=== PATIENT | male | born 1955 | race Caucasian/White ===

== ENCOUNTER 2019-03-03 05:42 | Emergency (ER) | payer OTHER ==
[~2019-03-03] VITALS: Ht 180.3 cm; Wt 104.3 kg
[2019-03-03] MEDS ORDERED: RT-ALBUTEROL SULF 2.5 MG/3 ML PRE-MIX VIAL INH STA (05:53)
[2019-03-03] MEDS ORDERED: predniSONE 20 MG TAB PO STA (06:29)
[2019-03-03 06:31] LABS: HEMOGLOBIN 15.2 G/DL (13.3-17.7); MEAN PLATELET VOLUME 10.2 FL (7.4-10.4); RED CELL DISTRIBUTION WIDTH 12.1 % (10.0-14.5); WHITE BLOOD COUNT 6.5 10^3/uL (4.3-11.0)
--- NOTE | 2019-03-03 06:47 | ED Cough/URI ---
General Chief Complaint: Respiratory Problems Stated Complaint: SOB Nursing Triage Note: pt states soa started yesterday and worsened around midnight, pt also with 15 minute episode of cp at midnight, sharp, no pain since Sepsis Screen: No Definite Risk History of Present Illness Date Seen by Provider: Mar 03, 2019 Time Seen by Provider: 06:05 63-year-old male denies chronic medical problems or smoking here for shortness of breath since yesterday. Asked about chest pain and admits to less than 15 minutes of sharp chest pain, not pleuritic, not exertional, nonradiating, that occurred at approximately midnight last night. No leg swelling. No hemoptysis. No cough or fever. He has received a breathing treatment in the emergency department prior to my evaluation and says that this made him feel almost completely better. Allergies and Home Medications Allergies Coded Allergies: No Known Drug Allergies (Unverified , 03/03/19) Home Medications Albuterol Sulfate 1 Puff Puff, 2 PUFF IH Q4H 1 PUFF = 90 MCG Prescribed by: MANOLO MAYFIELD on 03/03/19906 Azithromycin 250 Mg Tablet, 250 MG PO DAILY Prescribed by: MANOLO MAYFIELD on 03/03/19908 Metformin HCl 500 Mg Tablet, 500 MG PO BID Prescribed by: MANOLO MAYFIELD on 03/03/19908 Prednisone 20 Mg Tab, 40 MG PO DAILY Prescribed by: MANOLO MAYFIELD on 03/03/19906 Patient Home Medication List Home Medication List Reviewed: Yes Review of Systems Review of Systems Constitutional: no symptoms reported EENTM: no symptoms reported Respiratory: see HPI Cardiovascular: no symptoms reported Gastrointestinal: no symptoms reported Genitourinary: no symptoms reported Musculoskeletal: no symptoms reported Skin: no symptoms reported Psychiatric/Neurological: No Symptoms Reported Hematologic/Lymphatic: No Symptoms Reported Immunological/Allergic: no symptoms reported Past Cptklky-Vayvfq-Siwzak Hx Past Med/Social Hx: Reviewed Nursing Past Med/Soc Hx Patient Social History Alcohol Use: Denies Use Recreational Drug Use: No Smoking Status: Never a Smoker 2nd Hand Smoke Exposure: No Recent Foreign Travel: No Contact w/Someone Who Travel: No Recent Infectious Disease Expo: No Recent Hopitalizations: No Physical Abuse: No Sexual Abuse: No Mistreated: No Fear: No Seasonal Allergies Seasonal Allergies: No Past Medical History Surgeries: Yes Appendectomy Respiratory: No Cardiac: No Neurological: No Genitourinary: No Gastrointestinal: No Musculoskeletal: No Endocrine: No HEENT: No Cancer: No Psychosocial: No Integumentary: No Blood Disorders: No Adverse Reaction/Blood Tranf: No Physical Exam Vital Signs - First Documented 03/03/19 05:55 Temp 98.0 Pulse 94 Resp 20 B/P (MAP) 166/78 (107) Pulse Ox 96 O2 Delivery Room Air Capillary Refill : Less Than 3 Seconds Height: 5'11.00" Weight: 230lbs. oz. 104.218969qo; BMI Method:Stated General Appearance: no apparent distress (just finishing a nebulizer treatment) HEENT: normal ENT inspection Neck: supple Respiratory: other (good air exchange bilaterally, there is mild inspiratory and expiratory wheezing bilaterally) Cardiovascular: normal peripheral pulses, regular rate, rhythm, no edema, no JVD Gastrointestinal: non tender, soft Neurologic/Psychiatric: alert, normal mood/affect, oriented x 3; No abnormal gait Skin: warm/dry Progress/Results/Core Measures Suspected Sepsis Recent Fever Within 48 Hours: No Infection Criteria Present: None New/Unexplained Altered Menta: No Sepsis Screen: No Definite Risk SIRS Temperature:98.0 Pulse: 94 Respiratory Rate: 20 Laboratory Tests 03/03/19 06:20: White Blood Count 6.5 Blood Pressure 166 /78 Mean: 107 Laboratory Tests 03/03/19 06:20: Creatinine 0.67, Platelet Count 214, Total Bilirubin 0.4 Results/Orders Lab Results Laboratory Tests Test 03/03/19 06:20 03/03/19 08:40 03/03/19 08:45 Range/Units White Blood Count 6.5 4.3-11.0 10^3/uL Red Blood Count 5.08 4.35-5.85 10^6/uL Hemoglobin 15.2 13.3-17.7 G/DL Hematocrit 44 40-54 % Mean Corpuscular Volume 86 80-99 FL Mean Corpuscular Hemoglobin 30 25-34 PG Mean Corpuscular Hemoglobin Concent 35 32-36 G/DL Red Cell Distribution Width 12.1 10.0-14.5 % Platelet Count 214 130-400 10^3/uL Mean Platelet Volume 10.2 7.4-10.4 FL Sodium Level 132 L 135-145 MMOL/L Potassium Level 4.5 3.6-5.0 MMOL/L Chloride Level 92 L 98-107 MMOL/L Carbon Dioxide Level 15 L 21-32 MMOL/L Anion Gap 25 H 5-14 MMOL/L Blood Urea Nitrogen 12 7-18 MG/DL Creatinine 0.67 0.60-1.30 MG/DL Estimat Glomerular Filtration Rate > 60 BUN/Creatinine Ratio 18 Glucose Level 425 *H 70-105 MG/DL Calcium Level 9.1 8.5-10.1 MG/DL Corrected Calcium 9.0 8.5-10.1 MG/DL Total Bilirubin 0.4 0.1-1.0 MG/DL Aspartate Amino Transf (AST/SGOT) 17 5-34 U/L Alanine Aminotransferase (ALT/SGPT) 23 0-55 U/L Alkaline Phosphatase 57 40-136 U/L Troponin T 13 <=15 NG/L Pro-B-Type Natriuretic Peptide 25.8 <75.0 PG/ML Total Protein 6.9 6.4-8.2 GM/DL Albumin 4.1 3.2-4.5 GM/DL Glucometer 317 H 70-110 MG/DL Urine Color YELLOW Urine Clarity CLEAR Urine pH 6.0 5-9 Urine Specific [place] 1.010 L 1.016-1.022 Urine Protein NEGATIVE NEGATIVE Urine Glucose (UA) 3+ H NEGATIVE Urine Ketones NEGATIVE NEGATIVE Urine Nitrite NEGATIVE NEGATIVE Urine Bilirubin NEGATIVE NEGATIVE Urine Urobilinogen 0.2 NORMAL MG/DL Urine Leukocyte Esterase NEGATIVE NEGATIVE Urine RBC (Auto) NEGATIVE NEGATIVE My Orders Orders - TRAN,MANOLO T DO Cbc No Diff (03/03/19 06:12) Comprehensive Metabolic Panel (03/03/19 06:12) Chest Pa/Lat (2 View) (03/03/19 06:12) Ekg Tracing (03/03/19 06:12) O2 (03/03/19 06:12) Saline Lock/Iv-Start (03/03/19 06:12) Monitor-Rhythm Ecg Trace Only (03/03/19 06:12) Troponin T (03/03/19 06:12) Probnp Fs (03/03/19 06:12) Prednisone Tablet (Deltasone Tablet) (03/03/19 06:29) Azithromycin Tablet (Zithromax Tablet) (03/03/19 07:15) Ns Iv 1000 Ml (Sodium Chloride 0.9%) (03/03/19 07:02) Ns Iv 1000 Ml (Sodium Chloride 0.9%) (03/03/19 07:04) Insulin (Regular) Human (Humulin R (Per (03/03/19 07:04) Urinalysis Dipstick Only (03/03/19 07:19) Medications Given in ED Current Medications Medications Dose Ordered Sig/Magdalena Route Start Time Stop Time Status Last Admin Dose Admin Azithromycin 500 mg ONCE ONCE PO 03/03/19 07:15 03/03/19 07:16 DC 03/03/19 07:23 500 MG Vital Signs/I&O 03/03/19 05:55 Temp 98.0 Pulse 94 Resp 20 B/P (MAP) 166/78 (107) Pulse Ox 96 O2 Delivery Room Air Capillary Refill : Less Than 3 Seconds Blood Pressure Mean: 107 Progress Note : Progress Note This is a 63-year-old man who presents with wheezing, shortness of breath, improved with albuterol. Found to have incidental new onset diabetes. He has familiarity with treatment/testing for diabetes as his had been diagnosed with diabetes he states. Blood glucose improved with fluids and insulin. I spoke with patient at length about his diagnoses. I prescribed metformin, glucometer, lancets and test strips. Regarding the respiratory complaint I prescribed a modified dose of prednisone, 40 mg just for the next 2 days, as well as an albuterol inhaler that is supposed to be used every 4 hours while awake for the next 5 days. I also felt it was reasonable to continue treatment with azithromycin in this setting, with a 500 mg tablet given in the emergency department and a prescription for 4 more days. He was advised to contact his insurance company to find a local primary care physician with whom to follow up as soon as possible. He had no additional questions. ECG EKG : Comment 0601: Normal sinus rhythm rate of 89. Nonspecific flattening of the T waves in the inferior and lateral leads. Diagnostic Imaging Diagonstic Imaging: Xray Plain Films/CT/US/NM/MRI: chest Comments EP interpretation: Suboptimal inspiratory effort. Trachea is midline, no widened mediastinum, diaphragmatic borders are not obscured/no effusions. Atelectasis versus infiltrate at the left base. No pneumothoraces, no obvious bony abnormalities, Reviewed: Reviewed by Me Departure Impression Primary Impression: Diabetes mellitus, new onset Additional Impression: Wheezing Disposition: HOME, SELF-CARE Condition: Stable Departure-Patient Inst. Referrals: NO,LOCAL PHYSICIAN (PCP) Primary Care Physician Patient Instructions: Type 2 Diabetes, Wheezing Scripts Lancets/Blood Glucose Strips (Fora [id number] Lanct-Str) 1 Each Combo..pkg EACH MC BID PRN for HYPERGLYCEMIA, #1 0 Refills Prov: MANOLO MAYFIELD DO 03/03/19 Blood-Glucose Meter (Blood Glucose Meter) 1 Each Each EACH MC BID PRN for HYPERGLYCEMIA, #1 0 Refills Prov: MANOLO MAYFIELD DO 03/03/19 Metformin HCl (Metformin HCl) 500 Mg Tablet 500 MG PO BID, #60 TAB Prov: MANOLO MAYFIELD DO 03/03/19 Azithromycin (Azithromycin) 250 Mg Tablet 250 MG PO DAILY, #4 TAB 0 Refills Prov: MANOLO MAYFIELD DO 03/03/19 Prednisone (Prednisone) 20 Mg Tab 40 MG PO DAILY for 2 Days, #4 TAB 0 Refills Prov: MANOLO MAYFIELD DO 03/03/19 Albuterol Sulfate (PROAIR HFA) 1 Puff Puff 2 PUFF IH Q4H for 5 Days, #1 INHALER 1 PUFF = 90 MCG Prov: MANOLO MAYFIELD DO 03/03/19 MANOLO MAYFIELD DO Mar 03, 2019 06:47
[2019-03-03 07:01] LABS: BUN/CREATININE RATIO 18; CARBON DIOXIDE 15 MMOL/L (21-32); CHLORIDE 92 MMOL/L (98-107); CREATININE SERUM 0.67 MG/DL (0.60-1.30); GFR ESTIMATED > 60; POTASSIUM 4.5 MMOL/L (3.6-5.0); SODIUM 132 MMOL/L (135-145)
--- NOTE | 2019-03-03 07:01 | NUR ---
report to Jinny
[2019-03-03 07:02] LABS: ALANINE AMINOTRANSFERASE 23 U/L (0-55); ALBUMIN 4.1 GM/DL (3.2-4.5); ALKALINE PHOSPHATASE 57 U/L (40-136); BILIRUBIN,TOTAL 0.4 MG/DL (0.1-1.0); CALCIUM 9.1 MG/DL (8.5-10.1); GLUCOSE 425 MG/DL (70-105); TOTAL PROTEIN 6.9 GM/DL (6.4-8.2)
[2019-03-03] MEDS ORDERED: NS IV 1000 ML 1,000 ML IV STA ×2 (07:02→07:04)
[2019-03-03] MEDS ORDERED: inSUlin (REGULAR) HUMAN 1 UNIT/0.01 ML (CHARGE PER UNIT) IV STA (07:04)
--- NOTE | 2019-03-03 07:08 | Diagnostic Imaging Report ---
INDICATION: Shortness of breath with worsening overnight. COMPARISON: None available. FINDINGS: No airspace consolidations. No pleural effusion or pneumothorax. Heart is normal in size. Normal mediastinal contours. Prominent shadow in the right paratracheal region should relate to normal systemic vasculature. IMPRESSION: No acute cardiopulmonary process. Dictated by: Dictated on workstation # [id number]
[2019-03-03] MEDS ORDERED: AZITHROMYCIN 250 MG TAB (ZITHROMAX) PO ONE (07:15)
[2019-03-03 08:56] LABS: BILIRUBIN,URINE NEGATIVE (NEGATIVE); CLARITY,URINE CLEAR; COLOR,URINE YELLOW; GLUCOSE, URINE (UA) 3+ (NEGATIVE); KETONES,URINE NEGATIVE (NEGATIVE); LEUKOCYTE ESTERASE ,URINE NEGATIVE (NEGATIVE); NITRITE,URINE NEGATIVE (NEGATIVE); PROTEIN,URINE NEGATIVE (NEGATIVE); UROBILINOGEN,URINE 0.2 MG/DL (NORMAL)
[2019-03-03] MEDS ORDERED: RT-ALBUINH IH (09:07)
[2019-03-03] MEDS ORDERED: PRD20T PO (09:07)
[2019-03-03] MEDS ORDERED: METF-397 PO (09:09)
[2019-03-03] MEDS ORDERED: AZIT250T12 PO (09:09)
[2019-03-03] MEDS ORDERED: BLOO1EAC87 MC (09:22)
[2019-03-03] MEDS ORDERED: LANC1COM MC (09:22)
[2019-03-03 09:27] VITALS: BP 142/71
== END 2019-03-03 09:27 | disposition home or self-care (01) ==
LOC: EDUNIT# 05:42 → ER FS 05:45
DX: E11.9 Type 2 diabetes mellitus without complications (principal); R06.2 Wheezing; Z79.84 Long term (current) use of oral hypoglycemic drugs; Z79.52 Long term (current) use of systemic steroids; Z90.49 Acquired absence of other specified parts of digestive tract
CPT/HCPCS: 36415; 71046; 80053; 81002; 82962; 83880; 84484; 85027; 93041

== ENCOUNTER 2019-03-27 13:42 | Emergency (ER) | payer OTHER ==
[~2019-03-27] VITALS: Ht 180.3 cm; Wt 104.3 kg
[~2019-03-27 13:42] MED LIST: AZIT250T12 PO; BLOO1EAC87 MC; LANC1COM MC; METF-397 PO; PRD20T PO; RT-ALBUINH IH
[2019-03-27] MEDS ORDERED: HYDR-34 PO (14:58)
[2019-03-27] MEDS ORDERED: TETANUS,DIPTH,PERTUSS P/F (BOOSTRIX) 0.5 ML VIAL IM ONE (15:00)
[2019-03-27] MEDS ORDERED: HYDROcodone/APAP 7.5 MG/325 MG (LORTAB, LORCET PLUS) TABLET PO ONE (15:00)
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
[2019-03-27] MEDS ORDERED: TBDXOO OP (15:08)
[2019-03-27 15:20] VITALS: BP 157/91
[2019-03-27] MEDS ORDERED: TOBRA/DEXAMETH (TOBRADEX) OPHTH OINT 3.5 GM TUBE OD SCH (17:00)
== END 2019-03-27 15:20 | disposition home or self-care (01) ==
LOC: EDUNIT# 13:42 → ER FS 13:44
DX: S05.01XA Injury of conjunctiva and corneal abrasion without foreign body, right eye, initial encounter (principal); Z79.84 Long term (current) use of oral hypoglycemic drugs; Z79.52 Long term (current) use of systemic steroids; Z79.51 Long term (current) use of inhaled steroids; Z90.49 Acquired absence of other specified parts of digestive tract; X10.2XXA Contact with fats and cooking oils, initial encounter
CPT/HCPCS: 90715; 99283

== ENCOUNTER 2019-11-28 10:27 | Emergency (ER) | payer OTHER ==
[~2019-11-28] VITALS: Ht 180.3 cm; Wt 104.3 kg
[~2019-11-28 10:27] MED LIST changes: +HYDR-34 PO; +TBDXOO OP
[2019-11-28] MEDS ORDERED: methylPREDNISolone 125 MG (Solu-MEDROL) VIAL IV STA (10:33)
--- NOTE | 2019-11-28 10:33 | ED Dyspnea ---
General Stated Complaint: SOA/CHEST PAIN Source of Information: Patient History of Present Illness Date Seen by Provider: Nov 28, 2019 Time Seen by Provider: 10:32 Initial Comments 64-year-old male presents with shortness of breath and chest discomfort. Reports that he started getting short of breath over the weekend and has gotten previously worse. He does have a cough. He has pain in his chest that is worse when he coughs. He denies any fevers or chills. He denies any history of smoking are reactive airway disease. He does not report any fevers. Allergies and Home Medications Allergies Coded Allergies: No Known Drug Allergies (Unverified , 03/03/19) Home Medications Albuterol Sulfate 1 Puff Puff, 2 PUFF IH Q4H 1 PUFF = 90 MCG Prescribed by: BRIDGETTE DE ANDA on 11/28/19 1302 Azithromycin 250 Mg Tablet, 250 MG PO DAILY Prescribed by: MANOLO MAYFIELD on 03/03/19 0909 Doxycycline Hyclate 100 Mg Tablet, 100 MG PO BID Prescribed by: BRIDGETTE DE ANDA on 11/28/19 1302 Hydrocodone Bit/Acetaminophen 1 Ea Tablet, 1 EACH PO Q6H PRN for EYE PAIN Prescribed by: SOULEYMANE CAMPBELL on 03/27/19 1458 Metformin HCl 500 Mg Tablet, 500 MG PO BID Prescribed by: MANOLO MAYFIELD on 03/03/19 0909 Prednisone 20 Mg Tab, 40 MG PO DAILY Prescribed by: BRIDGETTE DE ANDA on 11/28/19 1302 Tobramycin/Dexamethasone 3.5 Gm Oint, 1 APPLIC OP Q4H Prescribed by: SOULEYMANE CAMPBELL on 03/27/19 1508 Patient Home Medication List Home Medication List Reviewed: Yes Review of Systems Review of Systems Constitutional: No chills, No dizziness, No fever EENTM: no symptoms reported Respiratory: cough, short of breath Cardiovascular: see HPI Genitourinary: no symptoms reported Musculoskeletal: no symptoms reported Skin: no symptoms reported Psychiatric/Neurological: No Symptoms Reported Past Jzwhkqv-Dtglfn-Ktrdll Hx Patient Social History 2nd Hand Smoke Exposure: No Recent Foreign Travel: No Contact w/Someone Who Travel: No Recent Hopitalizations: No Seasonal Allergies Seasonal Allergies: No Past Medical History Surgeries: Yes Appendectomy Respiratory: No Cardiac: No Neurological: No Genitourinary: No Gastrointestinal: No Musculoskeletal: No Endocrine: No HEENT: No Cancer: No Psychosocial: No Integumentary: No Blood Disorders: No Adverse Reaction/Blood Tranf: No Physical Exam Vital Signs Vital Signs - First Documented 11/28/19 10:54 Temp 36.4 Pulse 125 Resp 24 B/P (MAP) 172/108 (129) Pulse Ox 96 Capillary Refill : Height, Weight, BMI Height: 5'11.00" Weight: 230lbs. oz. 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 Norm as Tested Skin: Normal Color, Warm/Dry Progress/Results/Core Measures Results/Orders Lab Results Laboratory Tests Test 11/28/19 10:35 Range/Units White Blood Count 9.2 4.3-11.0 10^3/uL Red Blood Count 5.67 4.35-5.85 10^6/uL Hemoglobin 16.6 13.3-17.7 G/DL Hematocrit 48 40-54 % Mean Corpuscular Volume 85 80-99 FL Mean Corpuscular Hemoglobin 29 25-34 PG Mean Corpuscular Hemoglobin Concent 34 32-36 G/DL Red Cell Distribution Width 12.6 10.0-14.5 % Platelet Count 256 130-400 10^3/uL Mean Platelet Volume 9.9 7.4-10.4 FL Neutrophils (%) (Auto) 63 42-75 % Lymphocytes (%) (Auto) 23 12-44 % Monocytes (%) (Auto) 7 0-12 % Eosinophils (%) (Auto) 5 0-10 % Basophils (%) (Auto) 1 0-10 % Neutrophils # (Auto) 5.8 1.8-7.8 X 10^3 Lymphocytes # (Auto) 2.1 1.0-4.0 X 10^3 Monocytes # (Auto) 0.7 0.0-1.0 X 10^3 Eosinophils # (Auto) 0.5 H 0.0-0.3 10^3/uL Basophils # (Auto) 0.1 0.0-0.1 10^3/uL D-Dimer 0.37 0.00-0.49 UG/ML Sodium Level 136 135-145 MMOL/L Potassium Level 4.2 3.6-5.0 MMOL/L Chloride Level 97 L 98-107 MMOL/L Carbon Dioxide Level 22 21-32 MMOL/L Anion Gap 17 H 5-14 MMOL/L Blood Urea Nitrogen 9 7-18 MG/DL Creatinine 0.77 0.60-1.30 MG/DL Estimat Glomerular Filtration Rate > 60 BUN/Creatinine Ratio 12 Glucose Level 321 H 70-105 MG/DL Calcium Level 9.8 8.5-10.1 MG/DL Corrected Calcium 8.5-10.1 MG/DL Total Bilirubin 0.5 0.1-1.0 MG/DL Aspartate Amino Transf (AST/SGOT) 19 5-34 U/L Alanine Aminotransferase (ALT/SGPT) 22 0-55 U/L Alkaline Phosphatase 56 40-136 U/L Troponin I < 0.30 <0.30 NG/ML Pro-B-Type Natriuretic Peptide 22.0 <75.0 PG/ML Total Protein 8.0 6.4-8.2 GM/DL Albumin 4.6 H 3.2-4.5 GM/DL Micro Results Microbiology 11/28/19 Influenza Types A,B Antigen ([place]) - Final, Complete My Orders Orders - BRIDGETTE DE ANDA DO Albuterol/Ipra Inhalation Soln (Duoneb I (11/28/19 10:45) Methylprednisolone Sod Succ (Solu-Medrol (11/28/19 10:33) Svn Small Volume Nebulizer (11/28/19 10:33) Ekg Tracing (11/28/19 10:33) Chest Pa/Lat (2 View) (11/28/19 10:33) Cbc With Automated Diff (11/28/19 10:33) Comprehensive Metabolic Panel (11/28/19 10:33) Influenza A And B Antigens (11/28/19 10:33) Probnp Fs (11/28/19 10:33) Troponin I Fs (11/28/19 10:33) Albuterol Pre-Mix Nebs (Rt) (Proventil (11/28/19 10:57) Svn Small Volume Nebulizer (11/28/19 10:57) Fibrin Degradation Products (11/28/19 11:21) Ed Iv/Invasive Line Start (11/28/19 11:23) Ns Iv 500 Ml (Sodium Chloride 0.9%) (11/28/19 11:23) Ed Iv/Invasive Line Start (11/28/19 12:34) Ns Iv 1000 Ml (Sodium Chloride 0.9%) (11/28/19 12:34) Albuterol/Ipra Inhalation Soln (Duoneb I (11/28/19 12:45) Svn Small Volume Nebulizer (11/28/19 12:34) Medications Given in ED Current Medications Medications Dose Ordered Sig/Magdalena Route Start Time Stop Time Status Last Admin Dose Admin Albuterol/ Ipratropium 3 ml ONCE ONCE INH 11/28/19 10:45 11/28/19 10:46 DC 11/28/19 10:47 3 ML Albuterol/ Ipratropium 3 ml ONCE ONCE INH 11/28/19 12:45 11/28/19 12:46 DC 11/28/19 12:44 3 ML Sodium Chloride 500 ml @ 0 mls/hr Q0M ONCE IV 11/28/19 11:23 11/28/19 11:24 DC 11/28/19 11:48 999 MLS/HR Vital Signs/I&O 11/28/19 10:54 Temp 36.4 Pulse 125 Resp 24 B/P (MAP) 172/108 (129) Pulse Ox 96 Progress Progress Note : Time: 12:57 Progress Note Patient feels significantly better following breathing treatments. Patient remained tachycardic throughout his stay saw discussed with him the need to follow-up outpatient to ensure that this clears up. He will be discharged home with acute bronchitis with azithromycin, steroids and Proventil. he'll return to the ER if needed. Initial ECG Impression Date: Nov 28, 2019 Initial ECG Impression Time: 12:30 Initial ECG Rhythm: S.Tach Comment poor quality ekg, no acute findings pt moving Departure Impression Primary Impression: Bronchitis Disposition: 01 HOME, SELF-CARE Condition: Improved Departure-Patient Inst. Referrals: NO,LOCAL PHYSICIAN (PCP/Family) Primary Care Physician Patient Instructions: Acute Bronchitis Scripts Doxycycline Hyclate (Doxycycline Hyclate) 100 Mg Tablet 100 MG PO BID, #20 TAB 0 Refills Prov: DE ANDA,BRIDGETTE L DO 11/28/19 Prednisone (Prednisone) 20 Mg Tab 40 MG PO DAILY for 2 Days, #6 TAB 0 Refills Prov: DE ANDA,BRIDGETTE L DO 11/28/19 Albuterol Sulfate (PROAIR HFA) 1 Puff Puff 2 PUFF IH Q4H for 7 Days, #1 INHALER 1 PUFF = 90 MCG Prov: BRIDGETTE DE ANDA DO 11/28/19 Work/School Note: Work Release Form Date Seen in the Emergency Department: Nov 28, 2019 Return to Work: Dec 01, 2019 BRIDGETTE DE ANDA DO Nov 28, 2019 10:33
[2019-11-28] MEDS ORDERED: RT-ALBUTEROL/IPRATROPIUM 3 ML (DUONEB) VIAL INH ONE ×2 (10:45→12:45)
[2019-11-28 10:50] LABS: HEMATOCRIT 48 % (40-54); HEMOGLOBIN 16.6 G/DL (13.3-17.7); MEAN CORPUSCULAR HEMOGLOBIN 29 PG (25-34); MEAN CORPUSCULAR HGB CONC 34 G/DL (32-36); MEAN CORPUSCULAR VOLUME 85 FL (80-99); MEAN PLATELET VOLUME 9.9 FL (7.4-10.4); PLATELET COUNT 256 10^3/uL (130-400); RED CELL DISTRIBUTION WIDTH 12.6 % (10.0-14.5); WHITE BLOOD COUNT 9.2 10^3/uL (4.3-11.0)
[2019-11-28 10:51] LABS: BASOPHILS # (AUTO) 0.1 10^3/uL (0.0-0.1); BASOPHILS % (AUTO) 1 % (0-10); EOSINOPHILS # (AUTO) 0.5 10^3/uL (0.0-0.3); EOSINOPHILS % (AUTO) 5 % (0-10); LYMPHOCYTES # (AUTO) 2.1 X 10^3 (1.0-4.0); LYMPHOCYTES % (AUTO) 23 % (12-44); MONOCYTES # (AUTO) 0.7 X 10^3 (0.0-1.0); MONOCYTES % (AUTO) 7 % (0-12); NEUTROPHILS # (AUTO) 5.8 X 10^3 (1.8-7.8); NEUTROPHILS % (AUTO) 63 % (42-75)
[2019-11-28] MEDS ORDERED: RT-ALBUTEROL SULF 2.5 MG/3 ML PRE-MIX VIAL INH STA (10:57)
--- NOTE | 2019-11-28 11:09 | Diagnostic Imaging Report ---
INDICATION: Short of breath, chest pain. COMPARISON: March 03, 2019. TECHNIQUE: Two radiographs of the chest dated November 28, 2019. FINDINGS: The cardiac silhouette and pulmonary vasculature are within normal limits in size. The lungs are clear. No pleural effusion. No pneumothorax. No acute osseous abnormality. IMPRESSION: Stable examination without acute cardiopulmonary abnormality. Dictated by: Dictated on workstation # [id number]
[2019-11-28] MEDS ORDERED: NS IV 500 ML 500 ML IV ONE (11:23)
[2019-11-28 11:35] LABS: BUN/CREATININE RATIO 12; CALCIUM 9.8 MG/DL (8.5-10.1); CARBON DIOXIDE 22 MMOL/L (21-32); CHLORIDE 97 MMOL/L (98-107); CREATININE SERUM 0.77 MG/DL (0.60-1.30); GFR ESTIMATED > 60; GLUCOSE 321 MG/DL (70-105); POTASSIUM 4.2 MMOL/L (3.6-5.0); SODIUM 136 MMOL/L (135-145)
[2019-11-28 11:36] LABS: ALANINE AMINOTRANSFERASE 22 U/L (0-55); ALBUMIN 4.6 GM/DL (3.2-4.5); ALKALINE PHOSPHATASE 56 U/L (40-136); BILIRUBIN,TOTAL 0.5 MG/DL (0.1-1.0)
[2019-11-28] MEDS ORDERED: NS IV 1000 ML 1,000 ML IV SCH (12:34)
[2019-11-28] MEDS ORDERED: RT-ALBUINH IH (13:02)
[2019-11-28] MEDS ORDERED: DOXY100T2 PO (13:02)
[2019-11-28] MEDS ORDERED: PRD20T PO (13:02)
[2019-11-28 13:23] VITALS: BP 149/95
== END 2019-11-28 13:23 | disposition home or self-care (01) ==
LOC: EDUNIT# 10:27 → ER FS 10:29
DX: J40 Bronchitis, not specified as acute or chronic (principal); Z79.84 Long term (current) use of oral hypoglycemic drugs; Z90.49 Acquired absence of other specified parts of digestive tract
CPT/HCPCS: 36415; 71046; 80053; 83880; 84484; 85025; 85379; 87804; 93005; 94640; 96361; 96374

== ENCOUNTER 2021-03-07 05:48 | Inpatient (IN) | payer OTHER ==
[2021-03-07] VITALS (8 sets, daily range): BP systolic 160–181; BP diastolic 83–117
[~2021-03-07] VITALS: Ht 152.4 cm; Wt 102.3 kg
[~2021-03-07 05:48] MED LIST changes: +DOXY100T2 PO
[2021-03-07 06:19] LABS: HEMATOCRIT 43 % (40-54); HEMOGLOBIN 14.9 G/DL (13.3-17.7); LYMPHOCYTES % (AUTO) 36 % (12-44); MEAN CORPUSCULAR HEMOGLOBIN 29 PG (25-34); MEAN CORPUSCULAR HGB CONC 35 G/DL (32-36); MEAN CORPUSCULAR VOLUME 85 FL (80-99); MEAN PLATELET VOLUME 9.5 FL (7.4-10.4); MONOCYTES % (AUTO) 6 % (0-12); NEUTROPHILS % (AUTO) 51 % (42-75); PLATELET COUNT 304 10^3/uL (130-400); WHITE BLOOD COUNT 7.9 10^3/uL (4.3-11.0)
[2021-03-07 06:20] LABS: BASOPHILS # (AUTO) 0.1 10^3/uL (0.0-0.1); BASOPHILS % (AUTO) 1 % (0-10); EOSINOPHILS # (AUTO) 0.3 10^3/uL (0.0-0.3); EOSINOPHILS % (AUTO) 4 % (0-10); LYMPHOCYTES # (AUTO) 2.8 X 10^3 (1.0-4.0); MONOCYTES # (AUTO) 0.5 X 10^3 (0.0-1.0)
[2021-03-07 06:21] LABS: ALANINE AMINOTRANSFERASE 26 U/L (0-55); ALBUMIN 4.1 GM/DL (3.2-4.5); ALKALINE PHOSPHATASE 65 U/L (40-136); BILIRUBIN,TOTAL 0.3 MG/DL (0.1-1.0); BUN/CREATININE RATIO 14; CALCIUM 9.3 MG/DL (8.5-10.1); CARBON DIOXIDE 22 MMOL/L (21-32); CHLORIDE 100 MMOL/L (98-107); CREATININE SERUM 0.81 MG/DL (0.60-1.30); GFR ESTIMATED > 60; GLUCOSE 256 MG/DL (70-105); POTASSIUM 4.3 MMOL/L (3.6-5.0); SODIUM 135 MMOL/L (135-145); TOTAL PROTEIN 7.1 GM/DL (6.4-8.2)
--- NOTE | 2021-03-07 06:26 | Diagnostic Imaging Report ---
INDICATION: Stroke alert. Portable chest 6:08 AM FINDINGS: Heart size and pulmonary vascularity are normal. Lungs are clear. There are no effusions or pneumothoraces. IMPRESSION: Negative chest. Dictated by: Dictated on workstation # [id number]
--- NOTE | 2021-03-07 06:29 | Diagnostic Imaging Report ---
PROCEDURE: CT head wo r/o stroke. TECHNIQUE: Multiple contiguous axial images were obtained through the brain without the use of intravenous contrast. Auto Exposure Controls were utilized during the CT exam to meet ALARA standards for radiation dose reduction. INDICATION: Right upper extremity weakness The ventricles are normal in size, shape and position. There are no masses or hemorrhages. There are no extra-axial fluid collections. Paranasal sinuses are clear. IMPRESSION: Negative CT head. There is no CT evidence of an acute infarct. Dictated by: Dictated on workstation # [id number]
--- NOTE | 2021-03-07 06:32 | ED Neurological Problem ---
General Chief Complaint: Neuro-Stroke Like Symptoms Stated Complaint: POSS STROKE Nursing Triage Note: pt states he went to bed last night around 1999 and woke up around 0400 with right sided tingling and weakness Nursing Sepsis Screen: No Definite Risk Source: patient (JAKE WALTERS MD) History of Present Illness Date Seen by Provider: Mar 07, 2021 Time Seen by Provider: 05:48 Initial Comments 65 yo male presenting with complaints of waking up at 4 am with right sided weakness and tingling. He reports going to bed around 1999 and had no problems then and did not wake up overnight until this am at 4 am. He states that he is right hand dominant has trouble using his right side and right hand. He denies any headache or vision changes. He is not having any chest pain, shortness of breath, nausea or vomiting. He denies having symptoms like this in the past. He denies taking any medications on a daily basis. He has a family history of a younger brother that had a prior stroke. He believes that he may have high blood pressure but does not follow with a provider and does not take any medication for it. He denies any difficulty with vision, speech or swallowing. Associated Symptoms: No confusion, No fatigue, No fever/chills, No insomnia, No loss of consciousness, No muscle spasms, No nausea/vomiting, No numbness in legs/feet, No paresthesia, No ringing in ears, No seizures, No sleepy, No slurred speech; tingling in legs/feet (right side face, arm, leg), trouble walking (due to weakness on right side); No vision changes; weakness (right side) (JAKE WALTERS MD) Allergies and Home Medications Allergies Coded Allergies: No Known Drug Allergies (Unverified , 03/07/21) Home Medications No Active Prescriptions or Reported Meds Patient Home Medication List Home Medication List Reviewed: Yes (JAKE WALTERS MD) Review of Systems Review of Systems Constitutional: No chills, No diaphoresis, No fever Eyes: Denies Blurred Vision, Denies Vision Changes Ears, Nose, Mouth, Throat: denies ear pain, denies ear discharge, denies nose discharge, denies epistaxis Respiratory: No cough, No short of breath Cardiovascular: No chest pain, No edema, No palpitations Gastrointestinal: No nausea, No vomiting Genitourinary: no symptoms reported Musculoskeletal: muscle weakness (right arm, hand and leg) Skin: no symptoms reported Psychiatric/Neurological: Denies Headache; Tingling (right side of face, right arm), Weakness (right arm and leg) Endocrine: No Symptoms Reported Hematologic/Lymphatic: No Symptoms Reported (JAKE WALTERS MD) Past Uzjszvq-Baviss-Zctcds Hx Past Med/Social Hx: Reviewed Nursing Past Med/Soc Hx (JAKE WALTERS MD) Patient Social History Alcohol Use: Denies Use 2nd Hand Smoke Exposure: No Recent Infectious Disease Expo: No Recent Hopitalizations: No (JAKE WALTERS MD) Seasonal Allergies Seasonal Allergies: No (JAKE WALTERS MD) Past Medical History Surgeries: Yes (Carpal Tunnel - right) Appendectomy Respiratory: No Cardiac: Yes Hypertension Neurological: No Genitourinary: No Gastrointestinal: No Musculoskeletal: No Endocrine: No HEENT: No Cancer: No Psychosocial: No Integumentary: No Blood Disorders: No Adverse Reaction/Blood Tranf: No (JAKE WALTERS MD) Physical Exam Vital Signs Vital Signs - First Documented 03/07/21 06:11 Temp 36.2 Pulse 89 Resp 18 B/P (MAP) 181/92 (121) Pulse Ox 97 O2 Delivery Room Air Capillary Refill : Less Than 3 Seconds Height, Weight, BMI Height: 5'11.00" Weight: 230lbs. oz. 104.120948px; 32.00 BMI Method:Stated General Appearance: WD/WN, mild distress (distressed that he can not use his right hand and right side like normal) HEENT: PERRL/EOMI, pharynx normal Neck: non-tender, full range of motion, supple, normal inspection; No carotid bruit Respiratory: chest non-tender, lungs clear, normal breath sounds, no respiratory distress, no accessory muscle use Cardiovascular: normal peripheral pulses, regular rate, rhythm Peripheral Pulses: 2+ Carotid (R), 2+ Carotid (L), 2+ Radial Pulses (R), 2+ Radial Pulses (L) Gastrointestinal: normal bowel sounds, non tender, soft, no pulsatile mass Extremities: non-tender, no pedal edema, normal capillary refill, other (decreased range of motion to right hand with decreased brine purifier ) Neurologic/Psychiatric: alert, oriented x 3 Crainal Nerves: normal hearing, normal speech, PERRL, facial asymmetry, facial droop (left side drooping more than the right), facial paresthesias (tingling to right side of face) Motor/Sensory: sensory deficit (tingling to right side of face and arm compared to left) Skin: normal color, warm/dry (JAKE WALTERS MD) Vital Signs Vital Signs - First Documented 03/07/21 06:11 Temp 36.2 Pulse 89 Resp 18 B/P (MAP) 181/92 (121) Pulse Ox 97 O2 Delivery Room Air ([facility]) Stroke Onset of Symptoms Symptoms onset unknown: Yes (went to bed normal at 1999, woke up at 4 am with r ight sided weak/tingling) (JAKE WALTERS MD) NIH Stroke Scale Assessment Level of Consciousness: 0=Alert (0), Level of Consciousness-Questions: 0=Answers both month/age (0), LOC Commands: 0=Performs both tasks (0), Visual Zaragoza: 0=No visual loss (0), Facial Movement (Facial Paresis): 1=Minor paralysis (1), Motor Function-Arms Right: 0=No drift (0), Motor Function-Arms Left: 0=No drift (0), Motor Function-Legs Right: 0=No drift (0), Motor Function-Legs Left: 0=No drift (0), Limb Ataxia: 0=Absent (0), Sensory: 1=Mild to Moderate loss (1), Best Language: 0=No aphasia (0), Dysarthria: 0=Normal (0), Extinction & Inattention: 0=No abnormality (0), Total: 2 Stroke Thrombolytic Exclusion Age 18 or Over: Yes Acute intenal hemorrhage: No History of CVA: No Uncontrolled Coagulation Defec: No Intracranial Hemorrhage: No Severe Hypertension: No GI or Bleed: No Subarachnoid Hemorrhage: No Intracranial Neoplasm/Aneurysm: No Oral Anticoagulants: No Surgery or Trauma: No Puncture of Non-Compressible V: No Recent CPR: No Diabetic Hemorrhagic Retinopat: No Organ Biopsy: No Recent Obstetric Delivery: No Glucose: No Significant Hepatic Dysfunctio: No NIH Stoke Scale >22: No Bacterial Endocarditis: No Pericarditis: No Improving Symptoms: No Platelets: No TPA Contraindication: Yes (unknown time of onset, low NIHSS) (JAKE WALTERS MD) IV - TPa Received IV - TPa Procedure Performed?: No (Contraindicated with unknown time of onset and low NIHSS d/w Neuro Dr. Fuller [facility]) (JAKE WALTERS MD) Progress/Results/Core Measures Results/Orders Lab Results Laboratory Tests Test 03/07/21 05:00 03/07/21 05:50 03/07/21 05:54 Range/Units White Blood Count 7.9 4.3-11.0 10^3/uL Red Blood Count 5.06 4.35-5.85 10^6/uL Hemoglobin 14.9 13.3-17.7 G/DL Hematocrit 43 40-54 % Mean Corpuscular Volume 85 80-99 FL Mean Corpuscular Hemoglobin 29 25-34 PG Mean Corpuscular Hemoglobin Concent 35 32-36 G/DL Red Cell Distribution Width 12.3 10.0-14.5 % Platelet Count 304 130-400 10^3/uL Mean Platelet Volume 9.5 7.4-10.4 FL Immature Granulocyte % (Auto) 3 % Neutrophils (%) (Auto) 51 42-75 % Lymphocytes (%) (Auto) 36 12-44 % Monocytes (%) (Auto) 6 0-12 % Eosinophils (%) (Auto) 4 0-10 % Basophils (%) (Auto) 1 0-10 % Neutrophils # (Auto) 4.0 1.8-7.8 X 10^3 Lymphocytes # (Auto) 2.8 1.0-4.0 X 10^3 Monocytes # (Auto) 0.5 0.0-1.0 X 10^3 Eosinophils # (Auto) 0.3 0.0-0.3 10^3/uL Basophils # (Auto) 0.1 0.0-0.1 10^3/uL Immature Granulocyte # (Auto) 0.2 H 0.0-0.1 10^3/uL Prothrombin Time 13.2 12.2-14.7 SEC INR Comment 1.0 0.8-1.4 Activated Partial Thromboplast Time 26 24-35 SEC Sodium Level 135 135-145 MMOL/L Potassium Level 4.3 3.6-5.0 MMOL/L Chloride Level 100 98-107 MMOL/L Carbon Dioxide Level 22 21-32 MMOL/L Anion Gap 13 5-14 MMOL/L Blood Urea Nitrogen 11 7-18 MG/DL Creatinine 0.81 0.60-1.30 MG/DL Estimat Glomerular Filtration Rate > 60 BUN/Creatinine Ratio 14 Glucose Level 256 H 70-105 MG/DL Calcium Level 9.3 8.5-10.1 MG/DL Corrected Calcium 9.2 8.5-10.1 MG/DL Total Bilirubin 0.3 0.1-1.0 MG/DL Aspartate Amino Transf (AST/SGOT) 19 5-34 U/L Alanine Aminotransferase (ALT/SGPT) 26 0-55 U/L Alkaline Phosphatase 65 40-136 U/L Troponin I < 0.30 <0.30 NG/ML Total Protein 7.1 6.4-8.2 GM/DL Albumin 4.1 3.2-4.5 GM/DL Glucometer 241 H 70-110 MG/DL My Orders Orders - ENJAKE GODDARD MD Chest 1 View Ap/Pa Only (03/07/21 05:50) Ekg Tracing (03/07/21 05:50) Ct Head Wo-R/O Stroke (03/07/21 05:50) Accucheck Stat ONCE (03/07/21 05:50) Vital Signs Stroke Patient Q15M (03/07/21 05:50) Intake & Output 06,14,22 (03/07/21 05:50) Dysphagia Screening Tool (03/07/21 05:50) Partial Thromboplastin Time (03/07/21 05:50) Nothing By Mouth (03/07/21 Breakfast) Ed Iv/Invasive Line Start (03/07/21 05:50) O2 (03/07/21 05:50) Monitor-Rhythm Ecg Trace Only (03/07/21 05:50) Cbc With Automated Diff (03/07/21 05:50) Comprehensive Metabolic Panel (03/07/21 05:50) Troponin I Fs (03/07/21 05:50) Urinalysis (03/07/21 05:50) Protime With Inr (03/07/21 05:50) Ct Angio Head/Neck (03/07/21 07:20) Iohexol Injection (Omnipaque 350 Mg/Ml 1 (03/07/21 07:30) Received Contrast (Hold Metformin- Contr (03/07/21 07:30) Sodium Chloride Flush (Catheter Flush Sy (03/07/21 07:30) Ns (Ivpb) (Sodium Chloride 0.9% Ivpb Bag (03/07/21 07:30) Iohexol Injection (Omnipaque 350 Mg/Ml 1 (03/07/21 08:00) Received Contrast (Hold Metformin- Contr (03/07/21 08:00) Medications Given in ED Current Medications Medications Dose Ordered Sig/Magdalena Route Start Time Stop Time Status Last Admin Dose Admin Iohexol 75 ml ONCE ONCE IV 03/07/21 08:00 03/07/21 08:01 03/07/21 07:55 75 ML Sodium Chloride 10 ml NEEDED PRN IV 03/07/21 07:30 03/07/21 07:55 10 ML Sodium Chloride 100 ml ONCE ONCE IV 03/07/21 07:30 03/07/21 07:31 DC 03/07/21 07:55 100 ML Vital Signs/I&O 03/07/21 06:11 Temp 36.2 Pulse 89 Resp 18 B/P (MAP) 181/92 (121) Pulse Ox 97 O2 Delivery Room Air Blood Pressure Mean: 121 (JAKE WALTERS MD) Lab Results Laboratory Tests Test 03/07/21 05:00 03/07/21 05:50 03/07/21 05:54 Range/Units White Blood Count 7.9 4.3-11.0 10^3/uL Red Blood Count 5.06 4.35-5.85 10^6/uL Hemoglobin 14.9 13.3-17.7 G/DL Hematocrit 43 40-54 % Mean Corpuscular Volume 85 80-99 FL Mean Corpuscular Hemoglobin 29 25-34 PG Mean Corpuscular Hemoglobin Concent 35 32-36 G/DL Red Cell Distribution Width 12.3 10.0-14.5 % Platelet Count 304 130-400 10^3/uL Mean Platelet Volume 9.5 7.4-10.4 FL Immature Granulocyte % (Auto) 3 % Neutrophils (%) (Auto) 51 42-75 % Lymphocytes (%) (Auto) 36 12-44 % Monocytes (%) (Auto) 6 0-12 % Eosinophils (%) (Auto) 4 0-10 % Basophils (%) (Auto) 1 0-10 % Neutrophils # (Auto) 4.0 1.8-7.8 X 10^3 Lymphocytes # (Auto) 2.8 1.0-4.0 X 10^3 Monocytes # (Auto) 0.5 0.0-1.0 X 10^3 Eosinophils # (Auto) 0.3 0.0-0.3 10^3/uL Basophils # (Auto) 0.1 0.0-0.1 10^3/uL Immature Granulocyte # (Auto) 0.2 H 0.0-0.1 10^3/uL Prothrombin Time 13.2 12.2-14.7 SEC INR Comment 1.0 0.8-1.4 Activated Partial Thromboplast Time 26 24-35 SEC Sodium Level 135 135-145 MMOL/L Potassium Level 4.3 3.6-5.0 MMOL/L Chloride Level 100 98-107 MMOL/L Carbon Dioxide Level 22 21-32 MMOL/L Anion Gap 13 5-14 MMOL/L Blood Urea Nitrogen 11 7-18 MG/DL Creatinine 0.81 0.60-1.30 MG/DL Estimat Glomerular Filtration Rate > 60 BUN/Creatinine Ratio 14 Glucose Level 256 H 70-105 MG/DL Calcium Level 9.3 8.5-10.1 MG/DL Corrected Calcium 9.2 8.5-10.1 MG/DL Total Bilirubin 0.3 0.1-1.0 MG/DL Aspartate Amino Transf (AST/SGOT) 19 5-34 U/L Alanine Aminotransferase (ALT/SGPT) 26 0-55 U/L Alkaline Phosphatase 65 40-136 U/L Troponin I < 0.30 <0.30 NG/ML Total Protein 7.1 6.4-8.2 GM/DL Albumin 4.1 3.2-4.5 GM/DL Glucometer 241 H 70-110 MG/DL Medications Given in ED Current Medications Medications Dose Ordered Sig/Magdalena Route Start Time Stop Time Status Last Admin Dose Admin Iohexol 75 ml ONCE ONCE IV 03/07/21 08:00 03/07/21 08:01 DC 03/07/21 07:55 75 ML Sodium Chloride 10 ml NEEDED PRN IV 03/07/21 07:30 03/07/21 07:55 10 ML Sodium Chloride 100 ml ONCE ONCE IV 03/07/21 07:30 03/07/21 07:31 DC 03/07/21 07:55 100 ML Vital Signs/I&O 4/8/21 06:11 Temp 36.2 Pulse 89 Resp 18 B/P (MAP) 181/92 (121) Pulse Ox 97 O2 Delivery Room Air (DEL RIO,BRIDGETTE Reynolds DO) [facility] Bedside Testing Finger Stick Blood Glucose: 214 (JAKE WALTERS MD) Progress Progress Note #1: Progress Note NIH stroke scale is 2 with 1 off for decreased sensation in his face and arm and 1 off for facial droop. He has normal sinus rhythm without ectopy. His blood pressure is 159/85. He denies any pain. His time of onset of symptoms is unknown for sure. Will obtain CT of his head to evaluate for possible intracranial hemorrhage or stroke and check labs as well as chest x-ray and EKG. Placed on cardiac telemetry monitoring for his stroke symptoms of decreased sensation and weakness of the right side. Initially he is sinus rhythm in the 80s for his heart rate without ectopy. Differential diagnosis includes acute stroke, hypertensive emergency, brain mass, electrolyte imbalance, myocardial infarction, pulmonary embolism, spinal cord lesion Progress Note #2: Time: 07:01 Progress Note labs stable other than elevated glucose. He had no acute stroke or abnormality on his CT head. His chest x-ray was clear. His electrocardiogram did not show any acute abnormality. He remains in a sinus rhythm without ectopy on his telemetry monitoring. Discussed with Dr. Fuller the education faculty member stroke Neurologist from [facility] and she advised the patient is not within the TPA window. He would not be a TPA candidate between the unknown time of onset as well as low NIH stroke scale. His next step would be dependent on what a CT angiogram shows. If he has a large vessel occlusion then interventional radiology would be the next treatment. However it is unlikely that he would have a large vessel occlusion with his minimal symptoms of a low NIH stroke scale. If the patient is adamant that he would like to go to the large stroke center such as he could be directly transferred there and the CT angiogram could be done there and further treatment as directed otherwise he could have a local CT angiogram done here and if no large vessel occlusion he could be admitted locally for PT and OT and medical management. Discussed options with the patient and he would prefer to not be admitted to if at all possible. He is amenable to being admitted locally. We will add on a CT angiogram to look for large vessel occlusion. Provided this is negative will admit to [place] [facility]. [id number] Argueta with hospitalist service of the patient and possible admit depending on the CT angio Head and neck results. Also updated Dr. Del Rio as the oncoming ED provider for the patient. (JAKE WALTERS MD) Initial ECG Impression Date: Mar 07, 2021 Initial ECG Impression Time: 05:59 Initial ECG Rate: 94 Initial ECG Rhythm: Normal Sinus Initial ECG Comparisson: No Previous ECG Available Comment Normal sinus rhythm with a heart rate of 94 bpm. PVCs present. IN interval is [address] elevation. QT interval 351 ms with a QTc interval 439 ms. There is no prior tracing available for comparison. (JAKE WALTERS MD) Diagnostic Imaging Diagonstic Imaging: CT Plain Films/CT/US/NM/MRI: head Comments NAME: BOWEN VALE [employer] REC#: [id number] PT STATUS: REG ER : 1955 PHYSICIAN: JAKE WALTERS MD ADMIT DATE: 03/07/21/ER FS Signed Date of Exam:03/07/21 CT HEAD WO-R/O STROKE PROCEDURE: CT head wo r/o stroke. TECHNIQUE: Multiple contiguous axial images were obtained through the brain without the use of intravenous contrast. Auto Exposure Controls were utilized during the CT exam to meet ALARA standards for radiation dose reduction. INDICATION: Right upper extremity weakness The ventricles are normal in size, shape and position. There are no masses or hemorrhages. There are no extra-axial fluid collections. Paranasal sinuses are clear. IMPRESSION: Negative CT head. There is no CT evidence of an acute infarct. Dictated by: Dictated on workstation # [id number] Dict: 03/07/21626 Trans: 03/07/21627 [id number] Interpreted by: LIVAN JUNG MD Electronically signed by: LIVAN JUNG MD 03/07/21627 Diagonstic Imaging: Xray Plain Films/CT/US/NM/MRI: chest Comments [facility] [place], [place] NAME: IMTIAZ VALEHERCAMOSHOP REC#: [id number] PT STATUS: REG ER : 1955 PHYSICIAN: JAKE WALTERS MD ADMIT DATE: 03/07/21/ER FS Draft Date of Exam:03/07/21 CHEST 1 VIEW AP/PA ONLY INDICATION: Stroke alert. Portable chest 6:08 AM FINDINGS: Heart size and pulmonary vascularity are normal. Lungs are clear. There are no effusions or pneumothoraces. IMPRESSION: Negative chest. Dictated on workstation # [id number] Dict: 03/07/21624 Trans: 03/07/21625 [id number] Interpreted by: LIVAN JUNG MD Electronically signed by: (JAKE WALTERS MD) Diagonstic Imaging: CT Plain Films/CT/US/NM/MRI: head Comments [facility] [place] NAME: BOWEN VALE REC#: [id number] PT STATUS: REG ER : 1955 PHYSICIAN: JAKE WALTERS MD ADMIT DATE: 03/07/21/ER FS Draft Date of Exam:03/07/21 CT ANGIO HEAD/NECK PROCEDURE: CT angiography of the head and CT angiography of the neck with and without contrast. TECHNIQUE: Contiguous noncontrast images were obtained from the skull base through the vertex. After intravenous contrast administration, helical CT angiography of the neck was performed. Source data was reformatted into 3D MIP projections. Delayed post contrast acquisition was also obtained. Auto Exposure Controls were utilized during the CT exam to meet ALARA standards for radiation dose reduction. INDICATION: Right-sided weakness. FINDINGS: There is a three-vessel branching pattern to the aortic arch. Right and left common carotid arteries appear patent. Carotid bifurcations are unremarkable. Both internal carotid arteries are mildly tortuous but appear to be widely patent to the skull base. The vertebral arteries are codominant. The vertebral arteries appear to be patent. Basilar artery appears to be patent. There is a patent P-comm with a origin right posterior cerebral artery. Left posterior cerebral artery appears to be patent. The M1 and M2 branches of the middle cerebral arteries appear to be widely patent. Right and left anterior cerebral arteries appear to be patent. No thromboembolism or large branch occlusion is detected. IMPRESSION: Unremarkable CT angiogram of the head and neck. No intracranial stenosis or large branch occlusion is identifie (BRIDGETTE DEL RIO DO) CT Read Date: Mar 07, 2021 CT Read Time: 06:27 CT Results/Progress Notes NAME: BOWEN VALE REC#: [id number] PT STATUS: REG ER : 1955 PHYSICIAN: JAKE WALTERS MD ADMIT DATE: 03/07/21/ER FS Signed Date of Exam:03/07/21 CT HEAD WO-R/O STROKE PROCEDURE: CT head wo r/o stroke. TECHNIQUE: Multiple contiguous axial images were obtained through the brain without the use of intravenous contrast. Auto Exposure Controls were utilized during the CT exam to meet ALARA standards for radiation dose reduction. INDICATION: Right upper extremity weakness The ventricles are normal in size, shape and position. There are no masses or hemorrhages. There are no extra-axial fluid collections. Paranasal sinuses are clear. IMPRESSION: Negative CT head. There is no CT evidence of an acute infarct. Dictated by: Dictated on workstation # [id number] Dict: 03/07/21626 Trans: 03/07/21627 TB [id number] Interpreted by: LIVAN JUNG MD Electronically signed by: LIVAN JUNG MD 03/07/21627 (JAKE WALTERS MD) Transfer of Care Time: 08:00 Care transferred to: Dr. Del Rio (JAKE WALTERS MD) Departure Communication (Admissions) Time/Spoke to Admitting Phy: 07:30 d/w Dr. Argueta that patient would be admitted at [facility] [address] for CVA with right sided weakness so he could work with PT/OT since he is right hand dominant. He would also get medical evaluation and management for risk factors for stroke. This is provided his CT angiogram is not showing a large vessel occlusion that might require Interventional Radiology. Dr. Del Rio will follow up on this study result and let her know for the admit. (JAKE WALTERS MD) Impression Primary Impression: Cerebrovascular accident due to cerebral artery occlusion Additional Impressions: Acute right-sided muscle weakness Hyperglycemia Disposition: 30 STILL A PATIENT Condition: Stable Admissions Decision to Admit Reason: Admit from ER (General) Decision to Admit/Date: Mar 07, 2021 Time/Decision to Admit Time: 08:30 (JAKE WALTERS MD) Departure-Patient Inst. Referrals: NO,LOCAL PHYSICIAN (PCP/Family) Primary Care Physician Scripts No Active Prescriptions or Reported Meds JAKE WALTERS MD Mar 07, 2021 06:32 BRIDGETTE DEL RIO DO Mar 07, 2021 08:52
[2021-03-07 06:41] LABS: PROTHROMBIN TIME PATIENT 13.2 SEC (12.2-14.7)
[2021-03-07] MEDS ORDERED: IOHEXOL 350 MG/ML 100 ML (OMNIPAQUE 350) VIAL IV ONE (07:30)
[2021-03-07] MEDS ORDERED: CATHETER FLUSH 10 ML SYR IV PRN (07:30)
[2021-03-07] MEDS ORDERED: HOLD METFORMIN - RECEIVED CONTRAST 20 ML VIAL IV SCH ×2 (07:30→08:00)
[2021-03-07] MEDS ORDERED: NS 100 ML (IVPB) BAG IV ONE (07:30)
[2021-03-07] MEDS ORDERED: IOHEXOL 350 MG/ML 150 ML (OMNIPAQUE 350) VIAL IV ONE (08:00)
--- NOTE | 2021-03-07 08:32 | Diagnostic Imaging Report ---
PROCEDURE: CT angiography of the head and CT angiography of the neck with and without contrast. TECHNIQUE: Contiguous noncontrast images were obtained from the skull base through the vertex. After intravenous contrast administration, helical CT angiography of the neck was performed. Source data was reformatted into 3D MIP projections. Delayed post contrast acquisition was also obtained. Auto Exposure Controls were utilized during the CT exam to meet ALARA standards for radiation dose reduction. INDICATION: Right-sided weakness. FINDINGS: There is a three-vessel branching pattern to the aortic arch. Right and left common carotid arteries appear patent. Carotid bifurcations are unremarkable. Both internal carotid arteries are mildly tortuous but appear to be widely patent to the skull base. The vertebral arteries are codominant. The vertebral arteries appear to be patent. Basilar artery appears to be patent. There is a patent P-comm with a origin right posterior cerebral artery. Left posterior cerebral artery appears to be patent. The M1 and M2 branches of the middle cerebral arteries appear to be widely patent. Right and left anterior cerebral arteries appear to be patent. No thromboembolism or large branch occlusion is detected. IMPRESSION: Unremarkable CT angiogram of the head and neck. No intracranial stenosis or large branch occlusion is identified. Dictated by: Dictated on workstation # [id number]
[2021-03-07] MEDS ORDERED: ONDANSETRON 4 MG/2 ML (SDV) Z0FRAN IV PRN (12:30)
[2021-03-07] MEDS ORDERED: BENZONATATE 100 MG (TESSALON) CAPSULE PO PRN (12:30)
[2021-03-07] MEDS ORDERED: ACETAMINOPHEN 325 MG TABLET PO PRN (12:30)
[2021-03-07] MEDS ORDERED: MILK OF MAGNESIA 400 MG/5 ML 30 ML UDC PO PRN ×2 (12:30→13:30)
[2021-03-07] MEDS ORDERED: ANTACID SUSP 30 ML UDC (MYLANTA) PO PRN (12:30)
[2021-03-07] MEDS ORDERED: BISACODYL 10 MG SUPP (DULCOLAX) PR PRN (13:30)
--- NOTE | 2021-03-07 13:44 | Occ Therapy Progress Note ---
Therapy Progress Note OT orders received and chart reviewed. Pt admitted on this date with possible CVA, although CT scans unremarkable at this time. Per notes pt's BP and HR high (BP 181/117, HR 102). OT will hold on this date and evaluate tomorrow. ZAIRA ELDER OT Mar 07, 2021 13:44
[2021-03-07 13:48] LABS: TRIGLYCERIDES 199 MG/DL (<150); VLDL CHOLESTEROL 40 MG/DL (5-40)
[2021-03-07 13:53] LABS: CHOLESTEROL 175 MG/DL (< 200)
[2021-03-07 13:54] LABS: HDL CHOLESTEROL 36 MG/DL (40-60)
[2021-03-07] MEDS: CATHETER FLUSH 10 ML SYR IV SCH (14:08)
--- NOTE | 2021-03-07 14:13 | Diagnostic Imaging Report ---
PROCEDURE: MR imaging of the brain without contrast. TECHNIQUE: Multiplanar, multisequence MR imaging of the brain was performed without contrast. INDICATION: Stroke symptoms FINDINGS: The ventricles and sulci are within normal limits. There is no hydrocephalus. There is no midline shift. There is no mass, hemorrhage or extra-axial fluid collection. There are no areas of diffusion restriction appreciated to suggest an acute CVA. The frontal, ethmoid, sphenoid and maxillary sinuses are clear apart from small mucous retention cyst and/or polyp in the left maxillary sinus. Mastoid air cells are clear. Globes and intraorbital structures are unremarkable IMPRESSION: Unremarkable MRI brain. Dictated by: Dictated on workstation # [id number]
--- NOTE | 2021-03-07 14:31 | Speech Therapy Progress Note ---
Therapy Progress Note ST received orders for evaluation. ST attempted to complete evaluation, however the patient was out of the room for MRI. ST evaluation will be completed in the AM. SHERON KNOX Mar 07, 2021 14:31
--- NOTE | 2021-03-07 14:33 | Physical Therapy Progress Note ---
Therapy Progress Note Patient having testing performed this p.m. to determine cause of symptoms. PT will initiate treatment in a.m. RN notified. BENEDICTO MÉNDEZ PT Mar 07, 2021 14:33
--- NOTE | 2021-03-07 14:40 | History & Physical-Hospitalist ---
History of Present Illness HPI/Chief Complaint Pt is a 65yoCM who has not seen a doctor in years who presented to ER due to right sided weakness. 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 He was admitted to rule out stroke. On my exam he denies any lower extremity symptoms and but now has some deficits in his left hand as well though right is more pronounced. He indicates that he did have a fall around 1-2 weeks ago down his basement stairs. He felt find after that but thinks this may be related. He denies any numbness, tingling, pain, incontinence. Source: patient Date Seen 03/07/21 Time Seen by a Provider: 14:28 Attending Physician Tone Argueta MD PCP No,Local Physician Referring Physician Date of Admission Mar 07, 2021 at 12:14 Home Medications & Allergies Home Medications Reviewed patient Home Medication Reconciliation performed by pharmacy medication reconciliations hearing aid technician and/or nursing. Patients Allergies have been reviewed. Allergies Allergies Coded Allergies No Known Drug Allergies (Unverified03/07/21) Patient Social History Marrital Status: single Tobacco Use?: No Smoking Status: Smoker Current Status UNK Use of E-Cig and/or Vaping dev: No Substance use?: Yes Substance type: Caffeine DR PEPPER-12 OZ Substance frequency: Daily Alcohol Use?: No Pt stated abuse/neglect: No Immunizations Up To Date Influenza Vaccine Up-to-Date: No; Not Current First/Initial COVID19 Vaccinat: Tetanus Booster (TDap): Less Than 5 Years Hepatitis A: No Hepatitis B: No TB Skin Test: None Current Status Do you have an Advance Directi: No Communicates: Verbally Primary Language: Tamazight Preferred Spoken Language: Tamazight Is interpretation needed?: No Implanted or Applied Medical D: None Review of Systems Constitutional: No chills, No fever EENTM: No ear pain, No hoarseness, No nose congestion, No throat pain Respiratory: No cough, No dyspnea on exertion, No short of breath Cardiovascular: No chest pain, No edema, No Hx of Intervention, No palpitations Gastrointestinal: No abdominal pain, No constipation, No diarrhea, No nausea, No vomiting Genitourinary: No dysuria, No frequency, No incontinence Musculoskeletal: see HPI Skin: no symptoms reported Psychiatric/Neurological: See HPI Physical Exam Physical Exam Vital Signs Vital Signs - First Documented 03/07/21 06:11 Temp 36.2 Pulse 89 Resp 18 B/P (MAP) 181/92 (121) Pulse Ox 97 O2 Delivery Room Air Capillary Refill : Less Than 3 Seconds Height, Weight, BMI Height: 5'11.00" Weight: 230lbs. oz. 104.819105ut; 44.04 BMI Method:Stated General Appearance: No Apparent Distress, WD/WN HEENT: PERRL/EOMI, Moist Mucous Membranes Neck: Normal Inspection, Supple Respiratory: Lungs Clear, No Accessory Muscle Use, No Respiratory Distress Cardiovascular: Regular Rate, Rhythm, No Murmur Gastrointestinal: Normal Bowel Sounds, Non Tender, Soft Neurologic/Psychiatric: Alert, Oriented x3, Normal Mood/Affect, Motor Weakness (rUE >LUE; RUE duplicator punch set up operator strength, felxion and abduction is around 2/5, LUE duplicator punch set up operator strength, flexion, and abduction is around 4/5. Sensation intact) Skin: Normal Color, Warm/Dry Results Results/Procedures Labs Laboratory Tests 03/07/21 05:50 Patient resulted labs reviewed. Imaging: Reviewed Imaging Report Imaging [facility] [place], [place] NAME: [facility] REC#: [id number] PT STATUS: REG ER : 1955 PHYSICIAN: JAKE WALTERS MD ADMIT DATE: 03/07/21/ER FS Signed Date of Exam:03/07/21 CT HEAD WO-R/O STROKE PROCEDURE: CT head wo r/o stroke. TECHNIQUE: Multiple contiguous axial images were obtained through the brain without the use of intravenous contrast. Auto Exposure Controls were utilized during the CT exam to meet ALARA standards for radiation dose reduction. INDICATION: Right upper extremity weakness The ventricles are normal in size, shape and position. There are no masses or hemorrhages. There are no extra-axial fluid collections. Paranasal sinuses are clear. IMPRESSION: Negative CT head. There is no CT evidence of an acute infarct. Dictated by: Dictated on workstation # [id number] Dict: 03/07/21 0627 Trans: 03/07/21 0628 [id number] Interpreted by: LIVAN JUNG MD Electronically signed by: LIVAN JUNG MD 03/07/21 0628 [facility] [place], [place] NAME: [facility] REC#: [id number] PT STATUS: REG ER : 1955 PHYSICIAN: JAKE WALTERS MD ADMIT DATE: 03/07/21/ER FS Draft Date of Exam:03/07/21 CT ANGIO HEAD/NECK PROCEDURE: CT angiography of the head and CT angiography of the neck with and without contrast. TECHNIQUE: Contiguous noncontrast images were obtained from the skull base through the vertex. After intravenous contrast administration, helical CT angiography of the neck was performed. Source data was reformatted into 3D MIP projections. Delayed post contrast acquisition was also obtained. Auto Exposure Controls were utilized during the CT exam to meet ALARA standards for radiation dose reduction. INDICATION: Right-sided weakness. FINDINGS: There is a three-vessel branching pattern to the aortic arch. Right and left common carotid arteries appear patent. Carotid bifurcations are unremarkable. Both internal carotid arteries are mildly tortuous but appear to be widely patent to the skull base. The vertebral arteries are codominant. The vertebral arteries appear to be patent. Basilar artery appears to be patent. There is a patent P-comm with a origin right posterior cerebral artery. Left posterior cerebral artery appears to be patent. The M1 and M2 branches of the middle cerebral arteries appear to be widely patent. Right and left anterior cerebral arteries appear to be patent. No thromboembolism or large branch occlusion is detected. IMPRESSION: Unremarkable CT angiogram of the head and neck. No intracranial stenosis or large branch occlusion is identified. 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
--- NOTE | 2021-03-07 14:48 | Diagnostic Imaging Report ---
PROCEDURE: MR imaging cervical spine without contrast. TECHNIQUE: Multiplanar, multisequence MR imaging of the cervical spine was performed without contrast. INDICATION: Bilateral upper extremity weakness, greater on the right. COMPARISON: CTA head and neck from 03/07/2021. MRI brain without contrast from 03/07/2021. FINDINGS: Normal alignment. Vertebral body heights are preserved. Normal bone marrow signal. No abnormal signal in the cervical spinal cord. Visualized paravertebral soft tissues are unremarkable. Uncovertebral hypertrophy results in mild bilateral neuroforaminal narrowing at C4-C5, on the left at C5-C6. No spinal canal narrowing. No other substantial spondylotic change. IMPRESSION: 1. Mild spondylotic changes result in no high-grade neural impingement. 2. No abnormal signal in the cervical spinal cord. 3. No acute osseous or ligamentous findings. Dictated by: Dictated on workstation # [id number]
[2021-03-07] MEDS: inSUlin ASPART (NovoLOG) 1 UNIT/0.01 ML (CHARGE PER UNIT) SC SCH (21:13)
[2021-03-08] VITALS: BP 181/83
[2021-03-08] MEDS: CATHETER FLUSH 10 ML SYR IV SCH ×3 (00:04→14:25)
[2021-03-08] MEDS ORDERED: meTOprolol TARTRATE 50 MG (LOPRESSOR) TAB ONE (00:15)
[2021-03-08] MEDS ORDERED: meTOprolol TARTRATE 50 MG (LOPRESSOR) TAB PO ONE (00:30)
[2021-03-08] MEDS ORDERED: ACETAMINOPHEN 325 MG TABLET PO PRN (00:30)
[2021-03-08 04:36] VITALS: BP 157/84
[2021-03-08] MEDS: inSUlin ASPART (NovoLOG) 1 UNIT/0.01 ML (CHARGE PER UNIT) SC SCH ×3 (05:14→16:55)
[2021-03-08 05:32] LABS: HEMOGLOBIN 14.8 g/dL (13.3-17.7); MEAN PLATELET VOLUME 9.6 fL (9.0-12.2); WHITE BLOOD COUNT 9.5 10^3/uL (4.3-11.0)
[2021-03-08 07:15] VITALS: BP 158/84
--- NOTE | 2021-03-08 08:34 | Speech Therapy Progress Note ---
Therapy Progress Note ST screened patient regarding swallowing function this AM. Patient had been placed on regular consistency diet level the past evening. Patient was observed with breakfast this AM on the regular consistency without s/s of aspiration or dysphagia noted. D/C order for Bedside Dysphagia Evaluation. SHERON KNOX Mar 08, 2021 08:33
[2021-03-08] MEDS ORDERED: ASPIRIN E.C. 325 MG (ECOTRIN) TABLET PO SCH (09:00)
--- NOTE | 2021-03-08 09:34 | Physical Therapy Evaluation ---
PT Evaluation-General Medical Diagnosis Admission Date Mar 07, 2021 at 12:14 Medical Diagnosis: right sided weakness Onset Date: Mar 07, 2021 Therapy Diagnosis Therapy Diagnosis: debility/weakness Height/Weight Height (Feet): 5 Height (Inches): 11.00 Weight (Pounds): 230 Precautions Precautions/Isolations: Fall Prevention, Standard Precautions Weight Bear Status Right Lower Extremity: Right Full Weight Bearing Left Lower Extremity: Left Full Weight Bearing Referral Physician: Kendall Reason for Referral: Evaluation/Treatment Medical History Pertinent Medical History: HTN Current History ER secondary to woke up at 4 with right sided tingling Reviewed History: Yes Social History Home: Single Level Current Living Status: Significant Other Prior Prior Level of Function SCALE: Activities may be completed with or without assistive devices. 2-Ihpkavrjis-lglybbu completes the activity by him/herself with no assistance from a helper. 5-Set-up or Clean-up Assistance-helper sets up or cleans up; patient completes activity. [place] assists only prior to or following the activity. 4-Supervision or Touching Assistance-helper provides verbal cues and/or touching/steadying and/or contact guard assistance as patient completes activity. Assistance may be provided throughout the activity or intermittently. 3-Partial/Moderate Assistance-helper does LESS THAN HALF the effort. [place] lif ts, holds or supports trunk or limbs, but provides less than half the effort. 2-Substantial/Maximal Assistance-helper does MORE THAN HALF the effort. [place] lifts or holds trunk or limbs and provides more than half the effort. 4-Mzwzhqobc-dgnyuj does ALL the effort. Patient does none of the effort to complete the activity. Or, the assistance of 2 or more helpers is required for the patient to complete the activity. If activity was not attempted, code reason: 7-Patient Refused. 9-Not Applicable-not attempted and the patient did not perform the activity before the current illness, exacerbation or injury. 10-Not Attempted due to Environmental Limitations-(lack of equipment, weather restraints, etc.). 88-Not Attempted due to Medical Conditions or Safety Concerns. Bed Mobility: 6 Transfers (B,C,W/C): 6 Gait: 6 Stairs: 6 Indoor Mobility (Ambulation): Independent Stairs: Independent Prior Devices Use: None PT Evaluation-Current Subjective Patient reports he paralyzed from the neck down. Pain Numeric Pain Scale: 0-No Pain Location: No Pain Reported Objective Patient Orientation: Person, Time, Situation ROM/Strength ROM Lower Extremities bilateral LE WFL Strength Lower Extremities inconsistent with MMT. patient able to perform independent LAQ sitting EOB (unable to formally test due to inconsistencies) Integumentary/Posture Bowel Incontinence: No Bladder Incontinence: No Posture WFL Neuromuscular (Tone, Coordination, Reflexes) holds bilateral UE's flaccid but able to shoulder shrug; able to perform LAQ and sit EOB with CGA Sensory Vision: Functional Hearing: Functional Transfers Roll Left to Right (QC): 1 Sit to Lying (QC): 1 Lying to Sitting/Side of Bed(Q: 1 Sit to Stand (QC): 1 (resistive with this with assist of 2 and blocking bilateral knees/patient appears to use strength to lean backward) patient attempts to hold body flaccid in supine and with sit<>supine position, however, able to sit EOB with episodes of "throwing" himself backward Gait Does the Patient Walk?: No and Walking Goal IS indicated Balance Sitting Static: Fair Sitting Dynamic: Fair Assessment/Needs 65 y.o. male, will benefit from skilled PT to address functional strength and mobility to improve current LOF to safely return to home with family at maximum LOF. Rehab Potential: Fair PT Short Term Goals Short Term Goals Time Frame: Mar 16, 2021 Roll Left & Right: 3 Sit to lyin Lying to sitting on side of be: 3 Sit to stand: 3 Chair/elr-po-mxaye transfer: 3 Walk 10 feet: 3 Walk 50 feet with two turns: 3 PT Tableau Architect Goals Detention Goals PT Tableau Architect Goals Time Frame: Mar 23, 2021 Roll Left & Right (QC): 6 Sit to Lying (QC): 6 Lying-Sitting on Side/Bed(QC): 6 Sit to Stand (QC): 6 Chair/Zav-ek-Ywkod Xfer(QC): 6 Toilet Transfer (QC): 6 Does the Patient Walk: Yes Walk 10 feet (QC): 6 Walk 50ft with 2 Turns (QC): 6 Walk 150 ft (QC): 6 PT Plan Problem List Problem List: Activity Tolerance, Functional Strength, Safety, Balance, Gait, Transfer, Bed Mobility Treatment/Plan Treatment Plan: Continue Plan of Care Treatment Plan: Bed Mobility, Education, Functional Activity Jona, Functional Strength, Gait, Safety, Therapeutic Exercise, Transfers Treatment Duration: Mar 23, 2021 Frequency: 6 times per week Estimated Hrs Per Day: .25 hour per day Patient and/or Family Agrees t: Yes Time/GCodes Time In: 850 Time Out: 906 Total Billed Treatment Time: 16 Total Billed Treatment 1 visit EVMod 16 min BENEDICTO MÉNDEZ PT Mar 08, 2021 09:34
--- NOTE | 2021-03-08 11:19 | Discharge Summary ---
Diagnosis/Chief Complaint Date of Admission Mar 07, 2021 at 12:14 Date of Discharge Admission Diagnosis Right sided weakness Primary Care No,Local Physician Discharge Summary Procedures/Consulations Cardiology- Dr Lopes Discharge Physical Exam Allergies: Coded Allergies: No Known Drug Allergies (Unverified , 03/07/21) Vitals & I&Os Vital Signs Date Time Temp Pulse Resp B/P (MAP) Pulse Ox O2 Delivery O2 Flow Rate FiO2 03/08/21 15:56 35.9 105 20 161/88 (112) 97 Nasal Cannula 2.00 General Appearance: No Apparent Distress, WD/WN Cardiovascular: Regular Rate, Rhythm, No Murmur Gastrointestinal: Normal Bowel Sounds, Soft Neurologic/Psychiatric: Alert, Oriented x3 Hospital Course Pt is a 65yoCM with no known PMH who presented to the ER due to right sided weakness. Roughly a week ago he had an episode of diarrhea. He awoke with these symptoms on the morning of 03/07/21. He was seen in the [facility] and head CT and CTA were both negative and he was transferred here for further work up and evaluation. He then began to develop left sided weakness as well in his upper extremity. He underwent an MRI of his head and C-spine which was unremarkable. His symptoms continued to progress and he developed weakness in his lower extre mities as well. I attempte dot get a thoracic spine and lumbar spine MRI but he was unable to tolerate laying flat in bed for the procedure. I then began process for transfer and reached out to [facility] in [place] at 1053. They did not have neurology services so I checked with [facility] in [place] who recommended transfer to a tertiary center. Patient refused to transfer to any facility in [place] including . I then called [facility] again to check with their [facility] facility and spoke with their neurologist Dr Celis who accepted patient in consult and deferred to hospitalist services to admit patient. Dr Butler accepted patient but bed availablity is scarce at this time and he may not have a room assignment until this evening. I called back to confirm with n eurologist Dr Celis that this timeframe was appropriate given ascending paralysis and concern for GBS. I did discuss this dilemma with the patient who again does not want to look to [place] for transfer and wants to wait for [facility] to have a bed. At 1331 I received a call back from [facility] transfer line who stated Dr Celis actually recommended pursuing transfer to another facility that could get him there faster. I returned to Mr Cook's room and he is now agreeable to transfer to a [facility] and requested [facility]. I placed call to [facility] at [phone] and received acceptance for admission at 1635. Accept[address] physician is Dr Mojica. Transfer nurse stated timeframe for bed would be this evening and I received a call at 1721 with room assignment. EMS to be contact for transfer. [facility] was updated that their bed was no longer needed. Labs (last 24 hrs) Laboratory Tests 03/07/21 20:53: Glucometer 238H 03/08/21 00:05: Glucometer 180H 03/08/21 05:10: Glucometer 257H 03/08/21 05:20: White Blood Count 9.5, Red Blood Count 5.04, Hemoglobin 14.8, Hematocrit 44, Mean Corpuscular Volume 88, Mean Corpuscular Hemoglobin 29, Mean Corpuscular Hemoglobin Concent 34, Red Cell Distribution Width 12.3, Platelet Count 269, Mean Platelet Volume 9.6 03/08/21 05:25: 03/08/21 11:53: Glucometer 229H 03/08/21 16:55: Glucometer 237H Patient resulted labs reviewed. Pending Labs Laboratory Tests 03/08/21 11:53: Glucometer 229 03/08/21 16:55: Glucometer 237 Imaging: Reviewed Imaging Report Discussion & Recommendations Discharge Planning: >30 minutes discharge planning Discharge Home Medications: Active Scripts Active No Active Prescriptions or Reported Medications Instructions to patient/family Please see electronic discharge instructions given to patient. Clinical Quality Measures Stroke: Symptoms onset unknown: Yes (went to bed normal at 1999, woke up at 4 am with right sided weak/tingling) TONE PINA MD Mar 08, 2021 11:19
[2021-03-08 11:47] VITALS: BP 163/92
--- NOTE | 2021-03-08 12:30 | Consultation-Cardiology ---
HPI-Cardiology Cardiology Consultation Date of Consultation 03/08/21 Date of Admission Time Seen by Provider: 12:26 Indication: Paralysis HPI 65 years old gentleman who does not have any past medical history, woke up yesterday with right-sided weakness then progressed into full bilateral weakness in the upper and lower extremities. He denied any chest pain or palpitation, still having sensation in his lower extremities, able to move his toes slightly still more weaker on the left side. No previous cardiac history, no recent infection. Home Medications & Allergies Allergies: Coded Allergies: No Known Drug Allergies (Unverified , 03/07/21) Home Medication List Reviewed: Yes WUD-Qllhqj-Bmnqug Hx Patient Social History Marital Status: single Recreational Drug Use: No Smoking Status: Smoker Current Status UNK 2nd Hand Smoke Exposure: No Recent Hopitalizations: No Have you traveled recently?: No Alcohol Use?: No Substance type: Caffeine Past Medical History No known past medical history Family Medical History Family Medical Hx Noncontributory Review of Systems-General Review of Systems Constitutional: No chills, No diaphoresis, No fever EENTM: No ear pain, No hoarseness, No nose congestion, No throat pain Respiratory: see HPI; No cough, No dyspnea on exertion, No hemoptysis, No orthopnea, No phlegm, No short of breath, No stridor, No wheezing, No other Cardiovascular: see HPI; No chest pain, No edema, No Hx of Intervention, No palpitations, No syncope, No vascular heart diseas, No other Gastrointestinal: No nausea, No vomiting Genitourinary: no symptoms reported Musculoskeletal: muscle weakness (right arm, hand and leg), other (Bilateral paralysis) Skin: no symptoms reported Psychiatric/Neurological: See HPI Reviewed Test Results Reviewed Test Results Lab Laboratory Tests Test 03/07/21 12:45 03/07/21 20:53 03/08/21 00:05 03/08/21 05:10 Range/Units Troponin I < 0.028 <0.028 NG/ML Triglycerides Level 199 H <150 MG/DL Cholesterol Level 175 < 200 MG/DL LDL Cholesterol Direct 120 1-129 MG/DL VLDL Cholesterol 40 5-40 MG/DL HDL Cholesterol 36 L 40-60 MG/DL Glucometer 238 H 180 H 257 H 70-110 MG/DL Test 03/08/21 05:20 03/08/21 05:25 03/08/21 11:53 Range/Units White Blood Count 9.5 4.3-11.0 10^3/uL Red Blood Count 5.04 4.30-5.52 10^6/uL Hemoglobin 14.8 13.3-17.7 g/dL Hematocrit 44 40-54 % Mean Corpuscular Volume 88 80-99 fL Mean Corpuscular Hemoglobin 29 25-34 pg Mean Corpuscular Hemoglobin Concent 34 32-36 g/dL Red Cell Distribution Width 12.3 10.0-14.5 % Platelet Count 269 130-400 10^3/uL Mean Platelet Volume 9.6 9.0-12.2 fL Glucometer 229 H 70-110 MG/DL Physical Exam Physical Exam Vital Signs Vital Signs - First Documented 03/07/21 03/08/21 06:11 11:47 Temp 36.2 Pulse 89 Resp 18 B/P (MAP) 181/92 (121) Pulse Ox 97 O2 Delivery Room Air O2 Flow Rate 2.00 Capillary Refill : Less Than 3 Seconds Height, Weight, BMI Height: 5'11.00" Weight: 230lbs. oz. 104.570469hp; 44.04 BMI Method:Stated General Appearance: No Apparent Distress, WD/WN HEENT: PERRL/EOMI, Moist Mucous Membranes Neck: Normal Inspection, Supple Respiratory: Lungs Clear, No Accessory Muscle Use, No Respiratory Distress Cardiovascular: Regular Rate, Rhythm, No Murmur Gastrointestinal: Normal Bowel Sounds, Soft Neurologic/Psychiatric: Alert, Oriented x3 Skin: Normal Color, Warm/Dry A/P-Cardiology Admission Diagnosis Quadriplegia Hypertension Diabetes mellitus Assessment/Plan Bilateral paralysis involving upper and lower extremities. Slightly worse in the upper extremities and slightly worse on the right side compared to the left lower extremity, able to move his toes. Still have sensation. 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 Discussed with Dr. Easton and possible transfer to a tertiary care center Hypertension, monitor blood pressure Newly diagnosed diabetes mellitus, followed and managed by primary care physician DVT prophylaxis on Lovenox Clinical Quality Measures Stroke: Symptoms onset unknown: Yes (went to bed normal at 1999, woke up at 4 am with right sided weak/tingling) AARON LIM MD Mar 08, 2021 12:30
--- NOTE | 2021-03-08 15:16 | Diagnostic Imaging Report ---
PROCEDURE: US carotid duplex, bilateral. TECHNIQUE: Multiple real-time grayscale images were obtained over the carotid arteries in various projections, bilaterally. Additional spectral analysis and color Doppler duplex images were also obtained. INDICATION: CVA, right-sided weakness. There are no prior carotid Doppler examinations available for comparison. The CTA head and neck exam of 03/07/2021 failed to show any sign of a hemodynamically significant stenosis of either carotid system. The vertebral arteries also seem to be patent. On this study there is only mild soft plaque formation in both carotid systems. The flow velocities failed to show any sign of a hemodynamically significant stenosis of the common or internal carotid arteries. Both vertebral arteries were noted and there was antegrade flow bilaterally. IMPRESSION: 1. There is mild atherosclerotic disease involving both carotid systems but there is no evidence for hemodynamically significant stenosis of the common or internal carotid arteries. Parameters based on the consensus panel [employer]-Scale and Doppler ultrasound criteria published September 2003, Radiology, Volume 229. DOPPLER (peak systolic velocity M/S Right Left CCA 0.87 1.08 ICA Proximal 0.76 0.55 ICA Mid 0.59 0.68 ICA Distal 0.64 0.90 RATIO 0.88 0.83 ECA 1.13 1.70 VERT 0.63 0.63 Dictated by: Dictated on workstation # [id number]
--- NOTE | 2021-03-08 15:21 | Occupational Therapy Eval ---
OT Evaluation-General/PLF Medical Diagnosis Admission Date Mar 07, 2021 at 12:14 Medical Diagnosis: right sided weakness Onset Date: Mar 07, 2021 Therapy Diagnosis Therapy Diagnosis: weakness, decreased ADL status Height/Weight Height (Feet): 5 Height (Inches): 11.00 Weight (Pounds): 230 Precautions Precautions/Isolations: Fall Prevention, Standard Precautions Referral Physician: Kendall Referral Reason: Evaluation/Treatment Medical History Pertinent Medical History: HTN Current History ER secondary to woke up at 4 with right sided tingling Social History Home: Single Level Current Living Status: Alone Entry Into Home: Stairs With Railing Steps Into Home: 3 ADL-Prior Level of Function SCALE: Activities may be completed with or without assistive devices. 2-Xnmpupjvta-blmgwsa completes the activity by him/herself with no assistance from a helper. 5-Set-up or Clean-up Assistance-helper sets up or cleans up; patient completes activity. [place] assists only prior to or following the activity. 4-Supervision or Touching Assistance-helper provides verbal cues and/or touching/steadying and/or contact guard assistance as patient completes activity. Assistance may be provided throughout the activity or intermittently. 3-Partial/Moderate Assistance-helper does LESS THAN HALF the effort. [place] li fts, holds or supports trunk or limbs, but provides less than half the effort. 2-Substantial/Maximal Assistance-helper does MORE THAN HALF the effort. [place] lifts or holds trunk or limbs and provides more than half the effort. 3-Uwwqbqcuc-wteojf does ALL the effort. Patient does none of the effort to complete the activity. Or, the assistance of 2 or more helpers is required for the patient to complete the activity. If activity was not attempted, code reason: 7-Patient Refused. 9-Not Applicable-not attempted and the patient did not perform the activity before the current illness, exacerbation or injury. 10-Not Attempted due to Environmental Limitations-(lack of equipment, weather restraints, etc.). 88-Not Attempted due to Medical Conditions or Safety Concerns. ADL PLOF Comments Pt reports being independent with all ADLs and functional mobility at PLOF, no A D/AE Self Care: Independent Functional Cognition: Independent DME/Equipment: Tub/Shower OT Current Status Subjective Pt laying in bed, reports unable to move anything below his neck. Able to flex neck to use squeeze bulb call light Mental Status/Objective Patient Orientation: Person, Place, Time, Situation Current Glasses/Contacts: Yes (reading) Hearing Aids: No Dentures/Partials: No Hand Dominance: Right Upper Extremity ROM No active ROM BUEs Upper Extremity Coordination decreased due to pt's decreased ROM Upper Extremity Sensation pt reports tingling in bilateral UEs Upper Extremity Strength 1/5 BUE shoulder flexion, elbow flexion/extension, 0/5 BUE finger flexion/extension. Muscle contractions palpated, but no active movement. ADL-Treatment Eating (QC): 1 Oral Hygiene (QC): 1 Shower/Bathe Self (QC): 1 Upper Body Dressing (QC): 1 Lower Body Dressing (QC): 1 On/Off Footwear (QC): 1 Toileting Hygiene (QC): 1 Other Treatments OT educated pt on purpose and benefit of OT, he verbalized understanding. Pt provided information about PLOF and home set up, and participated in UE screen. Full PROM all UE movements, but no active movement. Pt would require total assistance with all ADLs at this time. OT performed PROM all motions x5 reps. Post tx, pt laying in bed, call light in reach and all needs met. 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 2=Patient will verbalize/demonstrate understanding of assistive devices/modifications for ADL. 3=Patient will improve strength/tolerance for activity to enable patient to perform ADL's. OT Education/Plan Problem List/Assessment Assessment: Decreased Activ Tolerance, Decreased UE Strength, Dependent Transfers, Impaired Bed Mobility, Impaired Coordination, Impaired Funct Balance, Impaired I ADL's, Impaired Self-Care Skills, Restricted Funct UE ROM Discharge Recommendations Plan/Recommendations: Continue POC Treatment Plan/Plan of Care Patient would benefit from OT for education, treatment and training to promote independence in ADL's, mobility, safety and/or upper extremity function for ADL's. Plan of Care: ADL Retraining, Functional Mobility, UE Funct Exercise/Act Treatment Duration: Mar 22, 2021 Frequency: 5 times per week Rehab Potential: Fair Time/GCodes Start Time: 14:45 Stop Time: 14:58 Total Time Billed (hr/min): 13 Billed Treatment Time 1, ZAIRA VEGAS OT Mar 08, 2021 15:21
[2021-03-08 15:56] VITALS: BP 161/88
--- NOTE | 2021-03-12 12:22 | Physician Query Clarification ---
PQ-Conflicting Diagnosis Admission/Discharge Admission Date: Mar 07, 2021 at 12:14 Discharge Date: Mar 08, 2021 at 19:21 Dr. 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 No intracranial stenosis or large branch occlusion is identified. MRI - Unremarkable MRI brain. Treatment: transfer to [facility] Question: Do you agree with the impression of the CVA d/t cerebral artery occlusion per ER Dr. Enrique. Please document a response in Progress Note or Discharge Summary. 1. Yes 2. No 3. Other, with explanation of clinical findings 4. Clinically undetermined, no explanation for clinical findings. PHYSICIAN RESPONSE Do you agree w/Consulting Dx?: No Please remember a lack of response to the above will prompt a phone page by CDI/Coding staff. In responding to this query, please exercise your independent professional judgment. The purpose of this communication is to more accurately reflect the complexity of your patients condition. The fact that a question is asked does not imply that any particular answer is desired or expected. Thank you for your timely response to this clarification. Requestors name: Yung [email or web address] THIS PHYSICIAN QUERY FORM IS A PERMANENT PART OF THE MEDICAL RECORD YUNG GORE Mar 12, 2021 12:22 TONE ARGUETA MD Mar 18, 2021 20:01
== END 2021-03-08 19:21 | disposition short-term general hospital (02) | DRG 94 ==
LOC: EDUNIT# 05:48 → ER FS 05:50 → 4TH 12:14
PROVIDERS: ADMIT Family Medicine; ATTEND Family Medicine
DX: G61.0 Guillain-Barre syndrome (principal); G82.50 Quadriplegia, unspecified; R29.702 NIHSS score 2; I10 Essential (primary) hypertension; E11.65 Type 2 diabetes mellitus with hyperglycemia
CPT/HCPCS: 36415; 70450; 70496; 70498; 70551; 71045; 72141; 80053; 80061; 82962; 83036; 84484; 85025; 85027; 85610; 85730; 93005; 93041; 93306; 93880; 94664

== ENCOUNTER 2021-10-06 05:11 | Emergency (ER) | payer OTHER ==
[~2021-10-06] VITALS: Ht 180.3 cm; Wt 78.4 kg
--- OUTSIDE RECORDS SUMMARY | 2021-10-06 05:15 | XMS REPORT | Clinical Summary ---
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 If you d o not see the information that you expected, contact Release of Information in [facility] [place] Information Management department at [phone] for further assistan ce in locating additional records.[facility] Allergies No Known Active Allergies Medications End Date Status Medication Sig Dispensed Refills Start Date Active acetaminophen (TYLENOL) two tablets 0 325 mg tabletIndications: by Per NG 1 fever, pain tube route every 4 hours as needed. Indications: fever, pain Active albuterol 0.5% Inhale 0.5 mL 60 vial 0 (PROVENTIL) 2.5 mg/0.5 mL solution by 1 nebulizer solution nebulizer as directed every 4 hours as needed for Shortness of Breath or Wheezing. Active ipratropium bromide Inhale 2.5 mL 60 vial 0 03/01 (ATROVENT) 0.02 % by mouth into 1 nebulizer solution the lungs four times daily as needed for Shortness of Breath or Wheezing. Active amLODIPine (NORVASC) 5 mg one tablet by 90 tablet 0 tablet Per NG tube 1 route twice daily. Active atorvastatin (LIPITOR) 40 Take one 90 tablet 0 mg tablet tablet by 1 mouth daily. Active chlorhexidine gluconate 15 mL by SEE 0 (PERIDEX) 0.12 % solution ADMIN 1 INSTRUCTIONS route twice daily. Active enoxaparin (LOVENOX) 100 Inject 1 mL 0 03/22 mg syringe under the 1 skin twice daily. Active famotidine (PEPCID) 40 2.5 mL by Per 50 mL 0 0 mg/5 mL (8 mg/mL) susp NG tube route 1 oral suspension twice daily. Active furosemide (LASIX) 10 Administer 4 4 mL 0 mg/mL soln mL through 1 vein twice daily. Active gabapentin (NEURONTIN) Take 6 mL by 470 mL 0 250 mg/5 mL oral solution mouth every 8 1 hours. Active insulin glargine (LANTUS Inject ninety 45 mL 0 SOLOSTAR) 100 unit/mL (3 Units under 1 mL) injection PEN the skin twice daily. Active metoprolol tartrate Take one 180 tablet 0 (LOPRESSOR) 50 mg tablet tablet by 1 mouth twice daily. Active potassium chloride 20 Take 30 mL by 473 mL 0 mEq/15 mL oral solution mouth daily. 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 Hypertension Resolved Problems Problem Noted Date Resolved Date Sepsis due to methicillin susceptible Staphylococcus aureus (MSSA) with 03/13/2021 03/22/2021 acute organ dysfunction and septic shoc k VAP (ventilator-associated pneumonia) 03/13/2021 03/22/2021 MSSA bacteremia 03/13/2021 03/22/2021 Pneumonia of left lung due to infectious organism 03/11/20 21 03/22/2021 Respiratory acidosis 03/10/2021 03/10/2021 Hyponatremia 03/10/2021 03/10/2021 Hyperkalemia 03/10/2021 03/22/2021 Atelectasis 03/10/2021 03/22/2021 Surgical History Surgery Date Site/Laterality Comments CARPAL TUNNEL RELEASE Right APPENDECTOMY TRACHEOSTOMY 03/15/2021 Throat/N/A TRACHEOSTOMY PL ANNED performed by Emory Shah MD at [facility] Medical History Medical History Date Comments Asthma Diabetes mellitus type II, 03/08/2021 A1c 9.9 uncontrolled (HCC) Essential hypertension Obesity Family History Medical History Relation Name Comments Stroke Brother Stroke Brother Cancer-Breast Sister Relation Name Status Comments Brother Brother Sister Social History Date Tobacco Use Types Packs/Day Years Used Never Smoker Smokeless Tobacco: Never Used Comments Alcohol Use Standard Drinks/Week Yes 0 (1 standard drink = 0.6 o z pure alcohol) Alcohol Habits Answer Date Recorded How often do you have a drink containing alcohol? Monthly or less 03/11/2021 How many drinks containing alcohol do you have on No t asked a typical day when you are drinking? How often do you have six or more drinks on one Not asked occasion? Comment: Not asked Education Answer Date Recorded What is the highest level of school you have High school g raduate 03/11/2021 completed or the highest degree you hav e received? Sex Assigned at Date Recorded Not on file Last Filed Vital Signs Reading Time Taken Comments Vital Sign 141/75 03/22/2021 12:00 PM CDT Blood Pressure 84 03/22/2021 12:51 PM CDT Pulse 36.6 C (97.9 F) 03/22/2021 12:00 PM CDT Temperature - - Respiratory Rate 98% 03/22/2021 12:51 PM CDT Oxygen Saturation - - Inhaled Oxygen Concentration 100.7 kg (222 lb) 03/20/2021 2:36 PM CDT Weight 180.3 cm (5' 10.98") 03/20/2021 2:36 PM CDT Height 30.98 03/20/2021 2:36 PM CDT Body Mass Index Plan of Treatment Health Maintenance Due Date Last Done Comments PNEUMONIA (PPSV23) 1961 VACCINE (1 of 2 - PPSV23) DTAP/TDAP VACCINES (1 - 1973 Tdap) HEPATITIS C SCREENING 1973 PHYSICAL (COMPREHENSIVE) 1973 EXAM COLORECTAL CANCER 2005 SCREENING SHINGLES RECOMBINANT 2005 VACCINE (1 of 2) INFLUENZA VACCINE 06/30/2021 Goals Goal Patient Associated Recent Progress Patient-Stat Aut hor Goal Type Problems ed? 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 03/08/2021 9:02 PM Full Code 03/08/2021 8:50 PM Provider has discussed Code Status No, more discussi on w/Patient or Family? needed
--- NOTE | 2021-10-06 05:25 | ED Respiratory ---
General Chief Complaint: Respiratory Problems Stated Complaint: SOB,74% O2 Source: patient, EMS, custodial records History of Present Illness Date Seen by Provider: Oct 06, 2021 Time Seen by Provider: 05:10 Initial Comments PT ARRIVES VIA EMS FROM [facility] PT HAS TRACH IN PLACE, AND WOKE UP THIS AM WITH DIFFICULTY BREATHING AND FELT LIKE HIS TRACH WAS PLUGGED O2 SAT WAS 74% AT LONGTERM, PT DOES NOT NORMALLY WEAR O2 LONGTERM STAFF SUCTIONED PT 5 TIMES AND IT CLEARED AND PT FEELS MUCH BETTER NOW, BUT IS STILL REQUIRING 3L O2/NC AND O2 SATS ARE 98% NOW PT STATES HE FEELS FINE HAS HAD INCREASED COUGH THIS AM NO FEVER NO CHEST PAIN 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 PT HAS HAD A TRACHEOSTOMY SINCE FEBRUARY 2021. TRANSFERRED FROM [place] TO , THEN TO [facility] HAS BEEN AT [facility] FOR A WEEK HAS BEEN AT [facility] FOR SACRAL DECUBITUS ULCER PCP: DR. HEBETR Allergies and Home Medications Allergies Coded Allergies: No Known Drug Allergies (Unverified , 03/07/21) Patient Home Medication List No Active Prescriptions or Reported Meds Review of Systems Review of Systems Constitutional: no symptoms reported Respiratory: see HPI Psychiatric/Neurological: See HPI, Pre-Existing Deficit Past Xajtufp-Qypnmr-Sxdmgi Hx Seasonal Allergies Seasonal Allergies: No Past Medical History Surgeries: Yes (Carpal Tunnel - right) Appendectomy Respiratory: Yes (TRACH SINCE FEBRUARY 2021 DUE TO GUILLAIN BARRE;RESP FAILURE) Cardiac: Yes High Cholesterol, Hypertension, Syncope Neurological: Yes (GUILLIAN BARRE WITH QUADRIPLEGIA DUE TO COVID VACCINE 01/29 021) Neuropathy, Paralysis, Seizure Disorder Genitourinary: No Gastrointestinal: No Musculoskeletal: No Endocrine: Yes Diabetes, Insulin dep HEENT: No Cancer: No Psychosocial: Yes Depression Integumentary: Yes (STAGE 4 SACRAL ULCER) Blood Disorders: No Adverse Reaction/Blood Tranf: No Family Medical History 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 PT TRANSFERRED TO , AND HAD TRACHEOSTOMY PLACED PT THEN TRANSFERRED TO [facility] IN [place]; PT WAS HOSPITALIZED AT [facility] FOR SACRAL DECUBITUS ULCERS PT EVENTUALLY WENT BACK TO [facility], AND THEN WAS TRANSFERRED TO [facility] ON 09/30/21 WITH PERSISTENT QUADRIPLEGIA AND TRACHEOSTOMY PRIOR TO DEVELOPING GUILLAIN BARRE, PT DID NOT HAVE A DR, WAS UNAWARE OF ANY MEDICAL PROBLEMS AND DID NOT TAKE ANY MEDICATIONS. Physical Exam Vital Signs - First Documented 10/06/21 05:11 Temp 36.0 Pulse 77 Resp 22 B/P (MAP) 121/81 (94) Pulse Ox 98 O2 Delivery Nasal Cannula O2 Flow Rate 3.00 Capillary Refill : Height: 5'11.00" Weight: 230lbs. oz. 104.639111mn; 44.04 BMI Method:Stated General Appearance: WD/WN, no apparent distress Neck: other (TRACH IN PLACE AND IS CURRENTLY CAPPED) Respiratory: normal breath sounds, no respiratory distress, no accessory muscle use Cardiovascular: regular rate, rhythm, no murmur Gastrointestinal: soft Extremities: other (QUADRIPLEGIA) Neurologic/Psychiatric: alert, other (FLAT AFFECT. QUADRIPLEGIA) Skin: normal color, warm/dry Progress/Results/Core Measures Suspected Sepsis SIRS Temperature: Pulse: Respiratory Rate: Blood Pressure / Mean: Results/Orders My Orders Orders - PAUL CHISHOLM DO Chest 1 View, Ap/Pa Only (10/06/21 05:18) Rt Request For Service (10/06/21 05:18) Vital Signs/I&O 10/06/21 10/06/21 05:11 05:26 Temp 36.0 Pulse 77 Resp 22 B/P (MAP) 121/81 (94) Pulse Ox 98 O2 Delivery Nasal Cannula Nasal Cannula O2 Flow Rate 3.00 2.50 Capillary Refill : Progress Note : Progress Note RT FOR TRACH CARE AND SUCTIONING, AND CARE TO TRACH SITE WEANED OFF O2 AND O2 SATS REMAINED IN MID 90'S PT STATES HE FEELS FINE, AND IS BREATHING FINE, AND HAS NO COMPLAINTS Diagnostic Imaging Comments CXR-- Departure Impression Primary Impression: Tracheostomy care Disposition: 03 XF SNF Condition: Stable Departure-Patient Inst. Decision time for Depature: 05:52 Referrals: RAMAN HEBERT MD NO,LOCAL PHYSICIAN (PCP) Primary Care Physician Patient Instructions: How to Care for a Tracheostomy Add. Discharge Instructions: ROUTINE TRACHEOSTOMY CARE CONTINUE ALL MEDICATIONS PRESCRIBED 02 NEEDED FOLLOW UP WITH YOUR DR NEEDED RETURN TO ER IF SYMPTOMS RETURN All discharge instructions reviewed with patient and/or family. Voiced understanding. Scripts No Active Prescriptions or Reported Meds PAUL CHISHOLM DO Oct 06, 2021 05:25
--- NOTE | 2021-10-06 06:14 | Diagnostic Imaging Report ---
INDICATION: dyspnea, trach. TECHNIQUE: Single view chest 5:31 AM. CORRELATION STUDY: 03/07/2021 FINDINGS: Tracheostomy tube is present, tip interposed between the clavicles. Heart size, mediastinum, and vasculature overall within normal limits. The lungs are clear with no consolidating infiltrate. There is no significant effusion or pneumothorax. IMPRESSION: 1. Tracheostomy tube present, placed from prior. Negative for acute cardiopulmonary abnormality. Dictated by: Dictated on workstation # [id number]
[2021-10-06 06:45] VITALS: BP 124/79
== END 2021-10-06 06:44 ==
LOC: ER 05:11
DX: Z43.0 Encounter for attention to tracheostomy (principal); I10 Essential (primary) hypertension
CPT/HCPCS: 71045

== ENCOUNTER 2021-10-25 12:14 | Emergency (ER) | payer OTHER ==
[~2021-10-25] VITALS: Ht 180 cm; Wt 81.4 kg
[2021-10-25] MEDS ORDERED: KETOROLAC 30 MG/ML VIAL IVP ONE (12:30)
[2021-10-25] MEDS ORDERED: ASPIRIN 81 MG CHEW (CHILDREN'S ASA) PO ONE (12:30)
--- NOTE | 2021-10-25 12:32 | ED Chest Pain ---
General Chief Complaint: Chest Wall Stated Complaint: CP Source: patient Exam Limitations: no limitations History of Present Illness Date Seen by Provider: Oct 25, 2021 Time Seen by Provider: 12:29 Initial Comments To ER from [facility] where he resides with reports of sharp left-sided chest pain worsened by deep breathing that began at about 10 or 1030 this morning. No history of this. No fevers chills or cough. 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 This started around 28 February of this year. He received a Covid vaccine in the middle of January. He then had a diarrheal illness for about 2 weeks prior to the onset of quadriparesis as well. He had significantly abnormal nerve conduction studies at the [facility], received plasma exchange and ultimately required ventilation via tracheostomy. He no longer requires ventilation. 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: No NTG SL MILLING MACHINE OPERATOR GEAR: No Allergies and Home Medications Allergies Coded Allergies: COVID-19 vaccine, mRNA, [id number], L (Verified Allergy, Severe, 10/06/21) Patient Home Medication List Home Medication List Reviewed: Yes Amoxicillin/Potassium Clav (Augmentin 875-125 Tablet) 1 Each Tablet, 1 EACH PO BID Prescribed by: CLARA CARLSON on 10/25/21 1333 Review of Systems Review of Systems Constitutional: see HPI EENTM: No Symptoms Reported Respiratory: No Symptoms Reported Cardiovascular: See HPI, Chest Pain Gastrointestinal: No Symptoms Reported Genitourinary: No Symptoms Reported Musculoskeletal: no symptoms reported Skin: no symptoms reported Psychiatric/Neurological: No Symptoms Reported Endocrine: No Symptoms Reported Hematologic/Lymphatic: No Symptoms Reported Past Zfoltyg-Knijfi-Qlrgqk Hx Patient Social History Tobacco Use?: No Use of E-Cig and/or Vaping dev: No Substance use?: No Alcohol Use?: No Immunizations Up To Date Influenza Vaccine Up-to-Date: No; Not Current First/Initial COVID19 Vaccinat: JANUARY 2021 Second COVID19 Vaccination Alexis: FEBRUARY 2021 COVID19 Vaccine 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: TABBY Seasonal Allergies Seasonal Allergies: No Past Medical History Surgeries: Yes (Carpal Tunnel - right) Appendectomy Respiratory: Yes (TRACH SINCE FEBRUARY 2021 DUE TO GUILLAIN BARRE;RESP FAILURE) Cardiac: Yes High Cholesterol, Hypertension, Syncope Neurological: Yes (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 PT TRANSFERRED TO , AND HAD TRACHEOSTOMY PLACED PT THEN TRANSFERRED TO [facility] IN [place]; PT WAS HOSPITALIZED AT [facility] FOR SACRAL DECUBITUS ULCERS PT EVENTUALLY WENT BACK TO [facility], AND THEN WAS TRANSFERRED TO [facility] ON 09/30/21 WITH PERSISTENT QUADRIPLEGIA AND TRACHEOSTOMY PRIOR TO DEVELOPING GUILLAIN BARRE, PT DID NOT HAVE A DR, WAS UNAWARE OF ANY MEDICAL PROBLEMS AND DID NOT TAKE ANY MEDICATIONS. Physical Exam Vital Signs Vital Signs - First Documented 10/25/21 12:14 Temp 36.3 Pulse 66 Resp 20 B/P (MAP) 121/69 (86) Pulse Ox 95 O2 Delivery Room Air Capillary Refill : Less Than 3 Seconds Height, Weight, BMI Height: 5'11.00" Weight: 230lbs. oz. 104.056533uq; 24.00 BMI Method:Stated General Appearance: No Apparent Distress, WD/WN, Other (Alert and oriented, will do conversation with me. Very pleasant gentleman. Hemodynamically stable.) HEENT: PERRL/EOMI, TMs Normal Neck: Full Range of Motion, Normal Inspection Respiratory: No Accessory Muscle Use, No Respiratory Distress Cardiovascular: Regular Rate, Rhythm, Normal Peripheral Pulses Gastrointestinal: Normal Bowel Sounds, Non Tender, Soft Extremity: Normal Capillary Refill, Normal Inspection Neurologic/Psychiatric: Alert, Oriented x3 Skin: Normal Color, Warm/Dry Progress/Results/Core Measures Results/Orders Lab Results Laboratory Tests Test 10/25/21 12:35 Range/Units White Blood Count 8.4 4.3-11.0 10^3/uL Red Blood Count 4.44 4.30-5.52 10^6/uL Hemoglobin 11.9 L 13.3-17.7 g/dL Hematocrit 39 L 40-54 % Mean Corpuscular Volume 87 80-99 fL Mean Corpuscular Hemoglobin 27 25-34 pg Mean Corpuscular Hemoglobin Concent 31 L 32-36 g/dL Red Cell Distribution Width 15.4 H 10.0-14.5 % Platelet Count 271 130-400 10^3/uL Mean Platelet Volume 10.0 9.0-12.2 fL Immature Granulocyte % (Auto) 0 % Neutrophils (%) (Auto) 69 42-75 % Lymphocytes (%) (Auto) 20 12-44 % Monocytes (%) (Auto) 6 0-12 % Eosinophils (%) (Auto) 4 0-10 % Basophils (%) (Auto) 1 0-10 % Neutrophils # (Auto) 5.8 1.8-7.8 10^3/uL Lymphocytes # (Auto) 1.7 1.0-4.0 10^3/uL Monocytes # (Auto) 0.5 0.0-1.0 10^3/uL Eosinophils # (Auto) 0.4 H 0.0-0.3 10^3/uL Basophils # (Auto) 0.1 0.0-0.1 10^3/uL Immature Granulocyte # (Auto) 0.0 0.0-0.1 10^3/uL Prothrombin Time 15.7 H 12.2-14.7 SEC INR Comment 1.2 0.8-1.4 Activated Partial Thromboplast Time 32 24-35 SEC D-Dimer 0.59 H 0.00-0.49 UG/ML Sodium Level 139 135-145 MMOL/L Potassium Level 4.1 3.6-5.0 MMOL/L Chloride Level 102 98-107 MMOL/L Carbon Dioxide Level 27 21-32 MMOL/L Anion Gap 10 5-14 MMOL/L Blood Urea Nitrogen 12 7-18 MG/DL Creatinine 0.47 L 0.60-1.30 MG/DL Estimat Glomerular Filtration Rate 179 BUN/Creatinine Ratio 26 Glucose Level 164 H 70-105 MG/DL Calcium Level 8.8 8.5-10.1 MG/DL Corrected Calcium 9.4 8.5-10.1 MG/DL Magnesium Level 1.8 1.6-2.4 MG/DL Total Bilirubin 0.3 0.1-1.0 MG/DL Aspartate Amino Transf (AST/SGOT) 22 5-34 U/L Alanine Aminotransferase (ALT/SGPT) 23 0-55 U/L Alkaline Phosphatase 82 40-136 U/L Myoglobin 117.1 H 10.0-92.0 NG/ML Troponin I < 0.028 <0.028 NG/ML B-Type Natriuretic Peptide 14.7 <100.0 PG/ML Total Protein 6.1 L 6.4-8.2 GM/DL Albumin 3.2 3.2-4.5 GM/DL My Orders Orders - CLARA CARLSON APRN Cbc With Automated Diff (10/25/21 12:27) Magnesium (10/25/21 12:27) Chest 1 View, Ap/Pa Only (10/25/21 12:27) Ekg Tracing (10/25/21 12:27) Comprehensive Metabolic Panel (10/25/21 12:27) Myoglobin Serum (10/25/21 12:27) Protime With Inr (10/25/21 12:27) Partial Thromboplastin Time (10/25/21 12:27) O2 (10/25/21 12:27) Monitor-Rhythm Ecg Trace Only (10/25/21 12:27) Lipid Panel (10/26/21 06:00) Ed Iv/Invasive Line Start (10/25/21 12:27) BNP (10/25/21 12:27) Fibrin Degradation Products (10/25/21 12:27) Troponin I (10/25/21 12:27) Aspirin Chewable Tablet (Baby Aspirin Ch (10/25/21 12:30) Ketorolac Injection (Toradol Injection) (10/25/21 12:30) Ceftriaxone 1 Gm Pre-Mix (Rocephin 1 Gm (10/25/21 13:45) Medications Given in ED Current Medications Medications Dose Ordered Sig/Magdalena Route Start Time Stop Time Status Last Admin Dose Admin Aspirin 324 mg ONCE ONCE PO 10/25/21 12:30 10/25/21 12:31 DC 10/25/21 12:36 324 MG Ceftriaxone Sodium/Dextrose 50 ml @ 100 mls/hr ONCE ONCE IV 10/25/21 13:45 10/25/21 14:14 10/25/21 13:39 100 MLS/HR Ketorolac Tromethamine 15 mg ONCE ONCE IVP 10/25/21 12:30 10/25/21 12:31 DC 10/25/21 12:37 15 MG Vital Signs/I&O 10/25/21 12:14 Temp 36.3 Pulse 66 Resp 20 B/P (MAP) 121/69 (86) Pulse Ox 95 O2 Delivery Room Air Departure Communication (Admissions) EKG shows sinus rhythm rate of [address] segment elevation or depression no ectopy normal intervals NAME: BOWEN VALE REC#: [id number] PT STATUS: REG ER : 1955 PHYSICIAN: CLARA CARLSON APRN ADMIT DATE: 10/25/21/ER Signed Date of Exam:10/25/21 CHEST 1 VIEW, AP/PA ONLY Indication: Chest pain starting this morning. Dyspnea. Comparison: 10/06/2021. Discussion: Single portable upright view of the chest was obtained. Elevated right hemidiaphragm. Stable normal heart size. New patchy infiltrate within the right midlung, likely atelectasis or pneumonia. Tracheostomy appliance is stable. No pleural fluid or pneumothorax. No osseous abnormality. Impression: 1. New patchy infiltrate within the right midlung. Dictated by: Dictated on workstation # [id number] Dict: 10/25/21 1313 Trans: 10/25/21 1314 [facility] [id number] Interpreted by: RAMAN MANCIA MD Electronically signed by: RAMAN MANCIA MD 10/25/21 1314 Impression Primary Impression: Pneumonia Disposition: 01 HOME, SELF-CARE Condition: Stable Departure-Patient Inst. Decision time for Depature: 13:17 Referrals: NO,LOCAL PHYSICIAN (PCP/Family) Primary Care Physician Patient Instructions: Pneumonia, Adult (DC) Add. Discharge Instructions: 1. Antibiotics as directed. Return to ER for any concerns All discharge instructions reviewed with patient and/or family. Voiced understanding. Scripts Amoxicillin/Potassium Clav (Augmentin 875-125 Tablet) 1 Each Tablet 1 EACH PO BID, #14 TAB 0 Refills Prov: CLARA CARLSON APRN 10/25/21 CLARA CARLSON APRN Oct 25, 2021 12:32
[2021-10-25 12:50] LABS: BASOPHILS # (AUTO) 0.1 10^3/uL (0.0-0.1); BASOPHILS % (AUTO) 1 % (0-10); EOSINOPHILS # (AUTO) 0.4 10^3/uL (0.0-0.3); EOSINOPHILS % (AUTO) 4 % (0-10); HEMATOCRIT 39 % (40-54); HEMOGLOBIN 11.9 g/dL (13.3-17.7); LYMPHOCYTES # (AUTO) 1.7 10^3/uL (1.0-4.0); LYMPHOCYTES % (AUTO) 20 % (12-44); MEAN CORPUSCULAR HEMOGLOBIN 27 pg (25-34); MEAN CORPUSCULAR HGB CONC 31 g/dL (32-36); MEAN CORPUSCULAR VOLUME 87 fL (80-99); MONOCYTES # (AUTO) 0.5 10^3/uL (0.0-1.0); MONOCYTES % (AUTO) 6 % (0-12); NEUTROPHILS # (AUTO) 5.8 10^3/uL (1.8-7.8); NEUTROPHILS % (AUTO) 69 % (42-75); PLATELET COUNT 271 10^3/uL (130-400); WHITE BLOOD COUNT 8.4 10^3/uL (4.3-11.0)
[2021-10-25 12:59] LABS: ALBUMIN 3.2 GM/DL (3.2-4.5)
[2021-10-25 13:00] LABS: INR 1.2 (0.8-1.4); POTASSIUM 4.1 MMOL/L (3.6-5.0); PROTHROMBIN TIME PATIENT 15.7 SEC (12.2-14.7)
[2021-10-25 13:01] LABS: CALCIUM 8.8 MG/DL (8.5-10.1)
[2021-10-25 13:02] LABS: TOTAL PROTEIN 6.1 GM/DL (6.4-8.2)
[2021-10-25 13:04] LABS: BILIRUBIN,TOTAL 0.3 MG/DL (0.1-1.0)
[2021-10-25 13:06] LABS: CREATININE SERUM 0.47 MG/DL (0.60-1.30)
[2021-10-25 13:08] LABS: MAGNESIUM 1.8 MG/DL (1.6-2.4)
--- NOTE | 2021-10-25 13:16 | Diagnostic Imaging Report ---
Indication: Chest pain starting this morning. Dyspnea. Comparison: 10/06/2021. Discussion: Single portable upright view of the chest was obtained. Elevated right hemidiaphragm. Stable normal heart size. New patchy infiltrate within the right midlung, likely atelectasis or pneumonia. Tracheostomy appliance is stable. No pleural fluid or pneumothorax. No osseous abnormality. Impression: 1. New patchy infiltrate within the right midlung. Dictated by: Dictated on workstation # [id number]
[2021-10-25] MEDS ORDERED: AMOX-358 PO (13:33)
[2021-10-25] MEDS ORDERED: cefTRIAXone 1 GM PRE-MIX 50 ML IV ONE (13:45)
[2021-10-25 15:00] VITALS: BP 111/75
== END 2021-10-25 15:00 | disposition home or self-care (01) ==
LOC: EDUNIT# 12:20 → ER 12:21
DX: J18.9 Pneumonia, unspecified organism (principal); I10 Essential (primary) hypertension; E11.9 Type 2 diabetes mellitus without complications
CPT/HCPCS: 36415; 71045; 80053; 83735; 83874; 83880; 84484; 85025; 85379; 85610; 85730; 93005; 93041

== ENCOUNTER 2021-11-04 11:55 | Observation (INO) | payer OTHER ==
[~2021-11-04] VITALS: Ht 180 cm; Wt 79.7 kg
[~2021-11-04 11:55] MED LIST changes: +AMOX-358 PO
--- NOTE | 2021-11-04 14:07 | ED General ---
General Chief Complaint: Catheter/Drain/Tube Problems Stated Complaint: TRACH CLOGGED Nursing Triage Note: PT HERE FOR CLOGGED TRACH TUBE. PT STATES HE FELT IT STARTING TO CLOG A COUPLE WEEKS AGO BUT HAS BEEN ABLE TO CLEAR IT/COUGH IT UP UNTIL TODAY. Source of Information: Patient Exam Limitations: No Limitations History of Present Illness Date Seen by Provider: Nov 04, 2021 Time Seen by Provider: 14:15 Initial Comments This 66-year-old gentleman is a resident of [facility] and presents to the emergency room with complaints of difficulty breathing due to congestion or obstruction of his tracheostomy. 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 He was recently treated for pneumonia after being diagnosed in the ER on October 25. He finished his antibiotics yesterday. He denies any chest pain or feeling short of breath after his tracheostomy is suctioned. He does have cough. Allergies and Home Medications Allergies Coded Allergies: COVID-19 vaccine, mRNA, [id number], L (Verified Allergy, Severe, 10/06/21) Patient Home Medication List Home Medication List Reviewed: Yes Amoxicillin/Potassium Clav (Augmentin 875-125 Tablet) 1 Each Tablet, 1 EACH PO BID Prescribed by: CLARA CARLSON on 10/25/21 1333 Review of Systems Review of Systems Constitutional: no symptoms reported EENTM: see HPI Respiratory: see HPI Cardiovascular: no symptoms reported Gastrointestinal: no symptoms reported Genitourinary: no symptoms reported Musculoskeletal: no symptoms reported Skin: no symptoms reported Psychiatric/Neurological: See HPI Hematologic/Lymphatic: No Symptoms Reported Immunological/Allergic: no symptoms reported Past Nntbsij-Bulgqp-Jsyhxc Hx Patient Social History Tobacco Use?: No Substance use?: No Alcohol Use?: No Pt feels they are or have been: No Immunizations Up To Date First/Initial COVID19 Vaccinat: JANUARY 2021 Second COVID19 Vaccination Alexis: JANUARY 2021 Third COVID19 Vaccination Date: JANUARY 2021 Seasonal Allergies Seasonal Allergies: No Past Medical History Surgeries: Yes (Carpal Tunnel - right) Appendectomy, Tracheostomy Respiratory: Yes (TRACH SINCE FEBRUARY 2021 DUE TO GUILLAIN BARRE;RESP FAILURE) Cardiac: Yes High Cholesterol, Hypertension, Syncope Neurological: Yes (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 PT TRANSFERRED TO , AND HAD TRACHEOSTOMY PLACED PT THEN TRANSFERRED TO [facility] IN [place]; PT WAS HOSPITALIZED AT [facility] FOR SACRAL DECUBITUS ULCERS PT EVENTUALLY WENT BACK TO [facility], AND THEN WAS TRANSFERRED TO [facility] ON 09/30/21 WITH PERSISTENT QUADRIPLEGIA AND TRACHEOSTOMY PRIOR TO DEVELOPING GUILLAIN BARRE, PT DID NOT HAVE A DR, WAS UNAWARE OF ANY MEDICAL PROBLEMS AND DID NOT TAKE ANY MEDICATIONS. Physical Exam Vital Signs Vital Signs - First Documented 11/04/21 11/04/21 11/04/21 12:21 12:32 15:47 Temp 36.8 Pulse 67 Resp 20 B/P (MAP) 124/74 (91) Pulse Ox 91 O2 Delivery Room Air O2 Flow Rate 2.00 Capillary Refill : Less Than 3 Seconds Height, Weight, BMI Height: 5'11.00" Weight: 230lbs. oz. 104.061121kg; 25.00 BMI Method:Stated General Appearance: No Apparent Distress, WD/WN HEENT: PERRL/EOMI, Normal ENT Inspection, Pharynx Normal Neck: Other (Tracheostomy in place. The dressing over the ostomy has thick green purulent drainage. There is some scant drainage on the ostomy. There is some stringy granulation tissue within the ostomy. The ostomy tube itself does not appear obstructed. There are no significant inflammatory changes on the skin surrounding the ostomy. 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 Norm as Tested, Motor Weakness (Quadriplegia), Other (Sensation intact throughout.) Skin: Normal Color, Warm/Dry Progress/Results/Core Measures Suspected Sepsis SIRS Temperature: Pulse: 67 Respiratory Rate: 20 Blood Pressure 124 /74 Mean: 91 Results/Orders My Orders Orders - SHIRA REDDY MD Chest 1 View, Ap/Pa Only (11/04/21 14:34) Albuterol/Ipra Inhalation Soln (Duoneb I (11/04/21 14:45) Svn Small Volume Nebulizer (11/04/21 14:34) Sputum Culture (11/04/21 14:36) Acetylcysteine 30ml(Rt/Po Use) (Mucomyst (11/04/21 15:15) Albuterol Pre-Mix Nebs (Rt) (Proventil (11/04/21 15:32) Albuterol Pre-Mix Nebs (Rt) (Proventil (11/04/21 15:45) Basic Metabolic Panel (11/04/21 16:05) Cbc With Automated Diff (11/04/21 16:05) Hs C Reactive Protein (11/04/21 16:05) Ed Iv/Invasive Line Start (11/04/21 16:05) Cefepime Injection (Maxipime Injection) (11/04/21 18:45) Medications Given in ED Current Medications Medications Dose Ordered Sig/Magdalena Route Start Time Stop Time Status Last Admin Dose Admin Acetylcysteine 2 ML ONCE ONCE INH 11/04/21 15:15 11/04/21 15:16 DC 11/04/21 15:35 3 ML Albuterol Sulfate 2.5 mg STK-MED ONCE .ROUTE 11/04/21 15:32 11/04/21 15:36 DC 11/04/21 15:47 2.5 MG Albuterol/ Ipratropium 3 ml ONCE ONCE INH 11/04/21 14:45 11/04/21 14:46 DC 11/04/21 15:16 3 ML Cefepime HCl 2000 mg/Sodium Chloride 50 ml @ 100 mls/hr ONCE ONCE IV 11/04/21 18:45 11/04/21 19:14 DC 11/04/21 19:20 100 MLS/HR Vital Signs/I&O 11/04/21 11/04/21 11/04/21 12:21 12:32 15:47 Temp 36.8 Pulse 67 Resp 20 B/P (MAP) 124/74 (91) Pulse Ox 91 91 92 O2 Delivery Room Air O2 Flow Rate 2.00 Capillary Refill : Less Than 3 Seconds Blood Pressure Mean: 91 Progress Note : Progress Note Patient was feeling well after being suctioned. However, he was noted to have oxygen saturations in the 89 to 92% range on room air. He does not normally have to use supplemental oxygen. Respiratory therapy was asked to reevaluate him and a chest x-ray was obtained. X-ray was unremarkable. After a series of albuterol treatments and Mucomyst followed by suctioning, a significant amount of thick mucus along with a mucous plug was suctioned out. Again patient felt fairly well but was having trouble maintaining his saturations. The respiratory therapist impression was that he would require repeated rounds of suctioning to clear all of his deep secretions. A sputum culture was obtained. The situation was discussed with Dr. Thompson. We are concerned that [facility] may not be able to provide the respiratory care that Mr. Vale needs at this time. Therefore called the admission for observation overnight was pursued. Labs were ordered but were not available at the time of admission. Due to the thick green purulent drainage on his tracheostomy dressing, a dose of cefepime was administered. Patient finished Augmentin yesterday. Patient did report his tracheostomy dressings had not been changed through the weekend. I discussed CODE STATUS with the patient and he requests DNR. Diagnostic Imaging Diagonstic Imaging: Xray Plain Films/CT/US/NM/MRI: chest Comments Chest x-ray reviewed by me and report reviewed. See report below: NAME: BOWEN VALE [facility] REC#: [id number] PT STATUS: REG ER : 1955 PHYSICIAN: SHIRA REDDY MD ADMIT DATE: 11/04/21/ER Signed Date of Exam:11/04/21 CHEST 1 VIEW, AP/PA ONLY INDICATION: Clogged trach tube. TIME OF EXAM: 2:47 PM. COMPARISON: Correlation is made with the prior chest from 10/25/2021. FINDINGS: The tracheotomy tube has the tip well above the howie. The heart size is normal. The lungs are clear of acute infiltrates. There is no effusion or pneumothorax. IMPRESSION: No acute cardiopulmonary process is detected. Dictated by: Dictated on workstation # [id number] Dict: 11/04/21 1445 Trans: 11/04/21 1601 [id number] Interpreted by: JAX CANTOR MD Electronically signed by: JAX CANTOR MD 11/04/21 1601 Departure Communication (Admissions) Time/Spoke to Admitting Phy: 18:40 Dr. Thompson Impression Primary Impression: Hypoxia Additional Impressions: Tracheostomy care Mucus plugging of bronchi Disposition: HOME, SELF-CARE Condition: Improved Admissions Decision to Admit Reason: Admit from ER (General) Decision to Admit/Date: Nov 04, 2021 Time/Decision to Admit Time: 18:00 Departure-Patient Inst. Referrals: SINA DASILVA MD, ERIC B DO DUNBAR, BRETT D DO NO,LOCAL PHYSICIAN (PCP) Primary Care Physician Patient Instructions: How to Care for a Tracheostomy Add. Discharge Instructions: Suction tracheostomy as needed. Keep the area around the tracheostomy clean and dry. Clean the skin gently with DM soap and water on a clean cloth or gauze daily. Monitor for signs of infection such as increasing redness, increasing drainage, odor, increasing bleeding, or pain. Return to care if you notice the symptoms. Please change the dressing at least daily. Please establish with a general surgeon or an ENT provider as soon as possible for tracheostomy maintenance. All discharge instructions reviewed with patient and/or family. Voiced understanding. Copy Copies To 1: RAMAN HEBERT MD, JOSHUA T MD Nov 04, 2021 14:07
[2021-11-04] MEDS ORDERED: RT-ALBUTEROL/IPRATROPIUM 3 ML (DUONEB) VIAL INH ONE (14:45)
--- NOTE | 2021-11-04 14:48 | Diagnostic Imaging Report ---
INDICATION: Clogged trach tube. TIME OF EXAM: 2:47 PM. COMPARISON: Correlation is made with the prior chest from 10/25/2021. FINDINGS: The tracheotomy tube has the tip well above the howie. The heart size is normal. The lungs are clear of acute infiltrates. There is no effusion or pneumothorax. IMPRESSION: No acute cardiopulmonary process is detected. Dictated by: Dictated on workstation # [id number]
[2021-11-04] MEDS ORDERED: aCETylcysteine 20% (MUCOMYST) 30ML SOLN VIAL INH ONE (15:15)
[2021-11-04] MEDS ORDERED: RT-ALBUTEROL SULF 2.5 MG/3 ML PRE-MIX VIAL ONE (15:32)
[2021-11-04] MEDS ORDERED: RT-ALBUTEROL SULF 2.5 MG/3 ML PRE-MIX VIAL IH ONE (15:45)
[2021-11-04] MEDS ORDERED: CEFEPIME INJECTION 2,000 MG in NS (IVPB) 50 ML IV ONE (18:45)
[2021-11-04 19:18] LABS: BASOPHILS % (AUTO) 1 % (0-10); EOSINOPHILS # (AUTO) 0.1 10^3/uL (0.0-0.3); EOSINOPHILS % (AUTO) 2 % (0-10); HEMATOCRIT 41 % (40-54); HEMOGLOBIN 12.8 g/dL (13.3-17.7); LYMPHOCYTES % (AUTO) 17 % (12-44); MEAN CORPUSCULAR HEMOGLOBIN 27 pg (25-34); MEAN CORPUSCULAR HGB CONC 32 g/dL (32-36); MEAN CORPUSCULAR VOLUME 86 fL (80-99); MEAN PLATELET VOLUME 9.9 fL (9.0-12.2); MONOCYTES # (AUTO) 0.6 10^3/uL (0.0-1.0); MONOCYTES % (AUTO) 10 % (0-12); NEUTROPHILS # (AUTO) 4.3 10^3/uL (1.8-7.8); NEUTROPHILS % (AUTO) 71 % (42-75); PLATELET COUNT 268 10^3/uL (130-400)
[2021-11-04 19:44] LABS: CALCIUM 9.2 MG/DL (8.5-10.1); CREATININE SERUM 0.5 MG/DL (0.60-1.30); POTASSIUM 4.3 MMOL/L (3.6-5.0)
[2021-11-04 20:11] VITALS: BP 124/74
[2021-11-04] MEDS ORDERED: RT-ALBUTEROL/IPRATROPIUM 3 ML (DUONEB) VIAL INH PRN (20:15)
[2021-11-04 20:21] VITALS: BP 101/66
[2021-11-04] MEDS: ALPRAZolam 0.5 MG (XANAX) TAB PO PRN (22:01)
[2021-11-04] MEDS: PREGABALIN 100 MG (LYRICA) CAPSULE PO SCH (22:01)
[2021-11-04] MEDS: oxyCODONE/APAP 10/325MG (PERCOCET 10) TABLET PO PRN (22:01)
[2021-11-04] MEDS: APIXABAN 5 MG (ELIQUIS) TABLET PO SCH (22:01)
[2021-11-05] VITALS (7 sets, daily range): BP systolic 102–114; BP diastolic 58–73
[2021-11-05] MEDS: CATHETER FLUSH 10 ML SYR IV SCH ×4 (00:03→21:40)
[2021-11-05 06:15] LABS: BASOPHILS % (AUTO) 0 % (0-10); EOSINOPHILS # (AUTO) 0.1 10^3/uL (0.0-0.3); EOSINOPHILS % (AUTO) 2 % (0-10); HEMATOCRIT 41 % (40-54); HEMOGLOBIN 12.5 g/dL (13.3-17.7); LYMPHOCYTES # (AUTO) 1.7 10^3/uL (1.0-4.0); LYMPHOCYTES % (AUTO) 33 % (12-44); MEAN CORPUSCULAR HEMOGLOBIN 26 pg (25-34); MEAN CORPUSCULAR HGB CONC 31 g/dL (32-36); MEAN CORPUSCULAR VOLUME 87 fL (80-99); MEAN PLATELET VOLUME 10.3 fL (9.0-12.2); MONOCYTES # (AUTO) 0.5 10^3/uL (0.0-1.0); MONOCYTES % (AUTO) 11 % (0-12); NEUTROPHILS # (AUTO) 2.8 10^3/uL (1.8-7.8); NEUTROPHILS % (AUTO) 54 % (42-75); PLATELET COUNT 242 10^3/uL (130-400); WHITE BLOOD COUNT 5.1 10^3/uL (4.3-11.0)
[2021-11-05 06:21] LABS: POTASSIUM 3.6 MMOL/L (3.6-5.0)
[2021-11-05 06:27] LABS: CREATININE SERUM 0.48 MG/DL (0.60-1.30)
[2021-11-05] MEDS ORDERED: DEXT38GE12 PO (09:35)
[2021-11-05] MEDS ORDERED: INSU100I23 SQ (09:35)
[2021-11-05] MEDS ORDERED: FAMO20TA5 PO (09:35)
[2021-11-05] MEDS ORDERED: [UNRECOGNIZED DRUG - CODE] OU (09:35)
[2021-11-05] MEDS ORDERED: PREG100C PO (09:35)
[2021-11-05] MEDS ORDERED: FERR-84 PO (09:35)
[2021-11-05] MEDS ORDERED: OXYC-556 PO (09:35)
[2021-11-05] MEDS ORDERED: SCOP1PAT10 TD (09:35)
[2021-11-05] MEDS ORDERED: MULT-1136 PO (09:35)
[2021-11-05] MEDS ORDERED: LIDO113G3 TP (09:35)
[2021-11-05] MEDS ORDERED: GUAI600T43 PO (09:35)
[2021-11-05] MEDS ORDERED: GLUC1VIA15 IJ (09:35)
[2021-11-05] MEDS ORDERED: ALPR0.5T7 PO (09:35)
[2021-11-05] MEDS ORDERED: POLY15DR27 OU (09:35)
[2021-11-05] MEDS ORDERED: AMIO200T65 PO (09:35)
[2021-11-05] MEDS ORDERED: ARGI1POW4 PO (09:35)
[2021-11-05] MEDS ORDERED: PREG25CA19 PO (09:35)
[2021-11-05] MEDS ORDERED: METO-333 PO (09:35)
[2021-11-05] MEDS ORDERED: HYDR42CR3 TP (09:35)
[2021-11-05] MEDS ORDERED: IPRA3AMP31 IH (09:35)
[2021-11-05] MEDS ORDERED: SERT-413 PO (09:35)
[2021-11-05] MEDS ORDERED: LACT1CAP76 PO (09:35)
[2021-11-05] MEDS ORDERED: CHLO473M4 MM (09:35)
[2021-11-05] MEDS ORDERED: DOCU100C37 PO (09:35)
[2021-11-05] MEDS ORDERED: ATOR40TA70 PO (09:35)
[2021-11-05] MEDS ORDERED: APIX5TAB PO (09:35)
[2021-11-05] MEDS ORDERED: LEVE500T6 PO (09:35)
[2021-11-05] MEDS ORDERED: POLY17PO6 PO (09:35)
[2021-11-05] MEDS: PREGABALIN 100 MG (LYRICA) CAPSULE PO SCH ×2 (09:37→21:39)
[2021-11-05] MEDS: APIXABAN 5 MG (ELIQUIS) TABLET PO SCH ×2 (09:37→21:39)
[2021-11-05] MEDS: oxyCODONE/APAP 10/325MG (PERCOCET 10) TABLET PO PRN ×2 (09:41→21:40)
--- NOTE | 2021-11-05 19:19 | History & Physical ---
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 Patient states that on he started having increasing shortness of breath and work of breathing. He was having a hard time clearing secretions. Denies any fever or chills. No recent sick contacts. Source: patient Exam Limitations: no limitations Date seen by provider: Nov 05, 2021 Time Seen by Provider: 11:00 Attending Physician Aleta Thompson MD PCP No,Local Physician Consult Date of Admission Nov 04, 2021 at 18:56 Home Medications Home Medications Reviewed patient Home Medication Reconciliation performed by pharmacy medication reconciliations site damage prevention technician and/or nursing. Patients Allergies have been reviewed. Allergies Coded Allergies: COVID-19 vaccine, mRNA, [id number], L (Verified Allergy, Severe, 10/06/21) INP-Hjsfwq-Xzbsmr Hx Patient Social History Living Status: VCV NR 2nd Hand Smoke Exposure: No Recent Hopitalizations: No Alcohol Use?: No Have you traveled recently?: No Past Medical History Guillain Boyd Trach dependent Family Medical History Other Significan Family Hx: 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 PT TRANSFERRED TO , AND HAD TRACHEOSTOMY PLACED PT THEN TRANSFERRED TO [facility] IN [place]; PT WAS HOSPITALIZED AT [facility] FOR SACRAL DECUBITUS ULCERS PT EVENTUALLY WENT BACK TO [facility], AND THEN WAS TRANSFERRED TO [facility] ON 09/30/21 WITH PERSISTENT QUADRIPLEGIA AND TRACHEOSTOMY PRIOR TO DEVELOPING GUILLAIN BARRE, PT DID NOT HAVE A DR, WAS UNAWARE OF ANY MEDICAL PROBLEMS AND DID NOT TAKE ANY MEDICATIONS. Review of Systems (CHC) Constitutional: No chills, No fever; malaise EENTM: no symptoms reported Respiratory: cough, short of breath, other (increasing secretions) Cardiovascular: no symptoms reported; No chest pain, No edema, No palpitations Gastrointestinal: no symptoms reported; No abdominal pain, No constipation, No diarrhea, No nausea, No vomiting Genitourinary: no symptoms reported, other (catheter dependent) Skin: other (increased drainage around trach) Psychiatric/Neurological: No Symptoms Reported Reviewed Test Results Reviewed Test Results Lab Laboratory Tests Test 11/05/21 05:36 Range/Units White Blood Count 5.1 4.3-11.0 10^3/uL Red Blood Count 4.73 4.30-5.52 10^6/uL Hemoglobin 12.5 L 13.3-17.7 g/dL Hematocrit 41 40-54 % Mean Corpuscular Volume 87 80-99 fL Mean Corpuscular Hemoglobin 26 25-34 pg Mean Corpuscular Hemoglobin Concent 31 L 32-36 g/dL Red Cell Distribution Width 15.8 H 10.0-14.5 % Platelet Count 242 130-400 10^3/uL Mean Platelet Volume 10.3 9.0-12.2 fL Immature Granulocyte % (Auto) 0 % Neutrophils (%) (Auto) 54 42-75 % Lymphocytes (%) (Auto) 33 12-44 % Monocytes (%) (Auto) 11 0-12 % Eosinophils (%) (Auto) 2 0-10 % Basophils (%) (Auto) 0 0-10 % Neutrophils # (Auto) 2.8 1.8-7.8 10^3/uL Lymphocytes # (Auto) 1.7 1.0-4.0 10^3/uL Monocytes # (Auto) 0.5 0.0-1.0 10^3/uL Eosinophils # (Auto) 0.1 0.0-0.3 10^3/uL Basophils # (Auto) 0.0 0.0-0.1 10^3/uL Immature Granulocyte # (Auto) 0.0 0.0-0.1 10^3/uL Sodium Level 140 135-145 MMOL/L Potassium Level 3.6 3.6-5.0 MMOL/L Chloride Level 103 98-107 MMOL/L Carbon Dioxide Level 24 21-32 MMOL/L Anion Gap 13 5-14 MMOL/L Blood Urea Nitrogen 20 H 7-18 MG/DL Creatinine 0.48 L 0.60-1.30 MG/DL Estimat Glomerular Filtration Rate 174 BUN/Creatinine Ratio 42 Glucose Level 98 70-105 MG/DL Calcium Level 9.0 8.5-10.1 MG/DL C-Reactive Protein High Sensitivity 1.02 H 0.00-0.50 MG/DL Physical Exam-(CHC) Physical Exam Vital Signs VS - Last 72 Hours, by Label 11/04/21 11/04/21 11/04/21 11/04/21 12:21 12:32 15:47 19:22 Temp 36.8 Pulse 67 Resp 20 B/P (MAP) 124/74 (91) 115/89 Pulse Ox 91 91 92 96 O2 Delivery Room Air Nasal Cannula O2 Flow Rate 2.00 2.00 11/04/21 11/04/21 11/04/21 11/05/21 19:35 20:11 20:21 00:30 Temp 36.8 38.0 37.2 Pulse 67 85 75 Resp 20 18 B/P (MAP) 101/66 (78) 111/70 (84) Pulse Ox 92 96 97 O2 Delivery Room Air Room Air Nasal Cannula O2 Flow Rate 2.00 1.00 11/05/21 11/05/21 11/05/21 11/05/21 04:11 08:00 08:05 08:17 Temp 36.4 37.0 Pulse 58 64 Resp 18 20 B/P (MAP) 108/68 (81) 102/64 (77) Pulse Ox 97 92 97 93 O2 Delivery Room Air Room Air Room Air Room Air 11/05/21 11/05/21 11:28 16:00 Temp 37.3 36.8 Pulse 78 84 Resp 20 18 B/P (MAP) 103/58 (73) 109/67 (81) Pulse Ox 92 95 O2 Delivery Room Air Room Air Capillary Refill : Less Than 3 Seconds General Appearance: WD/WN, no apparent distress Neck: supple, other (trach present with some thick green drainage) Respiratory: chest non-tender, lungs clear, no respiratory distress, no accessory muscle use Cardiovascular: normal peripheral pulses, regular rate, rhythm, no edema, no murmur Gastrointestinal: normal bowel sounds, non tender, soft Extremities: normal inspection, no calf tenderness, normal capillary refill Neurologic/Psychiatric: music internship II-XII nml as tested, alert, other (quadreplegic) Skin: normal color, warm/dry Assessment/Plan Assessment/Plan Admission Status: Observation (1) Mucus plugging of bronchi Status: Acute Assessment & Plan: 11/05: Agressive respiratory care with suction, MAT protocol (2) Tracheostomy care Status: Acute (3) Hypoxia Status: Resolved Assessment & Plan: 11/05: Patient on ALETA MENJIVAR MD Nov 05, 2021 19:19
[2021-11-05] MEDS: ALPRAZolam 0.5 MG (XANAX) TAB PO PRN (21:39)
[2021-11-05] MEDS: FAMOTIDINE 20 MG (PEPCID) TABLET PO SCH (21:40)
[2021-11-05] MEDS: DOCUSATE SODIUM 100 MG (COLACE) CAP PO SCH (21:40)
[2021-11-05] MEDS: meTOprolol TARTRATE 25 MG (LOPRESSOR) TABLET PO SCH (21:40)
[2021-11-05] MEDS: PREGABALIN 25 MG (LYRICA) CAPSULE PO SCH (22:44)
[2021-11-05] MEDS: CHLORHEXIDINE 0.12% SOLN 15 ML (PERIDEX) UDC MM SCH (22:44)
[2021-11-06 00:28] VITALS: BP 101/61
[2021-11-06 04:00] VITALS: BP 127/69
[2021-11-06] MEDS: CATHETER FLUSH 10 ML SYR IV SCH ×2 (04:32→14:22)
[2021-11-06 08:00] VITALS: BP 107/67
[2021-11-06] MEDS ORDERED: SERTRALINE 50 MG (ZOLOFT) TABLET PO SCH (09:00)
[2021-11-06] MEDS ORDERED: AMIODARONE 200 MG (CORDARONE) TAB PO SCH (09:00)
[2021-11-06] MEDS: DOCUSATE SODIUM 100 MG (COLACE) CAP PO SCH (09:03)
[2021-11-06] MEDS: meTOprolol TARTRATE 25 MG (LOPRESSOR) TABLET PO SCH (09:03)
[2021-11-06] MEDS: APIXABAN 5 MG (ELIQUIS) TABLET PO SCH (09:03)
[2021-11-06] MEDS: PREGABALIN 25 MG (LYRICA) CAPSULE PO SCH (09:03)
[2021-11-06] MEDS: FAMOTIDINE 20 MG (PEPCID) TABLET PO SCH (09:04)
[2021-11-06] MEDS: CHLORHEXIDINE 0.12% SOLN 15 ML (PERIDEX) UDC MM SCH (09:04)
[2021-11-06] MEDS: PREGABALIN 100 MG (LYRICA) CAPSULE PO SCH (09:04)
[2021-11-06] MEDS: oxyCODONE/APAP 10/325MG (PERCOCET 10) TABLET PO PRN (09:04)
[2021-11-06 12:00] VITALS: BP 95/55
--- NOTE | 2021-11-06 12:18 | Discharge Summary ---
Discharge Summary Reconcile Patient Problems Problems Reviewed?: Yes Hospital Course Hospital Course Date of Admission: Nov 04, 2021 at 18:56 Admission Diagnosis : Family Physician/Provider: No,Local Physician Date of Discharge: 11/06/21 Discharge Diagnosis: Hypoxia Mucus plugging Trach dependent Guillian Lambert Hospital Course: 66 yo M with Guillian Lambert syndrome that presented with increasing shortness of breath and thick mucus secretions. Patient is trach dependent and the facility was not able to suction with patient improvement. Patient received mucomist and aggressive RT suctioning and therapy and is now on RA. Patient is at baseline and wanting to go back to therapy at [facility]. Labs and Pending Lab Test: Microbiology 11/04/21 Gram Stain - Final, Resulted 11/04/21 Sputum Culture - Preliminary, Resulted Staphylococcus aureus Corynebacterium striatum Pseudomonas aeruginosa Home Meds Active Reported Topicaine (Lidocaine) 113 Gm Gel..gram. 1 Applic TP TID PRN Cortaid (Hydrocortisone) 42 Gm Cream..g. 1 Appful TP Q4H PRN APPLY TO HANDS Miralax (Polyethylene Glycol 3350) 17 Gm Powd.pack 17 Gm PO DAILY PRN Lubricant Pm Eye Ointment (Mineral Oil/Petrolatum,White) 3.5 Gm Oint...g. 1 Applic OU Q2H PRN Mucinex (Guaifenesin) 600 Mg Tab.er.12h 600 Mg PO Q12H PRN Artificial Tears 15 Ml Soln 2 Drops OU Q2H PRN Pregabalin 25 Mg Capsule 25 Mg PO BID TAKES 100MG +25MG TO EQUAL 125MG Peridex (Chlorhexidine Gluconate) 473 Ml Mouthwash 15 Ml MM BID Metoprolol Tartrate 25 Mg Tablet 25 Mg PO BID HOLD FOR SBP <100 OR PULSE <60, NOTIFY PCP IF HELD FOR 3 CONSECUTIVE DAYS Lyrica (Pregabalin) 100 Mg Capsule 100 Mg PO BID TAKES 100MG +25MG TO EQUAL 125MG Levetiracetam 500 Mg Tablet 1,000 Mg PO BID TAKES 2 (500MG) TABS Bettio Packet (Arginine/Glutamine/Calcium Hmb) 1 Each Powd.pack 1 Each PO BID Famotidine 20 Mg Tablet 20 Mg PO BID Eliquis (Apixaban) 5 Mg Tablet 5 Mg PO BID Docusate Sodium 100 Mg Capsule 100 Mg PO BID Acidophilus-Pectin Capsule (Lactobacillus Acidophilus/Pect) 1 Each Capsule 1 Each PO BID Sertraline HCl 50 Mg Tablet 50 Mg PO DAILY Transderm-Scop (Scopolamine) 1 Each Patch.td72 1 Each TD Q72H Multivitamin 1 Each Tablet 1 Each PO DAILY Iron (Ferrous Sulfate) 325 Mg Tablet 325 Mg PO DAILY Atorvastatin Calcium 40 Mg Tablet 40 Mg PO HS Amiodarone HCl 200 Mg Tablet 200 Mg PO DAILY HOLD FOR SBP <100 OR PULSE <60, NOTIFY PCP IF HELD FOR 3 CONSECUTIVE DAYS Oxycodone-Acetaminophen 10-325 (Oxycodone HCl/Acetaminophen) 1 Each Tablet 1 Each PO Q4H PRN MDD 3 Glucose Gel (Dextrose) 38 Gm Gel..gram. 15 Gm PO UD PRN Glucagon Emergency Kit (Glucagon HCl) 1 Mg Vial 1 Mg IJ UD PRN Iprat-Albut 0.5-3(2.5) mg/3 ml (Ipratropium/Albuterol Sulfate) 3 Ml Ampul.neb 3 Ml IH Q6H PRN Humalog Kwikpen (Insulin Lispro) 100 Unit/1 Ml Insuln.pen 14 Unit SQ DAILY NOTIFY PCP IF BLOOD GLUCOSE LESS THAN 70 OR GREATER THAN 500 Alprazolam 0.5 Mg Tablet 0.5 Mg PO HS Instructions to Patient/Family Assessment/Instructions - Resume Previous orders Skilled NF Admit to: [facility] Certification (SNF) I certify that SNF services are required to be given on an inpatient basis because of the above named patient's need for jail care on a continuing basis for the conditions(s) for which he/she was receiving inpatient hospital services prior to his/her transfer to the SNF. Care Home Facility Order: Physical Therapy-Evaluate & Treat, Other (Trach care) Oxygen Delivery Method: Room Air Resuscitation Status: Do Not Resuscitate Jackie Thompson Nov 06, 2021 12:14 Discharge Physical Exam General: Alert, Oriented X3, No Acute Distress Lungs: Clear to Auscultation, Normal Air Movement, Other (Trach with minimal secretions at this time) Heart: Regular Rate, No Murmurs Abdomen: Normal Bowel Sounds, Soft Skin: No Rashes, No Breakdown Neuro: Normal Speech Psych/Mental Status: Mood JACKIE THOMPSON MD Nov 06, 2021 12:18
[2021-11-06 15:07] VITALS: BP 95/55
== END 2021-11-06 15:31 ==
LOC: EDUNIT# 11:55 → ER 11:58 → 4TH 18:56
PROVIDERS: ADMIT Family Medicine; ATTEND Family Medicine
DX: T17.590A Other foreign object in bronchus causing asphyxiation, initial encounter (principal); G61.0 Guillain-Barre syndrome; G62.9 Polyneuropathy, unspecified; G83.9 Paralytic syndrome, unspecified; G40.909 Epilepsy, unspecified, not intractable, without status epilepticus; E78.00 Pure hypercholesterolemia, unspecified; I10 Essential (primary) hypertension; E11.40 Type 2 diabetes mellitus with diabetic neuropathy, unspecified; F32.A Depression, unspecified; Z93.0 Tracheostomy status; Z79.899 Other long term (current) drug therapy; Z90.89 Acquired absence of other organs
CPT/HCPCS: 31502; 71045; 80048 ×2; 85025 ×2; 86141 ×2; 87070; 87077; 87186; 87205; 94640; 94760 ×2; 99285; G0378; 36415; 96374

== ENCOUNTER 2021-11-09 16:55 | Emergency (ER) | payer OTHER ==
[~2021-11-09] VITALS: Ht 180.3 cm; Wt 81.6 kg
[~2021-11-09 16:55] MED LIST changes: +ALPR0.5T7 PO; +AMIO200T65 PO; +APIX5TAB PO; +ARGI1POW4 PO; +ATOR40TA70 PO; +CHLO473M4 MM; +DEXT38GE12 PO; +DOCU100C37 PO; +FAMO20TA5 PO; +FERR-84 PO; +GLUC1VIA15 IJ; +GUAI600T43 PO; +HYDR42CR3 TP; +INSU100I23 SQ; +IPRA3AMP31 IH; +LACT1CAP76 PO; +LEVE500T6 PO; +LIDO113G3 TP; +METO-333 PO; +MULT-1136 PO; +OXYC-556 PO; +POLY15DR27 OU; +POLY17PO6 PO; +PREG100C PO; +PREG25CA19 PO; +SCOP1PAT10 TD; +SERT-413 PO; +[UNRECOGNIZED DRUG - CODE] OU
--- NOTE | 2021-11-09 17:17 | ED General ---
General Chief Complaint: Catheter/Drain/Tube Problems Stated Complaint: COVID POSITIVE/TRACH ISSUES Source of Information: Patient, EMS, [facility] Records Exam Limitations: No Limitations History of Present Illness Date Seen by Provider: Nov 09, 2021 Time Seen by Provider: 17:16 Initial Comments No to ER by EMS from [facility] with reports that he is Covid positive as of yesterday. They noticed a fever up to 101 earlier today and gave Tylenol prior to transport to ER. Patient reports intermittent right- sided chest pain. He denies feeling poorly overall. He denies body aches or nausea. He does report some chronic shortness of breath. 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 This started around 28 February of this year. He received a Covid vaccine in the middle of January. He then had a diarrheal illness for about 2 weeks prior to the onset of quadriparesis as well. He had significantly abnormal nerve conduction studies at the [facility], received plasma exchange and ultimately required ventilation via tracheostomy. He no longer requires ventilation. He reports that he was to start with physical therapy on parallel bars this week as the beginning steps of ambulation but he tested positive for Covid yesterday. Timing/Duration: 1-2 Days Severity: Moderate Associated Systoms: Chest Pain Allergies and Home Medications Allergies Coded Allergies: COVID-19 vaccine, mRNA, [id number], L (Verified Allergy, Severe, 10/06/21) Patient Home Medication List Home Medication List Reviewed: Yes Alprazolam (Alprazolam) 0.5 Mg Tablet, 0.5 MG PO HS, (Reported) Entered as Reported by: SATYA LA on 11/05/21 0935 Amiodarone HCl (Amiodarone HCl) 200 Mg Tablet, 200 MG PO DAILY, (Reported) Entered as Reported by: SATYA LA on 11/05/21 0935 Apixaban (Eliquis) 5 Mg Tablet, 5 MG PO BID, (Reported) Entered as Reported by: SATYA LA on 11/05/21 0935 Arginine/Glutamine/Calcium Hmb (Betito Packet) 1 Each Powd.pack, 1 EACH PO BID, (Reported) Entered as Reported by: SATYA LA on 11/05/21934 Artificial Tears (Artificial Tears) 15 Ml Soln, 2 DROPS OU Q2H PRN for DRY EYES, (Reported) Entered as Reported by: SATYA LA on 11/05/21934 Atorvastatin Calcium (Atorvastatin Calcium) 40 Mg Tablet, 40 MG PO HS, (Reported) Entered as Reported by: SATYA LA on 11/05/21934 Chlorhexidine Gluconate (Peridex) 473 Ml Mouthwash, 15 ML MM BID, (Reported) Entered as Reported by: SATYA LA on 11/05/21934 Dextrose (Glucose Gel) 38 Gm Gel..gram., 15 GM PO UD PRN for HYPOGLYCEMIA, (Repo rted) Entered as Reported by: SATYA LA on 11/05/21934 Docusate Sodium (Docusate Sodium) 100 Mg Capsule, 100 MG PO BID, (Reported) Entered as Reported by: SATYA LA on 11/05/21934 Famotidine (Famotidine) 20 Mg Tablet, 20 MG PO BID, (Reported) Entered as Reported by: SATYA LA on 11/05/21934 Ferrous Sulfate (Iron) 325 Mg Tablet, 325 MG PO DAILY, (Reported) Entered as Reported by: SATYA LA on 11/05/21934 Glucagon HCl (Glucagon Emergency Kit) 1 Mg Vial, 1 MG IJ UD PRN for GLUCOSE LESS THAN 70, (Reported) Entered as Reported by: SATYA LA on 11/05/21934 Guaifenesin (Mucinex) 600 Mg Tab.er.12h, 600 MG PO Q12H PRN for CONGESTION, (Reported) Entered as Reported by: SATYA LA on 11/05/21934 Hydrocortisone (Cortaid) 42 Gm Cream..g., 1 APPFUL TP Q4H PRN for RASH, (Reported) Entered as Reported by: SATYA LA on 11/05/21934 Insulin Lispro (Humalog Kwikpen) 100 Unit/1 Ml Insuln.pen, 14 UNIT SQ DAILY, (Reported) Entered as Reported by: SATYA LA on 11/05/21934 Ipratropium/Albuterol Sulfate (Iprat-Albut 0.5-3(2.5) mg/3 ml) 3 Ml Ampul.neb, 3 ML IH Q6H PRN for SHORTNESS OF BREATH, (Reported) Entered as Reported by: SATYA LA on 11/05/21934 Lactobacillus Acidophilus/Pect (Acidophilus-Pectin Capsule) 1 Each Capsule, 1 EACH PO BID, (Reported) Entered as Reported by: SATYA LA on 11/05/21934 Levetiracetam (Levetiracetam) 500 Mg Tablet, 1,000 MG PO BID, (Reported) Entered as Reported by: SATYA LA on 11/05/21934 Lidocaine (Topicaine) 113 Gm Gel..gram., 1 APPLIC TP TID PRN for WOUND PAIN, (Reported) Entered as Reported by: SATYA LA on 11/05/21934 Metoprolol Tartrate (Metoprolol Tartrate) 25 Mg Tablet, 25 MG PO BID, (Reported) Entered as Reported by: SATYA LA on 11/05/21934 Mineral Oil/Petrolatum,White (Lubricant Pm Eye Ointment) 3.5 Gm Oint...g., 1 APPLIC OU Q2H PRN for DRY EYES, (Reported) Entered as Reported by: SATYA LA on 11/05/21934 Multivitamin (Multivitamin) 1 Each Tablet, 1 EACH PO DAILY, (Reported) Entered as Reported by: SATYA LA on 11/05/21934 Oxycodone HCl/Acetaminophen (Oxycodone-Acetaminophen 10-325) 1 Each Tablet, 1 EACH PO Q4H PRN for PAIN-MODERATE, (Reported) Entered as Reported by: SATYA LA on 11/05/21934 Polyethylene Glycol 3350 (Miralax) 17 Gm Powd.pack, 17 GM PO DAILY PRN for CONSTIPATION-2ND LINE, (Reported) Entered as Reported by: SATYA LA on 11/05/21934 Pregabalin (Lyrica) 100 Mg Capsule, 100 MG PO BID, (Reported) Entered as Reported by: SATYA LA on 11/05/21934 Pregabalin (Pregabalin) 25 Mg Capsule, 25 MG PO BID, (Reported) Entered as Reported by: SATYA LA on 11/05/2135 Scopolamine (Transderm-Scop) 1 Each Patch.td72, 1 EACH TD Q72H, (Reported) Entered as Reported by: SATYA LA on 11/05/21934 Sertraline HCl (Sertraline HCl) 50 Mg Tablet, 50 MG PO DAILY, (Reported) Entered as Reported by: SATYA LA on 11/05/21934 Discontinued Medications Amoxicillin/Potassium Clav (Augmentin 875-125 Tablet) 1 Each Tablet, 1 EACH PO BID Discontinued Reason: Duplicate Order Prescribed by: CLARA CARLSON on 10/25/21 1333 Review of Systems Review of Systems Constitutional: see HPI EENTM: see HPI Respiratory: see HPI, cough Cardiovascular: no symptoms reported Genitourinary: no symptoms reported Musculoskeletal: no symptoms reported Skin: no symptoms reported Psychiatric/Neurological: No Symptoms Reported Hematologic/Lymphatic: No Symptoms Reported Immunological/Allergic: no symptoms reported Past Ytfqtyn-Jnwsal-Mvtjqs Hx Patient Social History Tobacco Use?: No Smoking Status: Never a Smoker Smokeless Tobacco Frequency: Never a User Use of E-Cig and/or Vaping dev: No Use of E-Cig and/or Vaping Ar: Never a User Substance use?: No Alcohol Use?: No Pt feels they are or have been: No Immunizations Up To Date First/Initial COVID19 Vaccinat: UNKNOWN DATE Second COVID19 Vaccination Alexis: UNKNOWN DATE Third COVID19 Vaccination Date: JANUARY 2021 COVID19 Vaccine 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: [employer] Seasonal Allergies Seasonal Allergies: No Past Medical History Surgeries: Yes (Carpal Tunnel - right) Appendectomy, Tracheostomy Respiratory: Yes (TRACH SINCE FEBRUARY 2021 DUE TO GUILLAIN BARRE;RESP FAILURE) Cardiac: Yes High Cholesterol, Hypertension, Syncope Neurological: Yes (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 PT TRANSFERRED TO , AND HAD TRACHEOSTOMY PLACED PT THEN TRANSFERRED TO [facility] IN [place]; PT WAS HOSPITALIZED AT [facility] FOR SACRAL DECUBITUS ULCERS PT EVENTUALLY WENT BACK TO [facility], AND THEN WAS TRANSFERRED TO [facility] ON 09/30/21 WITH PERSISTENT QUADRIPLEGIA AND TRACHEOSTOMY PRIOR TO DEVELOPING GUILLAIN BARRE, PT DID NOT HAVE A DR, WAS UNAWARE OF ANY MEDICAL PROBLEMS AND DID NOT TAKE ANY MEDICATIONS. Physical Exam Vital Signs Vital Signs - First Documented Capillary Refill : Height, Weight, BMI Height: 5'11.00" Weight: 230lbs. oz. 104.396840jo; 24.59 BMI Method:Stated General Appearance: No Apparent Distress, WD/WN, Other (Quadriplegic. Alert and oriented very pleasant demeanor. Oxygen is 89 to 90% on room air. I gave him 2 L of supplemental oxygen with resultant increase in SPO2 up to 94%.) Eyes: Bilateral Eye Normal Inspection, Bilateral Eye PERRL, Bilateral Eye EOMI HEENT: PERRL/EOMI, TMs Normal Neck: Full Range of Motion, Normal Inspection Respiratory: No Accessory Muscle Use, No Respiratory Distress Cardiovascular: Regular Rate, Rhythm, Normal Peripheral Pulses Gastrointestinal: Normal Bowel Sounds, Non Tender, Soft Extremity: Normal Capillary Refill, Normal Inspection Neurologic/Psychiatric: Alert, Oriented x3 Skin: Normal Color, Warm/Dry Focused Exam Lactate Level 11/09/21 17:48: Lactic Acid Level Laboratory Tests Test 11/09/21 17:48 Progress/Results/Core Measures Suspected Sepsis SIRS Temperature: Pulse: Respiratory Rate: Laboratory Tests 11/09/21 17:07: White Blood Count 3.2L Blood Pressure / Mean: 11/09/21 17:48: Laboratory Tests 11/09/21 17:07: Creatinine 0.47L, Platelet Count 177, Total Bilirubin 0.3 Results/Orders Lab Results Laboratory Tests Test 11/09/21 17:07 11/09/21 17:48 Range/Units White Blood Count 3.2 L 4.3-11.0 10^3/uL Red Blood Count 4.44 4.30-5.52 10^6/uL Hemoglobin 11.8 L 13.3-17.7 g/dL Hematocrit 38 L 40-54 % Mean Corpuscular Volume 85 80-99 fL Mean Corpuscular Hemoglobin 27 25-34 pg Mean Corpuscular Hemoglobin Concent 31 L 32-36 g/dL Red Cell Distribution Width 15.3 H 10.0-14.5 % Platelet Count 177 130-400 10^3/uL Mean Platelet Volume 9.9 9.0-12.2 fL Immature Granulocyte % (Auto) 0 % Neutrophils (%) (Auto) 64 42-75 % Lymphocytes (%) (Auto) 25 12-44 % Monocytes (%) (Auto) 8 0-12 % Eosinophils (%) (Auto) 3 0-10 % Basophils (%) (Auto) 0 0-10 % Neutrophils # (Auto) 2.0 1.8-7.8 10^3/uL Lymphocytes # (Auto) 0.8 L 1.0-4.0 10^3/uL Monocytes # (Auto) 0.2 0.0-1.0 10^3/uL Eosinophils # (Auto) 0.1 0.0-0.3 10^3/uL Basophils # (Auto) 0.0 0.0-0.1 10^3/uL Immature Granulocyte # (Auto) 0.0 0.0-0.1 10^3/uL Sodium Level 137 135-145 MMOL/L Potassium Level 4.1 3.6-5.0 MMOL/L Chloride Level 102 98-107 MMOL/L Carbon Dioxide Level 26 21-32 MMOL/L Anion Gap 9 5-14 MMOL/L Blood Urea Nitrogen 16 7-18 MG/DL Creatinine 0.47 L 0.60-1.30 MG/DL Estimat Glomerular Filtration Rate 179 BUN/Creatinine Ratio 34 Glucose Level 135 H 70-105 MG/DL Calcium Level 8.5 8.5-10.1 MG/DL Corrected Calcium 9.1 8.5-10.1 MG/DL Total Bilirubin 0.3 0.1-1.0 MG/DL Aspartate Amino Transf (AST/SGOT) 36 H 5-34 U/L Alanine Aminotransferase (ALT/SGPT) 36 0-55 U/L Alkaline Phosphatase 70 40-136 U/L C-Reactive Protein High Sensitivity 3.60 H 0.00-0.50 MG/DL Total Protein 6.2 L 6.4-8.2 GM/DL Albumin 3.2 3.2-4.5 GM/DL Vital Signs/I&O 11/09/21 11/09/21 17:00 17:00 Temp 37.2 Pulse 77 Resp 16 B/P (MAP) 110/68 (82) Pulse Ox 94 O2 Delivery Nasal Cannula Nasal Cannula O2 Flow Rate 2.00 2.00 Capillary Refill : Departure Communication (Admissions) NAME: [facility] REC#: [id number] PT STATUS: REG ER : 1955 PHYSICIAN: CALVIN SMALL MD ADMIT DATE: 11/09/21/ER Signed Date of Exam:11/09/21 CHEST 1 VIEW, AP/PA ONLY INDICATION: Left-sided chest discomfort, hypoxia. EXAMINATION: Frontal chest was obtained at 5:36 p.m. COMPARISON: 11/04/2021. FINDINGS: Tracheostomy tube is unchanged. Heart is normal in size. Mediastinal silhouette is unremarkable. There is no focal infiltrate or pneumothorax or pleural fluid. IMPRESSION: Well-positioned tracheostomy tube. No focal infiltrate or pneumothorax or pleural fluid. Dictated by: Dictated on workstation # [id number] Dict: 11/09/[id number] Trans: 11/09/21 180 [facility] [id number] Interpreted by: MARTHA MANZANARES MD Electronically signed by: MARTHA MANZANARES MD 11/09/21 180 Impression Primary Impression: Mucus plugging of bronchi Additional Impression: COVID Disposition: 01 HOME, SELF-CARE Condition: Stable Departure-Patient Inst. Decision time for Depature: 18:30 Referrals: NO,LOCAL PHYSICIAN (PCP/Family) Primary Care Physician Patient Instructions: COVID-19 ED Add. Discharge Instructions: All discharge instructions reviewed with patient and/or family. Voiced understanding. CLARA CARLSON COUTIERIER Nov 09, 2021 17:17
[2021-11-09 17:18] LABS: BASOPHILS % (AUTO) 0 % (0-10); EOSINOPHILS # (AUTO) 0.1 10^3/uL (0.0-0.3); EOSINOPHILS % (AUTO) 3 % (0-10); HEMATOCRIT 38 % (40-54); HEMOGLOBIN 11.8 g/dL (13.3-17.7); LYMPHOCYTES # (AUTO) 0.8 10^3/uL (1.0-4.0); LYMPHOCYTES % (AUTO) 25 % (12-44); MEAN CORPUSCULAR HEMOGLOBIN 27 pg (25-34); MEAN CORPUSCULAR HGB CONC 31 g/dL (32-36); MEAN CORPUSCULAR VOLUME 85 fL (80-99); MEAN PLATELET VOLUME 9.9 fL (9.0-12.2); MONOCYTES # (AUTO) 0.2 10^3/uL (0.0-1.0); MONOCYTES % (AUTO) 8 % (0-12); NEUTROPHILS % (AUTO) 64 % (42-75); PLATELET COUNT 177 10^3/uL (130-400); WHITE BLOOD COUNT 3.2 10^3/uL (4.3-11.0)
[2021-11-09 17:34] LABS: ALBUMIN 3.2 GM/DL (3.2-4.5); POTASSIUM 4.1 MMOL/L (3.6-5.0)
[2021-11-09 17:36] LABS: CALCIUM 8.5 MG/DL (8.5-10.1)
[2021-11-09 17:37] LABS: TOTAL PROTEIN 6.2 GM/DL (6.4-8.2)
[2021-11-09 17:39] LABS: BILIRUBIN,TOTAL 0.3 MG/DL (0.1-1.0)
[2021-11-09 17:41] LABS: CREATININE SERUM 0.47 MG/DL (0.60-1.30)
--- NOTE | 2021-11-09 18:02 | Diagnostic Imaging Report ---
INDICATION: Left-sided chest discomfort, hypoxia. EXAMINATION: Frontal chest was obtained at 5:36 p.m. COMPARISON: 11/04/2021. FINDINGS: Tracheostomy tube is unchanged. Heart is normal in size. Mediastinal silhouette is unremarkable. There is no focal infiltrate or pneumothorax or pleural fluid. IMPRESSION: Well-positioned tracheostomy tube. No focal infiltrate or pneumothorax or pleural fluid. Dictated by: Dictated on workstation # [id number]
[2021-11-09 19:17] VITALS: BP 127/84
== END 2021-11-09 19:17 | disposition home or self-care (01) ==
LOC: EDUNIT# 16:55 → ER 16:56
DX: U07.1 COVID-19 (principal); I10 Essential (primary) hypertension; F32.9 Major depressive disorder, single episode, unspecified; E11.9 Type 2 diabetes mellitus without complications; E78.00 Pure hypercholesterolemia, unspecified; G40.909 Epilepsy, unspecified, not intractable, without status epilepticus; Z79.4 Long term (current) use of insulin; Z79.01 Long term (current) use of anticoagulants; Z79.899 Other long term (current) drug therapy
CPT/HCPCS: 36415; 71045; 80053; 84145; 85025; 86141; 93005

== ENCOUNTER 2021-11-13 03:28 | Inpatient (IN) | payer OTHER, MEDICARE ==
[~2021-11-13] VITALS: Ht 180.3 cm; Wt 80.1 kg
[2021-11-13] MEDS ORDERED: RT-ALBUTEROL/IPRATROPIUM 3 ML (DUONEB) VIAL ONE (03:37)
[2021-11-13] MEDS ORDERED: RT-IPRATROPIUM (ATROVENT) 0.5MG/2.5ML AMP IH ONE (03:38)
[2021-11-13] MEDS ORDERED: RT-ALBUTEROL SULF 2.5 MG/3 ML PRE-MIX VIAL INH STA (03:41)
[2021-11-13] MEDS ORDERED: RT-ALBUTEROL SULF 2.5 MG/3 ML PRE-MIX VIAL ONE (03:42)
[2021-11-13] MEDS ORDERED: NS IV 1000 ML 1,000 ML ONE (03:43)
[2021-11-13] MEDS ORDERED: RT-ALBUTEROL/IPRATROPIUM 3 ML (DUONEB) VIAL INH ONE (03:45)
[2021-11-13] MEDS ORDERED: NS IV 1000 ML 1,000 ML IV SCH (03:45)
[2021-11-13 04:01] LABS: BASOPHILS % (AUTO) 0 % (0-10); EOSINOPHILS # (AUTO) 0.3 10^3/uL (0.0-0.3); EOSINOPHILS % (AUTO) 6 % (0-10); HEMATOCRIT 44 % (40-54); HEMOGLOBIN 13.1 g/dL (13.3-17.7); LYMPHOCYTES # (AUTO) 1.8 10^3/uL (1.0-4.0); LYMPHOCYTES % (AUTO) 37 % (12-44); MEAN CORPUSCULAR HEMOGLOBIN 26 pg (25-34); MEAN CORPUSCULAR HGB CONC 30 g/dL (32-36); MEAN CORPUSCULAR VOLUME 87 fL (80-99); MEAN PLATELET VOLUME 9.9 fL (9.0-12.2); MONOCYTES # (AUTO) 0.3 10^3/uL (0.0-1.0); MONOCYTES % (AUTO) 6 % (0-12); NEUTROPHILS # (AUTO) 2.4 10^3/uL (1.8-7.8); NEUTROPHILS % (AUTO) 51 % (42-75); PLATELET COUNT 247 10^3/uL (130-400); WHITE BLOOD COUNT 4.8 10^3/uL (4.3-11.0)
[2021-11-13 04:09] LABS: ABG BASE EXCESS 5.7 MMOL/L (-2.5-2.5); ABG OXYGEN SATURATION 98 % (94-100); ABG PCO2 70 MMHG (35-45); ABG PO2 126 MMHG (79-93); ABG TCO2 34.6 MMOL/L (21.0-31.0)
[2021-11-13 04:10] LABS: ABG PH 7.28 (7.37-7.43); ALLENS TEST YES-POS; INSPIRED O2 100%; PATIENT TEMP 96.6; VENTILATOR NO
[2021-11-13 04:14] LABS: INR 1.1 (0.8-1.4); PROTHROMBIN TIME PATIENT 14.5 SEC (12.2-14.7)
--- NOTE | 2021-11-13 04:19 | ED Respiratory ---
General Chief Complaint: Respiratory Problems Stated Complaint: LOW OXYGEN 35% Nursing Triage Note: BROUGHT IN BY [facility] FROM [facility]. PT HAS TRACH AND PER STAFF HAS MUCUS PLUGS AND O2 SAT 35%. PT ON NRB ON ARRIVAL TO ER BY EMS EN ROUTE. Source: EMS, old records Exam Limitations: other (PT IS NOT TALKING) History of Present Illness Date Seen by Provider: Nov 13, 2021 Time Seen by Provider: 03:30 Initial Comments PT ARRIVES VIA EMS FROM 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 INTERMEDIATE REPORTED "MUCOUS PLUGS" AND O2 SAT OF 35% AND UNABLE TO SUCTION ANYTHING FROM TRACH, SO CALLED EMS PT TESTED + FOR COVID-19 ON 11/08/21 IS UNKNOWN IF HE RECEIVED ANY TREATMENT FOR THIS--THERE IS NO DOCUMENTATION OF ANY MEDICATIONS OR TREATMENT REGARDING COVID-19 INFECTION, AND NO REPORT FROM INTERMEDIATE PT IS VERY LETHARGIC AND KEEPS EYES CLOSED, AND IS NOT TALKING, WHICH IS NOT NORMAL FOR PT ON ER VISIT 10/06/21, PT WAS SEEN BY ME AND PT WAS TALKATIVE, ALERT AND ORIENTED X 4 AND COULD GIVE DETAILS OF HIS ILLNESS AT THAT TIME PT HAS BEEN A RESIDENT AT [facility] SINCE 09/30/21 PT WAS SEEN IN ER 10/06/21 FOR MUCOUS PLUGGING OF TRACH PT WAS BACK IN ER 10/25/21 FOR SAME AND DX WITH PNEUMONIA AND DISMISSED BACK TO INTERMEDIATE ON AUGMENTIN PT WAS ADMITTED 11/04/21-11/06/21 FOR RESPIRATORY FAILURE/MUCOUS PLUGGING AND PNEUMONIA PT WAS BACK IN ER 11/09/21 WITH FEVER, AFTER TESTING POSITIVE FOR COVID -19 ON 11/08/21. WAS TREATED AND RELEASED BACK TO INTERMEDIATE. PT IS A FULL CODE, PER INTERMEDIATE RECORD PCP: DR. HEBERT Allergies and Home Medications Allergies Coded Allergies: COVID-19 vaccine, mRNA, [id number], L (Verified Allergy, Severe, 10/06/21) Patient Home Medication List Home Medication List Reviewed: Yes Alprazolam (Alprazolam) 0.5 Mg Tablet, 0.5 MG PO HS, (Reported) Entered as Reported by: SATYA LA on 11/05/21934 Last Action: Continued Amiodarone HCl (Amiodarone HCl) 200 Mg Tablet, 200 MG PO DAILY, (Reported) Entered as Reported by: SATYA LA on 11/05/21934 Last Action: Continued Apixaban (Eliquis) 5 Mg Tablet, 5 MG PO BID, (Reported) Entered as Reported by: SATYA LA on 11/05/21934 Last Action: Continued Arginine/Glutamine/Calcium Hmb (Betito Packet) 1 Each Powd.pack, 1 EACH PO BID, (Reported) Entered as Reported by: SATAY LA on 11/05/21934 Last Action: Held Artificial Tears (Artificial Tears) 15 Ml Soln, 2 DROPS OU Q2H PRN for DRY EYES, (Reported) Entered as Reported by: SATYA LA on 11/05/21934 Last Action: Converted Atorvastatin Calcium (Atorvastatin Calcium) 40 Mg Tablet, 40 MG PO HS, (Reported) Entered as Reported by: SATYA LA on 11/05/21934 Last Action: Continued Chlorhexidine Gluconate (Peridex) 473 Ml Mouthwash, 15 ML MM BID, (Reported) Entered as Reported by: SATYA AL on 11/05/21934 Last Action: Continued Dextrose (Glucose Gel) 38 Gm Gel..gram., 15 GM PO UD PRN for HYPOGLYCEMIA, (Reported) Entered as Reported by: SATYA LA on 11/05/21934 Last Action: Held Docusate Sodium (Docusate Sodium) 100 Mg Capsule, 100 MG PO BID, (Reported) Entered as Reported by: SATYA LA on 11/05/21934 Last Action: Continued Famotidine (Famotidine) 20 Mg Tablet, 20 MG PO BID, (Reported) Entered as Reported by: SATYA LA on 11/05/21934 Last Action: Continued Ferrous Sulfate (Iron) 325 Mg Tablet, 325 MG PO DAILY, (Reported) Entered as Reported by: SATYA LA on 11/05/21934 Last Action: Continued Glucagon HCl (Glucagon Emergency Kit) 1 Mg Vial, 1 MG IJ UD PRN for GLUCOSE LESS THAN 70, (Reported) Entered as Reported by: SATYA LA on 11/05/21934 Last Action: Held Guaifenesin (Mucinex) 600 Mg Tab.er.12h, 600 MG PO Q12H PRN for CONGESTION, (Reported) Entered as Reported by: SATYA LA on 11/05/21934 Last Action: Held Hydrocortisone (Cortaid) 42 Gm Cream..g., 1 APPFUL TP Q4H PRN for RASH, (Reported) Entered as Reported by: SATYA LA on 11/05/21934 Last Action: Continued Insulin Lispro (Humalog Kwikpen) 100 Unit/1 Ml Insuln.pen, 14 UNIT SQ DAILY, (Reported) Entered as Reported by: SATYA LA on 11/05/21934 Last Action: Held Ipratropium/Albuterol Sulfate (Iprat-Albut 0.5-3(2.5) mg/3 ml) 3 Ml Ampul.neb, 3 ML IH Q6H PRN for SHORTNESS OF BREATH, (Reported) Entered as Reported by: SATYA LA on 11/05/21934 Last Action: Continued Lactobacillus Acidophilus/Pect (Acidophilus-Pectin Capsule) 1 Each Capsule, 1 EACH PO BID, (Reported) Entered as Reported by: SATYA LA on 11/05/21934 Last Action: Continued Levetiracetam (Levetiracetam) 500 Mg Tablet, 1,000 MG PO BID, (Reported) Entered as Reported by: SATYA LA on 11/05/21934 Last Action: Continued Lidocaine (Topicaine) 113 Gm Gel..gram., 1 APPLIC TP TID PRN for WOUND PAIN, (Reported) Entered as Reported by: SATYA LA on 11/05/21934 Last Action: Converted Metoprolol Tartrate (Metoprolol Tartrate) 25 Mg Tablet, 25 MG PO BID, (Reported) Entered as Reported by: SATYA LA on 11/05/21934 Last Action: Continued Mineral Oil/Petrolatum,White (Lubricant Pm Eye Ointment) 3.5 Gm Oint...g., 1 APPLIC OU Q2H PRN for DRY EYES, (Reported) Entered as Reported by: SATYA LA on 11/05/21934 Last Action: Converted Multivitamin (Multivitamin) 1 Each Tablet, 1 EACH PO DAILY, (Reported) Entered as Reported by: SATYA LA on 11/05/21934 Last Action: Converted Oxycodone HCl/Acetaminophen (Oxycodone-Acetaminophen 10-325) 1 Each Tablet, 1 EACH PO Q4H PRN for PAIN-MODERATE, (Reported) Entered as Reported by: SATYA LA on 11/05/21934 Last Action: Continued Polyethylene Glycol 3350 (Miralax) 17 Gm Powd.pack, 17 GM PO DAILY PRN for CONSTIPATION-2ND LINE, (Reported) Entered as Reported by: SATYA LA on 11/05/21934 Last Action: Continued Pregabalin (Lyrica) 100 Mg Capsule, 100 MG PO BID, (Reported) Entered as Reported by: SATYA LA on 11/05/21934 Last Action: Continued Pregabalin (Pregabalin) 25 Mg Capsule, 25 MG PO BID, (Reported) Entered as Reported by: SATYA LA on 11/05/21934 Last Action: Continued Scopolamine (Transderm-Scop) 1 Each Patch.td72, 1 EACH TD Q72H, (Reported) Entered as Reported by: SATYA LA on 11/05/21934 Last Action: Continued Sertraline HCl (Sertraline HCl) 50 Mg Tablet, 50 MG PO DAILY, (Reported) Entered as Reported by: SATYA LA on 11/05/21934 Last Action: Continued Review of Systems Review of Systems Constitutional: other (UNKNOWN IF PT HAS HAD FEVER TODAY, BUT HAD FEVER OF 101 ON ER VISIT HERE 11/09/21; PT IS NOT ANSWERING QUESTIONS AT THIS TIME. ) Respiratory: short of breath Past Qlaikzx-Pbadel-Mhnjnf Hx Patient Social History Tobacco Use?: No Substance use?: No Alcohol Use?: No Pt feels they are or have been: No Immunizations Up To Date First/Initial COVID19 Vaccinat: UNKNOWN DATE Second COVID19 Vaccination Alexis: UNKNOWN DATE Third COVID19 Vaccination Date: JANUARY 2021 Seasonal Allergies Seasonal Allergies: No Past Medical History Surgery/Hospitalization HX: G.B. 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 PT TRANSFERRED TO , AND HAD TRACHEOSTOMY PLACED PT THEN TRANSFERRED TO [facility] IN [place]; PT WAS HOSPITALIZED AT [facility] FOR SACRAL DECUBITUS ULCERS PT EVENTUALLY WENT BACK TO [facility], AND THEN WAS TRANSFERRED TO [facility] ON 09/30/21 WITH PERSISTENT QUADRIPLEGIA AND TRACHEOSTOMY, NO LONGER VENTILATOR DEPENDENT OR REQUIRING SUPPLEMENTAL OXYGEN PRIOR TO DEVELOPING GUILLAIN BARRE, PT DID NOT HAVE A DR, WAS UNAWARE OF ANY MEDICAL PROBLEMS AND DID NOT TAKE ANY MEDICATIONS. Physical Exam Vital Signs - First Documented 11/13/21 04:47 FiO2 100 Capillary Refill : Less Than 3 Seconds Height: 5'11.00" Weight: 230lbs. oz. 104.858368kx; 25.00 BMI Method:Stated General Appearance: other (LETHARGIC, DYSPNEIC, KEEPS EYES CLOSED AND IS NOT TALKING) Respiratory: other (LABORED BREATHING, WITH MINIMAL AERATION. TRACH IS IN PLACE AND APPEARS TO BE FUNCTIONING. ) Cardiovascular: regular rate, rhythm, no murmur, other (BOUNDING PULSES) Gastrointestinal: soft; No distended Extremities: normal capillary refill Neurologic/Psychiatric: other (QUADRIPLEGIA; MENTATION ABOVE) Skin: normal color (FLUSHED), warm/dry, other (LARGE SACRAL DECUBITUS [id number]) Focused Exam Sepsis Stage: Sepsis Possible Source: Pulmonary Lactate Level 11/13/21 03:45: Lactic Acid Level 0.90 Time of Focused Exam: 04:30 Respiratory: Other (RESPIRATIONS EVEN AND LESS LABORED, INCREASED AERATION) Cardiovascular: Regular Rate, Rhythm Capillary Refill: Less Than 3 Seconds Skin: normal color, warm/dry Lactic Acid Level Laboratory Tests Test 11/13/21 03:45 Lactic Acid Level 0.90 MMOL/L (0.50-2.00) Within 3hrs of presentation: Admin fluids, Blood cultures prior to ABX's, Focus exam, Lactate level Progress/Results/Core Measures Suspected Sepsis SIRS Temperature: Pulse: 82 Respiratory Rate: 28 Laboratory Tests 11/13/21 03:45: White Blood Count 4.8 Blood Pressure 136 /86 Mean: 103 11/13/21 03:45: Lactic Acid Level 0.90 Laboratory Tests 11/13/21 03:45: Creatinine 0.46L, INR Comment 1.1, Platelet Count 247, Total Bilirubin 0.3 Results/Orders Lab Results Laboratory Tests Test 11/13/21 03:45 11/13/21 03:55 11/13/21 04:10 Range/Units White Blood Count 4.8 4.3-11.0 10^3/uL Red Blood Count 5.01 4.30-5.52 10^6/uL Hemoglobin 13.1 L 13.3-17.7 g/dL Hematocrit 44 40-54 % Mean Corpuscular Volume 87 80-99 fL Mean Corpuscular Hemoglobin 26 25-34 pg Mean Corpuscular Hemoglobin Concent 30 L 32-36 g/dL Red Cell Distribution Width 15.1 H 10.0-14.5 % Platelet Count 247 130-400 10^3/uL Mean Platelet Volume 9.9 9.0-12.2 fL Immature Granulocyte % (Auto) 0 % Neutrophils (%) (Auto) 51 42-75 % Lymphocytes (%) (Auto) 37 12-44 % Monocytes (%) (Auto) 6 0-12 % Eosinophils (%) (Auto) 6 0-10 % Basophils (%) (Auto) 0 0-10 % Neutrophils # (Auto) 2.4 1.8-7.8 10^3/uL Lymphocytes # (Auto) 1.8 1.0-4.0 10^3/uL Monocytes # (Auto) 0.3 0.0-1.0 10^3/uL Eosinophils # (Auto) 0.3 0.0-0.3 10^3/uL Basophils # (Auto) 0.0 0.0-0.1 10^3/uL Immature Granulocyte # (Auto) 0.0 0.0-0.1 10^3/uL Erythrocyte Sedimentation Rate 35 H 0-30 MM/HR Prothrombin Time 14.5 12.2-14.7 SEC INR Comment 1.1 0.8-1.4 Activated Partial Thromboplast Time 34 24-35 SEC D-Dimer 0.65 H 0.00-0.49 UG/ML Sodium Level 143 135-145 MMOL/L Potassium Level 3.8 3.6-5.0 MMOL/L Chloride Level 104 98-107 MMOL/L Carbon Dioxide Level 26 21-32 MMOL/L Anion Gap 13 5-14 MMOL/L Blood Urea Nitrogen 16 7-18 MG/DL Creatinine 0.46 L 0.60-1.30 MG/DL Estimat Glomerular Filtration Rate 183 BUN/Creatinine Ratio 35 Glucose Level 131 H 70-105 MG/DL Lactic Acid Level 0.90 0.50-2.00 MMOL/L Calcium Level 9.3 8.5-10.1 MG/DL Corrected Calcium 9.7 8.5-10.1 MG/DL Magnesium Level 1.9 1.6-2.4 MG/DL Total Bilirubin 0.3 0.1-1.0 MG/DL Aspartate Amino Transf (AST/SGOT) 23 5-34 U/L Alanine Aminotransferase (ALT/SGPT) 27 0-55 U/L Alkaline Phosphatase 84 40-136 U/L Troponin I 0.028 <0.028 NG/ML C-Reactive Protein High Sensitivity 2.46 H 0.00-0.50 MG/DL B-Type Natriuretic Peptide 57.5 <100.0 PG/ML Total Protein 7.0 6.4-8.2 GM/DL Albumin 3.5 3.2-4.5 GM/DL Procalcitonin 0.06 <0.10 NG/ML Blood Gas Puncture Site LEFT RADIAL Blood Gas Patient Temperature 96.6 Arterial Blood pH 7.28 *L 7.37-7.43 Arterial Blood Partial Pressure CO2 70 H 35-45 MMHG Arterial Blood Partial Pressure O2 126 H 79-93 MMHG Arterial Blood HCO3 32 H 23-27 MMOL/L Arterial Blood Total CO2 34.6 H 21.0-31.0 MMOL/L Arterial Blood Oxygen Saturation 98 94-100 % Arterial Blood Base Excess 5.7 H -2.5-2.5 MMOL/L Abdias Test YES-POS Blood Gas Ventilator Setting NO Blood Gas Inspired Oxygen 100% Urine Color YELLOW Urine Clarity CLEAR Urine pH 6.0 5-9 Urine Specific Vernon 1.020 1.016-1.022 Urine Protein NEGATIVE NEGATIVE Urine Glucose (UA) NEGATIVE NEGATIVE Urine Ketones NEGATIVE NEGATIVE Urine Nitrite NEGATIVE NEGATIVE Urine Bilirubin NEGATIVE NEGATIVE Urine Urobilinogen 0.2 < = 1.0 MG/DL Urine Leukocyte Esterase NEGATIVE NEGATIVE Urine RBC (Auto) NEGATIVE NEGATIVE Urine RBC NONE /HPF Urine WBC NONE /HPF Urine Squamous Epithelial Cells RARE /HPF Urine Crystals NONE /LPF Urine Bacteria NEGATIVE /HPF Urine Casts NONE /LPF Urine Mucus NEGATIVE /LPF Urine Culture Indicated CULTURE PENDING Micro Results Microbiology 11/13/21 Blood Culture - Preliminary, Resulted No growth 11/13/21 Blood Culture - Preliminary, Resulted No growth My Orders Orders - PAUL CHISHOLM DO Dexamethasone Injection (Decadron Inje (11/13/21 03:36) Albuterol/Ipra Inhalation Soln (Duoneb I (11/13/21 03:37) Ipratropium 0.02% Neb Solution (Atrovent (11/13/21 03:38) Cbc With Automated Diff (11/13/21 03:41) Comprehensive Metabolic Panel (11/13/21 03:41) Blood Culture (11/13/21 03:41) Urinalysis (11/13/21 03:41) Urine Culture (11/13/21 03:41) Protime With Inr (11/13/21 03:41) Partial Thromboplastin Time (11/13/21 03:41) Chest 1 View, Ap/Pa Only (11/13/21 03:41) Ed Iv/Invasive Line Start (11/13/21 03:41) Ed Iv/Invasive Line Start (11/13/21 03:41) Vital Signs Adult Sepsis Patie Q15M (11/13/21 03:41) O2 (11/13/21 03:41) Remove Rings In Anticipation O (11/13/21 03:41) Lactic Acid Analyzer (11/13/21 03:41) Albuterol Pre-Mix Nebs (Rt) (Proventil (11/13/21 03:41) Albuterol/Ipra Inhalation Soln (Duoneb I (11/13/21 03:45) Rt Request For Service (11/13/21 03:41) Dexamethasone Injection (Decadron Inje (11/13/21 03:45) Svn Small Volume Nebulizer (11/13/21 03:41) Svn Small Volume Nebulizer (11/13/21 03:41) Arterial Blood Gas (11/13/21 03:41) Bnp Villalba (11/13/21 03:41) Hs C Reactive Protein (11/13/21 03:41) Magnesium (11/13/21 03:41) Procalcitonin (Pct) (11/13/21 03:41) Erythrocyte Sedimentation Rate (11/13/21 03:41) Troponin I Joselin (11/13/21 03:41) Ed Iv/Invasive Line Start (11/13/21 03:41) Ns Iv 1000 Ml (Sodium Chloride 0.9%) (11/13/21 03:45) Albuterol Pre-Mix Nebs (Rt) (Proventil (11/13/21 03:42) Ns Iv 1000 Ml (Sodium Chloride 0.9%) (11/13/21 03:43) Fibrin Degradation Products (11/13/21 03:45) Medications Given in ED Vital Signs/I&O 11/13/21 11/13/21 11/13/21 03:30 03:30 04:47 Temp 35.9 Pulse 82 Resp 28 B/P (MAP) 136/86 (103) Pulse Ox 94 96 O2 Delivery Non Rebreather Trach Collar Trach Collar FiO2 100 Capillary Refill : Less Than 3 Seconds Blood Pressure Mean: 103 Progress Note : Progress Note SEPSIS PROTOCOL INITIATED RT FOR HOUR LONG NEB TREATMENT AND TRACH CARE AND SUCTIONING O2 SATS IN MID 90'S BIPAP INITIATED AFTER RESULTS OF ABG'S RETURNED. GIVEN IV FLUIDS GIVEN DECADRON IV RESPIRATIONS LESS LABORED AFTER THE ABOVE BP 118/65, HR 100, O2 SAT 93% ON HUMIDIFIED O2. RESPIRATORY RATE 20-22 NO DETERIORATION IN PT'S CONDITION DURING ER STAY AT TIME OF ADMIT, PT IS MORE ALERT AND TALKING A LITTLE, DOES NOT APPEAR CONFUSED. CT OBTAINED PT WAS BEING TRANSFERRED TO ICU. Diagnostic Imaging Comments CXR--PER RADIOLOGIST REPORT AT 0538 FINDINGS: The heart is unremarkable. Pulmonary vasculature appears slightly congested with bibasilar infiltrates noted. There is no pneumothorax. There are no effusions. Tracheostomy tube stable. IMPRESSION: 1. Bibasilar infiltrates 2. Pulmonary vascular congestion. Reviewed: Reviewed by Tn Departure Communication (Admissions) 4101--SPOKE WITH DR. ARSHAD, ACCEPTS PT FOR ADMIT. DOES NOT RECOMMEND ANTIBIOTICS OR ANY OTHER TREATMENT OTHER THAN IV DECADRON AND AGGRESSIVE RT SUCTIONING, ETC. 0451--REPORT TO E-ICU PHYSICIAN, ADVISES TO OBTAIN CT CHEST ANGIOGRAM, AND HAVE TRACH TUBE EXCHANGED FOR CUFFED TUBE AND THEN PLACE ON VENTILATOR--THIS WILL BE DONE WHEN PT IS IN ICU. THIS WAS DISCUSSED WITH RT STAFF. 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 Referrals: NO,LOCAL PHYSICIAN (PCP/Family) Primary Care Physician PAUL CHISHOLM DO Nov 13, 2021 04:19
[2021-11-13 04:21] LABS: BILIRUBIN,URINE NEGATIVE (NEGATIVE); CLARITY,URINE CLEAR; COLOR,URINE YELLOW; GLUCOSE, URINE (UA) NEGATIVE (NEGATIVE); KETONES,URINE NEGATIVE (NEGATIVE); LEUKOCYTE ESTERASE ,URINE NEGATIVE (NEGATIVE); NITRITE,URINE NEGATIVE (NEGATIVE); PROTEIN,URINE NEGATIVE (NEGATIVE)
[2021-11-13 04:38] LABS: ERYTHROCYTE SEDIMENTATION RATE 35 MM/HR (0-30)
[2021-11-13 04:38] LABS: BACTERIA,URINE NEGATIVE /HPF; SQUAMOUS EPITHELIAL CELL,UR RARE /HPF
[2021-11-13 04:43] LABS: ALBUMIN 3.5 GM/DL (3.2-4.5); BILIRUBIN,TOTAL 0.3 MG/DL (0.1-1.0); CALCIUM 9.3 MG/DL (8.5-10.1); CREATININE SERUM 0.46 MG/DL (0.60-1.30); MAGNESIUM 1.9 MG/DL (1.6-2.4); POTASSIUM 3.8 MMOL/L (3.6-5.0)
[2021-11-13 05:21] VITALS: BP 118/70
--- NOTE | 2021-11-13 05:23 | Diagnostic Imaging Report ---
INDICATION: Covid positive. Dyspnea. EXAMINATION: Chest 11/13/2021 COMPARISON: 11/09/2021 FINDINGS: The heart is unremarkable. Pulmonary vasculature appears slightly congested with bibasilar infiltrates noted. There is no pneumothorax. There are no effusions. Tracheostomy tube stable. IMPRESSION: 1. Bibasilar infiltrates 2. Pulmonary vascular congestion. Dictated by: Dictated on workstation # [id number]
[2021-11-13 05:49] LABS: FIBRIN DEGRADATION PRODUCTS 0.65 UG/ML (0.00-0.49)
--- NOTE | 2021-11-13 05:53 | Tele-ICU Consult ---
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 SHELTER REPORTED "MUCOUS PLUGS" AND O2 SAT OF 35% AND UNABLE TO SUCTION ANYTHING FROM TRACH, SO CALLED EMS PT TESTED + FOR COVID-19 ON 11/08/21 IS UNKNOWN IF HE RECEIVED ANY TREATMENT FOR THIS--THERE IS NO DOCUMENTATION OF ANY MEDICATIONS OR TREATMENT REGARDING COVID-19 INFECTION, AND NO REPORT FROM SHELTER PT IS VERY LETHARGIC AND KEEPS EYES CLOSED, AND IS NOT TALKING, WHICH IS NOT NORMAL FOR PT ON ER VISIT 10/06/21, PT WAS SEEN BY ME AND PT WAS TALKATIVE, ALERT AND ORIENTED X 4 AND COULD GIVE DETAILS OF HIS ILLNESS AT THAT TIME PT HAS BEEN A RESIDENT AT [facility] SINCE 09/30/21 PT WAS SEEN IN ER 10/06/21 FOR MUCOUS PLUGGING OF TRACH PT WAS BACK IN ER 10/25/21 FOR SAME AND DX WITH PNEUMONIA AND DISMISSED BACK TO [facility]LTER ON AUGMENTIN PT WAS ADMITTED 11/04/21-11/06/21 FOR RESPIRATORY FAILURE/MUCOUS PLUGGING AND PNEUMONIA PT WAS BACK IN ER 11/09/21 WITH FEVER, AFTER TESTING POSITIVE FOR COVID -19 ON 11/08/21. WAS TREATED AND RELEASED BACK TO [facility]. PT IS A FULL CODE, PER SHELTER RECORD DW DR Streeter advised changing trach from uncuffed to cuffed one, followed by full vent support. Allergies and Home Medications Allergies Coded Allergies: COVID-19 vaccine, mRNA, [id number], L (Verified Allergy, Severe, 10/06/21) Home Medications Alprazolam 0.5 Mg Tablet, 0.5 MG PO HS, (Reported) Amiodarone HCl 200 Mg Tablet, 200 MG PO DAILY, (Reported) HOLD FOR SBP <100 OR PULSE <60, NOTIFY PCP IF HELD FOR 3 CONSECUTIVE DAYS Apixaban 5 Mg Tablet, 5 MG PO BID, (Reported) Arginine/Glutamine/Calcium Hmb 1 Each Powd.pack, 1 EACH PO BID, (Reported) Artificial Tears 15 Ml Soln, 2 DROPS OU Q2H PRN for DRY EYES, (Reported) Atorvastatin Calcium 40 Mg Tablet, 40 MG PO HS, (Reported) Chlorhexidine Gluconate 473 Ml Mouthwash, 15 ML MM BID, (Reported) Dextrose 38 Gm Gel..gram., 15 GM PO UD PRN for HYPOGLYCEMIA, (Reported) Docusate Sodium 100 Mg Capsule, 100 MG PO BID, (Reported) Famotidine 20 Mg Tablet, 20 MG PO BID, (Reported) Ferrous Sulfate 325 Mg Tablet, 325 MG PO DAILY, (Reported) Glucagon HCl 1 Mg Vial, 1 MG IJ UD PRN for GLUCOSE LESS THAN 70, (Reported) Guaifenesin 600 Mg Tab.er.12h, 600 MG PO Q12H PRN for CONGESTION, (Reported) Hydrocortisone 42 Gm Cream..g., 1 APPFUL TP Q4H PRN for RASH, (Reported) APPLY TO HANDS Insulin Lispro 100 Unit/1 Ml Insuln.pen, 14 UNIT SQ DAILY, (Reported) NOTIFY PCP IF BLOOD GLUCOSE LESS THAN 70 OR GREATER THAN 500 Ipratropium/Albuterol Sulfate 3 Ml Ampul.neb, 3 ML IH Q6H PRN for SHORTNESS OF BREATH, (Reported) Lactobacillus Acidophilus/Pect 1 Each Capsule, 1 EACH PO BID, (Reported) Levetiracetam 500 Mg Tablet, 1,000 MG PO BID, (Reported) TAKES 2 (500MG) TABS Lidocaine 113 Gm Gel..gram., 1 APPLIC TP TID PRN for WOUND PAIN, (Reported) Metoprolol Tartrate 25 Mg Tablet, 25 MG PO BID, (Reported) HOLD FOR SBP <100 OR PULSE <60, NOTIFY PCP IF HELD FOR 3 CONSECUTIVE DAYS Mineral Oil/Petrolatum,White 3.5 Gm Oint...g., 1 APPLIC OU Q2H PRN for DRY EYES, (Reported) Multivitamin 1 Each Tablet, 1 EACH PO DAILY, (Reported) Oxycodone HCl/Acetaminophen 1 Each Tablet, 1 EACH PO Q4H PRN for PAIN-MODERATE, (Reported) Polyethylene Glycol 3350 17 Gm Powd.pack, 17 GM PO DAILY PRN for CONSTIPATION- 2ND LINE, (Reported) Pregabalin 100 Mg Capsule, 100 MG PO BID, (Reported) TAKES 100MG +25MG TO EQUAL 125MG Pregabalin 25 Mg Capsule, 25 MG PO BID, (Reported) TAKES 100MG +25MG TO EQUAL 125MG Scopolamine 1 Each Patch.td72, 1 EACH TD Q72H, (Reported) Sertraline HCl 50 Mg Tablet, 50 MG PO DAILY, (Reported) Past Medical/Social/Family Hx Patient Social History Tobacco Use?: No Substance use?: No Alcohol Use?: No Pt stated abuse/neglect: No Immunizations Up To Date Influenza Vaccine Up-to-Date: No; Not Current First/Initial COVID19 Vaccinat: UNKNOWN DATE Second COVID19 Vaccination Alexis: UNKNOWN DATE Tetanus Booster (TDap): Less Than 5 Years Hepatitis A: No Hepatitis B: No TB Skin Test: None Current Status Advance Directives: No Primary Language: Nepalese Past Medical History Guillain Levan Trach dependent Family Medical History Family Hx: 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 PT TRANSFERRED TO , AND HAD TRACHEOSTOMY PLACED PT THEN TRANSFERRED TO [facility] IN [place]; PT WAS HOSPITALIZED AT [facility] FOR SACRAL DECUBITUS ULCERS PT EVENTUALLY WENT BACK TO [facility], AND THEN WAS TRANSFERRED TO [facility] ON 09/30/21 WITH PERSISTENT QUADRIPLEGIA AND TRACHEOSTOMY PRIOR TO DEVELOPING GUILLAIN BARRE, PT DID NOT HAVE A DR, WAS UNAWARE OF ANY MEDICAL PROBLEMS AND DID NOT TAKE ANY MEDICATIONS. Review of Systems Constitutional: see HPI Sepsis Event Evaluation Height, Weight, BMI Height: 5'11.00" Weight: 230lbs. oz. 104.645816jz; 25.00 BMI Method:Stated Exam Exam Patient acknowledged, consented, and participated in this virtual visit which was conducted using real time audio/video Vital Signs Date Time Temp Pulse Resp B/P (MAP) Pulse Ox O2 Delivery O2 Flow Rate FiO2 11/13/21 05:21 35.9 105 28 118/70 94 Trach Collar 8.00 11/13/21 04:47 96 Trach Collar 100 11/13/21 03:30 Trach Collar 11/13/21 03:30 35.9 82 28 136/86 (103) 94 Non Rebreather Height & Weight Height: 5'11.00" Weight: 230lbs. oz. [id number]; 25.00 BMI Method:Stated General Appearance: No Apparent Distress Respiratory: Other (RESPIRATIONS EVEN AND LESS LABORED, INCREASED AERATION) Cardiovascular: Regular Rate, Rhythm Capillary Refill: Less Than 3 Seconds Gastrointestinal: soft; No distended Results Lab Laboratory Tests 11/13/21 03:45 Assessment/Plan Assessment/Plan Acute on chronic hypoxemic resp failure + acute hypercarbic resp failure -advise placing the patient on full vent support with a cuffed trach COVID + dd dimer/ add decadron+ remedesivir dvt prophylaxis labs diagnostics notes reviewed; dw dr Streeter in details ADILENE SEYMOUR MD Nov 13, 2021 05:53
[2021-11-13] MEDS ORDERED: VASOPRESSIN INJECTION 20 UNIT in NS (IVPB) 100 ML IV SCH (06:00)
[2021-11-13] MEDS ORDERED: NOREPINEPHRINE 8 MG/250 ML 250 ML IV SCH (06:00)
[2021-11-13] MEDS ORDERED: EPINEPHrine 1 MG INJECTION 4 MG in NS (IVPB) 248 ML IV SCH (06:00)
[2021-11-13] MEDS: inSUlin ASPART (NovoLOG) 1 UNIT/0.01 ML (CHARGE PER UNIT) SC SCH ×4 (06:14→20:38)
[2021-11-13] MEDS: NS IV 1000 ML 1,000 ML IV SCH ×4 (06:14→21:13)
--- NOTE | 2021-11-13 06:14 | Diagnostic Imaging Report ---
PROCEDURE: CT angiography of the chest with contrast. TECHNIQUE: Multiple contiguous axial images were obtained through the chest after uneventful bolus administration of intravenous contrast. 3D reconstructed CTA MIP acquisitions were also performed. Auto Exposure Controls were utilized during the CT exam to meet ALARA standards for radiation dose reduction. INDICATION: Shortness of air with cough, Covid positive. Tracheostomy. EXAMINATION: CTA of the chest 11/13/2021 FINDINGS: There are no central pulmonary emboli. Peripheral vessels are poorly opacified especially at the lung bases. A small peripheral embolus would be difficult to completely exclude but not seen. The thoracic aorta is unremarkable. There are focal consolidations within the lower lobes bilaterally, left worse than right, with a few air bronchograms noted. Findings consistent with pneumonia. There is a small nodule within the right upper lobe image #61 measuring 3 mm in size. This could be followed using the Fleischner criteria. Tracheostomy tube is noted. Low density lesions in the anterior aspect of the right lobe of the thyroid gland is present, better evaluated sonographically. There are no significant effusions. The visualized upper abdomen demonstrates questionable fat stranding about the gallbladder with adjacent fluid and multiple layering stones. Sonography of the gallbladder recommended as acute cholecystitis is suspected. There is fatty infiltration within the liver. There is no acute osseous abnormality. IMPRESSION: 1. No central pulmonary emboli with the peripheral vessels poorly opacified. 2. Bibasilar infiltrates, left worse than right, with a small nodule in the right upper lobe which should be followed as noted above. 3. Suspicion of acute cholecystitis. Sonography of the gallbladder is recommended. Other findings as above. Dictated by: Dictated on workstation # [id number]
[2021-11-13 08:29] LABS: ABG BASE EXCESS 2.3 MMOL/L (-2.5-2.5); ABG OXYGEN SATURATION 98 % (94-100); ABG PCO2 52 MMHG (35-45); ABG PO2 102 MMHG (79-93); ABG TCO2 29.5 MMOL/L (21.0-31.0)
[2021-11-13 08:36] LABS: ABG PH 7.34 (7.37-7.43)
[2021-11-13 08:37] LABS: ALLENS TEST YES-POS; INSPIRED O2 2 L; VENTILATOR NO
[2021-11-13] MEDS ORDERED: REMDESIVIR INJ 200 MG in NS (IVPB) 210 ML IV ONE (09:00)
[2021-11-13] MEDS ORDERED: cefTRIAXone 1 GM PRE-MIX 50 ML IV SCH (09:46)
--- NOTE | 2021-11-13 10:53 | History & Physical ---
HPI History of Present Illness: 66 yo male sent from nursing facility due to low oxygen saturations. 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 Today he says he feels so-so and his breathing feels so-so. On admit, he had respiratory acidosis, which is much improved this morning, and he is only requiring blow by oxygen currently. Source: patient Exam Limitations: clinical condition Date seen by provider: Nov 13, 2021 Time Seen by Provider: 08:50 Attending Physician Nely Peralta MD PCP No,Local Physician Consult Date of Admission Nov 13, 2021 at 04:50 Home Medications Home Medications Reviewed patient Home Medication Reconciliation performed by pharmacy medication reconciliations glass technician and/or nursing. Patients Allergies have been reviewed. Allergies Coded Allergies: COVID-19 vaccine, mRNA, [id number], L (Verified Allergy, Severe, 10/06/21) [id number]-Jjixka Hx Patient Social History 2nd Hand Smoke Exposure: No Recent Hopitalizations: No Alcohol Use?: No Immunizations Up To Date Influenza Vaccine Up-to-Date: No; Not Current First/Initial COVID19 Vaccinat: UNKNOWN DATE Second COVID19 Vaccination Alexis: UNKNOWN DATE Third COVID19 Vaccination Date: JANUARY 2021 Past Medical History PMHx: Guillain [place] with quadriplegia Tracheostomy in place DMII Asthma HLD HTN SurgHx: Tracheostomy Appendectomy Carpal tunnel release Family Medical History Other Significan Family Hx: 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 PT TRANSFERRED TO , AND HAD TRACHEOSTOMY PLACED PT THEN TRANSFERRED TO [facility] IN [place]; PT WAS HOSPITALIZED AT [facility] PT EVENTUALLY WENT BACK TO [facility], AND THEN WAS TRANSFERRED TO [facility] [place] ON 09/30/21 WITH PERSISTENT QUADRIPLEGIA AND TRACHEOSTOMY PRIOR TO DEVELOPING GUILLAIN BARRE, PT DID NOT HAVE A DR, WAS UNAWARE OF ANY MEDICAL PROBLEMS AND DID NOT TAKE ANY MEDICATIONS. Review of Systems ([facility]) Constitutional: other (difficult to obtain due to patient condition) Reviewed Test Results Reviewed Test Results Lab Laboratory Tests Test 11/13/21 03:45 11/13/21 03:55 11/13/21 04:10 11/13/21 08:27 Range/Units White Blood Count 4.8 4.3-11.0 10^3/uL Red Blood Count 5.01 4.30-5.52 10^6/uL Hemoglobin 13.1 L 13.3-17.7 g/dL Hematocrit 44 40-54 % Mean Corpuscular Volume 87 80-99 fL Mean Corpuscular Hemoglobin 26 25-34 pg Mean Corpuscular Hemoglobin Concent 30 L 32-36 g/dL Red Cell Distribution Width 15.1 H 10.0-14.5 % Platelet Count 247 130-400 10^3/uL Mean Platelet Volume 9.9 9.0-12.2 fL Immature Granulocyte % (Auto) 0 % Neutrophils (%) (Auto) 51 42-75 % Lymphocytes (%) (Auto) 37 12-44 % Monocytes (%) (Auto) 6 0-12 % Eosinophils (%) (Auto) 6 0-10 % Basophils (%) (Auto) 0 0-10 % Neutrophils # (Auto) 2.4 1.8-7.8 10^3/uL Lymphocytes # (Auto) 1.8 1.0-4.0 10^3/uL Monocytes # (Auto) 0.3 0.0-1.0 10^3/uL Eosinophils # (Auto) 0.3 0.0-0.3 10^3/uL Basophils # (Auto) 0.0 0.0-0.1 10^3/uL Immature Granulocyte # (Auto) 0.0 0.0-0.1 10^3/uL Erythrocyte Sedimentation Rate 35 H 0-30 MM/HR Prothrombin Time 14.5 12.2-14.7 SEC INR Comment 1.1 0.8-1.4 Activated Partial Thromboplast Time 34 24-35 SEC D-Dimer 0.65 H 0.00-0.49 UG/ML Sodium Level 143 135-145 MMOL/L Potassium Level 3.8 3.6-5.0 MMOL/L Chloride Level 104 98-107 MMOL/L Carbon Dioxide Level 26 21-32 MMOL/L Anion Gap 13 5-14 MMOL/L Blood Urea Nitrogen 16 7-18 MG/DL Creatinine 0.46 L 0.60-1.30 MG/DL Estimat Glomerular Filtration Rate 183 BUN/Creatinine Ratio 35 Glucose Level 131 H 70-105 MG/DL Lactic Acid Level 0.90 0.50-2.00 MMOL/L Calcium Level 9.3 8.5-10.1 MG/DL Corrected Calcium 9.7 8.5-10.1 MG/DL Magnesium Level 1.9 1.6-2.4 MG/DL Total Bilirubin 0.3 0.1-1.0 MG/DL Aspartate Amino Transf (AST/SGOT) 23 5-34 U/L Alanine Aminotransferase (ALT/SGPT) 27 0-55 U/L Alkaline Phosphatase 84 40-136 U/L Troponin I 0.028 <0.028 NG/ML C-Reactive Protein High Sensitivity 2.46 H 0.00-0.50 MG/DL B-Type Natriuretic Peptide 57.5 <100.0 PG/ML Total Protein 7.0 6.4-8.2 GM/DL Albumin 3.5 3.2-4.5 GM/DL Procalcitonin 0.06 <0.10 NG/ML Blood Gas Puncture Site LEFT RADIAL R RAD Blood Gas Patient Temperature 96.6 36.0 Arterial Blood pH 7.28 *L 7.34 *L 7.37-7.43 Arterial Blood Partial Pressure CO2 70 H 52 H 35-45 MMHG Arterial Blood Partial Pressure O2 126 H 102 H 79-93 MMHG Arterial Blood HCO3 32 H 28 H 23-27 MMOL/L Arterial Blood Total CO2 34.6 H 29.5 21.0-31.0 MMOL/L Arterial Blood Oxygen Saturation 98 98 94-100 % Arterial Blood Base Excess 5.7 H 2.3 -2.5-2.5 MMOL/L Abdias Test YES-POS YES-POS Blood Gas Ventilator Setting NO NO Blood Gas Inspired Oxygen 100% 2 L Urine Color YELLOW Urine Clarity CLEAR Urine pH 6.0 5-9 Urine Specific [place] 1.020 1.016-1.022 Urine Protein NEGATIVE NEGATIVE Urine Glucose (UA) NEGATIVE NEGATIVE Urine Ketones NEGATIVE NEGATIVE Urine Nitrite NEGATIVE NEGATIVE Urine Bilirubin NEGATIVE NEGATIVE Urine Urobilinogen 0.2 < = 1.0 MG/DL Urine Leukocyte Esterase NEGATIVE NEGATIVE Urine RBC (Auto) NEGATIVE NEGATIVE Urine RBC NONE /HPF Urine WBC NONE /HPF Urine Squamous Epithelial Cells RARE /HPF Urine Crystals NONE /LPF Urine Bacteria NEGATIVE /HPF Urine Casts NONE /LPF Urine Mucus NEGATIVE /LPF Urine Culture Indicated CULTURE PENDING Radiology CTA chest 11/13: "IMPRESSION: 1. No central pulmonary emboli with the peripheral vessels poorly opacified. 2. Bibasilar infiltrates, left worse than right, with a small nodule in the right upper lobe which should be followed as noted above. 3. Suspicion of acute cholecystitis. Sonography of the gallbladder is recommended. Other findings as above." Physical Exam-([facility]) Physical Exam Vital Signs VS - Last 72 Hours, by Label 11/13/21 11/13/21 11/13/21 11/13/21 03:30 03:30 04:47 05:21 Temp 35.9 35.9 Pulse 82 105 Resp 28 28 B/P (MAP) 136/86 (103) 118/70 Pulse Ox 94 96 94 O2 Delivery Non Rebreather Trach Collar Trach Collar Trach Collar O2 Flow Rate 8.00 FiO2 100 11/13/21 11/13/21 11/13/21 11/13/21 06:00 07:52 08:00 08:00 Temp 35.6 35.8 35.8 Pulse 84 Resp 25 B/P (MAP) 107/67 Pulse Ox 100 O2 Delivery Trach Collar Trach Collar Capillary Refill : Less Than 3 Seconds General Appearance: no apparent distress Respiratory: lungs clear, normal breath sounds Cardiovascular: regular rate, rhythm, no murmur Gastrointestinal: normal bowel sounds, non tender, soft Extremities: no pedal edema Neurologic/Psychiatric: alert Skin: normal color, warm/dry Assessment/Plan Assessment/Plan Admission Status: Inpatient Order (span 2 midnights) Reason for Inpatient Admission: Covid 19 with hypoxia and severe underlying comorbidities (1) Pneumonia due to COVID-19 virus Status: Acute Assessment & Plan: Started on dexamethasone and remdesevir. On 6 lpm supplemental oxygen this am. No clear evidence of bacterial infection, procal low, lactic acid normal, CRP mildly elevated. Started on ceftriaxone, will change to cefepime due to recent pseudomonas in sputum. (2) Sacral pressure ulcer Status: Chronic Assessment & Plan: Wound care consult (3) Guillain[place] syndrome after administration of vaccine Status: Chronic Assessment & Plan: With quadriplegia, previously ventilator dependent, but more recently stable without support with tracheostomy in place. (4) Diabetes mellitus, type 2 Status: Chronic Qualifiers: (5) Hypertension Status: Chronic Qualifiers: Qualified Codes: I10 - Essential (primary) hypertension (6) Hypoxia Status: Acute (7) Cholelithiasis Status: Acute Assessment & Plan: With suspected cholecystitis based on imaging, will check US. Qualifiers: (8) DVT prophylaxis Status: Acute Assessment & Plan: Enoxaparin NELY PERALTA MD Nov 13, 2021 10:53
[2021-11-13] MEDS ORDERED: RT-ALBUTEROL HFA 8.5 GM INHALER IH PRN (11:00)
[2021-11-13] MEDS ORDERED: RT-ALBUTEROL/IPRATROPIUM 3 ML (DUONEB) VIAL IH PRN (11:15)
[2021-11-13] MEDS ORDERED: LIDOCAINE TP PRN (11:15)
[2021-11-13] MEDS ORDERED: polyethylene glycoL POWDER 17 GM (MIRALAX) PACK PO PRN (11:15)
[2021-11-13] MEDS ORDERED: HYDROCORTISONE 1% CREAM 30 GM TUBE TP PRN (11:15)
--- NOTE | 2021-11-13 12:47 | Diagnostic Imaging Report ---
EXAMINATION: US Abdomen limited. TECHNIQUE: Multiple real-time grayscale images were obtained over the right upper quadrant in various projections. HISTORY: Abnormal gallbladder on CT. COMPARISON: CT 11/13/2021 FINDINGS: Pancreas: The pancreas is nonvisualized secondary to overlying bowel gas. Liver: The liver is normal in echogenicity and contour. No focal lesions are seen. The portal vein is patent with hepatopetal flow. Gallbladder and biliary tree: Gallbladder is filled with sludge and stones. There is mild wall thickening and edema measuring up to 0.6 cm. There is trace pericholecystic fluid. Negative sonographic Gill sign. There is no biliary ductal dilation. The common duct measures 0.65 cm. Right kidney: The right kidney is unremarkable without hydronephrosis. There is a 3.1 cm right renal cyst which requires no follow-up. Aorta and IVC: The aorta and IVC are nonvisualized secondary to overlying bowel gas. Fluid: No ascites is seen. IMPRESSION: 1. Cholelithiasis and gallbladder sludge with wall thickening and minimal pericholecystic fluid. Recommend correlation with any signs or symptoms of acute cholecystitis. Dictated by: Dictated on workstation # [id number]
[2021-11-13] MEDS ORDERED: SCOPOLAMINE 1.5 MG (TRANSDERM-SCOP) PATCH ONE (13:10)
[2021-11-13] MEDS: CEFEPIME 1,000 MG/NS 50 ML IVPB IV SCH ×4 (13:25→17:15)
[2021-11-13] MEDS: SCOPOLAMINE 1.5 MG (TRANSDERM-SCOP) PATCH TD SCH (13:25)
[2021-11-13] MEDS ORDERED: HYPOCHLOROUS ACID/NaCl (VASHE) 250 ML IR PRN (14:00)
[2021-11-13] MEDS ORDERED: ARTIFICAL TEARS 0.4 ML UNIT DOSE (REFRESH PLUS) OU PRN (14:15)
[2021-11-13] MEDS ORDERED: LACRI-LUBE OPTHALMIC OINT 3.5 GM TUBE OU PRN (14:15)
--- NOTE | 2021-11-13 17:31 | Wound Care Assessment ---
Wound Care Assessment Date Seen by Provider: Nov 13, 2021 Time Seen by Provider: 17:26 Chief Complaint Stage 3 sacral pressure ulcer HPI This unfortunate gentleman developed quadraplegia following GBS from a mRNA COVID-19 vaccination in 2019. He is currently admitted with sepsis and COVID-19. He is on Cefepime and Remdesivir with Decadron. He has a tracheostomy. Prior to his GBS he was healthy. He does now have DM2. He currently has a sacral pressure ulcer that is stage 2 with surrounding erythema that appears to be candidal in nature. The patient is minimally able to coverse due to his tracheostomy and discomfort with communication. Plan for his wound care is appropriate off loading with frequent repositioning, aquacel Ag, nystatin and barrier ointment to periwound and ABD pad as secondary. Adequate glycemic control per primary is suggested as well. His wound healing will be complicated by his quadraplegia, DM2, and systemic steroids. Past Medical History: Admits Diabetes Type II Quadraplegia Recreational Drug Use: No Alcohol Use: Denies Use Review of Systems Neurological: Other (quadraplegia) Exam Vital Signs Date Time Temp Pulse Resp B/P (MAP) Pulse Ox O2 Delivery O2 Flow Rate FiO2 11/13/21 16:45 49 14 113/62 96 Trach Collar 11/13/21 11:45 35.6 11/13/21 10:53 28 11/13/21 05:21 8.00 Capillary Refill : Less Than 3 Seconds General Appearance: no apparent distress Respiratory: no respiratory distress, no accessory muscle use Neurologic/Psychiatric: alert, oriented x 3 Skin Problem Location: torso Wound assessment: 16x15.5x0.5. The epithelialization is none, there is no tunneling or undermining, drainage is moderate and serosanguinous, the wound margins show epibole, granulation is small and necrotic is large and slough. The periwound is erythematous with flaking and satellite lesions. Results Laboratory Tests 11/13/21 03:45: White Blood Count 4.8, Red Blood Count 5.01, Hemoglobin 13.1L, Hematocrit 44, Mean Corpuscular Volume 87, Mean Corpuscular Hemoglobin 26, Mean Corpuscular Hemoglobin Concent 30L, Red Cell Distribution Width 15.1H, Platelet Count 247, Mean Platelet Volume 9.9, Immature Granulocyte % (Auto) 0, Neutrophils (%) (Auto) 51, Lymphocytes (%) (Auto) 37, Monocytes (%) (Auto) 6, Eosinophils (%) (Auto) 6, Basophils (%) (Auto) 0, Neutrophils # (Auto) 2.4, Lymphocytes # (Auto) 1.8, Monocytes # (Auto) 0.3, Eosinophils # (Auto) 0.3, Basophils # (Auto) 0.0, Immature Granulocyte # (Auto) 0.0, Erythrocyte Sedimentation Rate 35H, Prothrombin Time 14.5, INR Comment 1.1, Activated Partial Thromboplast Time 34, D-Dimer 0.65H, Sodium Level 143, Potassium Level 3.8, Chloride Level 104, Carbon Dioxide Level 26, Anion Gap 13, Blood Urea Nitrogen 16, Creatinine 0.46L, Estimat Glomerular Filtration Rate 183, BUN/Creatinine Ratio 35, Glucose Level 131H, Lactic Acid Level 0.90, Calcium Level 9.3, Corrected Calcium 9.7, Magnesium Level 1.9, Total Bilirubin 0.3, Aspartate Amino Transf (AST/SGOT) 23, Alanine Aminotransferase (ALT/SGPT) 27, Alkaline Phosphatase 84, Troponin I 0.028, C-Reactive Protein High Sensitivity 2.46H, B-Type Natriuretic Peptide 57.5, Total Protein 7.0, Albumin 3.5, Procalcitonin 0.06 11/13/21 03:55: Blood Gas Puncture Site LEFT RADIAL, Blood Gas Patient Temperature 96.6, Arteria l Blood pH 7.28*L, Arterial Blood Partial Pressure CO2 70H, Arterial Blood Partial Pressure O2 126H, Arterial Blood HCO3 32H, Arterial Blood Total CO2 34.6H, Arterial Blood Oxygen Saturation 98, Arterial Blood Base Excess 5.7H, Abdias Test YES-POS, Blood Gas Ventilator Setting NO, Blood Gas Inspired Oxygen 100% 11/13/21 04:10: Urine Color YELLOW, Urine Clarity CLEAR, Urine pH 6.0, Urine Specific [place] 1.020, Urine Protein NEGATIVE, Urine Glucose (UA) NEGATIVE, Urine Ketones NEGATIVE, Urine Nitrite NEGATIVE, Urine Bilirubin NEGATIVE, Urine Urobilinogen 0.2, Urine Leukocyte Esterase NEGATIVE, Urine RBC (Auto) NEGATIVE, Urine RBC NONE, Urine WBC NONE, Urine Squamous Epithelial Cells RARE, Urine Crystals NONE, Urine Bacteria NEGATIVE, Urine Casts NONE, Urine Mucus NEGATIVE, Urine Culture Indicated CULTURE PENDING 11/13/21 08:27: Blood Gas Puncture Site R RAD, Blood Gas Patient Temperature 36.0, Arterial Blood pH 7.34*L, Arterial Blood Partial Pressure CO2 52H, Arterial Blood Partial Pressure O2 102H, Arterial Blood HCO3 28H, Arterial Blood Total CO2 29.5, Arterial Blood Oxygen Saturation 98, Arterial Blood Base Excess 2.3, Abdias Test YES-POS, Blood Gas Ventilator Setting NO, Blood Gas Inspired Oxygen 2 L 11/13/21 11:36: Glucometer 159H Microbiology 11/13/21 Blood Culture - Preliminary, Resulted No growth Microbiology 11/13/21 Blood Culture - Preliminary, Resulted No growth 11/13/21 Blood Culture - Preliminary, Resulted No growth Assessment/Plan/Dx Assessment: 1. Stage 3 pressure ulcer sacrum 2. Quadraplegia 3. Sepsis with COVID-19 4. DM2 Plan: 1. Adequate glycemic control 2. Appropriate off loading with frequent repositioning and low flow mattress 3. Aquacel Ag to wound bed daily covered with ABD 4. Thin layer nystatin to periwound covered by thick layer of barrier ointment USHA NATHAN MD Nov 13, 2021 17:31
[2021-11-13] MEDS: LACTOBACILLUS ACIDOPHILUS (PROBIOTIC) CAPSULE PO SCH (21:09)
[2021-11-13] MEDS: oxyCODONE/APAP 10/325MG (PERCOCET 10) TABLET PO PRN (21:09)
[2021-11-13] MEDS: DOCUSATE SODIUM 100 MG (COLACE) CAP PO SCH (21:09)
[2021-11-13] MEDS: PREGABALIN 100 MG (LYRICA) CAPSULE PO SCH (21:09)
[2021-11-13] MEDS: APIXABAN 5 MG (ELIQUIS) TABLET PO SCH (21:09)
[2021-11-13] MEDS: meTOprolol TARTRATE 25 MG (LOPRESSOR) TABLET PO SCH (21:10)
[2021-11-13] MEDS: CHLORHEXIDINE 0.12% SOLN 15 ML (PERIDEX) UDC MM SCH (21:11)
[2021-11-13] MEDS: FAMOTIDINE 20 MG (PEPCID) TABLET PO SCH (21:11)
[2021-11-13] MEDS: ALPRAZolam 0.5 MG (XANAX) TAB PO SCH (21:11)
[2021-11-13] MEDS: PREGABALIN 25 MG (LYRICA) CAPSULE PO SCH (21:12)
[2021-11-14] MEDS: CEFEPIME 1,000 MG/NS 50 ML IVPB IV SCH ×10 (01:40→20:17)
[2021-11-14] MEDS: NS IV 1000 ML 1,000 ML IV SCH ×4 (05:08→20:15)
[2021-11-14] MEDS: inSUlin ASPART (NovoLOG) 1 UNIT/0.01 ML (CHARGE PER UNIT) SC SCH ×4 (05:54→20:39)
[2021-11-14 06:17] LABS: BASOPHILS % (AUTO) 0 % (0-10); EOSINOPHILS # (AUTO) 0.1 10^3/uL (0.0-0.3); EOSINOPHILS % (AUTO) 2 % (0-10); HEMATOCRIT 32 % (40-54); HEMOGLOBIN 9.9 g/dL (13.3-17.7); LYMPHOCYTES # (AUTO) 1.6 10^3/uL (1.0-4.0); LYMPHOCYTES % (AUTO) 28 % (12-44); MEAN CORPUSCULAR HEMOGLOBIN 26 pg (25-34); MEAN CORPUSCULAR HGB CONC 31 g/dL (32-36); MEAN CORPUSCULAR VOLUME 86 fL (80-99); MEAN PLATELET VOLUME 10.2 fL (9.0-12.2); MONOCYTES # (AUTO) 0.4 10^3/uL (0.0-1.0); MONOCYTES % (AUTO) 6 % (0-12); NEUTROPHILS # (AUTO) 3.6 10^3/uL (1.8-7.8); NEUTROPHILS % (AUTO) 63 % (42-75); PLATELET COUNT 225 10^3/uL (130-400); WHITE BLOOD COUNT 5.7 10^3/uL (4.3-11.0)
[2021-11-14] MEDS: HYPOCHLOROUS ACID/NaCl (VASHE) 250 ML IR SCH (06:24)
[2021-11-14 06:36] LABS: CALCIUM 8.5 MG/DL (8.5-10.1); CREATININE SERUM 0.39 MG/DL (0.60-1.30); POTASSIUM 3.3 MMOL/L (3.6-5.0)
[2021-11-14] MEDS ORDERED: POTASSIUM CL 10MEQ/50ML IVPB 50 ML IV SCH (08:45)
[2021-11-14] MEDS: PREGABALIN 100 MG (LYRICA) CAPSULE PO SCH ×2 (08:53→20:15)
[2021-11-14] MEDS: AMIODARONE 200 MG (CORDARONE) TAB PO SCH (08:54)
[2021-11-14] MEDS: MULTIVIT W/MINERALS TAB (THERAGRAN M) PO SCH (08:54)
[2021-11-14] MEDS: FERROUS SULF 325 MG (IRON) TAB PO SCH (08:54)
[2021-11-14] MEDS: DOCUSATE SODIUM 100 MG (COLACE) CAP PO SCH ×2 (08:54→20:16)
[2021-11-14] MEDS: SERTRALINE 50 MG (ZOLOFT) TABLET PO SCH (08:54)
[2021-11-14] MEDS: LACTOBACILLUS ACIDOPHILUS (PROBIOTIC) CAPSULE PO SCH ×2 (08:54→20:16)
[2021-11-14] MEDS: meTOprolol TARTRATE 25 MG (LOPRESSOR) TABLET PO SCH ×2 (08:54→20:15)
[2021-11-14] MEDS: FAMOTIDINE 20 MG (PEPCID) TABLET PO SCH ×2 (08:54→20:16)
[2021-11-14] MEDS: APIXABAN 5 MG (ELIQUIS) TABLET PO SCH ×2 (08:54→20:16)
[2021-11-14] MEDS: PREGABALIN 25 MG (LYRICA) CAPSULE PO SCH ×2 (08:55→20:16)
[2021-11-14] MEDS: REMDESIVIR INJ 100 MG in NS (IVPB) 230 ML IV SCH (09:18)
[2021-11-14] MEDS: CHLORHEXIDINE 0.12% SOLN 15 ML (PERIDEX) UDC MM SCH ×2 (09:25→20:15)
[2021-11-14] MEDS ORDERED: KCL 20 MEQ TAB (K-DUR) PO ONE (09:30)
--- NOTE | 2021-11-14 10:49 | Progress Note ---
Subjective Subjective/Events-last exam Afebrile, states he is feeling okay. He is wanting his speaking valve, states it came in with him when he came. Focused Exam Lactate Level 11/13/21 03:45: Lactic Acid Level 0.90 Time of Focused Exam: 04:30 Objective Exam Last Set of Vital Signs Vital Signs Date Time Temp Pulse Resp B/P (MAP) Pulse Ox O2 Delivery O2 Flow Rate FiO2 11/14/21 08:30 Trach Collar 11/14/21 07:57 36.7 45 20 105/58 97 6.00 11/13/21 10:53 28 Capillary Refill : Less Than 3 Seconds I&O Intake and Output 11/14/21 00:00 Intake Total 1300 ml Output Total 975 ml Balance 325 ml Intake Oral 300 ml IV Total 1000 ml Output Urine Total 975 ml Daily Weight Change No General: Alert, No Acute Distress Lungs: Clear to Auscultation, Normal Air Movement Heart: Regular Rate, No Murmurs Extremities: No Edema Psych/Mental Status: Mood NL Results/Procedures Lab Laboratory Tests 11/13/21 11:36: Glucometer 159H 11/13/21 18:26: Glucometer 143H 11/13/21 23:51: Glucometer 115H 11/14/21 05:52: Glucometer 94 11/14/21 06:07: White Blood Count 5.7, Red Blood Count 3.75L, Hemoglobin 9.9#L, Hematocrit 32L, Mean Corpuscular Volume 86, Mean Corpuscular Hemoglobin 26, Mean Corpuscular Hemoglobin Concent 31L, Red Cell Distribution Width 15.0H, Platelet Count 225, Mean Platelet Volume 10.2, Immature Granulocyte % (Auto) 0, Neutrophils (%) (Auto) 63, Lymphocytes (%) (Auto) 28, Monocytes (%) (Auto) 6, Eosinophils (%) (Auto) 2, Basophils (%) (Auto) 0, Neutrophils # (Auto) 3.6, Lymphocytes # (Auto) 1.6, Monocytes # (Auto) 0.4, Eosinophils # (Auto) 0.1, Basophils # (Auto) 0.0, Immature Granulocyte # (Auto) 0.0, Sodium Level 142, Potassium Level 3.3L, Chloride Level 110H, Carbon Dioxide Level 22, Anion Gap 10, Blood Urea Nitrogen 12, Creatinine 0.39L, Estimat Glomerular Filtration Rate 222, BUN/Creatinine Ratio 31, Glucose Level 97, Calcium Level 8.5 Microbiology 11/13/21 Blood Culture - Preliminary, Resulted No growth Radiology CTA chest 11/13: "IMPRESSION: 1. No central pulmonary emboli with the peripheral vessels poorly opacified. 2. Bibasilar infiltrates, left worse than right, with a small nodule in the right upper lobe which should be followed as noted above. 3. Suspicion of acute cholecystitis. Sonography of the gallbladder is recommended. Other findings as above." Assessment/Plan Assessment/Plan (1) Pneumonia due to COVID-19 virus Status: Acute Assessment & Plan: Started on dexamethasone and remdesevir. On 6 lpm supplemental oxygen this am. No clear evidence of bacterial infection, procal low, lactic acid normal, CRP mildly elevated. Started on ceftriaxone, will change to cefepime due to recent pseudomonas in sputum. (2) Sacral pressure ulcer Status: Chronic Assessment & Plan: Wound care consult, appreciate recommendations. (3) Guillain-[place] syndrome after administration of vaccine Status: Chronic Assessment & Plan: With quadriplegia, previously ventilator dependent, but more recently stable without support with tracheostomy in place. (4) Diabetes mellitus, type 2 Status: Chronic Assessment & Plan: Glucose 94-160 last 24 hours, continue current management. Qualifiers: (5) Hypertension Status: Chronic Qualifiers: Qualified Codes: I10 - Essential (primary) hypertension (6) Hypoxia Status: Acute (7) Cholelithiasis Status: Acute Assessment & Plan: With suspected cholecystitis based on imaging, will check US. 11/14 US also with some suspicion for cholecystitis, no clear symptoms, liver enzymes normal on admit, will follow. On cefepime. Qualifiers: (8) DVT prophylaxis Status: Acute Assessment & Plan: Enoxaparin TERRANCE ARSHAD MD Nov 14, 2021 10:49
[2021-11-14] MEDS: NYSTATIN CREAM (MYCOSTATIN) 30 GM TUBE TP SCH (10:54)
--- NOTE | 2021-11-14 14:24 | Speech Therapy Progress Note ---
Therapy Progress Note Speech pathology acknowledges the "STO" consult received for the patient and a chart review was completed. At this time, the patient is interested in receiving a Passy-[place] Valve (PMV) for continues phonation. Per chart review, the patient stated he "came in with one." The RN, Jonathon, contact respiratory therapy for a PMV evaluation however RT stated speech pathology completes the PMV assessments at this facility. Jonathon contacted speech pathology for completion of the patient's request. As the established ST is not present on this date, the current ST is researching the sequences necessary to locate a PMV for the patient. Once a PMV is located, the physician will need to place an order specifically stating, "Passy-[place] Valve Evaluation." Once a formal assessment has been completed by ST and the patient is deemed safe and appropriate for PMV use, the patient will be provided a PMV from the rehabilitation department. At this time, the earliest the evaluation would be completed is the morning of 11/15/2021. The above information was discussed with the RN and all questions were addressed. The RN verbalized comprehension of the plan of care. ADWOA SON Nov 14, 2021 14:24
--- NOTE | 2021-11-14 14:32 | Pulmonary Consultation ---
History of Present Illness History of Present Illness Date Seen by Provider: Nov 14, 2021 Time Seen by Provider: 14:23 Date of Admission Allergies and Home Medications Allergies Coded Allergies: COVID-19 vaccine, mRNA, [id number], L (Verified Allergy, Severe, 10/06/21) Home Medications Alprazolam 0.5 Mg Tablet, 0.5 MG PO HS, (Reported) Amiodarone HCl 200 Mg Tablet, 200 MG PO DAILY, (Reported) HOLD FOR SBP <100 OR PULSE <60, NOTIFY PCP IF HELD FOR 3 CONSECUTIVE DAYS Apixaban 5 Mg Tablet, 5 MG PO BID, (Reported) Arginine/Glutamine/Calcium Hmb 1 Each Powd.pack, 1 EACH PO BID, (Reported) Artificial Tears 15 Ml Soln, 2 DROPS OU Q2H PRN for DRY EYES, (Reported) Atorvastatin Calcium 40 Mg Tablet, 40 MG PO HS, (Reported) Chlorhexidine Gluconate 473 Ml Mouthwash, 15 ML MM BID, (Reported) Dextrose 38 Gm Gel..gram., 15 GM PO UD PRN for HYPOGLYCEMIA, (Reported) Docusate Sodium 100 Mg Capsule, 100 MG PO BID, (Reported) Famotidine 20 Mg Tablet, 20 MG PO BID, (Reported) Ferrous Sulfate 325 Mg Tablet, 325 MG PO DAILY, (Reported) Glucagon HCl 1 Mg Vial, 1 MG IJ UD PRN for GLUCOSE LESS THAN 70, (Reported) Guaifenesin 600 Mg Tab.er.12h, 600 MG PO Q12H PRN for CONGESTION, (Reported) Hydrocortisone 42 Gm Cream..g., 1 APPFUL TP Q4H PRN for RASH, (Reported) APPLY TO HANDS Insulin Lispro 100 Unit/1 Ml Insuln.pen, 14 UNIT SQ DAILY, (Reported) NOTIFY PCP IF BLOOD GLUCOSE LESS THAN 70 OR GREATER THAN 500 Ipratropium/Albuterol Sulfate 3 Ml Ampul.neb, 3 ML IH Q6H PRN for SHORTNESS OF BREATH, (Reported) Lactobacillus Acidophilus/Pect 1 Each Capsule, 1 EACH PO BID, (Reported) Levetiracetam 500 Mg Tablet, 1,000 MG PO BID, (Reported) TAKES 2 (500MG) TABS Lidocaine 113 Gm Gel..gram., 1 APPLIC TP TID PRN for WOUND PAIN, (Reported) Metoprolol Tartrate 25 Mg Tablet, 25 MG PO BID, (Reported) HOLD FOR SBP <100 OR PULSE <60, NOTIFY PCP IF HELD FOR 3 CONSECUTIVE DAYS Mineral Oil/Petrolatum,White 3.5 Gm Oint...g., 1 APPLIC OU Q2H PRN for DRY EYES, (Reported) Multivitamin 1 Each Tablet, 1 EACH PO DAILY, (Reported) Oxycodone HCl/Acetaminophen 1 Each Tablet, 1 EACH PO Q4H PRN for PAIN-MODERATE, (Reported) Polyethylene Glycol 3350 17 Gm Powd.pack, 17 GM PO DAILY PRN for CONSTIPATION- 2ND LINE, (Reported) Pregabalin 100 Mg Capsule, 100 MG PO BID, (Reported) TAKES 100MG +25MG TO EQUAL 125MG Pregabalin 25 Mg Capsule, 25 MG PO BID, (Reported) TAKES 100MG +25MG TO EQUAL 125MG Scopolamine 1 Each Patch.td72, 1 EACH TD Q72H, (Reported) Sertraline HCl 50 Mg Tablet, 50 MG PO DAILY, (Reported) Past Medical/Social/Family Hx Patient Social History Tobacco Use?: No Substance use?: No Alcohol Use?: No Pt stated abuse/neglect: No Immunizations Up To Date Influenza Vaccine Up-to-Date: No; Not Current First/Initial COVID19 Vaccinat: UNKNOWN DATE Second COVID19 Vaccination Alexis: UNKNOWN DATE Tetanus Booster (TDap): Less Than 5 Years Hepatitis A: No Hepatitis B: No TB Skin Test: None Current Status Advance Directives: No Communicates: Verbally Primary Language: Surinamese Preferred Spoken Language: Surinamese Is interpretation needed?: No Past Medical History 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 PT TRANSFERRED TO , AND HAD TRACHEOSTOMY PLACED PT THEN TRANSFERRED TO [facility] IN [place]; PT WAS HOSPITALIZED AT [facility] PT EVENTUALLY WENT BACK TO [facility], AND THEN WAS TRANSFERRED TO [facility] ON 09/30/21 WITH PERSISTENT QUADRIPLEGIA AND TRACHEOSTOMY, NO LONGER VENTILATOR DEPENDENT OR REQUIRING SUPPLEMENTAL OXYGEN PRIOR TO DEVELOPING GUILLAIN BARRE, PT DID NOT HAVE A DR, WAS UNAWARE OF ANY MEDICAL PROBLEMS AND DID NOT TAKE ANY MEDICATIONS. Review of Systems Constitutional: see HPI Sepsis Event Evaluation Height, Weight, BMI Height: 5'11.00" Weight: 230lbs. oz. 104.162747ni; 22.08 BMI Method:Stated Exam Exam Patient acknowledged, consented, and participated in this virtual visit which was conducted using real time audio/video Vital Signs Date Time Temp Pulse Resp B/P (MAP) Pulse Ox O2 Delivery O2 Flow Rate FiO2 11/14/21 11:01 36.7 52 22 120/65 95 Trach Collar 6.00 11/14/21 08:30 Trach Collar 11/14/21 07:57 36.7 45 20 105/58 97 Trach Collar 6.00 11/14/21 07:20 Trach Collar 6.00 11/14/21 03:10 36.8 48 20 114/62 97 Trach Collar 6.00 11/13/21 23:35 37.0 50 22 123/66 97 Trach Collar 6.00 11/13/21 20:20 37.0 52 20 141/74 97 Trach Collar 6.00 11/13/21 20:00 Trach Collar 6.00 11/13/21 16:45 49 14 113/62 96 Trach Collar 11/13/21 16:30 48 18 119/76 97 Trach Collar 11/13/21 16:15 48 20 120/73 97 Trach Collar 11/13/21 16:00 50 20 117/67 97 Trach Collar 11/13/21 15:45 49 19 115/73 97 Trach Collar 11/13/21 15:30 47 19 108/59 98 Trach Collar 11/13/21 15:15 49 19 102/60 98 Trach Collar 11/13/21 15:00 48 22 103/69 98 Trach Collar 11/13/21 14:45 51 23 112/78 97 Trach Collar 11/13/21 14:30 49 19 117/66 98 Trach Collar I & O 11/14/21 07:00 Intake Total 500 ml Output Total 1100 ml Balance -600 ml Height & Weight Height: 5'11.00" Weight: 230lbs. oz. 104.110688je; 22.08 BMI Method:Stated General Appearance: No Apparent Distress Respiratory: Other (RESPIRATIONS EVEN AND LESS LABORED, INCREASED AERATION) Cardiovascular: Regular Rate, Rhythm Capillary Refill: Less Than 3 Seconds Gastrointestinal: soft; No distended Results Lab Laboratory Tests 11/13/21 03:45 11/14/21 06:07 Assessment/Plan Assessment/Plan PT HAS BEEN A RESIDENT AT [facility] SINCE 09/30/21 PT WAS SEEN IN ER 10/06/21 FOR MUCOUS PLUGGING OF TRACH PT WAS BACK IN ER 10/25/21 FOR SAME AND DX WITH PNEUMONIA AND [facility]ED [facility] PT WAS ADMITTED 11/04/21-11/06/21 FOR RESPIRATORY FAILURE/MUCOUS PLUGGING AND PNEUMONIA PT WAS BACK IN ER 11/09/21 WITH FEVER, AFTER TESTING POSITIVE FOR COVID -19 ON 11/08/21. WAS TREATED AND RELEASED BACK TO [facility]. patient seen with TEMO armas and RN in room [facility]CE FEBRUARY OF 2020, FOLLOWING FIRST COVID-19 VACCINE IN JANUARY OF 2020, WITH RESULTANT COMPLETE QUADRIPLEGIA, AND PERMANENT TRACHEOSTOMY--NO LONGER REQUIRES A VENTILATOR AND NORMALLY IS ON ROOM AIR. a/p PNA RLL - abx started -sputim cx from 11/05 - MRSA ans PSA - would cont cefepime , but if was tx with abx recently ( repetedly ) would add double coverage for PSA ( levofloxacin ) - assess for recurrent aspiration injury , speech therapy ordered , ? need modified diet Mucous plugging - seems a problem from chart - patient denies it - will cont br- dilators now ,m but if ot indeed problem in NH - comsider long acting nebs - bid and +/- ICS - ordering PM valve today also consider VEST tx, chest PT - reassess + COVID - ct is most consistent with bact [id number] - decadron+ remedesivir stated 11/14 Acute on chronic hypoxemic resp failure + acute hypercarbic resp failure - improved with [id number] and nebs - no needed to change trach and ventilate - KY SHAIKH MD Nov 14, 2021 14:32
[2021-11-14] MEDS: ALPRAZolam 0.5 MG (XANAX) TAB PO SCH (20:15)
[2021-11-14] MEDS: oxyCODONE/APAP 10/325MG (PERCOCET 10) TABLET PO PRN (20:16)
[2021-11-15] MEDS: CEFEPIME 1,000 MG/NS 50 ML IVPB IV SCH ×8 (03:40→23:11)
[2021-11-15] MEDS: NS IV 1000 ML 1,000 ML IV SCH ×3 (03:40→16:10)
[2021-11-15] MEDS: inSUlin ASPART (NovoLOG) 1 UNIT/0.01 ML (CHARGE PER UNIT) SC SCH ×4 (05:38→20:54)
[2021-11-15 06:26] LABS: HEMATOCRIT 33 % (40-54); HEMOGLOBIN 10.3 g/dL (13.3-17.7); MEAN CORPUSCULAR HEMOGLOBIN 26 pg (25-34); MEAN CORPUSCULAR HGB CONC 31 g/dL (32-36); MEAN CORPUSCULAR VOLUME 85 fL (80-99); MEAN PLATELET VOLUME 10.7 fL (9.0-12.2); PLATELET COUNT 247 10^3/uL (130-400); WHITE BLOOD COUNT 5.9 10^3/uL (4.3-11.0)
[2021-11-15 06:42] LABS: ALBUMIN 2.9 GM/DL (3.2-4.5); POTASSIUM 3.4 MMOL/L (3.6-5.0)
[2021-11-15 06:44] LABS: CALCIUM 8.3 MG/DL (8.5-10.1)
[2021-11-15 06:45] LABS: TOTAL PROTEIN 5.7 GM/DL (6.4-8.2)
[2021-11-15 06:47] LABS: BILIRUBIN,TOTAL 0.3 MG/DL (0.1-1.0)
[2021-11-15 06:48] LABS: CREATININE SERUM 0.43 MG/DL (0.60-1.30)
--- NOTE | 2021-11-15 09:27 | Physician Query Clarification ---
PQ-Further Specificity Admission/Discharge Admission Date: Nov 13, 2021 at 04:50 Discharge Date: Dr. Peralta, The medical record reflects the following clinical scenario: History/Risk Factors: Covid pneumonia, acute on chronic hypoxic/hypercarbic respiratory failure, quadriplegia d/t Guillain-Ashley syndrome Clinical Findings: Quadriplegia Treatment: Trach collar Question: Can you further specify the level of the complete quadriplegia per the clinical indicators above? Please document a response in the Progress Notes or Discharge Summary. 1. C1-C4 2. C5-C7 3. Other, with explanation of the clinical findings. 4. Clinically undetermined, no explanation for the clinical findings. PHYSICIAN RESPONSE Can you specify per above: 2 Please remember a lack of response to the above will prompt a phone page by CDI/Coding staff. In responding to this query, please exercise your independent professional judgment. The purpose of this communication is to more accurately reflect the complexity of your patients condition. The fact that a question is asked does not imply that any particular answer is desired or expected. Thank you for your timely response to this clarification. Requestors name: [ ] Phone # [ ] THIS PHYSICIAN QUERY FORM IS A PERMANENT PART OF THE MEDICAL RECORD YUNG GORE Nov 15, 2021 09:27 TERRANCE PERALTA MD Nov 15, 2021 16:43
--- NOTE | 2021-11-15 09:35 | Physician Query Clarification ---
PQ-Uncertain Diagnosis Admission/Discharge Admission Date: Nov 13, 2021 at 04:50 Discharge Date: Dr. Peralta, The medical record reflects the following clinical scenario: History/Risk Factors: Covid pneumonia, acute on chronic hypoxic/hypercarbic respiratory failure Clinical Findings: T 35.9, P 105, R 28, lactic acid 0.90, WBC 4.8 Treatment: IV Cefepime, IV Ceftriaxone Question: Is sepsis a clinically valid diagnosis? Sepsis was documented in the wound clinic assessment and admit orders with no further documentation in the medical record. Please document a response in Progress Note or Discharge Summary. 1. Yes, clinically valid, condition resolved. 2. No, condition ruled out. 3. Other, with explanation of clinical findings. 4. Undetermined, no explanation for clinical findings. PHYSICIAN RESPONSE Diagnosis clinically valid: Yes, Conditon resolved Please remember a lack of response to the above will prompt a phone page by CDI/Coding staff. In responding to this query, please exercise your independent professional judgment. The purpose of this communication is to more accurately reflect the complexity of your patients condition. The fact that a question is asked does not imply that any particular answer is desired or expected. Thank you for your timely response to this clarification. Requestors name: Yung THIS PHYSICIAN QUERY FORM IS A PERMANENT PART OF THE MEDICAL RECORD YUNG GORE Nov 15, 2021 09:35 TERRANCE PERALTA MD Nov 15, 2021 16:44
[2021-11-15] MEDS: MULTIVIT W/MINERALS TAB (THERAGRAN M) PO SCH (09:47)
[2021-11-15] MEDS: FAMOTIDINE 20 MG (PEPCID) TABLET PO SCH ×2 (09:47→20:54)
[2021-11-15] MEDS: REMDESIVIR INJ 100 MG in NS (IVPB) 230 ML IV SCH (09:47)
[2021-11-15] MEDS: meTOprolol TARTRATE 25 MG (LOPRESSOR) TABLET PO SCH ×3 (09:48→20:57)
[2021-11-15] MEDS: APIXABAN 5 MG (ELIQUIS) TABLET PO SCH ×2 (09:48→20:54)
[2021-11-15] MEDS: AMIODARONE 200 MG (CORDARONE) TAB PO SCH (09:48)
[2021-11-15] MEDS: LACTOBACILLUS ACIDOPHILUS (PROBIOTIC) CAPSULE PO SCH ×2 (09:48→20:54)
[2021-11-15] MEDS: DOCUSATE SODIUM 100 MG (COLACE) CAP PO SCH ×2 (09:48→20:54)
[2021-11-15] MEDS: PREGABALIN 100 MG (LYRICA) CAPSULE PO SCH ×2 (09:48→20:55)
[2021-11-15] MEDS: FERROUS SULF 325 MG (IRON) TAB PO SCH (09:48)
[2021-11-15] MEDS: SERTRALINE 50 MG (ZOLOFT) TABLET PO SCH (09:48)
[2021-11-15] MEDS: NYSTATIN CREAM (MYCOSTATIN) 30 GM TUBE TP SCH (09:49)
[2021-11-15] MEDS: PREGABALIN 25 MG (LYRICA) CAPSULE PO SCH ×2 (09:53→20:55)
[2021-11-15] MEDS: CHLORHEXIDINE 0.12% SOLN 15 ML (PERIDEX) UDC MM SCH ×2 (09:53→20:53)
--- NOTE | 2021-11-15 12:21 | Progress Note ---
Subjective Subjective/Events-last exam Afebrile, is feeling okay, still working on getting speaking valve. Focused Exam Lactate Level 11/13/21 03:45: Lactic Acid Level 0.90 Time of Focused Exam: 04:30 Objective Exam Last Set of Vital Signs Vital Signs Date Time Temp Pulse Resp B/P (MAP) Pulse Ox O2 Delivery O2 Flow Rate FiO2 11/15/21 11:35 Trach Collar 6.00 28 11/15/21 11:23 36.1 52 18 135/66 92 Capillary Refill : Less Than 3 Seconds I&O Intake and Output 11/15/21 00:00 Intake Total 1120 ml Output Total 1425 ml Balance -305 ml Intake Oral 1120 ml Output Urine Total 1425 ml # Bowel Movements 4 General: Alert, No Acute Distress Lungs: Other (ronchi) Heart: Regular Rate, No Murmurs Abdomen: Normal Bowel Sounds, Soft Psych/Mental Status: Mood NL Results/Procedures Lab Laboratory Tests 11/14/21 15:48: Glucometer 281H 11/14/21 20:28: Glucometer 239H 11/15/21 05:34: Glucometer 123H 11/15/21 05:51: White Blood Count 5.9, Red Blood Count 3.90L, Hemoglobin 10.3L, Hematocrit 33L, Mean Corpuscular Volume 85, Mean Corpuscular Hemoglobin 26, Mean Corpuscular Hemoglobin Concent 31L, Red Cell Distribution Width 14.8H, Platelet Count 247, Mean Platelet Volume 10.7, Sodium Level 140, Potassium Level 3.4L, Chloride Level 109H, Carbon Dioxide Level 23, Anion Gap 8, Blood Urea Nitrogen 9, Creatinine 0.43L, Estimat Glomerular Filtration Rate 198, BUN/Creatinine Ratio 21, Glucose Level 128H, Calcium Level 8.3L, Corrected Calcium 9.2, Total Bilirubin 0.3, Aspartate Amino Transf (AST/SGOT) 20, Alanine Aminotransferase (ALT/SGPT) 22, Alkaline Phosphatase 59, Total Protein 5.7L, Albumin 2.9L 11/15/21 11:27: Glucometer 208H Microbiology 11/13/21 Urine Culture - Final, Complete NO GROWTH 11/13/21 Blood Culture - Preliminary, Resulted No growth Radiology CTA chest 11/13: "IMPRESSION: 1. No central pulmonary emboli with the peripheral vessels poorly opacified. 2. Bibasilar infiltrates, left worse than right, with a small nodule in the right upper lobe which should be followed as noted above. 3. Suspicion of acute cholecystitis. Sonography of the gallbladder is recommended. Other findings as above." Assessment/Plan Assessment/Plan (1) Pneumonia due to COVID-19 virus Status: Acute Assessment & Plan: Started on dexamethasone and remdesevir. On 6 lpm supplemental oxygen this am. No clear evidence of bacterial infection, procal low, lactic acid normal, CRP mildly elevated. Started on ceftriaxone, will c hange to cefepime due to recent pseudomonas in sputum. 11/15 reviewed recent antibiotic use which actually appears to be minimal or none, so will continue cefepime only for now. (2) Sacral pressure ulcer Status: Chronic Assessment & Plan: Wound care consult, appreciate recommendations. 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 (4) Diabetes mellitus, type 2 Status: Chronic Assessment & Plan: Glucose 160-239 last 24 hours, monitor, if increasing to consistently 200s, start long acting insulin Qualifiers: (5) Hypertension Status: Chronic Qualifiers: Qualified Codes: I10 - Essential (primary) hypertension (6) Hypoxia Status: Acute (7) Cholelithiasis Status: Acute Assessment & Plan: With suspected cholecystitis based on imaging, will check US. 11/14 US also with some suspicion for cholecystitis, no clear symptoms, liver enzymes normal on admit, will follow. On cefepime. Qualifiers: (8) DVT prophylaxis Status: Acute Assessment & Plan: TERRANCE Mc MD Nov 15, 2021 12:21
--- NOTE | 2021-11-15 13:55 | Pulmonary Progress Note ---
Subjective Date Seen by a Provider: Nov 15, 2021 Time Seen by a Provider: 13:52 Sepsis Event Evaluation Height, Weight, BMI Height: 5'." Weight: 230lbs. oz. 104.473003nv; 22.08 BMI Method:Stated Focused Exam Lactate Level 11/13/21 03:45: Lactic Acid Level 0.90 Time of Focused Exam: 04:30 Exam Exam Patient acknowledged, consented, and participated in this virtual visit which was conducted using real time audio/video Vital Signs Date Time Temp Pulse Resp B/P (MAP) Pulse Ox O2 Delivery O2 Flow Rate FiO2 11/15/21 11:35 Trach Collar 6.00 28 11/15/21 11:23 36.1 52 18 135/66 92 Trach Collar 6.00 11/15/21 08:42 93 Trach Collar 6.00 28 11/15/21 07:38 36.8 42 20 146/70 94 Trach Collar 6.00 11/15/21 03:34 36.4 44 22 119/66 94 Trach Collar 6.00 11/15/21 00:05 36.9 49 22 151/75 93 Trach Collar 6.00 11/14/21 19:42 Trach Collar 6.00 11/14/21 19:30 36.8 53 20 148/63 93 Trach Collar 6.00 11/14/21 19:18 94 Trach Collar 6.00 28 11/14/21 15:42 36.9 51 20 135/65 95 Trach Collar 6.00 11/14/21 15:00 91 Trach Collar 6.00 28 I & O 11/15/21 07:00 Intake Total 1020 ml Output Total 1750 ml Balance -730 ml Height & Weight Height: '" Weight: 230lbs. oz. 104.436215al; 22.08 BMI Method:Stated General Appearance: No Apparent Distress Respiratory: Other (RESPIRATIONS EVEN AND LESS LABORED, INCREASED AERATION) Cardiovascular: Regular Rate, Rhythm Capillary Refill: Less Than 3 Seconds Gastrointestinal: soft; No distended Results Lab Laboratory Tests 11/14/21 06:07 11/15/21 05:51 Assessment/Plan Assessment/Plan GUILLAIN [facility]RE' SINCE FEBRUARY OF 2020, FOLLOWING FIRST COVID-19 VACCINE IN JANUARY OF 2020, WITH RESULTANT COMPLETE QUADRIPLEGIA, AND PERMANENT TRACHEOSTOMY--NO LONGER REQUIRES A VENTILATOR AND NORMALLY IS ON ROOM AIR. PATIENT IS VISITED IN ROOM USING [employer] TELEMEDICINE CARD WITH RN IN ROOM PRESENT Discussed with RN , EXAM PER RN Passy-Scroggins Valve in place , o2 - 6L PATIENT REPORTS: fells better, + copugh , + sputum A/P PNA RLL -sputum cx from 11/05 - MRSA ans PSA - I was concerned , if patient was TX with abx recently ( repetedly ) -would add double coverage for PSA ( levofloxacin ). Discussed with Dr Wasserman, who reviewed recent antibiotic use which actually appears to be minimal or none- ( THANK YOU !) WILL CONT CEFEPIME FOR NOW , sputum cx was sent again 11/14 -follow closely - assess for recurrent aspiration injury , speech therapy ordered , ? need modified fluids Mucous plugging - seems a problem as per chart ( multiple visits to ER ) and as per patient report - "too thick" . Also reports mild intermittent asthma symptoms prior to GB . WILL BENEFIT FROM REGULAR USE OF PULMICORT NEBS BID 0.5 AND PERFOROMIST 20 mcg Q12 in addition to prn nebs ( please order on d/c to NH ) If problems persist despite theese tx , also consider VEST tx, chest PT + COVID - ct is most consistent with bact infection - decadron+ remedesivir stated 11/14 Acute on chronic hypoxemic resp failure + acute hypercarbic resp failure - improved with suctioning and nebs - no needed to change trach and ventilate KY SHAIKH MD Nov 15, 2021 13:55
--- NOTE | 2021-11-15 14:11 | ST Dysphonia Evaluation ---
Speech Evaluation-General Medical Diagnosis COVID19, Respiratory Acidosis Onset Date: Nov 13, 2021 Therapy Diagnosis Therapy Diagnosis: Aphonia Precautions Precautions: Aspiration Precautions/Isolations: Airborne Isolation, Contact Isolation, Aspiration, Droplet Isolation Referral Referring Physician: Dr. Peralta Reason for Referral: Evaluation/Treatment Evaluation for a Passy [place] Valve Per chart review and discussion with RN, a concern for dysphagia is not present at this time. 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 The patient was diagnosed with COVID19 and displayed respiratory acidosis. The patient stated he arrived to the hospital with a Passy [place] Speaking Valve however no longer has one in his possession. The RN attempted to locate the patient's speaking valve in the patient's current room as well as his recent ICU room without success. Speech language pathology was consulted for evaluation of a Passy [place] Valve. 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 The patient has a size #6, CUFFLESS, fenestrated tracheostomy tube in place. Mr. Cook is receiving 6L supplemental oxygen via trach shield. Prior to the Passy [place] Valve placement (PMV), the patient's SpO2% was 91% with heart rate at 52 breaths per minute. The patient is alert and appropriate for the evaluation. Prior to PMV placement, the clinician digitally occluded the patient's tracheostomy to assess for backflow pressure and phonation ability/quality. The patient does not display any backflow with digital occlusion and demonstrates an appropriate vocal quality with excellent intensity. Education regarding the speaking valve was completed by the clinician. The patient denied questions or concerns at this time and an informational handout/booklet was left at bedside. The PMV was placed on the patient's tracheostomy. Once in place, the patient's SpO2% was 93% with a heart rate of 49 bpm. The patient does not appear in distress at this time. The patient displayed an ease with phonation and demonstrated an appropriate vocal quality. Following [address], the patient's SpO2% remained at 93% with a heart rate of 52 bpm. The patient does not appear in distress at this time. Following [address], the patient's SpO2% was at 94% with a heart rate of 53 bpm. The patient does not appear in distress at this time. Recommendations: As the patient is unable to place and remove the PMV independently (due to quadriplegia) and is unable to consistently use call light due to head positioning, the PMV may only be used during periods of supervision. Additionally, the PMV is only to be worn during periods of alertness and not while sleeping for safety. The patient was provided the information and was agreeable to the plan of care. At this time, the patient appears appropriate for PMV use. If the patient appears to be in respiratory distress, please immediately remove the PMV. Extensive education was provided to the patient and with the RN. Safety signs were posted in the patient's room and cleaning instructions were provided. Speech Short Term Goals Short Term Goals Short Term Goals 1. The patient will tolerate placement of the PMV for 20 minutes with SpO2% remaining above 90%. Time Frame-STG: One Week Speech Finance Teacher Goals [facility] Goals 1. The patient will tolerate the PMV for periods of 30 minutes or longer with SpO2% remaining at 90% or higher. Time Frame: Four Weeks ADWOA SON Nov 15, 2021 14:11
[2021-11-15] MEDS: oxyCODONE/APAP 10/325MG (PERCOCET 10) TABLET PO PRN (16:13)
--- NOTE | 2021-11-15 16:25 | Speech Therapy Progress Note ---
Therapy Progress Note The clinician was contacted by the RN regarding a dysphagia evaluation request for the patient. Prior to completing the evaluation, the speech language pathologist clarified the rationale for the consult with the RN and received information for PMV placement, only. At this time, the dysphagia evaluation cannot be completed. The information was shared with the RN, who kindly verbalized comprehension. Per RN, the patient will be discharged to the group home facility tomorrow, 11/16/2021. At the time of discharge, the RN will request a referral to speech language pathology at the long-term for a swallowing evaluation. At this time, the patient is receiving a regular diet with thin liquids. Pending discharge, monitor for s/s of suspected aspiration with PO intake including but not limited to coughing, throat clearing, a red face, watery eyes or a wet vocal quality following the swallow. As the patient has a tracheostomy present, monitor for expectoration of food or liquid tinged secretions from the tracheostomy site. If demonstrated, the patient should be placed NPO pending full speech pathology dysphagia evaluation. To improve the swallowing function, the PMV should be present for all PO intake (to restore subglottic pressure). ADWOA SON Nov 15, 2021 16:25
[2021-11-15] MEDS: ALPRAZolam 0.5 MG (XANAX) TAB PO SCH (20:55)
[2021-11-15] MEDS: RT-BUDESONIDE NEBS 0.5 MG/2ML (PULMICORT) AMP INH SCH (22:06)
[2021-11-16] MEDS: CEFEPIME 1,000 MG/NS 50 ML IVPB IV SCH ×8 (06:13→22:58)
[2021-11-16] MEDS: inSUlin ASPART (NovoLOG) 1 UNIT/0.01 ML (CHARGE PER UNIT) SC SCH ×4 (06:15→21:00)
[2021-11-16 07:31] LABS: HEMATOCRIT 35 % (40-54); HEMOGLOBIN 10.8 g/dL (13.3-17.7); MEAN CORPUSCULAR HEMOGLOBIN 26 pg (25-34); MEAN CORPUSCULAR HGB CONC 31 g/dL (32-36); MEAN CORPUSCULAR VOLUME 84 fL (80-99); MEAN PLATELET VOLUME 11.2 fL (9.0-12.2); PLATELET COUNT 177 10^3/uL (130-400); WHITE BLOOD COUNT 6.4 10^3/uL (4.3-11.0)
[2021-11-16 07:48] LABS: ALBUMIN 3.1 GM/DL (3.2-4.5); BILIRUBIN,TOTAL 0.3 MG/DL (0.1-1.0); CALCIUM 8.5 MG/DL (8.5-10.1); CREATININE SERUM 0.45 MG/DL (0.60-1.30); POTASSIUM 3.7 MMOL/L (3.6-5.0)
[2021-11-16] MEDS: RT-BUDESONIDE NEBS 0.5 MG/2ML (PULMICORT) AMP INH SCH (07:48)
--- NOTE | 2021-11-16 08:13 | Progress Note - Hospitalist ---
Subjective HPI/CC On Admission Date Seen by Provider: Nov 16, 2021 Time Seen by Provider: 11:00 Subjective/Events-last exam Patient doing well Is on trach collar MCFP placement required COVID-19 pneumonia managed conservatively Upon review of records he experienced Guillain-Hoffman 1-1/2 weeks after first Covid vaccine and remains quadriplegic Review of Systems General: Fatigue, Malaise Pulmonary: Dyspnea, Cough Focused Exam Time of Focused Exam: 04:30 Objective Exam Vital Signs Vital Signs Date Time Temp Pulse Resp B/P (MAP) Pulse Ox O2 Delivery O2 Flow Rate FiO2 11/16/21 15:46 36.9 53 20 158/68 94 Trach Collar 6.00 11/16/21 07:49 28 Capillary Refill : Less Than 3 Seconds General Appearance: No Apparent Distress, WD/WN, Chronically ill Respiratory: No Accessory Muscle Use, No Respiratory Distress, Crackles, Wheezing Cardiovascular: Regular Rate, Rhythm Neurologic/Psychiatric: Alert, Motor Weakness Results/Procedures Lab Laboratory Tests 11/16/21 06:49 Patient resulted labs reviewed. 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
[2021-11-16] MEDS: SERTRALINE 50 MG (ZOLOFT) TABLET PO SCH (08:40)
[2021-11-16] MEDS: LACTOBACILLUS ACIDOPHILUS (PROBIOTIC) CAPSULE PO SCH ×2 (08:40→20:59)
[2021-11-16] MEDS: DOCUSATE SODIUM 100 MG (COLACE) CAP PO SCH ×2 (08:40→20:59)
[2021-11-16] MEDS: APIXABAN 5 MG (ELIQUIS) TABLET PO SCH ×2 (08:40→20:59)
[2021-11-16] MEDS: FAMOTIDINE 20 MG (PEPCID) TABLET PO SCH ×2 (08:40→20:59)
[2021-11-16] MEDS: FERROUS SULF 325 MG (IRON) TAB PO SCH (08:41)
[2021-11-16] MEDS: CHLORHEXIDINE 0.12% SOLN 15 ML (PERIDEX) UDC MM SCH ×2 (08:41→21:00)
[2021-11-16] MEDS: MULTIVIT W/MINERALS TAB (THERAGRAN M) PO SCH (08:41)
[2021-11-16] MEDS: PREGABALIN 100 MG (LYRICA) CAPSULE PO SCH ×2 (08:41→20:59)
[2021-11-16] MEDS: PREGABALIN 25 MG (LYRICA) CAPSULE PO SCH ×2 (08:50→20:59)
[2021-11-16] MEDS: REMDESIVIR INJ 100 MG in NS (IVPB) 230 ML IV SCH (08:51)
[2021-11-16] MEDS: AMIODARONE 200 MG (CORDARONE) TAB PO SCH (09:00)
[2021-11-16] MEDS: meTOprolol TARTRATE 25 MG (LOPRESSOR) TABLET PO SCH ×2 (09:00→20:45)
[2021-11-16] MEDS: NYSTATIN CREAM (MYCOSTATIN) 30 GM TUBE TP SCH (10:11)
[2021-11-16] MEDS: SCOPOLAMINE 1.5 MG (TRANSDERM-SCOP) PATCH TD SCH (12:15)
[2021-11-16] MEDS: HYPOCHLOROUS ACID/NaCl (VASHE) 250 ML IR SCH (13:52)
[2021-11-16] MEDS ORDERED: AA 4.25% W/LYTES IN D5W IV SOL 1,000 ML IV ONE (14:35)
[2021-11-16] MEDS: NS IV 1000 ML 1,000 ML IV SCH ×2 (15:09→16:15)
[2021-11-16] MEDS: ALPRAZolam 0.5 MG (XANAX) TAB PO SCH (20:59)
[2021-11-17] MEDS: inSUlin ASPART (NovoLOG) 1 UNIT/0.01 ML (CHARGE PER UNIT) SC SCH ×4 (05:47→20:36)
[2021-11-17] MEDS: CEFEPIME 1,000 MG/NS 50 ML IVPB IV SCH ×8 (05:47→23:40)
[2021-11-17] MEDS: RT-BUDESONIDE NEBS 0.5 MG/2ML (PULMICORT) AMP INH SCH ×2 (10:09→10:10)
[2021-11-17] MEDS: CHLORHEXIDINE 0.12% SOLN 15 ML (PERIDEX) UDC MM SCH ×2 (10:10→20:36)
[2021-11-17] MEDS: FERROUS SULF 325 MG (IRON) TAB PO SCH (10:10)
[2021-11-17] MEDS: DOCUSATE SODIUM 100 MG (COLACE) CAP PO SCH ×2 (10:10→20:37)
[2021-11-17] MEDS: APIXABAN 5 MG (ELIQUIS) TABLET PO SCH ×2 (10:11→20:36)
[2021-11-17] MEDS: FAMOTIDINE 20 MG (PEPCID) TABLET PO SCH ×2 (10:11→20:37)
[2021-11-17] MEDS: LACTOBACILLUS ACIDOPHILUS (PROBIOTIC) CAPSULE PO SCH ×2 (10:11→20:37)
[2021-11-17] MEDS: PREGABALIN 100 MG (LYRICA) CAPSULE PO SCH ×2 (10:11→20:37)
[2021-11-17] MEDS: MULTIVIT W/MINERALS TAB (THERAGRAN M) PO SCH (10:11)
[2021-11-17] MEDS: PREGABALIN 25 MG (LYRICA) CAPSULE PO SCH ×2 (10:11→20:37)
[2021-11-17] MEDS: SERTRALINE 50 MG (ZOLOFT) TABLET PO SCH (10:11)
[2021-11-17] MEDS: NYSTATIN CREAM (MYCOSTATIN) 30 GM TUBE TP SCH (10:11)
[2021-11-17] MEDS: AMIODARONE 200 MG (CORDARONE) TAB PO SCH (10:12)
[2021-11-17] MEDS: meTOprolol TARTRATE 25 MG (LOPRESSOR) TABLET PO SCH ×2 (10:12→20:36)
[2021-11-17] MEDS: REMDESIVIR INJ 100 MG in NS (IVPB) 230 ML IV SCH (10:18)
[2021-11-17] MEDS: NS IV 1000 ML 1,000 ML IV SCH (10:36)
--- NOTE | 2021-11-17 12:45 | Progress Note - Hospitalist ---
Subjective HPI/CC On Admission Date Seen by Provider: Nov 17, 2021 Time Seen by Provider: 12:00 Subjective/Events-last exam Patient doing about the same No major issues per RN Check meds and labs Review of Systems General: Fatigue, Malaise Focused Exam Time of Focused Exam: 04:30 Objective Exam Vital Signs Vital Signs Date Time Temp Pulse Resp B/P (MAP) Pulse Ox O2 Delivery O2 Flow Rate FiO2 11/18/21 03:34 36.4 49 20 140/69 96 Trach Collar 6.00 11/17/21 12:17 28 Capillary Refill : Less Than 3 Seconds General Appearance: No Apparent Distress, WD/WN, Chronically ill Respiratory: No Accessory Muscle Use, No Respiratory Distress, Decreased Breath Sounds Cardiovascular: Regular Rate, Rhythm Results/Procedures Lab Patient resulted labs reviewed. 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
[2021-11-17] MEDS: ALPRAZolam 0.5 MG (XANAX) TAB PO SCH (20:37)
[2021-11-18] MEDS: CEFEPIME 1,000 MG/NS 50 ML IVPB IV SCH ×6 (05:55→18:28)
[2021-11-18] MEDS: NS IV 1000 ML 1,000 ML IV SCH (05:58)
[2021-11-18] MEDS: inSUlin ASPART (NovoLOG) 1 UNIT/0.01 ML (CHARGE PER UNIT) SC SCH ×4 (06:00→21:27)
--- NOTE | 2021-11-18 06:11 | Diagnostic Imaging Report ---
INDICATION: Covid patient. Compared 11/13 FINDINGS: Basilar infiltrates greatest in the left lung base medially where the left hemidiaphragm is obscured persists. Trach tube above the howie. No effusion or pneumothorax. IMPRESSION: Bibasilar infiltrates, greater left, showed no substantial change. Dictated by: Dictated on workstation # [id number]
[2021-11-18 06:19] LABS: BASOPHILS % (AUTO) 0 % (0-10); EOSINOPHILS # (AUTO) 0.1 10^3/uL (0.0-0.3); EOSINOPHILS % (AUTO) 1 % (0-10); HEMATOCRIT 36 % (40-54); HEMOGLOBIN 11.1 g/dL (13.3-17.7); LYMPHOCYTES # (AUTO) 2.3 10^3/uL (1.0-4.0); LYMPHOCYTES % (AUTO) 22 % (12-44); MEAN CORPUSCULAR HEMOGLOBIN 26 pg (25-34); MEAN CORPUSCULAR HGB CONC 31 g/dL (32-36); MEAN CORPUSCULAR VOLUME 84 fL (80-99); MEAN PLATELET VOLUME 10.6 fL (9.0-12.2); MONOCYTES # (AUTO) 0.6 10^3/uL (0.0-1.0); MONOCYTES % (AUTO) 6 % (0-12); NEUTROPHILS # (AUTO) 7.1 10^3/uL (1.8-7.8); NEUTROPHILS % (AUTO) 70 % (42-75); PLATELET COUNT 310 10^3/uL (130-400); WHITE BLOOD COUNT 10.1 10^3/uL (4.3-11.0)
[2021-11-18 06:34] LABS: ALBUMIN 3.2 GM/DL (3.2-4.5); BILIRUBIN,TOTAL 0.4 MG/DL (0.1-1.0); CALCIUM 8.8 MG/DL (8.5-10.1); CREATININE SERUM 0.46 MG/DL (0.60-1.30); POTASSIUM 3.6 MMOL/L (3.6-5.0)
--- NOTE | 2021-11-18 09:16 | Progress Note - Hospitalist ---
Subjective HPI/CC On Admission Date Seen by Provider: Nov 18, 2021 Time Seen by Provider: 10:00 Subjective/Events-last exam Pt doing well [facility] will take him back tomorrow Will need skilled orders Pt feels depressed at times but we talked about letting Covid resolve and we will see how he feels Review of Systems General: Fatigue, Malaise Focused Exam Time of Focused Exam: 04:30 Objective Exam Vital Signs Vital Signs Date Time Temp Pulse Resp B/P (MAP) Pulse Ox O2 Delivery O2 Flow Rate FiO2 11/19/21 04:40 36.2 48 22 144/70 95 Trach Collar 6.00 11/18/21 18:52 28 Capillary Refill : Less Than 3 Seconds General Appearance: No Apparent Distress, WD/WN, Chronically ill Respiratory: Decreased Breath Sounds, Other (Trach in place) Cardiovascular: Regular Rate, Rhythm Neurologic/Psychiatric: Alert, Oriented x3 Results/Procedures Lab Laboratory Tests 11/18/21 05:55 Patient resulted labs reviewed. 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
[2021-11-18] MEDS: DOCUSATE SODIUM 100 MG (COLACE) CAP PO SCH ×2 (09:24→21:13)
[2021-11-18] MEDS: CHLORHEXIDINE 0.12% SOLN 15 ML (PERIDEX) UDC MM SCH ×2 (09:24→21:27)
[2021-11-18] MEDS: APIXABAN 5 MG (ELIQUIS) TABLET PO SCH ×2 (09:24→21:27)
[2021-11-18] MEDS: PREGABALIN 25 MG (LYRICA) CAPSULE PO SCH ×2 (09:24→21:28)
[2021-11-18] MEDS: FERROUS SULF 325 MG (IRON) TAB PO SCH (09:24)
[2021-11-18] MEDS: FAMOTIDINE 20 MG (PEPCID) TABLET PO SCH ×2 (09:25→21:28)
[2021-11-18] MEDS: SERTRALINE 50 MG (ZOLOFT) TABLET PO SCH (09:25)
[2021-11-18] MEDS: MULTIVIT W/MINERALS TAB (THERAGRAN M) PO SCH (09:25)
[2021-11-18] MEDS: LACTOBACILLUS ACIDOPHILUS (PROBIOTIC) CAPSULE PO SCH ×2 (09:25→21:27)
[2021-11-18] MEDS: AMIODARONE 200 MG (CORDARONE) TAB PO SCH (09:26)
[2021-11-18] MEDS: NYSTATIN CREAM (MYCOSTATIN) 30 GM TUBE TP SCH (09:26)
[2021-11-18] MEDS: PREGABALIN 100 MG (LYRICA) CAPSULE PO SCH ×2 (09:26→21:27)
[2021-11-18] MEDS: RT-BUDESONIDE NEBS 0.5 MG/2ML (PULMICORT) AMP INH SCH ×3 (09:27→21:36)
[2021-11-18] MEDS: meTOprolol TARTRATE 25 MG (LOPRESSOR) TABLET PO SCH ×2 (09:27→21:28)
--- NOTE | 2021-11-18 12:26 | ST Dysphagia Evaluation ---
Speech Evaluation-General Medical Diagnosis COVID19, Respiratory Acidosis Onset Date: Nov 13, 2021 Therapy Diagnosis Therapy Diagnosis: Mild Oropharyngeal Dysphagia Precautions Precautions: Fall, Aspiration Precautions/Isolations: Airborne Isolation, Droplet Isolation Referral Referring Physician: Weighmaster Reason for Referral: Evaluation/Treatment (Clinical Bedside Swallowing Evaluation) Medical History Pertinent Medical History: HTN Current History The patient is a 66 year-old male with a past medical history of Guillain Cottonwood with quadriplegia, tracheostomy, DMII, asthma, HLD, and HTN, who presented to [facility] due to low oxygen saturations. The patient was diagnosed with COVID19 and displayed respiratory acidosis.Upon admission, the patient stated he arrived to the hospital with a Passy Anabell Speaking Valve (PMV) however no longer had one in his possession. The speech pathologist evaluated the patient for appropriateness of a Passy-Oswe[place] Valve (PMV) on 11/15/2021 and deemed the patient a candidate. Please refer to the prior speech pathology PMV assessment for additional PMV information. The patient has a size #6, CUFFLESS, fenestrated tracheostomy tube in place. Mr. Cook is receiving 6L supplemental oxygen via trach shield. Reviewed History: Yes Social History Home: [facility]/Current-Dysphagia Prior Level of Function Per patient, following a COVID19 vaccination he experienced symptoms of Guillain Cottonwood (including quadriplegia). The patient is fed his meals by a caregiver at his longterm facility. The patient reports he consumes a regular consistency diet with thin liquids, as tolerated. The patient denied swallowing difficulties, concerns, or the presence of s/s of suspected aspiration with PO intake. Subjective Due to respiratory issues, the stopping builder requested a clinical bedside swallowing evaluation to assess for the possibility of aspiration with PO intake. Prior to completing the evaluation, the clinician completed a chart review, conversation with respiratory therapy and a discussion with the patient's RN. Per chart review, the patient is tolerating a dysphagia III (mechanically altered) diet consistency with thin liquids. The patient's RN, Stpehy, stated she has fed the patient his meals for the past three days. Throu ghout her feeding experiences and with medication administration (whole in puree), the patient has not demonstrated s/s of suspected aspiration. The patient's RN and respiratory therapy stated they have not suctioned food or liquid tinged secretions from the patient's tracheostomy site. The patient denied difficulty with swallowing or s/s of suspected aspiration with a regular diet consistency and thin liquids. 11/18/2021: Chest Exam: Bibasilar infiltrates, greater left, showed no substantial change. Cognitive Status Patient Orientation: Person, Place, Time, Eyes Open, Situation, Normal For Age Oral Motor Skills Dentition: Natural Current Food Consistancy: Regular, Thin Liquids Ability to Follow Directions: Excellent Oral Expression Ability: No Impairment (With the presence) Tracheostomy Type: Cuffed, Speaking Valve Voice Voice Phonatory-Based Quality: Weak (Mildly reduced intensity, clear.) Voice Pitch: Normal Voice Loudness: Mildly Soft/Quiet Face Facial Symmetry: Symmetrical Oral-Facial Assessment Oral-Facial Dentition: Normal Labial Seal Description: Normal Smile: Normal Puff Cheeks: Normal Lingual Protrusion: Normal Lingual ROM: Normal Lingual Strength: Normal Volitional Dry Swallow: Yes Voluntary Cough: Yes Can Clear Throat Volitionally: Yes Productive Cough: Yes Productive Throat Clear: Yes Dysphagia Evaluation Consistencies Presented: Regular, Thin Liquid, Mechanical Soft, Pureed Medication whole and crushed in puree. Oral Phase: Reduced Oral Transit (The patient required a subsequent thin liquid bolus to clear material from the oral cavity.) Pharyngeal Phase: Multiple Swallow Attempts, Reduced Laryngeal Elevation, C/O Globus Sensation Funct. Velo/Pharyngeal Symptom: Clears Throat, Cough After Swallow Dietary Recommendations: Mechanical Soft Liquid Recommendations: Thin - Medication crushed and placed in puree for administration. Swallowing Precautions: Alternate Liquids/Solids, Decreased Rate of Oral Intake, Oral Supervision Staff, Small Bites and Sips, Sitting Upright 90 Degrees Dysphagia Evaluation Summary The patient demonstrated appropriate oral acceptance of thin liquid via straw, puree, mechanical soft and solid consistencies (fed by the clinician). Adequate bolus manipulation was demonstrated however a thin liquid wash was required to complete posterior transfer of solid consistencies. Anterior or lateral loss of bolus material was not appreciated, nor was pocketing. Residual material was not present following the swallow with any consistency tested. The patient consumed single and multiple large straw drinks of thin liquid with no s/s of suspected aspiration. Additionally, no s/s of suspected aspiration were displayed with pudding in isolation of medication, pudding with crushed medication, or soft solid consistencies. The patient demonstrated a delayed rigorous cough and throat clear, as well as, reported a globus sensation with medication placed whole in puree (x2). Following subsequent swallows of thin liquid, the patient reported the globus sensation had cleared. The patient also demonstrated a rigorous cough following two of ten small pieces of a cracker. Due to the s/s of suspected aspiration with the above consistencies, the clinician recommended medication crushed in puree and soft solid material (cracker placed in water). With the modifications, the s/s of suspected aspiration were eliminated. Recommendations: - Dysphagia III consistency diet with thin liquids, as tolerated. - Fully upright and alert for PO intake. - PMV in place for all PO intake. - Full feeding assistance with all PO intake. - Slow rate of PO intake. - Small single bites and sips. - Alternate bites and sips on a 1:1 ratio. - Crush medication and place in puree for administration. - Monitor for s/s of suspected aspiration with PO intake. If demonstrated, contact speech pathology. - Speech pathology to continue dysphagia and PMV follow up two to three times per week (or as warranted). Speech Short Term Goals Short Term Goals Short Term Goals 1. The patient will tolerate placement of the PMV for 20 minutes with SpO2% remaining above 90%. 2. The patient will follow safe swallowing strategies with 90% accuracy, independently. Time Frame-STG: One Week Speech [facility] Goals Washing Machine Loader Goals 1. The patient will tolerate the PMV for periods of 30 minutes or longer with SpO2% remaining at 90% or higher. 2. The patient will tolerate the least restrictive diet with the absence of s/s of suspected aspiration with 90% accuracy or higher. Time Frame: Four Weeks Speech-Plan Treatment Plan Speech Therapy Treatment Plan: Continue Plan of Care Treatment Duration: Dec 02, 2021 Frequency: 2 times per week (Two to three times per week.) Estimated Hrs Per Day: .25 hour per day Rehab Potential: Fair Pt/Family Agrees to Plan: Yes Safety Risks/Education Teaching Recipient: Patient, Primary Caregiver (The patient's RN.) Teaching Methods: Demonstration, Discussion Response to Teaching: Verbalize Understanding, Return Demonstration Education Topics Provided: Safe swallowing strategies, PO recommendations, Plan of care. Time Speech Therapy Time In: 09:15 Speech Therapy Time Out: 09:45 Total Billed Time: 30 Billed Treatment Time 1, JUAN PABLO HOWARD [facility] Nov 18, 2021 12:25
--- NOTE | 2021-11-18 14:59 | Pulmonary Progress Note ---
Subjective Date Seen by a Provider: Nov 18, 2021 Time Seen by a Provider: 14:53 Sepsis Event Evaluation Height, Weight, BMI Height: 5'11.00" Weight: 230lbs. oz. 104.211404sp; 22.08 BMI Method:Stated Focused Exam Time of Focused Exam: 04:30 Exam Exam Patient acknowledged, consented, and participated in this virtual visit which was conducted using real time audio/video Vital Signs Date Time Temp Pulse Resp B/P (MAP) Pulse Ox O2 Delivery O2 Flow Rate FiO2 11/18/21 11:37 36.0 56 20 151/77 94 Trach Collar 6.00 11/18/21 07:24 36.4 45 20 137/72 97 Trach Collar 6.00 11/18/21 06:40 94 Trach Collar 6.00 28 11/18/21 03:34 36.4 49 20 140/69 96 Trach Collar 6.00 11/17/21 23:32 36.6 50 20 146/67 97 Trach Collar 6.00 11/17/21 20:25 Trach Collar 6.00 11/17/21 20:07 36.9 59 20 154/70 94 Trach Collar 6.00 11/17/21 15:18 37.6 70 22 140/63 94 Trach Collar 6.00 I & O 11/18/21 06:59 Intake Total 1285 ml Output Total 3900 ml Balance -2615 ml Height & Weight Height: 5'11.00" Weight: 230lbs. oz. 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 PATIENT IS VISITED IN ROOM USING Pod Inns CARD WITH RN IN ROOM PRESENT Discussed with RN , EXAM PER RN size #6, cuffless , fenestrated tracheostomy tube in place. Passy-Anabell Valve in place , o2 - 6L PATIENT REPORTS: fells better, + cough , + sputum A/P PNA RLL -sputum cx from 11/05 - MRSA ans PSA - I was concerned , if patient was TX with abx recently ( repetedly ) -would add double coverage for PSA ( levofloxacin ). Discussed with Dr Wasserman, who reviewed recent antibiotic use which actually appears to be minimal or none- ( THANK YOU !) WILL CONT CEFEPIME FOR NOW , sputum cx was sent again 11/14 - results not reported -follow closely , repeat cxr am- CONSIDER TO STOP ANX TOMORROW - appreciate speach TX assessment for recurrent aspiration injury - diet with thin liquid recomended , will follow Mucous plugging - seems a problem as per chart ( multiple visits to ER ) and as per patient report - "too thick" . Also reports mild intermittent asthma symptoms prior to GB . WILL BENEFIT FROM REGULAR USE OF PULMICORT NEBS BID 0.5 AND PERFOROMIST 20 mcg Q12 in addition to prn nebs ( please order on d/c to NH ) If problems persist despite these tx , also consider VEST tx, chest PT + COVID - ct is most consistent with bact infection - decadron TO CHANGE TO PO Acute on chronic hypoxemic resp failure + acute hypercarbic resp failure - improved with suctioning and nebs - no needed to change trach and ventilate [place] SHAIKH MD Nov 18, 2021 14:59
[2021-11-18] MEDS: ALPRAZolam 0.5 MG (XANAX) TAB PO SCH (21:27)
[2021-11-19] MEDS: CEFEPIME 1,000 MG/NS 50 ML IVPB IV SCH ×6 (00:05→12:55)
[2021-11-19] MEDS: oxyCODONE/APAP 10/325MG (PERCOCET 10) TABLET PO PRN (05:04)
[2021-11-19] MEDS ORDERED: CEFD300C3 PO (06:05)
[2021-11-19] MEDS ORDERED: DEXA6TAB6 PO (06:05)
--- NOTE | 2021-11-19 06:06 | Discharge Inst-Skilled Nursing ---
Discharge Inst-Skilled NF Reconcile Patient Problems Problems Reviewed?: Yes Patient Instructions Patient Problems: COVID Goal: Regain function Consult/Follow Up/Orders Follow Up Appt.: NH rounds [facility] Skilled NF Admit to: [facility] ([facility]) I certify that SNF services are required to be given on an inpatient basis because of the above named patient's need for [facility] care on a continuing basis for the conditions(s) for which he/she was receiving inpatient hospital services prior to his/her transfer to the SNF. [facility] Facility Order: Nursing Services, Microbiological Analyst-Evaluate & Treat, Physical Therapy-Evaluate & Treat, Other Oxygen Delivery Method: Trach Collar Discharge Diet: No Restrictions Resuscitation Status: Do Not Resuscitate New & Resume Previous Orders New Medications: Cefdinir (Cefdinir) 300 Mg Capsule 300 MG PO BID, #8 CAP Dexamethasone (Decadron) 6 Mg Tablet 6 MG PO DAILY, #4 TAB Continued Medications: Alprazolam (Alprazolam) 0.5 Mg Tablet 0.5 MG PO HS, TAB Amiodarone HCl (Amiodarone HCl) 200 Mg Tablet 200 MG PO DAILY, TAB HOLD FOR SBP <100 OR PULSE <60, NOTIFY PCP IF HELD FOR 3 CONSECUTIVE DAYS Apixaban (Eliquis) 5 Mg Tablet 5 MG PO BID, TAB Arginine/Glutamine/Calcium Hmb (Betito Packet) 1 Each Powd.pack 1 EACH PO BID, EACH Artificial Tears (Artificial Tears) 15 Ml Soln 2 DROPS OU Q2H PRN for DRY EYES, EA Atorvastatin Calcium (Atorvastatin Calcium) 40 Mg Tablet 40 MG PO HS, TAB Chlorhexidine Gluconate (Peridex) 473 Ml Mouthwash 15 ML MM BID, ML Dextrose (Glucose Gel) 38 Gm Gel..gram. 15 GM PO UD PRN for HYPOGLYCEMIA, EA Docusate Sodium (Docusate Sodium) 100 Mg Capsule 100 MG PO BID, CAP Famotidine (Famotidine) 20 Mg Tablet 20 MG PO BID, TAB Ferrous Sulfate (Iron) 325 Mg Tablet 325 MG PO DAILY, TAB Glucagon HCl (Glucagon Emergency Kit) 1 Mg Vial 1 MG IJ UD PRN for GLUCOSE LESS THAN 70, EA Guaifenesin (Mucinex) 600 Mg Tab.er.12h 600 MG PO Q12H PRN for CONGESTION, TAB Hydrocortisone (Cortaid) 42 Gm Cream..g. 1 APPFUL TP Q4H PRN for RASH, EA APPLY TO HANDS Insulin Lispro (Humalog Kwikpen) 100 Unit/1 Ml Insuln.pen 14 UNIT SQ DAILY, EA NOTIFY PCP IF BLOOD GLUCOSE LESS THAN 70 OR GREATER THAN 500 Ipratropium/Albuterol Sulfate (Iprat-Albut 0.5-3(2.5) mg/3 ml) 3 Ml Ampul.neb 3 ML IH Q6H PRN for SHORTNESS OF BREATH, EACH Lactobacillus Acidophilus/Pect (Acidophilus-Pectin Capsule) 1 Each Capsule 1 EACH PO BID, CAP Levetiracetam (Levetiracetam) 500 Mg Tablet 1000 MG PO BID, TAB TAKES 2 (500MG) TABS Lidocaine (Topicaine) 113 Gm Gel..gram. 1 APPLIC TP TID PRN for WOUND PAIN, EA Metoprolol Tartrate (Metoprolol Tartrate) 25 Mg Tablet 25 MG PO BID, TAB HOLD FOR SBP <100 OR PULSE <60, NOTIFY PCP IF HELD FOR 3 CONSECUTIVE DAYS Mineral Oil/Petrolatum,White (Lubricant Pm Eye Ointment) 3.5 Gm Oint...g. 1 APPLIC OU Q2H PRN for DRY EYES, EA Multivitamin (Multivitamin) 1 Each Tablet 1 EACH PO DAILY, TAB Oxycodone HCl/Acetaminophen (Oxycodone-Acetaminophen 10-325) 1 Each Tablet 1 EACH PO Q4H PRN for PAIN-MODERATE MDD 3, TAB Polyethylene Glycol 3350 (Miralax) 17 Gm Powd.pack 17 GM PO DAILY PRN for CONSTIPATION-2ND LINE, EACH Pregabalin (Lyrica) 100 Mg Capsule 100 MG PO BID, CAP TAKES 100MG +25MG TO EQUAL 125MG Pregabalin (Pregabalin) 25 Mg Capsule 25 MG PO BID, CAP TAKES 100MG +25MG TO EQUAL 125MG Scopolamine (Transderm-Scop) 1 Each Patch.td72 1 EACH TD Q72H, PATCH Sertraline HCl (Sertraline HCl) 50 Mg Tablet 50 MG PO DAILY, TAB Justina Aviles Nov 19, 2021 06:05 JUSTINA AVILES DO Nov 19, 2021 06:06
--- NOTE | 2021-11-19 06:06 | Discharge Summary ---
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 He underwent Covid-19 protocol meds and ultimately improved enough to be discharged back to [facility] and will be closely monitored there but overall his prognosis remains poor and he is a DNR. Labs and Pending Lab Test: Laboratory Tests 11/18/21 10:42: Glucometer 220H 11/18/21 15:52: Glucometer 293H 11/18/21 20:42: Glucometer 270H 11/19/21 05:42: Glucometer 125H Microbiology 11/13/21 Urine Culture - Final, Complete NO GROWTH 11/13/21 Blood Culture - Final, Complete No growth Home Meds Active Decadron (Dexamethasone) 6 Mg Tablet 6 Mg PO DAILY Cefdinir 300 Mg Capsule 300 Mg PO BID Reported Topicaine (Lidocaine) 113 Gm Gel..gram. 1 Applic TP TID PRN Cortaid (Hydrocortisone) 42 Gm Cream..g. 1 Appful TP Q4H PRN APPLY TO HANDS Miralax (Polyethylene Glycol 3350) 17 Gm Powd.pack 17 Gm PO DAILY PRN Lubricant Pm Eye Ointment (Mineral Oil/Petrolatum,White) 3.5 Gm Oint...g. 1 Applic OU Q2H PRN Mucinex (Guaifenesin) 600 Mg Tab.er.12h 600 Mg PO Q12H PRN Artificial Tears 15 Ml Soln 2 Drops OU Q2H PRN Pregabalin 25 Mg Capsule 25 Mg PO BID TAKES 100MG +25MG TO EQUAL 125MG Peridex (Chlorhexidine Gluconate) 473 Ml Mouthwash 15 Ml MM BID Metoprolol Tartrate 25 Mg Tablet 25 Mg PO BID HOLD FOR SBP <100 OR PULSE <60, NOTIFY PCP IF HELD FOR 3 CONSECUTIVE DAYS Lyrica (Pregabalin) 100 Mg Capsule 100 Mg PO BID TAKES 100MG +25MG TO EQUAL 125MG Levetiracetam 500 Mg Tablet 1,000 Mg PO BID TAKES 2 (500MG) TABS Betito Packet (Arginine/Glutamine/Calcium Hmb) 1 Each Powd.pack 1 Each PO BID Famotidine 20 Mg Tablet 20 Mg PO BID Eliquis (Apixaban) 5 Mg Tablet 5 Mg PO BID Docusate Sodium 100 Mg Capsule 100 Mg PO BID Acidophilus-Pectin Capsule (Lactobacillus Acidophilus/Pect) 1 Each Capsule 1 Each PO BID Sertraline HCl 50 Mg Tablet 50 Mg PO DAILY Transderm-Scop (Scopolamine) 1 Each Patch.td72 1 Each TD Q72H Multivitamin 1 Each Tablet 1 Each PO DAILY Iron (Ferrous Sulfate) 325 Mg Tablet 325 Mg PO DAILY Atorvastatin Calcium 40 Mg Tablet 40 Mg PO HS Amiodarone HCl 200 Mg Tablet 200 Mg PO DAILY HOLD FOR SBP <100 OR PULSE <60, NOTIFY PCP IF HELD FOR 3 CONSECUTIVE DAYS Oxycodone-Acetaminophen 10-325 (Oxycodone HCl/Acetaminophen) 1 Each Tablet 1 Each PO Q4H PRN MDD 3 Glucose Gel (Dextrose) 38 Gm Gel..gram. 15 Gm PO UD PRN Glucagon Emergency Kit (Glucagon HCl) 1 Mg Vial 1 Mg IJ UD PRN Iprat-Albut 0.5-3(2.5) mg/3 ml (Ipratropium/Albuterol Sulfate) 3 Ml Ampul.neb 3 Ml IH Q6H PRN Humalog Kwikpen (Insulin Lispro) 100 Unit/1 Ml Insuln.pen 14 Unit SQ DAILY NOTIFY PCP IF BLOOD GLUCOSE LESS THAN 70 OR GREATER THAN 500 Alprazolam 0.5 Mg Tablet 0.5 Mg PO HS Assessment/Pt Instructions PCP in 1 week Discharge Planning: <30 minutes discharge planning Discharge Instructions Discharge Diet: No Restrictions Discharge Physical Examination Vital Signs Vital Signs Date Time Temp Pulse Resp B/P (MAP) Pulse Ox O2 Delivery O2 Flow Rate FiO2 11/19/21 04:40 36.2 48 22 144/70 95 Trach Collar 6.00 11/18/21 18:52 28 General Appearance: No Apparent Distress, WD/WN, Chronically ill Allergies: Coded Allergies: COVID-19 vaccine, mRNA, [id number], L (Verified Allergy, Severe, 10/06/21) Discharge Summary Date of Admission Nov 13, 2021 at 04:50 Date of Discharge Discharge Date: Nov 19, 2021 Discharge Diagnosis Assessment: COVID-19 pneumonia 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
[2021-11-19] MEDS: inSUlin ASPART (NovoLOG) 1 UNIT/0.01 ML (CHARGE PER UNIT) SC SCH ×2 (06:30→11:10)
[2021-11-19] MEDS: DOCUSATE SODIUM 100 MG (COLACE) CAP PO SCH (09:07)
[2021-11-19] MEDS: CHLORHEXIDINE 0.12% SOLN 15 ML (PERIDEX) UDC MM SCH (09:07)
[2021-11-19] MEDS: LACTOBACILLUS ACIDOPHILUS (PROBIOTIC) CAPSULE PO SCH (09:07)
[2021-11-19] MEDS: APIXABAN 5 MG (ELIQUIS) TABLET PO SCH (09:07)
[2021-11-19] MEDS: SERTRALINE 50 MG (ZOLOFT) TABLET PO SCH (09:07)
[2021-11-19] MEDS: PREGABALIN 100 MG (LYRICA) CAPSULE PO SCH (09:07)
[2021-11-19] MEDS: FAMOTIDINE 20 MG (PEPCID) TABLET PO SCH (09:07)
[2021-11-19] MEDS: PREGABALIN 25 MG (LYRICA) CAPSULE PO SCH (09:07)
[2021-11-19] MEDS: FERROUS SULF 325 MG (IRON) TAB PO SCH (09:07)
[2021-11-19] MEDS: AMIODARONE 200 MG (CORDARONE) TAB PO SCH (09:07)
[2021-11-19] MEDS: MULTIVIT W/MINERALS TAB (THERAGRAN M) PO SCH (09:07)
[2021-11-19] MEDS: meTOprolol TARTRATE 25 MG (LOPRESSOR) TABLET PO SCH (09:07)
[2021-11-19] MEDS: NYSTATIN CREAM (MYCOSTATIN) 30 GM TUBE TP SCH (09:08)
--- NOTE | 2021-11-19 09:30 | Diagnostic Imaging Report ---
EXAMINATION: Portable erect AP chest at 9:11 AM INDICATION: Pneumonia The heart size is within normal limits and stable when compared to 11/18/2021. The previous study did show bibasilar infiltrates particularly on the left. On this exam, the left lung base does seem better aerated. I suspect there is still a small amount of residual atelectasis/infiltrate in this area. The right lung base is essentially no different. The upper lungs remain generally clear. The mediastinum is not widened. The osseous structures are intact. The tracheostomy tube remains in good position. IMPRESSION: The appearance of the chest has improved since the prior exam as the left lung base does seem better aerated. Dictated by: Dictated on workstation # [id number]
--- NOTE | 2021-11-19 11:07 | Pulmonary Progress Note ---
Subjective Date Seen by a Provider: Nov 19, 2021 Time Seen by a Provider: 11:02 Sepsis Event Evaluation Height, Weight, BMI Height: 5'11.00" Weight: 230lbs. oz. 104.636707vs; 22.08 BMI Method:Stated Focused Exam Time of Focused Exam: 04:30 Exam Exam Patient acknowledged, consented, and participated in this virtual visit which was conducted using real time audio/video Vital Signs Date Time Temp Pulse Resp B/P (MAP) Pulse Ox O2 Delivery O2 Flow Rate FiO2 11/19/21 10:13 97 Trach Collar 6.00 28 11/19/21 07:31 35.6 42 16 130/65 100 Trach Collar 6.00 11/19/21 04:40 36.2 48 22 144/70 95 Trach Collar 6.00 11/19/21 00:00 36.4 52 24 143/75 97 Trach Collar 6.00 11/18/21 20:59 Trach Collar 6.00 11/18/21 20:00 36.5 56 20 138/68 96 Trach Collar 6.00 11/18/21 18:52 95 Trach Collar 6.00 28 11/18/21 17:01 Trach Collar 6.00 28 11/18/21 15:47 36.4 55 20 123/61 94 Trach Collar 6.00 11/18/21 11:37 36.0 56 20 151/77 94 Trach Collar 6.00 I & O 11/19/21 07:00 Intake Total 1170 ml Output Total 3175 ml Balance -2005 ml Height & Weight Height: 5'11.00" Weight: 230lbs. oz. 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 PATIENT IS VISITED IN ROOM USING [employer] TELE[employer]IC[employer] CARD WITH RN IN ROOM PRESENT Discussed with RN , EXAM PER RN size #6, cuffless , fenestrated tracheostomy tube in place. Pass[place] Valve in place , o2 - 6L PATIENT REPORTS: fells better A/P PNA RLL -sputum cx from 11/05 - MRSA ans PSA - CEFEPIME given , cxr is improving , sputum cx was sent again 11/14 - results not reported - appreciate speach TX assessment for recurrent aspiration injury - diet with thin liquid recommended , will follow Mucous plugging - seems a problem as per chart ( multiple visits to ER ) and as per patient report - "too thick" . Also reports mild intermittent asthma symptoms prior to GB . WILL BENEFIT FROM REGULAR USE OF PULMICORT NEBS BID 0.5 AND PERFOROMIST 20 mcg Q12 in addition to prn nebs ( please order on d/c to NH - if available If problems persist despite these tx , also consider VEST tx, chest PT + COVID - ct is most consistent with bact infection - decadron TO CHANGE TO PO Acute on chronic hypoxemic resp failure + acute hypercarbic resp failure - improved with suctioning and nebs - no needed to change trach and ventilate Dr Aviles updated [place] SHAIKH MD Nov 19, 2021 11:07
[2021-11-19] MEDS ORDERED: BUDE0.5A7 IH (11:15)
[2021-11-19] MEDS ORDERED: FORM20VI IH (11:15)
[2021-11-19] MEDS: RT-BUDESONIDE NEBS 0.5 MG/2ML (PULMICORT) AMP INH SCH (12:55)
[2021-11-19] MEDS: SCOPOLAMINE 1.5 MG (TRANSDERM-SCOP) PATCH TD SCH (12:55)
== END 2021-11-19 16:30 | DRG 871 ==
LOC: EDUNIT# 03:28 → ER 03:30 → ICU 04:50 → 4TH 15:44
PROVIDERS: ADMIT Family Medicine; ATTEND Internal Medicine
PROC: XW033E5 Introduction of Remdesivir Anti-infective into Peripheral Vein, Percutaneous Approach, New Technology Group 5 (ICD-10-PCS; principal; 2021-11-14)
DX: A41.9 Sepsis, unspecified organism (principal); U07.1 COVID-19; L89.153 Pressure ulcer of sacral region, stage 3; J12.82 Pneumonia due to coronavirus disease 2019; J96.21 Acute and chronic respiratory failure with hypoxia; J96.22 Acute and chronic respiratory failure with hypercapnia; G82.53 Quadriplegia, C5-C7 complete; T17.590A Other foreign object in bronchus causing asphyxiation, initial encounter; Z66 Do not resuscitate; G65.0 Sequelae of Guillain-Barre syndrome; Z93.0 Tracheostomy status; E11.65 Type 2 diabetes mellitus with hyperglycemia; K80.20 Calculus of gallbladder without cholecystitis without obstruction; J45.909 Unspecified asthma, uncomplicated; E78.5 Hyperlipidemia, unspecified; I10 Essential (primary) hypertension; D64.9 Anemia, unspecified; Z79.4 Long term (current) use of insulin; Z79.01 Long term (current) use of anticoagulants; Z88.7 Allergy status to serum and vaccine; Z73.0 Burn-out
CPT/HCPCS: 36415; 71045; 71275; 76705; 80048; 80053; 81000; 82805; 82947; 83605; 83735; 83880; 84145; 84484; 85025; 85027; 85379; 85610; 85652; 85730; 86141; 87040; 87088; 94640; 94644; 94760; 94799; 99291

== ENCOUNTER 2022-02-27 18:40 | Inpatient (IN) | payer OTHER, MEDICARE ==
[~2022-02-27] VITALS: Ht 180 cm; Wt 87.9 kg
[~2022-02-27 18:40] MED LIST changes: +BUDE0.5A7 IH; +CEFD300C3 PO; +DEXA6TAB6 PO; +FORM20VI IH
--- NOTE | 2022-02-27 18:53 | ED Neurological Problem ---
General Stated Complaint: UTI Source: patient, EMS Exam Limitations: no limitations (IRENE EMERSON) History of Present Illness Date Seen by Provider: Feb 27, 2022 Time Seen by Provider: 18:51 Initial Comments Patient is a 66-year-old male with a history of UTI, pneumonia, Guillian -barre syndrome, type 2 diabetes, hypertension who presents to ED from [facility] rehab for increased confusion. They noted confusion today. Patient has been running a fever over the past 2 days. Had lab work drawn as well as urinalysis concerning for UTI with elevated white blood count. Patient has no current complaints. He is alert and oriented to person and place. Denies of any chest pain, abdominal pain, vomiting, diarrhea. EMS stated that staff at the facility concerning for UTI as patient appears confused today. Patient does have a trach. He denies of any difficulty breathing, cough, visual changes, headache, dizziness. Patient is a full code. (IRENE EMERSON) Allergies and Home Medications Allergies Coded Allergies: COVID-19 vaccine, mRNA, [id number], L (Verified Allergy, Severe, 10/06/21) Patient Home Medication List Home Medication List Reviewed: Yes (IRENE HERNANDEZ MD) Alprazolam (Alprazolam) 0.5 Mg Tablet, 0.5 MG PO HS, (Reported) Entered as Reported by: SATYA LA on 11/05/21934 Amiodarone HCl (Amiodarone HCl) 200 Mg Tablet, 200 MG PO DAILY, (Reported) Entered as Reported by: SATYA LA on 11/05/21934 Apixaban (Eliquis) 5 Mg Tablet, 5 MG PO BID, (Reported) Entered as Reported by: SATYA LA on 11/05/21 09 Arginine/Glutamine/Calcium Hmb (Betito Packet) 1 Each Powd.pack, 1 EACH PO BID, (Reported) Entered as Reported by: SATYA LA on 11/05/21 09 Artificial Tears (Artificial Tears) 15 Ml Soln, 2 DROPS OU Q2H PRN for DRY EYES, (Reported) Entered as Reported by: SATYA AL on 11/05/21 09 Atorvastatin Calcium (Atorvastatin Calcium) 40 Mg Tablet, 40 MG PO HS, (Reported) Entered as Reported by: SATYA LA on 11/05/21934 Budesonide (Pulmicort) 0.5 Mg/2 Ml Ampul.neb, 0.5 MG IH BID Prescribed by: IMCHEL ARCOS on 11/19/211114 Cefdinir (Cefdinir) 300 Mg Capsule, 300 MG PO BID Prescribed by: MICHEL ARCOS on 11/19/21604 Chlorhexidine Gluconate (Peridex) 473 Ml Mouthwash, 15 ML MM BID, (Reported) Entered as Reported by: SATYA LA on 11/05/21934 Dexamethasone (Decadron) 6 Mg Tablet, 6 MG PO DAILY Prescribed by: MICHEL ARCOS on 11/19/21604 Dextrose (Glucose Gel) 38 Gm Gel..gram., 15 GM PO UD PRN for HYPOGLYCEMIA, (Reported) Entered as Reported by: SATYA LA on 11/05/21934 Docusate Sodium (Docusate Sodium) 100 Mg Capsule, 100 MG PO BID, (Reported) Entered as Reported by: SATYA LA on 11/05/21934 Famotidine (Famotidine) 20 Mg Tablet, 20 MG PO BID, (Reported) Entered as Reported by: SATYA LA on 11/05/21934 Ferrous Sulfate (Iron) 325 Mg Tablet, 325 MG PO DAILY, (Reported) Entered as Reported by: SATYA LA on 11/05/21934 Formoterol Fumarate (Perforomist) 20 Mcg/2 Ml Vial.neb, 20 MCG IH BID Prescribed by: MICHEL ARCOS on 11/19/211114 Glucagon HCl (Glucagon Emergency Kit) 1 Mg Vial, 1 MG IJ UD PRN for GLUCOSE LESS THAN 70, (Reported) Entered as Reported by: SATYA LA on 11/05/21934 Guaifenesin (Mucinex) 600 Mg Tab.er.12h, 600 MG PO Q12H PRN for CONGESTION, (Reported) Entered as Reported by: SATYA LA on 11/05/21934 Hydrocortisone (Cortaid) 42 Gm Cream..g., 1 APPFUL TP Q4H PRN for RASH, (Reported) Entered as Reported by: SATYA LA on 11/05/21934 Insulin Lispro (Humalog Kwikpen) 100 Unit/1 Ml Insuln.pen, 14 UNIT SQ DAILY, (Reported) Entered as Reported by: SATYA LA on 11/05/21934 Ipratropium/Albuterol Sulfate (Iprat-Albut 0.5-3(2.5) mg/3 ml) 3 Ml Ampul.neb, 3 ML IH Q6H PRN for SHORTNESS OF BREATH, (Reported) Entered as Reported by: SATYA LA on 11/05/21934 Lactobacillus Acidophilus/Pect (Acidophilus-Pectin Capsule) 1 Each Capsule, 1 EACH PO BID, (Reported) Entered as Reported by: SATYA LA on 11/05/21934 Levetiracetam (Levetiracetam) 500 Mg Tablet, 1,000 MG PO BID, (Reported) Entered as Reported by: SATYA LA on 11/05/21934 Lidocaine (Topicaine) 113 Gm Gel..gram., 1 APPLIC TP TID PRN for WOUND PAIN, (Reported) Entered as Reported by: SATYA LA on 11/05/21934 Metoprolol Tartrate (Metoprolol Tartrate) 25 Mg Tablet, 25 MG PO BID, (Reported) Entered as Reported by: SATYA LA on 11/05/21934 Mineral Oil/Petrolatum,White (Lubricant Pm Eye Ointment) 3.5 Gm Oint...g., 1 APPLIC OU Q2H PRN for DRY EYES, (Reported) Entered as Reported by: SATYA LA on 11/05/21934 Multivitamin (Multivitamin) 1 Each Tablet, 1 EACH PO DAILY, (Reported) Entered as Reported by: SATYA LA on 11/05/21934 Oxycodone HCl/Acetaminophen (Oxycodone-Acetaminophen 10-325) 1 Each Tablet, 1 EACH PO Q4H PRN for PAIN-MODERATE, (Reported) Entered as Reported by: SATYA LA on 11/05/21934 Polyethylene Glycol 3350 (Miralax) 17 Gm Powd.pack, 17 GM PO DAILY PRN for CONSTIPATION-2ND LINE, (Reported) Entered as Reported by: SATYA LA on 11/05/21934 Pregabalin (Lyrica) 100 Mg Capsule, 100 MG PO BID, (Reported) Entered as Reported by: SATYA LA on 11/05/21934 Pregabalin (Pregabalin) 25 Mg Capsule, 25 MG PO BID, (Reported) Entered as Reported by: SATYA LA on 11/05/21934 Scopolamine (Transderm-Scop) 1 Each Patch.td72, 1 EACH TD Q72H, (Reported) Entered as Reported by: SATYA LA on 11/05/21934 Sertraline HCl (Sertraline HCl) 50 Mg Tablet, 50 MG PO DAILY, (Reported) Entered as Reported by: SATYA LA on 11/05/21934 Review of Systems Review of Systems Constitutional: No chills, No diaphoresis; fever, malaise, weakness Eyes: Denies Drainage, Denies Pain Ears, Nose, Mouth, Throat: denies ear pain, denies ear discharge Respiratory: No cough, No short of breath, No wheezing Cardiovascular: No chest pain Gastrointestinal: No abdominal pain, No diarrhea, No nausea, No vomiting Genitourinary: No decreased output; dysuria Musculoskeletal: No back pain, No joint pain Skin: No change in color, No change in hair/nails (IRENE EMERSON) All Other Systems Reviewed Negative Unless Noted: Yes (IRENE EMERSON) Past Wdcgtuk-Hheckf-Ivqdae Hx Immunizations Up To Date First/Initial COVID19 Vaccinat: UNKNOWN DATE Second COVID19 Vaccination Alexis: UNKNOWN DATE Third COVID19 Vaccination Date: JANUARY 2021 (IRENE EMERSON) Seasonal Allergies Seasonal Allergies: No (IRENE EMERSON) Past Medical History Surgery/Hospitalization HX: G.B. HTN, ANX, HIGH CHOLESTEROL, IDDM, SEIZURE, DEPRESSION, R CARPEL TUNNEL, APPENDECTOMY, TRACH Surgeries: Yes (Carpal Tunnel - right) Appendectomy, Tracheostomy Respiratory: Yes (TRACH SINCE FEBRUARY 2021 DUE TO GUILLAIN BARRE;RESP FAILURE) Cardiac: Yes High Cholesterol, Hypertension, Syncope Neurological: Yes (GUILLIAN BARRE WITH QUADRIPLEGIA DUE TO COVID VACCINE 01/2021) Neuropathy, Paralysis, Seizure Disorder Genitourinary: No Gastrointestinal: No Musculoskeletal: No Endocrine: Yes Diabetes, Insulin dep HEENT: No Cancer: No Psychosocial: Yes Depression Integumentary: Yes (STAGE 4 SACRAL ULCER) Blood Disorders: No Adverse Reaction/Blood Tranf: No (IRENE EMERSON) Family Medical History 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 PT TRANSFERRED TO , AND HAD TRACHEOSTOMY PLACED PT THEN TRANSFERRED TO [facility] IN [place]; PT WAS HOSPITALIZED AT [facility] FOR SACRAL DECUBITUS ULCERS PT EVENTUALLY WENT BACK TO [facility], AND THEN WAS TRANSFERRED TO [facility] ON 09/30/21 WITH PERSISTENT QUADRIPLEGIA AND TRACHEOSTOMY, NO LONGER VENTILATOR DEPENDENT OR REQUIRING SUPPLEMENTAL OXYGEN PRIOR TO DEVELOPING GUILLAIN BARRE, PT DID NOT HAVE A DR, WAS UNAWARE OF ANY MEDICAL PROBLEMS AND DID NOT TAKE ANY MEDICATIONS. (IRENE EMERSON) Physical Exam Vital Signs Vital Signs - First Documented 02/27/22 02/27/22 18:40 18:45 Temp 38.1 Pulse 120 Resp 24 B/P (MAP) 136/78 (97) Pulse Ox 97 O2 Delivery Trach Collar O2 Flow Rate 5.00 (IRENE HERNANDEZ MD) Vital Signs Capillary Refill : (IRENE EMERSON) Height, Weight, BMI Height: 5'11.00" Weight: 230lbs. oz. 104.071905cv; 22.08 BMI Method:Stated General Appearance: WD/WN, no apparent distress HEENT: PERRL/EOMI, normal ENT inspection, TMs normal, pharynx normal Neck: non-tender, full range of motion, supple Respiratory: chest non-tender, lungs clear, normal breath sounds, no respiratory distress Cardiovascular: no edema, no gallop, no JVD, tachycardia Gastrointestinal: normal bowel sounds, non tender, soft, no organomegaly Back: normal inspection, no CVA tenderness Extremities: pedal edema Neurologic/Psychiatric: alert, normal mood/affect Skin: normal color, warm/dry (IRENE EMERSON) Stroke Stroke Thrombolytic Exclusion Age 18 or Over: Yes Acute intenal hemorrhage: No History of CVA: No Uncontrolled Coagulation Defec: No Intracranial Hemorrhage: No Severe Hypertension: No GI or Bleed: No Subarachnoid Hemorrhage: No Intracranial Neoplasm/Aneurysm: No Oral Anticoagulants: No Surgery or Trauma: No Puncture of Non-Compressible V: No Recent CPR: No Diabetic Hemorrhagic Retinopat: No Organ Biopsy: No Recent Obstetric Delivery: No Glucose: No Significant Hepatic Dysfunctio: No NIH Stoke Scale >22: No Bacterial Endocarditis: No Pericarditis: No Improving Symptoms: No Platelets: No (IRENE EMERSON) Focused Exam Lactate Level 02/27/22 18:53: Lactic Acid Level 1.34 (IRENE HERNANDEZ MD) Lactic Acid Level Laboratory Tests Test 02/27/22 18:53 Lactic Acid Level 1.34 MMOL/L (0.50-2.00) (IRENE HERNANDEZ MD) Progress/Results/Core Measures Results/Orders Lab Results Laboratory Tests Test 02/27/22 18:52 02/27/22 18:53 02/27/22 18:54 02/27/22 19:43 Range/Units Urine Color YELLOW Urine Clarity CLEAR Urine pH 7.5 5-9 Urine Specific [place] 1.020 1.016-1.022 Urine Protein 1+ H NEGATIVE Urine Glucose (UA) NEGATIVE NEGATIVE Urine Ketones NEGATIVE NEGATIVE Urine Nitrite POSITIVE H NEGATIVE Urine Bilirubin NEGATIVE NEGATIVE Urine Urobilinogen 1.0 < = 1.0 MG/DL Urine Leukocyte Esterase 2+ H NEGATIVE Urine RBC (Auto) 3+ H NEGATIVE Urine RBC 25-50 H /HPF Urine WBC 10-25 H /HPF Urine Squamous Epithelial Cells 0-2 /HPF Urine Crystals PRESENT H /LPF Urine Calcium Oxalate Crystals MODERATE H /LPF Urine Triple Phosphate Crystals FEW H /LPF Urine Bacteria MODERATE H /HPF Urine Casts NONE /LPF Urine Mucus NEGATIVE /LPF Urine Culture Indicated CULTURE PENDING Prothrombin Time 15.9 H 12.2-14.7 SEC INR Comment 1.2 0.8-1.4 Activated Partial Thromboplast Time 36 H 24-35 SEC Sodium Level 135 135-145 MMOL/L Potassium Level 4.2 3.6-5.0 MMOL/L Chloride Level 103 98-107 MMOL/L Carbon Dioxide Level 22 21-32 MMOL/L Anion Gap 10 5-14 MMOL/L Blood Urea Nitrogen 27 H 7-18 MG/DL Creatinine 0.73 0.60-1.30 MG/DL Estimat Glomerular Filtration Rate 100 BUN/Creatinine Ratio 37 Glucose Level 217 H 70-105 MG/DL Lactic Acid Level 1.34 0.50-2.00 MMOL/L Calcium Level 8.7 8.5-10.1 MG/DL Corrected Calcium 9.3 8.5-10.1 MG/DL Total Bilirubin 0.4 0.1-1.0 MG/DL Aspartate Amino Transf (AST/SGOT) 18 5-34 U/L Alanine Aminotransferase (ALT/SGPT) 16 0-55 U/L Alkaline Phosphatase 61 40-136 U/L Troponin I 0.038 H <0.028 NG/ML C-Reactive Protein High Sensitivity 26.54 H 0.00-0.50 MG/DL Total Protein 6.5 6.4-8.2 GM/DL Albumin 3.3 3.2-4.5 GM/DL Influenza Type A (RT-PCR) Not Detected Not Detecte Influenza Type B (RT-PCR) Not Detected Not Detecte SARS-CoV-2 RNA (RT-PCR) Not Detected Not Detecte White Blood Count 10.2 4.3-11.0 10^3/uL Red Blood Count 3.95 L 4.30-5.52 10^6/uL Hemoglobin 11.2 L 13.3-17.7 g/dL Hematocrit 35 L 40-54 % Mean Corpuscular Volume 88 80-99 fL Mean Corpuscular Hemoglobin 28 25-34 pg Mean Corpuscular Hemoglobin Concent 32 32-36 g/dL Red Cell Distribution Width 15.7 H 10.0-14.5 % Platelet Count 104 L 130-400 10^3/uL Mean Platelet Volume 10.6 9.0-12.2 fL Immature Granulocyte % (Auto) 1 % Neutrophils (%) (Auto) 88 H 42-75 % Lymphocytes (%) (Auto) 6 L 12-44 % Monocytes (%) (Auto) 5 0-12 % Eosinophils (%) (Auto) 0 0-10 % Basophils (%) (Auto) 0 0-10 % Neutrophils # (Auto) 8.9 H 1.8-7.8 10^3/uL Lymphocytes # (Auto) 0.6 L 1.0-4.0 10^3/uL Monocytes # (Auto) 0.5 0.0-1.0 10^3/uL Eosinophils # (Auto) 0.0 0.0-0.3 10^3/uL Basophils # (Auto) 0.0 0.0-0.1 10^3/uL Immature Granulocyte # (Auto) 0.1 0.0-0.1 10^3/uL Percent Immature Platelet Fraction 4.3 0.0-7.6 % B-Type Natriuretic Peptide 72.7 <100.0 PG/ML (IRENE HERNANDEZ MD) Medications Given in ED Current Medications Medications Dose Ordered Sig/Magdalena Route Start Time Stop Time Status Last Admin Dose Admin Cefepime HCl 1000 mg/Sodium Chloride 50 ml @ 100 mls/hr ONCE ONCE IV 02/27/22 19:00 02/27/22 19:29 DC 02/27/22 19:04 100 MLS/HR (IRENE HERNANDEZ MD) Vital Signs/I&O 02/27/22 02/27/22 18:40 18:45 Temp 38.1 Pulse 120 Resp 24 B/P (MAP) 136/78 (97) Pulse Ox 97 97 O2 Delivery Trach Collar O2 Flow Rate 5.00 (IRENE HERNANDEZ MD) Departure Communication (Admissions) Patient no acute distress on arrival. Low-grade temperature. Tachycardic. Sepsis protocol was initially. Normal lactic acid with normal white blood count. Was given cefepime here. Urinalysis concerning for UTI. Chest x-ray shows bilateral lower lobe infiltrate versus atelectasis. Mild crackles noted. Could be secondary to mucus. Similar type presentation in the past. Suctioning of his trach improve his breathing. 93-97% on 3 L. Normal kidney function liver function. Slight elevated troponin 0 0.038. Normal BNP. Denies of any chest pain. Sinus tachycardia without evidence of ischemic changes. Did have some back pain yesterday but no pain today. CT scan of the head negative for acute abnormality. Covid influenza negative. Patient was discussed with Dr. Peralta accepts patient. She did not recommended imaging at this time. Patient is currently on Eliquis prophylactically for DVTs. Patient will be admitted to medical telemetry for further evaluation. Patient is alert and oriented to name and person and place. Does not appear to be altered. (IRENE EMERSON) Impression Primary Impression: UTI (urinary tract infection) Disposition: ADMITTED INPATIENT Condition: Stable Admissions Decision to Admit Reason: Admit from ER (General) Decision to Admit/Date: Feb 27, 2022 Time/Decision to Admit Time: 20:40 (IRENE EMERSON) Departure-Patient Inst. Referrals: NO,LOCAL PHYSICIAN (PCP/Family) Primary Care Physician IRENE EMERSON Feb 27, 2022 18:53 IRENE HERNANDEZ MD Feb 27, 2022 22:16
[2022-02-27 19:00] LABS: BILIRUBIN,URINE NEGATIVE (NEGATIVE); CLARITY,URINE CLEAR; COLOR,URINE YELLOW; GLUCOSE, URINE (UA) NEGATIVE (NEGATIVE); KETONES,URINE NEGATIVE (NEGATIVE); LEUKOCYTE ESTERASE ,URINE 2+ (NEGATIVE); NITRITE,URINE POSITIVE (NEGATIVE); PH,URINE 7.5 (5-9); PROTEIN,URINE 1+ (NEGATIVE)
[2022-02-27] MEDS ORDERED: NS IV 1000 ML 1,000 ML IV SCH (19:00)
[2022-02-27] MEDS ORDERED: CEFEPIME INJECTION 1,000 MG in NS (IVPB) 50 ML IV ONE (19:00)
[2022-02-27 19:17] LABS: BACTERIA,URINE MODERATE /HPF; CALCIUM OXALATE CRYSTALS,UR MODERATE /LPF; RBC,URINE 25-50 /HPF; SQUAMOUS EPITHELIAL CELL,UR 0-2 /HPF
[2022-02-27 19:18] LABS: TRIPLE PHOSPHATE CRYSTAL,UR FEW /LPF
[2022-02-27 19:28] LABS: INR 1.2 (0.8-1.4); PROTHROMBIN TIME PATIENT 15.9 SEC (12.2-14.7)
--- NOTE | 2022-02-27 19:41 | Diagnostic Imaging Report ---
EXAMINATION: Chest 1 view. HISTORY: Cough. COMPARISON: 11/19/2021. FINDINGS: Heart size and pulmonary vasculature are normal. There are low lung volumes with bibasilar interstitial opacities. Trace bilateral pleural effusions. A tracheostomy tube is present and unchanged. No pneumothorax. The osseous structures are intact. IMPRESSION: Low lung volumes with bibasilar atelectasis or pneumonia. Dictated by: Dictated on workstation # [id number]
[2022-02-27 19:43] LABS: ALBUMIN 3.3 GM/DL (3.2-4.5); BILIRUBIN,TOTAL 0.4 MG/DL (0.1-1.0); CALCIUM 8.7 MG/DL (8.5-10.1); CREATININE SERUM 0.73 MG/DL (0.60-1.30); POTASSIUM 4.2 MMOL/L (3.6-5.0); TOTAL PROTEIN 6.5 GM/DL (6.4-8.2)
--- NOTE | 2022-02-27 19:43 | Diagnostic Imaging Report ---
EXAMINATION: CT head without contrast. TECHNIQUE: Multiple contiguous axial images were obtained through the brain without the use of intravenous contrast. All CT scans use one or more of the following dose optimizing techniques: automated exposure control, MA and/or KvP adjustment based on patient size and exam type or iterative reconstruction. HISTORY: Confusion. COMPARISON: 03/07/2021. FINDINGS: No large acute territorial ischemia, mass, or hemorrhage. No midline shift or mass effect. The ventricles, cortical sulci, and basilar cisterns are patent and unremarkable. The orbits are normal. Chronic sinusitis is seen in the right sphenoid sinus. Mastoid air cells are clear. No soft tissue abnormality is seen. No osseus lesions or fractures are seen. IMPRESSION: 1. No large acute territorial ischemia, mass, or hemorrhage. 2. Chronic sinusitis involving the right sphenoid sinus. Dictated by: Dictated on workstation # [id number]
[2022-02-27 19:51] LABS: HEMOGLOBIN 11.2 g/dL (13.3-17.7)
[2022-02-27 19:53] LABS: BASOPHILS % (AUTO) 0 % (0-10); EOSINOPHILS % (AUTO) 0 % (0-10); HEMATOCRIT 35 % (40-54); LYMPHOCYTES # (AUTO) 0.6 10^3/uL (1.0-4.0); LYMPHOCYTES % (AUTO) 6 % (12-44); MEAN CORPUSCULAR HEMOGLOBIN 28 pg (25-34); MEAN CORPUSCULAR HGB CONC 32 g/dL (32-36); MEAN CORPUSCULAR VOLUME 88 fL (80-99); MEAN PLATELET VOLUME 10.6 fL (9.0-12.2); MONOCYTES # (AUTO) 0.5 10^3/uL (0.0-1.0); MONOCYTES % (AUTO) 5 % (0-12); NEUTROPHILS # (AUTO) 8.9 10^3/uL (1.8-7.8); NEUTROPHILS % (AUTO) 88 % (42-75); PLATELET COUNT 104 10^3/uL (130-400); WHITE BLOOD COUNT 10.2 10^3/uL (4.3-11.0)
[2022-02-27] MEDS ORDERED: ACETAMINOPHEN 500 MG TAB (TYLENOL) PO ONE (20:45)
[2022-02-27] MEDS ORDERED: cefTRIAXone 1 GM PRE-MIX 50 ML IV SCH (21:30)
[2022-02-27 21:45] VITALS: BP 111/66
[2022-02-27] MEDS: NS IV 1000 ML 1,000 ML IV SCH (22:25)
[2022-02-27 23:19] VITALS: BP 102/65
[2022-02-28 02:50] VITALS: BP 101/62
[2022-02-28 03:24] VITALS: BP 104/60
[2022-02-28] MEDS: NS IV 1000 ML 1,000 ML IV SCH ×4 (04:47→19:12)
[2022-02-28 05:46] LABS: BASOPHILS % (AUTO) 1 % (0-10); EOSINOPHILS # (AUTO) 0.2 10^3/uL (0.0-0.3); EOSINOPHILS % (AUTO) 2 % (0-10); HEMATOCRIT 36 % (40-54); HEMOGLOBIN 11.4 g/dL (13.3-17.7); LYMPHOCYTES # (AUTO) 0.9 10^3/uL (1.0-4.0); LYMPHOCYTES % (AUTO) 11 % (12-44); MEAN CORPUSCULAR HEMOGLOBIN 28 pg (25-34); MEAN CORPUSCULAR HGB CONC 31 g/dL (32-36); MEAN CORPUSCULAR VOLUME 90 fL (80-99); MEAN PLATELET VOLUME 11.4 fL (9.0-12.2); MONOCYTES # (AUTO) 0.6 10^3/uL (0.0-1.0); MONOCYTES % (AUTO) 7 % (0-12); NEUTROPHILS # (AUTO) 6.7 10^3/uL (1.8-7.8); NEUTROPHILS % (AUTO) 79 % (42-75); PLATELET COUNT 93 10^3/uL (130-400); WHITE BLOOD COUNT 8.5 10^3/uL (4.3-11.0)
[2022-02-28 05:56] LABS: POTASSIUM 3.8 MMOL/L (3.6-5.0)
[2022-02-28 05:57] LABS: CALCIUM 8.6 MG/DL (8.5-10.1)
[2022-02-28 06:00] LABS: BILIRUBIN,TOTAL 0.5 MG/DL (0.1-1.0)
[2022-02-28 06:02] LABS: CREATININE SERUM 0.66 MG/DL (0.60-1.30)
--- NOTE | 2022-02-28 06:48 | History & Physical-Hospitalist ---
ADWOA MURPHY MED STUDENT 02/28/22 0648: History of Present Illness HPI/Chief Complaint cc: UTI Patient is a 66-year-old male with a history of UTI, pneumonia, Guillian -barre syndrome, type 2 diabetes, hypertension who presented to ED on 02/27/22 from [facility] for increased confusion and concerns of a UTI. The patient states he had trouble urinating and burning for 2 weeks. His price catheter "kept getting clogged" daily and changed daily. He is noted to have had a fever x2d and chills. He denies frequency and urgency. He was being treated with antibiotics at the rehab center. ED initiated a Sepsis protocol for fever and tachycardia. Labs showed lactic acid with normal white blood count. ED gave cefepime. January 2021 - received covid vaccine February 2021 - admitted for guillian barre, possibly 2/2 covid vaccine. minimal movement of all 4 extremities. [facility] placed trach. Transferred to [place] for PT. Transferred to [facility]. has appointment to remove trach in February. Source: patient Exam Limitations: no limitations Date Seen 02/28/22 Time Seen by a Provider: 07:00 Attending Physician Terrance rAshad MD PCP No,Local Physician Referring Physician Date of Admission Feb 27, 2022 at 20:39 Home Medications & Allergies Home Medications Reviewed patient Home Medication Reconciliation performed by pharmacy medication reconciliations reprographics technician and/or nursing. Patients Allergies have been reviewed. Allergies Allergies Coded Allergies COVID-19 vaccine, mRNA, [id number], L (Verified Allergy, Severe, 10/06/21) Past Jmiotag-Lsklsq-Cfqghp Hx Patient Social History Employed/Student: unemployed Tobacco Use?: No Smoking Status: Never a Smoker Smokeless Tobacco Frequency: Never a User Use of E-Cig and/or Vaping Ar: Never a User Substance use?: No Alcohol Use?: Yes Alcohol type: Beer Pt feels they are or have been: No Immunizations Up To Date First/Initial COVID19 Vaccinat: 03/20 Second COVID19 Vaccination Alexis: NA Tetanus Booster (TDap): Less Than 5 Years Hepatitis A: No Hepatitis B: No Seasonal Allergies Seasonal Allergies: No Current Status Advance Directives: Yes Communicates: Verbally Primary Language: Kittitian Preferred Spoken Language: Kittitian Is interpretation needed?: No Past Medical History Surgeries: Appendectomy, Tracheostomy High Cholesterol, Hypertension, Syncope Neuropathy, Paralysis, Seizure Disorder Diabetes, Insulin dep Depression Blood Disorders: No Adverse Reaction/Blood Tranf: No PMHx: Guillain [place] with quadriplegia Tracheostomy in place DMII Asthma HLD HTN SurgHx: Tracheostomy Appendectomy Carpal tunnel release Family Medical History 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 PT TRANSFERRED TO , AND HAD TRACHEOSTOMY PLACED PT THEN TRANSFERRED TO [facility] IN [place]; PT WAS HOSPITALIZED AT [facility] PT EVENTUALLY WENT BACK TO [facility], AND THEN WAS TRANSFERRED TO [facility] ON 09/30/21 WITH PERSISTENT QUADRIPLEGIA AND TRACHEOSTOMY, NO LONGER VENTILATOR DEPENDENT OR REQUIRING SUPPLEMENTAL OXYGEN PRIOR TO DEVELOPING GUILLAIN BARRE, PT DID NOT HAVE A DR, WAS UNAWARE OF ANY MEDICAL PROBLEMS AND DID NOT TAKE ANY MEDICATIONS. Review of Systems Constitutional: No chills, No dizziness, No fever EENTM: No blurred vision, No double vision Respiratory: No cough; phlegm; No short of breath Cardiovascular: No chest pain Gastrointestinal: No abdominal pain; constipation Genitourinary: No decreased output; dysuria; No frequency; other (price catheter) Musculoskeletal: back pain Skin: No change in color Physical Exam Physical Exam Vital Signs Vital Signs - First Documented 02/27/22 02/27/22 18:40 18:45 Temp 38.1 Pulse 120 Resp 24 B/P (MAP) 136/78 (97) Pulse Ox 97 O2 Delivery Trach Collar O2 Flow Rate 5.00 Capillary Refill : Less Than 3 Seconds Height, Weight, BMI Height: 5'11.00" Weight: 230lbs. oz. 104.118890ob; 27.12 BMI Method:Stated General Appearance: No Apparent Distress HEENT: PERRL/EOMI Neck: Non Tender, Supple Respiratory: Chest Non Tender, Decreased Breath Sounds Cardiovascular: Regular Rate, Rhythm Gastrointestinal: Normal Bowel Sounds, Non Tender, Soft Rectal: Deferred Back: Other (unable to visualize) Extremity: Non Tender, No Calf Tenderness, Other (decreased ROM and muscle strength in all 4 extremities.) Neurologic/Psychiatric: Alert, Oriented x3, Motor Weakness Skin: Normal Color, Warm/Dry Results Results/Procedures Labs Laboratory Tests 02/27/22 18:53 02/27/22 19:43 02/28/22 05:35 Patient resulted labs reviewed. Imaging: Reviewed Imaging Films, Reviewed Imaging Report Imaging PHYSICIAN: IRENE EMERSON ADMIT DATE: 02/27/22/ER Signed Date of Exam:02/27/22 CT HEAD WO EXAMINATION: CT head without contrast. TECHNIQUE: Multiple contiguous axial images were obtained through the brain without the use of intravenous contrast. All CT scans use one or more of the following dose optimizing techniques: automated exposure control, MA and/or KvP adjustment based on patient size and exam type or iterative reconstruction. HISTORY: Confusion. COMPARISON: 03/07/2021. FINDINGS: No large acute territorial ischemia, mass, or hemorrhage. No midline shift or mass effect. The ventricles, cortical sulci, and basilar cisterns are patent and unremarkable. The orbits are normal. Chronic sinusitis is seen in the right sphenoid sinus. Mastoid air cells are clear. No soft tissue abnormality is seen. No osseus lesions or fractures are seen. IMPRESSION: 1. No large acute territorial ischemia, mass, or hemorrhage. 2. Chronic sinusitis involving the right sphenoid sinus. Dictated by: Dictated on workstation # [id number] Dict: 02/27/221935 Trans: 02/27/221942 PHYSICIAN: IRENE EMERSON ADMIT DATE: 02/27/22/ER Draft Date of Exam:02/27/22 CHEST 1 VIEW, AP/PA ONLY EXAMINATION: Chest 1 view. HISTORY: Cough. COMPARISON: 11/19/2021. FINDINGS: Heart size and pulmonary vasculature are normal. There are low lung volumes with bibasilar interstitial opacities. Trace bilateral pleural effusions. A tracheostomy tube is present and unchanged. No pneumothorax. The osseous structures are intact. IMPRESSION: Low lung volumes with bibasilar atelectasis or pneumonia. Dictated on workstation # [id number] Dict: 02/27/221936 Trans: 02/27/221940 [facility] [id number] Assessment/Plan Admission Diagnosis Reason for Inpatient Admission: UTI and AMS Assessment and Plan catheter associated UTI * continue ceftriaxone * U/A - positive for nitrite, leukocyte esterase, WBC * urine culture - pending AMS - resolved bibasilar atelectasis vs pneumonia * continue antibiotics for UTI * monitor Anemia Thrombocytopenia * order peripheral smear and reticulocyte count * order iron studies Guillian [place] Syndrome * Trach in place * suction as needed Constipation * order miralax mildly elevated troponins * monitor Type 2 Diabetes * SSI Diet: diabetic Code Status: DNR/DNI TERRANCE ARSHAD MD 02/28/22 1029: History of Present Illness HPI/Chief Complaint 66 yo male sent to ER from nursing facility due to fever and concern about UTI. In the ER he was febrile and tachycardic and UA was concerning for infection. This morning at the time of my first exam, he looked well and reported feeling well and asking about going home today. However, around 10 am, he had worsening clinical status with recurrent tachycardia and mucous plugging and fever. RT was able to clear a large mucous plug from his inner trach cannula and placed him on humidified oxygen. At time of my repeat exam shortly after 10 am, he is shaking and appears mildly somnolent, but awakens and answers questions appropriately, reports he feels very cold. When discussing whether to consider transferring him to ICU, he clearly said "no, I don't want to go to the ICU. If it is my time to go, there is nothing I can do about it". He had already told me earlier this morning that he wanted to be a DNR and did not want to be placed on a ventilator. Time Seen by a Provider: 10:15 Physical Exam Physical Exam General Appearance: Moderate Distress Respiratory: Accessory Muscle Use, Rhonci Cardiovascular: Tachycardia Gastrointestinal: Normal Bowel Sounds, Non Tender, Distended (mild) Extremity: No Pedal Edema Neurologic/Psychiatric: Alert, Motor Weakness (able to slightly raise both arms off the bed, otherwise no movement below neck) Skin: Diaphoresis Assessment/Plan Admission Diagnosis Sepsis secondary to UTI- febrile and tachycardic on admit but without end organ dysfunction, hypotension or lactic acidosis, started on ceftriaxone for suspected UTI; however this morning has acute worsening. Recheck lactic acid, CBC, CMP and procalcitonin, change antibiotics to cefepime due to history of pseudomonas in sputum. Acute on chronic respiratory insufficiency with tracheostomy- reportedly not on supplemental oxygen at baseline, requiring 4 lpm today, this morning having increased work of breathing and mucous plugging. RT suctioning, start mucomyst, duonebs and resume home inhaled steroid. CXR with question of atalectasis vs infiltrate, cefepime as above, repeat CXR now. Altered mental status- CT head in ER with no acute findings, alert and oriented this morning, suspect secondary to infection. Tachycardia- sinus tach on EKG, monitor on telemetry and EKG, without hypotension, in fact is hypertensive, resume home metoprolol and amiodarone, pt uncertain why he is on amiodarone and doesn't recall if he has had atrial fibrillation, but he is also on Eliquis at home. Had a run of 10-15 seconds in the 200s, consulted Cardiology, they recommend ICU, discussed with patient and he still declines and wants to continue current level of care, clarified with ernst m that I am concerned he may have an acute arrythmia that could lead to even in the next few hours and he reiterated he did not want to be any more aggressive than we are now, including not going to the ICU. Discussed with his daughter Fabi and updated her as well. Elevated troponin- no ST elevation, minimal elevated troponin trended down to normal overnight, suspect tachycardia related. DMII- diabetic diet HTN- resume home medications HLD Guillain barre syndrome- with quadriplegia Chronic sacral decubitus ulcer- wound care consult DVT ppx- apixaban Goals of care- as noted, patient requests DNR and no ventilator and no aggressive care including ICU transfer. Admission Status: Inpatient Order (span 2 midnights) Reason for Inpatient Admission: Sepsis with multiple underlying comorbidities Supervisory-Addendum Brief Verification & Attestation Participated in pt care: history, MDM, physical Personally performed: exam, history Care discussed with: Medical Student Procedures: n/a I personally saw and examined patient and did my own history, physical exam and assessment and plan, see my notes for my findings. ADWOA MURPHY MED STUDENT Feb 28, 2022 06:48 TERRANCE ARSHAD MD Feb 28, 2022 10:29
[2022-02-28 08:48] VITALS: BP 123/71
[2022-02-28 09:21] LABS: ABSOLUTE RETIC # 47 10e9/uL (24-90)
[2022-02-28 09:22] LABS: RETICULOCYTE % 1.17 % (0.50-2.40)
[2022-02-28] MEDS ORDERED: PREG150C46 PO (09:28)
[2022-02-28] MEDS ORDERED: ACET325T38 PO (09:28)
[2022-02-28] MEDS ORDERED: BUDE0.5A IH (09:28)
[2022-02-28] MEDS ORDERED: CARB-270 OU (09:28)
[2022-02-28] MEDS ORDERED: OXYC1TAB11 PO (09:28)
[2022-02-28] MEDS ORDERED: SULF1TAB38 PO (09:28)
[2022-02-28] MEDS ORDERED: FORM20VI IH (09:28)
[2022-02-28] MEDS: ONDANSETRON 4 MG/2 ML (SDV) Z0FRAN ONE ×2 (09:43→09:58)
[2022-02-28] MEDS ORDERED: AMIODARONE 200 MG (CORDARONE) TAB PO SCH (10:15)
[2022-02-28] MEDS ORDERED: meTOprolol TARTRATE 25 MG (LOPRESSOR) TABLET PO ONE (10:15)
[2022-02-28 10:34] LABS: ANISOCYTOSIS SLIGHT; BAND NEUTROPHILS 4 %; BASOPHILS % (MANUAL) 1 %; EOSINOPHILS % (MANUAL) 3 %; LYMPHOCYTES % (MANUAL) 12 %; MONOCYTES % (MANUAL) 9 %; NEUTROPHILS % (MANUAL) 70 %; REACTIVE LYMPHOCYTES 1 %
[2022-02-28 10:36] LABS: PLATELET CLUMPS NONE SEEN
[2022-02-28] MEDS: CEFEPIME INJECTION 1,000 MG in NS (IVPB) 50 ML IV SCH ×3 (10:37→22:35)
[2022-02-28 10:43] LABS: BASOPHILS % (AUTO) 1 % (0-10); EOSINOPHILS % (AUTO) 1 % (0-10); HEMOGLOBIN 11.7 g/dL (13.3-17.7)
[2022-02-28 10:44] LABS: HEMATOCRIT 37 % (40-54); LYMPHOCYTES # (AUTO) 0.3 10^3/uL (1.0-4.0); LYMPHOCYTES % (AUTO) 12 % (12-44); MEAN CORPUSCULAR HEMOGLOBIN 29 pg (25-34); MEAN CORPUSCULAR HGB CONC 31 g/dL (32-36); MEAN CORPUSCULAR VOLUME 91 fL (80-99); MEAN PLATELET VOLUME 10.2 fL (9.0-12.2); MONOCYTES % (AUTO) 1 % (0-12); NEUTROPHILS # (AUTO) 2.4 10^3/uL (1.8-7.8); NEUTROPHILS % (AUTO) 85 % (42-75); PLATELET COUNT 77 10^3/uL (130-400); WHITE BLOOD COUNT 2.9 10^3/uL (4.3-11.0)
[2022-02-28] MEDS: aCETylcysteine 20% (MUCOMYST) 4 ML SOLN VIAL INH SCH ×3 (10:50→22:05)
--- NOTE | 2022-02-28 10:52 | Diagnostic Imaging Report ---
INDICATION: Hypoxia. AP view of chest is obtained with comparison made study of one day earlier. FINDINGS: There has been increase in central pulmonary density as well as perihilar and basilar atelectasis. There is no pneumothorax. No definite pleural fluid is seen. IMPRESSION: Increasing bilateral atelectasis and pulmonary density likely due to edema. This could be on the basis of congestive heart failure and clinical correlation would be of use. Dictated by: Dictated on workstation # [id number]
[2022-02-28] MEDS ORDERED: RT-ALBUTEROL/IPRATROPIUM 3 ML (DUONEB) VIAL INH PRN (11:00)
[2022-02-28 11:02] LABS: ALBUMIN 3.4 GM/DL (3.2-4.5); BILIRUBIN,TOTAL 0.9 MG/DL (0.1-1.0); CALCIUM 8.8 MG/DL (8.5-10.1); CREATININE SERUM 0.72 MG/DL (0.60-1.30); POTASSIUM 4.1 MMOL/L (3.6-5.0); TOTAL PROTEIN 6.6 GM/DL (6.4-8.2)
[2022-02-28] MEDS ORDERED: FUROSEMIDE 40 MG/4 ML INJ (LASIX) IVP ONE (11:30)
[2022-02-28 12:11] VITALS: BP 154/79
[2022-02-28] MEDS: ACETAMINOPHEN 500 MG TAB (TYLENOL) PO PRN (12:40)
[2022-02-28] MEDS ORDERED: oxyCODONE/APAP 5/325MG (PERCOCET 5) TABLET PO PRN (13:15)
[2022-02-28] MEDS ORDERED: polyethylene glycoL POWDER 17 GM (MIRALAX) PACK PO PRN (13:15)
[2022-02-28] MEDS ORDERED: guaiFENesin (MUCINEX) 600 MG TAB PO PRN (13:15)
[2022-02-28] MEDS ORDERED: LIDOCAINE TP PRN (13:15)
[2022-02-28] MEDS: RT-ALBUTEROL/IPRATROPIUM 3 ML (DUONEB) VIAL INH SCH ×3 (14:59→22:05)
[2022-02-28] MEDS ORDERED: ARTIFICAL TEARS 0.4 ML UNIT DOSE (REFRESH PLUS) OU PRN (15:00)
[2022-02-28] MEDS ORDERED: LACRI-LUBE OPTHALMIC OINT 3.5 GM TUBE OU PRN (15:00)
[2022-02-28] MEDS: SCOPOLAMINE 1.5 MG (TRANSDERM-SCOP) PATCH TD SCH (15:23)
--- NOTE | 2022-02-28 17:40 | Consultation-Cardiology ---
HPI-Cardiology Cardiology Consultation: Date of Consultation 02/28/22 Date of Admission 02/27/22 Attending Physician Justina Arcos DO Admitting Physician Daisy,Local Physician Consulting Physician RAMAN RAZA JR, MD HPI: Time Seen by a Provider: 17:36 Chief Complaint: Reason of consultation: Tachycardia and abnormal troponin. I had the pleasure of seeing Shahbaz on the medical floor at [facility] in [place], [place] this morning. He presented to the emergency room from a local nursing home facility due to some confusion and concern about a urinary tract infection. He was started on antibiotics and admitted to the hospital for further treatment. During his evaluation, he was found to have a borderline elevated troponin level as well as tachycardia. As such, a cardiology consultation was requested. He denies any chest discomfort. From time to time he feels as though his heart will be beating fast but he had denies any associated complaints. 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 He denies paroxysmal nocturnal dyspnea, orthopnea, syncope, or ankle edema. Certain portions of this document may have been dictated utilizing voice recognition technology. Inherent to this technology, typographical and grammatical errors may exist. As much as I am diligent to identify and correct these mistakes, some errors may remain in the document. Review of Systems-Cardiology Review of Systems Other comments Review of 10 organ systems is as per the history of present illness, otherwise negative. All Other Systems Reviewed Negative Unless Noted: Yes YGH-Aqipyr-Daoxdc Hx Patient Social History Employed/Student: unemployed Smoking Status: Never a Smoker 2nd Hand Smoke Exposure: No Have you traveled recently?: No Alcohol Use?: Yes Pt feels they are or have been: No Past Medical History PMH As described under Assessment. Family Medical History Family Medical History: He does not report a family history of premature coronary artery disease. Allergies and Home Medications Allergies Coded Allergies: COVID-19 vaccine, mRNA, [id number], L (Verified Allergy, Severe, 10/06/21) Patient Home Medication List Home Medication List Reviewed: Yes Acetaminophen (Tylenol) 325 Mg Tablet, 650 MG PO Q4H PRN for PAIN-MILD (1-4) OR TEMPATURE, (Reported) Entered as Reported by: SATYA LA on 02/28/22 0928 Last Action: Held Alprazolam (Alprazolam) 0.5 Mg Tablet, 0.5 MG PO HS, (Reported) Entered as Reported by: SATYA LA on 11/05/21934 Last Action: Continued Amiodarone HCl (Amiodarone HCl) 200 Mg Tablet, 200 MG PO DAILY, (Reported) Entered as Reported by: SATYA LA on 11/05/21934 Last Action: Continued Apixaban (Eliquis) 5 Mg Tablet, 5 MG PO BID, (Reported) Entered as Reported by: SATYA LA on 11/05/21934 Last Action: Continued Budesonide (Budesonide) 0.5 Mg/2 Ml Ampul.neb, 0.5 MG IH BID, (Reported) Entered as Reported by: SATYA LA on 02/28/22927 Last Action: Continued Carboxymethylcellulose Sodium (Carboxymethylcellulose Sodium) 15 Ml Drops, 2 DROPS OU Q2H PRN for DRY EYES, (Reported) Entered as Reported by: SATYA LA on 02/28/22927 Last Action: Converted Chlorhexidine Gluconate (Peridex) 473 Ml Mouthwash, 15 ML MM BID, (Reported) Entered as Reported by: SATYA LA on 11/05/21934 Last Action: Continued Dextrose (Glucose Gel) 38 Gm Gel..gram., 15 GM PO UD PRN for HYPOGLYCEMIA, (Reported) Entered as Reported by: SATYA LA on 11/05/21934 Last Action: Held Docusate Sodium (Docusate Sodium) 100 Mg Capsule, 100 MG PO BID, (Reported) Entered as Reported by: SATYA LA on 11/05/21934 Last Action: Continued Famotidine (Famotidine) 20 Mg Tablet, 20 MG PO BID, (Reported) Entered as Reported by: SATYA LA on 11/05/21934 Last Action: Continued Ferrous Sulfate (Iron) 325 Mg Tablet, 325 MG PO DAILY, (Reported) Entered as Reported by: SATYA LA on 11/05/21934 Last Action: Continued Formoterol Fumarate (Perforomist) 20 Mcg/2 Ml Vial.neb, 20 MCG IH BID, (Reported) Entered as Reported by: STAYA LA on 4/1/22 0928 Last Action: Converted Glucagon HCl (Glucagon Emergency Kit) 1 Mg Vial, 1 MG IJ UD PRN for GLUCOSE LESS THAN 70, (Reported) Entered as Reported by: SATYA LA on 11/05/21934 Last Action: Held Guaifenesin (Mucinex) 600 Mg Tab.er.12h, 600 MG PO Q12H PRN for CONGESTION, (Reported) Entered as Reported by: SATYA LA on 11/05/21934 Last Action: Continued Hydrocortisone (Cortaid) 42 Gm Cream..g., 1 APPFUL TP Q4H PRN for RASH, (Reported) Entered as Reported by: SATYA LA on 11/05/21934 Last Action: Held Ipratropium/Albuterol Sulfate (Iprat-Albut 0.5-3(2.5) mg/3 ml) 3 Ml Ampul.neb, 3 ML IH Q6H PRN for SHORTNESS OF BREATH, (Reported) Entered as Reported by: SATYA LA on 11/05/21934 Last Action: Reviewed Lactobacillus Acidophilus/Pect (Acidophilus-Pectin Capsule) 1 Each Capsule, 1 EACH PO BID, (Reported) Entered as Reported by: SATYA LA on 11/05/21934 Last Action: Continued Levetiracetam (Levetiracetam) 500 Mg Tablet, 1,000 MG PO BID, (Reported) Entered as Reported by: SATYA LA on 11/05/21934 Last Action: Continued Lidocaine (Topicaine) 113 Gm Gel..gram., 1 APPLIC TP TID PRN for WOUND PAIN, (Reported) Entered as Reported by: SATYA LA on 11/05/21934 Last Action: Converted Metoprolol Tartrate (Metoprolol Tartrate) 25 Mg Tablet, 25 MG PO BID, (Reported) Entered as Reported by: SATYA LA on 11/05/21934 Last Action: Continued Mineral Oil/Petrolatum,White (Lubricant Pm Eye Ointment) 3.5 Gm Oint...g., 1 APPLIC OU Q2H PRN for DRY EYES, (Reported) Entered as Reported by: SATYA LA on 11/05/21934 Last Action: Converted Multivitamin (Multivitamin) 1 Each Tablet, 1 EACH PO DAILY, (Reported) Entered as Reported by: SATYA LA on 11/05/21934 Last Action: Converted Oxycodone HCl/Acetaminophen (Oxycodone-Acetaminophen 5-325) 1 Each Tablet, 1 EACH PO TID, (Reported) Entered as Reported by: SATYA LA on 02/28/22927 Last Action: Continued Polyethylene Glycol 3350 (Miralax) 17 Gm Powd.pack, 17 GM PO DAILY PRN for CONSTIPATION-2ND LINE, (Reported) Entered as Reported by: SATYA LA on 11/05/21934 Last Action: Continued Pregabalin (Pregabalin) 150 Mg Capsule, 300 MG PO BID, (Reported) Entered as Reported by: SATYA LA on 02/28/22927 Last Action: Continued Scopolamine (Transderm-Scop) 1 Each Patch.td72, 1 EACH TD Q72H, (Reported) Entered as Reported by: SATYA LA on 11/05/21934 Last Action: Continued Sertraline HCl (Sertraline HCl) 50 Mg Tablet, 50 MG PO DAILY, (Reported) Entered as Reported by: SATYA LA on 11/05/21934 Last Action: Continued Sulfamethoxazole/Trimethoprim (Bactrim Ds Tablet) 1 Each Tablet, 1 EACH PO BID, (Reported) Entered as Reported by: SATYA LA on 02/28/22927 Last Action: Held Discontinued Medications Arginine/Glutamine/Calcium Hmb (Betito Packet) 1 Each Powd.pack, 1 EACH PO BID, (Reported) Discontinued Reason: No Longer Taking Entered as Reported by: SATYA LA on 11/05/21934 Last Action: Discontinued Artificial Tears (Artificial Tears) 15 Ml Soln, 2 DROPS OU Q2H PRN for DRY EYES, (Reported) Discontinued Reason: No Longer Taking Entered as Reported by: SATYA LA on 11/05/21934 Last Action: Discontinued Atorvastatin Calcium (Atorvastatin Calcium) 40 Mg Tablet, 40 MG PO HS, (Reported) Discontinued Reason: No Longer Taking Entered as Reported by: SATYA LA on 11/05/21934 Last Action: Discontinued Budesonide (Pulmicort) 0.5 Mg/2 Ml Ampul.neb, 0.5 MG IH BID Discontinued Reason: No Longer Taking Prescribed by: JUSTINA ARCOS on 11/19/211114 Last Action: Discontinued Cefdinir (Cefdinir) 300 Mg Capsule, 300 MG PO BID Discontinued Reason: No Longer Taking Prescribed by: JUSTINA ARCOS on 11/19/21604 Last Action: Discontinued Dexamethasone (Decadron) 6 Mg Tablet, 6 MG PO DAILY Discontinued Reason: No Longer Taking Prescribed by: JUSTINA ARCOS on 11/19/21604 Last Action: Discontinued Formoterol Fumarate (Perforomist) 20 Mcg/2 Ml Vial.neb, 20 MCG IH BID Discontinued Reason: Duplicate Order Prescribed by: JUSTINA ARCOS on 11/19/211114 Last Action: Discontinued Insulin Lispro (Humalog Kwikpen) 100 Unit/1 Ml Insuln.pen, 14 UNIT SQ DAILY, (R eported) Discontinued Reason: No Longer Taking Entered as Reported by: SATYA LA on 11/05/21934 Last Action: Discontinued Pregabalin (Lyrica) 100 Mg Capsule, 100 MG PO BID, (Reported) Discontinued Reason: Duplicate Order Entered as Reported by: SATYA LA on 11/05/21934 Last Action: Discontinued Pregabalin (Pregabalin) 25 Mg Capsule, 25 MG PO BID, (Reported) Discontinued Reason: Duplicate Order Entered as Reported by: SATYA LA on 11/05/21934 Last Action: Discontinued Exam Vital Signs Vital Signs Date Time Temp Pulse Resp B/P (MAP) Pulse Ox O2 Delivery O2 Flow Rate FiO2 02/28/22 16:15 37.4 88 19 94 Trach Collar 9.00 02/28/22 14:59 35 Physical Exam General: Alert. No acute distress. He has a tracheostomy collar in place. He appears chronically ill. Eye: Extraocular movements are intact. Conjunctivae are clear. There are no xanthelasma. HENT: Normocephalic. Atraumatic. Carotid pulsations 2/2 without bruits. Neck: Jugular venous pressure does not appear elevated. No thyromegaly appreciated. Respiratory: Lungs are clear to auscultation. Respirations are non-labored. Breath sounds are equal. Symmetrical chest wall expansion. Cardiovascular: Tachycardia. Regular rhythm. No murmur. No gallop. Point of maximal impulse is not appear displaced. Good pulses equal in all extremities. No edema. Gastrointestinal: Soft. Normal bowel sounds. Skin: Skin turgor is normal. There is no pallor. Musculoskeletal: No kyphosis or scoliosis appreciated. Neurologic: Alert and oriented to person, place, time. Cranial nerves 3-12 appear grossly intact. Quadriplegia. Psychiatric: Cooperative. Appropriate mood with flat affect. Labs Laboratory Tests Test 02/27/22 18:52 02/27/22 18:53 02/27/22 18:54 02/27/22 19:43 Range/Units Urine Color YELLOW Urine Clarity CLEAR Urine pH 7.5 5-9 Urine Specific [place] 1.020 1.016-1.022 Urine Protein 1+ H NEGATIVE Urine Glucose (UA) NEGATIVE NEGATIVE Urine Ketones NEGATIVE NEGATIVE Urine Nitrite POSITIVE H NEGATIVE Urine Bilirubin NEGATIVE NEGATIVE Urine Urobilinogen 1.0 < = 1.0 MG/DL Urine Leukocyte Esterase 2+ H NEGATIVE Urine RBC (Auto) 3+ H NEGATIVE Urine RBC 25-50 H /HPF Urine WBC 10-25 H /HPF Urine Squamous Epithelial Cells 0-2 /HPF Urine Crystals PRESENT H /LPF Urine Calcium Oxalate Crystals MODERATE H /LPF Urine Triple Phosphate Crystals FEW H /LPF Urine Bacteria MODERATE H /HPF Urine Casts NONE /LPF Urine Mucus NEGATIVE /LPF Urine Culture Indicated CULTURE PENDING Prothrombin Time 15.9 H 12.2-14.7 SEC INR Comment 1.2 0.8-1.4 Activated Partial Thromboplast Time 36 H 24-35 SEC Sodium Level 135 135-145 MMOL/L Potassium Level 4.2 3.6-5.0 MMOL/L Chloride Level 103 98-107 MMOL/L Carbon Dioxide Level 22 21-32 MMOL/L Anion Gap 10 5-14 MMOL/L Blood Urea Nitrogen 27 H 7-18 MG/DL Creatinine 0.73 0.60-1.30 MG/DL Estimat Glomerular Filtration Rate 100 BUN/Creatinine Ratio 37 Glucose Level 217 H 70-105 MG/DL Lactic Acid Level 1.34 0.50-2.00 MMOL/L Calcium Level 8.7 8.5-10.1 MG/DL Corrected Calcium 9.3 8.5-10.1 MG/DL Total Bilirubin 0.4 0.1-1.0 MG/DL Aspartate Amino Transf (AST/SGOT) 18 5-34 U/L Alanine Aminotransferase (ALT/SGPT) 16 0-55 U/L Alkaline Phosphatase 61 40-136 U/L Troponin I 0.038 H <0.028 NG/ML C-Reactive Protein High Sensitivity 26.54 H 0.00-0.50 MG/DL Total Protein 6.5 6.4-8.2 GM/DL Albumin 3.3 3.2-4.5 GM/DL Influenza Type A (RT-PCR) Not Detected Not Detecte Influenza Type B (RT-PCR) Not Detected Not Detecte SARS-CoV-2 RNA (RT-PCR) Not Detected Not Detecte White Blood Count 10.2 4.3-11.0 10^3/uL Red Blood Count 3.95 L 4.30-5.52 10^6/uL Hemoglobin 11.2 L 13.3-17.7 g/dL Hematocrit 35 L 40-54 % Mean Corpuscular Volume 88 80-99 fL Mean Corpuscular Hemoglobin 28 25-34 pg Mean Corpuscular Hemoglobin Concent 32 32-36 g/dL Red Cell Distribution Width 15.7 H 10.0-14.5 % Platelet Count 104 L 130-400 10^3/uL Mean Platelet Volume 10.6 9.0-12.2 fL Immature Granulocyte % (Auto) 1 % Neutrophils (%) (Auto) 88 H 42-75 % Lymphocytes (%) (Auto) 6 L 12-44 % Monocytes (%) (Auto) 5 0-12 % Eosinophils (%) (Auto) 0 0-10 % Basophils (%) (Auto) 0 0-10 % Neutrophils # (Auto) 8.9 H 1.8-7.8 10^3/uL Lymphocytes # (Auto) 0.6 L 1.0-4.0 10^3/uL Monocytes # (Auto) 0.5 0.0-1.0 10^3/uL Eosinophils # (Auto) 0.0 0.0-0.3 10^3/uL Basophils # (Auto) 0.0 0.0-0.1 10^3/uL Immature Granulocyte # (Auto) 0.1 0.0-0.1 10^3/uL Percent Immature Platelet Fraction 4.3 0.0-7.6 % B-Type Natriuretic Peptide 72.7 <100.0 PG/ML Test 02/27/22 22:25 02/28/22 05:35 02/28/22 10:32 02/28/22 12:25 Range/Units Troponin I 0.033 H < 0.028 <0.028 NG/ML White Blood Count 8.5 2.9 L 4.3-11.0 10^3/uL Red Blood Count 4.04 L 4.10 L 4.30-5.52 10^6/uL Hemoglobin 11.4 L 11.7 L 13.3-17.7 g/dL Hematocrit 36 L 37 L 40-54 % Mean Corpuscular Volume 90 91 80-99 fL Mean Corpuscular Hemoglobin 28 29 25-34 pg Mean Corpuscular Hemoglobin Concent 31 L 31 L 32-36 g/dL Red Cell Distribution Width 15.9 H 15.8 H 10.0-14.5 % Platelet Count 93 L 77 L 130-400 10^3/uL Mean Platelet Volume 11.4 10.2 9.0-12.2 fL Immature Granulocyte % (Auto) 1 1 % Neutrophils (%) (Auto) 79 H 85 H 42-75 % Lymphocytes (%) (Auto) 11 L 12 12-44 % Monocytes (%) (Auto) 7 1 0-12 % Eosinophils (%) (Auto) 2 1 0-10 % Basophils (%) (Auto) 1 1 0-10 % Neutrophils # (Auto) 6.7 2.4 1.8-7.8 10^3/uL Lymphocytes # (Auto) 0.9 L 0.3 L 1.0-4.0 10^3/uL Monocytes # (Auto) 0.6 0.0 0.0-1.0 10^3/uL Eosinophils # (Auto) 0.2 0.0 0.0-0.3 10^3/uL Basophils # (Auto) 0.0 0.0 0.0-0.1 10^3/uL Immature Granulocyte # (Auto) 0.0 0.0 0.0-0.1 10^3/uL Neutrophils % (Manual) 70 % Lymphocytes % (Manual) 12 % Monocytes % (Manual) 9 % Eosinophils % (Manual) 3 % Basophils % (Manual) 1 % Band Neutrophils 4 % Reactive Lymphocytes 1 % Clumped Platelets NONE SEEN Percent Immature Platelet Fraction 5.2 4.0 0.0-7.6 % Anisocytosis SLIGHT Microcytosis Anitha Cells Absolute Reticulocyte Count 47 24-90 10e9/uL Percent Reticulocyte Count 1.17 0.50-2.40 % Sodium Level 139 136 135-145 MMOL/L Potassium Level 3.8 4.1 3.6-5.0 MMOL/L Chloride Level 106 105 98-107 MMOL/L Carbon Dioxide Level 21 20 L 21-32 MMOL/L Anion Gap 12 11 5-14 MMOL/L Blood Urea Nitrogen 25 H 23 H 7-18 MG/DL Creatinine 0.66 0.72 0.60-1.30 MG/DL Estimat Glomerular Filtration Rate 103 101 BUN/Creatinine Ratio 38 32 Glucose Level 210 H 238 H 70-105 MG/DL Calcium Level 8.6 8.8 8.5-10.1 MG/DL Corrected Calcium 9.4 9.3 8.5-10.1 MG/DL Total Bilirubin 0.5 0.9 0.1-1.0 MG/DL Aspartate Amino Transf (AST/SGOT) 12 15 5-34 U/L Alanine Aminotransferase (ALT/SGPT) 15 16 0-55 U/L Alkaline Phosphatase 54 82 40-136 U/L Total Protein 6.0 L 6.6 6.4-8.2 GM/DL Albumin 3.0 L 3.4 3.2-4.5 GM/DL Lactic Acid Level 2.30 *H 1.75 0.50-2.00 MMOL/L Procalcitonin 10.59 H <0.10 NG/ML ECG Impression ECG Comment Sinus tachycardia at 135 beats per minutes with low voltage in the precordial leads and possible old anteroseptal myocardial infarction. Diagnosis/Problems Diagnosis/Problems (1) Sinus tachycardia Assessment & Plan: He appears to have sinus tachycardia that may be related to his urinary tract infection with possible sepsis. I would just place patient back on his outpatient dose of beta-leonora and continue treatment for his urinary tract infection. This should resolve as his infection improves. (2) Troponin level elevated Assessment & Plan: He had a borderline abnormal troponin level at the time of admission which later became undetectable. This is a probable type II non-ST elevation myocardial infarction due to the tachycardia with supply/demand mismatch. 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 He is on beta-leonora and also apixaban, presumably for a history of atrial fibrillation. These should be continued. (3) Paroxysmal atrial fibrillation Assessment & Plan: He was on amiodarone and apixaban at the nursing home facility. I suspect somewhere along the line during the treatment for his Guillain-Hoffman syndrome he may have developed atrial fibrillation. I will decrease the dose of amiodarone to 100 mg daily and continue apixaban. At some point, one might consider tapering off his amiodarone completely. He will likely need follow-up with cardiology at . (4) Primary hypertension Assessment & Plan: Continue metoprolol tartrate. RAMAN RAZA JR, MD Feb 28, 2022 17:40
[2022-02-28 19:41] VITALS: BP 97/56
[2022-02-28] MEDS ORDERED: NON-FORMULARY MEDICATION 1 EA EA (Formoterol Fumarate (Perforomist) 20 MCG) IH SCH (21:00)
[2022-02-28] MEDS: LACTOBACILLUS ACIDOPHILUS (PROBIOTIC) CAPSULE PO SCH (21:00)
[2022-02-28] MEDS: FAMOTIDINE 20 MG (PEPCID) TABLET PO SCH (21:00)
[2022-02-28] MEDS: APIXABAN 5 MG (ELIQUIS) TABLET PO SCH (21:00)
[2022-02-28] MEDS: PREGABALIN 150 MG (LYRICA) CAPSULE PO SCH (21:00)
[2022-02-28] MEDS: DOCUSATE SODIUM 100 MG (COLACE) CAP PO SCH (21:01)
[2022-02-28] MEDS: ALPRAZolam 0.5 MG (XANAX) TAB PO SCH (21:02)
[2022-02-28] MEDS: CHLORHEXIDINE 0.12% SOLN 15 ML (PERIDEX) UDC MM SCH (21:51)
[2022-02-28] MEDS: RT-BUDESONIDE NEBS 0.5 MG/2ML (PULMICORT) AMP IH SCH (22:05)
[2022-02-28 23:49] VITALS: BP 98/54
[2022-02-28] MEDS: meTOprolol TARTRATE 25 MG (LOPRESSOR) TABLET PO SCH (23:51)
[2022-03-01] MEDS: RT-ALBUTEROL/IPRATROPIUM 3 ML (DUONEB) VIAL INH SCH ×6 (02:51→22:02)
[2022-03-01] MEDS: aCETylcysteine 20% (MUCOMYST) 4 ML SOLN VIAL INH SCH ×4 (02:52→22:00)
[2022-03-01] MEDS: NS IV 1000 ML 1,000 ML IV SCH ×3 (03:20→15:47)
[2022-03-01] MEDS: CEFEPIME INJECTION 1,000 MG in NS (IVPB) 50 ML IV SCH ×4 (04:06→21:41)
[2022-03-01 04:07] VITALS: BP 99/54
[2022-03-01 05:47] LABS: EOSINOPHILS # (AUTO) 0.1 10^3/uL (0.0-0.3); EOSINOPHILS % (AUTO) 1 % (0-10); HEMOGLOBIN 9.9 g/dL (13.3-17.7)
[2022-03-01 05:49] LABS: BASOPHILS % (AUTO) 0 % (0-10); HEMATOCRIT 32 % (40-54); LYMPHOCYTES # (AUTO) 0.8 10^3/uL (1.0-4.0); LYMPHOCYTES % (AUTO) 10 % (12-44); MEAN CORPUSCULAR HEMOGLOBIN 28 pg (25-34); MEAN CORPUSCULAR HGB CONC 31 g/dL (32-36); MEAN CORPUSCULAR VOLUME 92 fL (80-99); MEAN PLATELET VOLUME 11.4 fL (9.0-12.2); MONOCYTES # (AUTO) 0.6 10^3/uL (0.0-1.0); MONOCYTES % (AUTO) 7 % (0-12); NEUTROPHILS # (AUTO) 6.5 10^3/uL (1.8-7.8); NEUTROPHILS % (AUTO) 81 % (42-75); PLATELET COUNT 78 10^3/uL (130-400)
[2022-03-01] MEDS: MULTIVIT W/MINERALS TAB (THERAGRAN M) PO SCH (05:49)
[2022-03-01 05:58] LABS: ALBUMIN 2.9 GM/DL (3.2-4.5); POTASSIUM 3.2 MMOL/L (3.6-5.0)
[2022-03-01 05:59] LABS: CALCIUM 8.3 MG/DL (8.5-10.1)
[2022-03-01 06:00] LABS: TOTAL PROTEIN 5.7 GM/DL (6.4-8.2)
[2022-03-01 06:02] LABS: BILIRUBIN,TOTAL 0.5 MG/DL (0.1-1.0)
[2022-03-01 06:04] LABS: CREATININE SERUM 0.65 MG/DL (0.60-1.30)
--- NOTE | 2022-03-01 07:38 | Progress Note - Hospitalist ---
Subjective HPI/CC On Admission Date Seen by Provider: Mar 01, 2022 Time Seen by Provider: 10:30 66 yo male sent to ER from nursing facility due to fever and concern about UTI. In the ER he was febrile and tachycardic and UA was concerning for infection. This morning at the time of my first exam, he looked well and reported feeling well and asking about going home today. However, around 10 am, he had worsening clinical status with recurrent tachycardia and mucous plugging and fever. RT was able to clear a large mucous plug from his inner trach cannula and placed him on humidified oxygen. At time of my repeat exam shortly after 10 am, he is shaking and appears mildly somnolent, but awakens and answers questions appropriately, reports he feels very cold. When discussing whether to consider transferring him to ICU, he clearly said "no, I don't want to go to the ICU. If it is my time to go, there is nothing I can do about it". He had already told me earlier this morning that he wanted to be a DNR and did not want to be placed on a ventilator. Subjective/Events-last exam Patient sleeping soundly No major changes RN has no issues Very poor prognosis Focused Exam Lactate Level 02/27/22 18:53: Lactic Acid Level 1.34 02/28/22 10:32: Lactic Acid Level 2.30*H 02/28/22 12:25: Lactic Acid Level 1.75 Objective Exam Vital Signs Vital Signs Date Time Temp Pulse Resp B/P (MAP) Pulse Ox O2 Delivery O2 Flow Rate FiO2 03/02/22 04:10 36.9 78 19 119/70 (86) 97 Trach Collar 10.00 03/02/22 02:58 40 Capillary Refill : Less Than 3 Seconds General Appearance: Chronically ill, Other (Sleeping) Respiratory: Normal Breath Sounds, Decreased Breath Sounds Cardiovascular: Regular Rate, Rhythm Results/Procedures Lab Laboratory Tests 03/02/22 05:07 Patient resulted labs reviewed. Imaging: Reviewed Imaging Films, Reviewed Imaging Report Assessment/Plan Assessment and Plan Assess & Plan/Chief Complaint Assessment: catheter associated UTI * continue cefepime * U/A - positive for nitrite, leukocyte esterase, WBC * urine culture - pending AMS - resolved bibasilar atelectasis vs pneumonia * continue antibiotics for UTI * monitor Anemia Thrombocytopenia * order peripheral smear and reticulocyte count * order iron studies Guillian Holmes Syndrome * Trach in place * suction as needed Constipation * order miralax mildly elevated troponins * monitor Type 2 Diabetes * SSI Tachycardia Diet: diabetic Code Status: DNR/DNI MICHEL ARCOS DO Mar 01, 2022 07:38
[2022-03-01] MEDS: RT-BUDESONIDE NEBS 0.5 MG/2ML (PULMICORT) AMP IH SCH ×2 (07:49→22:00)
[2022-03-01 08:00] VITALS: BP 100/55
[2022-03-01] MEDS ORDERED: AMIODARONE 200 MG (CORDARONE) TAB PO SCH (09:00)
[2022-03-01] MEDS: PREGABALIN 150 MG (LYRICA) CAPSULE PO SCH ×2 (09:30→21:41)
[2022-03-01] MEDS: FERROUS SULF 325 MG (IRON) TAB PO SCH (09:31)
[2022-03-01] MEDS: APIXABAN 5 MG (ELIQUIS) TABLET PO SCH ×2 (09:31→21:41)
[2022-03-01] MEDS: AMIODARONE 200 MG (CORDARONE) TAB PO SCH (09:31)
[2022-03-01] MEDS: SERTRALINE 50 MG (ZOLOFT) TABLET PO SCH (09:31)
[2022-03-01] MEDS: LACTOBACILLUS ACIDOPHILUS (PROBIOTIC) CAPSULE PO SCH ×2 (09:31→21:40)
[2022-03-01] MEDS: FAMOTIDINE 20 MG (PEPCID) TABLET PO SCH ×2 (09:31→21:40)
[2022-03-01] MEDS: CHLORHEXIDINE 0.12% SOLN 15 ML (PERIDEX) UDC MM SCH ×2 (09:31→21:41)
[2022-03-01] MEDS: meTOprolol TARTRATE 25 MG (LOPRESSOR) TABLET PO SCH ×2 (09:32→21:48)
[2022-03-01] MEDS: DOCUSATE SODIUM 100 MG (COLACE) CAP PO SCH ×2 (09:32→21:48)
--- NOTE | 2022-03-01 12:20 | Cardiology Progress Note ---
Progress Note-Cardiology Events since last exam Date Seen by Provider: Mar 01, 2022 Time Seen by Provider: 12:18 Events since last exam I am following him due to and elevated troponin. He was sitting up in bed wa tching television. He denied chest discomfort, dyspnea at rest, or syncope. He states he can feel his heart beating fast at times. He has mild bilateral ankle edema. His nurse is getting ready to feed him lunch. Certain portions of this document may have been dictated utilizing voice recognition technology. Inherent to this technology, typographical and grammatical errors may exist. As much as I am diligent to identify and correct these mistakes, some errors may remain in the document. Vitals Last set of Vitals Signs Vital Signs 03/01/22 03/01/22 03/01/22 12:25 12:34 15:07 Temp 35.8 Pulse 93 Resp 20 B/P (MAP) 102/60 (74) Pulse Ox 93 O2 Delivery Trach Collar O2 Flow Rate 10.00 FiO2 50 Labs Labs Laboratory Tests 03/01/22 05:30 Exam Vital Signs Vital Signs Date Time Temp Pulse Resp B/P (MAP) Pulse Ox O2 Delivery O2 Flow Rate FiO2 03/01/22 15:07 93 Trach Collar 10.00 50 03/01/22 12:34 93 03/01/22 12:25 35.8 20 102/60 (74) Physical Exam General: Alert. No acute distress. He has a tracheostomy collar in place. Eye: No xanthelasma. HENT: Normocephalic. Neck: Jugular venous pressure does not appear elevated. Respiratory: Lungs are clear to auscultation but with diffusely decreased breath sounds. Respirations are non-labored. Breath sounds are equal. Symmetrical chest wall expansion. Cardiovascular: Normal rate. Regular rhythm. No murmur. No gallop. 1+ bilateral pretibial edema. Gastrointestinal: Soft. Normal bowel sounds. Skin: Warm. Dry. Neurologic: Alert and oriented to person, place, time. Cranial nerves 3-11 grossly intact. He is paraplegic. Psychiatric: Cooperative. Flat affect. Labs Laboratory Tests Test 03/01/22 05:30 Range/Units White Blood Count 8.0 4.3-11.0 10^3/uL Red Blood Count 3.50 L 4.30-5.52 10^6/uL Hemoglobin 9.9 L 13.3-17.7 g/dL Hematocrit 32 L 40-54 % Mean Corpuscular Volume 92 80-99 fL Mean Corpuscular Hemoglobin 28 25-34 pg Mean Corpuscular Hemoglobin Concent 31 L 32-36 g/dL Red Cell Distribution Width 16.1 H 10.0-14.5 % Platelet Count 78 L 130-400 10^3/uL Mean Platelet Volume 11.4 9.0-12.2 fL Immature Granulocyte % (Auto) 1 % Neutrophils (%) (Auto) 81 H 42-75 % Lymphocytes (%) (Auto) 10 L 12-44 % Monocytes (%) (Auto) 7 0-12 % Eosinophils (%) (Auto) 1 0-10 % Basophils (%) (Auto) 0 0-10 % Neutrophils # (Auto) 6.5 1.8-7.8 10^3/uL Lymphocytes # (Auto) 0.8 L 1.0-4.0 10^3/uL Monocytes # (Auto) 0.6 0.0-1.0 10^3/uL Eosinophils # (Auto) 0.1 0.0-0.3 10^3/uL Basophils # (Auto) 0.0 0.0-0.1 10^3/uL Immature Granulocyte # (Auto) 0.1 0.0-0.1 10^3/uL Percent Immature Platelet Fraction 6.7 0.0-7.6 % Sodium Level 140 135-145 MMOL/L Potassium Level 3.2 L 3.6-5.0 MMOL/L Chloride Level 108 H 98-107 MMOL/L Carbon Dioxide Level 19 L 21-32 MMOL/L Anion Gap 13 5-14 MMOL/L Blood Urea Nitrogen 23 H 7-18 MG/DL Creatinine 0.65 0.60-1.30 MG/DL Estimat Glomerular Filtration Rate 104 BUN/Creatinine Ratio 35 Glucose Level 224 H 70-105 MG/DL Calcium Level 8.3 L 8.5-10.1 MG/DL Corrected Calcium 9.2 8.5-10.1 MG/DL Total Bilirubin 0.5 0.1-1.0 MG/DL Aspartate Amino Transf (AST/SGOT) 12 5-34 U/L Alanine Aminotransferase (ALT/SGPT) 16 0-55 U/L Alkaline Phosphatase 54 40-136 U/L Total Protein 5.7 L 6.4-8.2 GM/DL Albumin 2.9 L 3.2-4.5 GM/DL Diagnosis/Problems Diagnosis/Problems (1) Sinus tachycardia Assessment & Plan: He appears to have sinus tachycardia that may be related to his urinary tract infection with possible sepsis. His heart rates are gradually improving. Continue beta-leonora. (2) Troponin level elevated Assessment & Plan: He had a borderline abnormal troponin level at the time of admission which later became undetectable. This is a probable type II non-ST elevation myocardial infarction due to the tachycardia with supply/demand mismatch. 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 He is on beta-leonora and also apixaban, presumably for a history of atrial fibrillation. These should be continued. He would not currently be a good candidate for an invasive cardiac evaluation. (3) Paroxysmal atrial fibrillation Assessment & Plan: He was on amiodarone and apixaban at the correction facility. I suspect somewhere along the line during the treatment for his Guillain-Hoffman syndrome at the outside facilities he may have developed atrial fibrillation. I will decrease the dose of amiodarone to 100 mg daily and continue apixaban. At some point, one might consider tapering off his amiodarone completely. He will likely need to follow-up with cardiology at or we can follow him here in the long run. (4) Primary hypertension Assessment & Plan: Continue metoprolol tartrate. RAMAN RAZA JR, MD Mar 01, 2022 12:20
[2022-03-01 12:25] VITALS: BP 102/60
[2022-03-01 15:51] VITALS: BP 113/63
[2022-03-01 19:33] VITALS: BP 126/67
[2022-03-01] MEDS: ALPRAZolam 0.5 MG (XANAX) TAB PO SCH (21:40)
[2022-03-01 23:45] VITALS: BP 129/71
[2022-03-02] MEDS: NS IV 1000 ML 1,000 ML IV SCH ×2 (01:41→11:25)
[2022-03-02] MEDS: RT-ALBUTEROL/IPRATROPIUM 3 ML (DUONEB) VIAL INH SCH ×6 (02:47→22:11)
[2022-03-02] MEDS: aCETylcysteine 20% (MUCOMYST) 4 ML SOLN VIAL INH SCH ×4 (02:47→22:11)
[2022-03-02 04:10] VITALS: BP 119/70
[2022-03-02] MEDS: CEFEPIME INJECTION 1,000 MG in NS (IVPB) 50 ML IV SCH ×4 (04:42→20:43)
[2022-03-02 05:28] LABS: BASOPHILS % (AUTO) 0 % (0-10); EOSINOPHILS # (AUTO) 0.2 10^3/uL (0.0-0.3); EOSINOPHILS % (AUTO) 3 % (0-10); HEMATOCRIT 31 % (40-54); HEMOGLOBIN 9.6 g/dL (13.3-17.7); LYMPHOCYTES # (AUTO) 1.1 10^3/uL (1.0-4.0); LYMPHOCYTES % (AUTO) 16 % (12-44); MEAN CORPUSCULAR HEMOGLOBIN 28 pg (25-34); MEAN CORPUSCULAR HGB CONC 31 g/dL (32-36); MEAN CORPUSCULAR VOLUME 91 fL (80-99); MEAN PLATELET VOLUME 10.9 fL (9.0-12.2); MONOCYTES # (AUTO) 0.5 10^3/uL (0.0-1.0); MONOCYTES % (AUTO) 8 % (0-12); NEUTROPHILS # (AUTO) 4.8 10^3/uL (1.8-7.8); NEUTROPHILS % (AUTO) 70 % (42-75); PLATELET COUNT 96 10^3/uL (130-400); WHITE BLOOD COUNT 6.8 10^3/uL (4.3-11.0)
[2022-03-02 05:39] LABS: ALBUMIN 2.7 GM/DL (3.2-4.5)
[2022-03-02 05:40] LABS: POTASSIUM 3.2 MMOL/L (3.6-5.0)
[2022-03-02 05:41] LABS: CALCIUM 8.6 MG/DL (8.5-10.1)
[2022-03-02 05:42] LABS: TOTAL PROTEIN 5.4 GM/DL (6.4-8.2)
[2022-03-02 05:44] LABS: BILIRUBIN,TOTAL 0.4 MG/DL (0.1-1.0)
[2022-03-02 05:46] LABS: CREATININE SERUM 0.51 MG/DL (0.60-1.30)
[2022-03-02] MEDS: MULTIVIT W/MINERALS TAB (THERAGRAN M) PO SCH (06:39)
--- NOTE | 2022-03-02 06:51 | Progress Note - Hospitalist ---
Subjective HPI/CC On Admission Date Seen by Provider: Mar 02, 2022 Time Seen by Provider: 12:00 66 yo male sent to ER from nursing facility due to fever and concern about UTI. In the ER he was febrile and tachycardic and UA was concerning for infection. This morning at the time of my first exam, he looked well and reported feeling well and asking about going home today. However, around 10 am, he had worsening clinical status with recurrent tachycardia and mucous plugging and fever. RT was able to clear a large mucous plug from his inner trach cannula and placed him on humidified oxygen. At time of my repeat exam shortly after 10 am, he is shaking and appears mildly somnolent, but awakens and answers questions appropriately, reports he feels very cold. When discussing whether to consider transferring him to ICU, he clearly said "no, I don't want to go to the ICU. If it is my time to go, there is nothing I can do about it". He had already told me earlier this morning that he wanted to be a DNR and did not want to be placed on a ventilator. Subjective/Events-last exam Patient awake and alert today Ate a good lunch No pain is reported Wants to discharge tomorrow Review of Systems General: Fatigue Focused Exam Lactate Level 02/28/22 10:32: Lactic Acid Level 2.30*H 02/28/22 12:25: Lactic Acid Level 1.75 Objective Exam Vital Signs Vital Signs Date Time Temp Pulse Resp B/P (MAP) Pulse Ox O2 Delivery O2 Flow Rate FiO2 03/03/22 04:00 38.2 98 17 141/74 (96) 93 Trach Collar 9.50 03/03/22 02:46 40 Capillary Refill : Less Than 3 Seconds General Appearance: No Apparent Distress, WD/WN, Chronically ill Respiratory: No Accessory Muscle Use, No Respiratory Distress, Decreased Breath Sounds Cardiovascular: Regular Rate, Rhythm Neurologic/Psychiatric: Alert, Oriented x3 Results/Procedures Lab Patient resulted labs reviewed. Imaging: Reviewed Imaging Films, Reviewed Imaging Report Assessment/Plan Assessment and Plan Assess & Plan/Chief Complaint Assessment: catheter associated UTI * continue cefepime * U/A - positive for nitrite, leukocyte esterase, WBC * urine culture - pending AMS - resolved bibasilar atelectasis vs pneumonia * continue antibiotics for UTI * monitor Anemia Thrombocytopenia * order peripheral smear and reticulocyte count * order iron studies [place] Syndrome * Trach in place * suction as needed Constipation * order miralax mildly elevated troponins * monitor Type 2 Diabetes * SSI Tachycardia Diet: diabetic Code Status: DNR/DNI 03/02/2022: Discharge home tomorrow MICHEL ARCOS DO Mar 02, 2022 06:51
[2022-03-02 07:18] VITALS: BP 118/65
[2022-03-02] MEDS: RT-BUDESONIDE NEBS 0.5 MG/2ML (PULMICORT) AMP IH SCH ×2 (07:30→18:55)
[2022-03-02] MEDS: PREGABALIN 150 MG (LYRICA) CAPSULE PO SCH ×2 (08:55→20:42)
[2022-03-02] MEDS: LACTOBACILLUS ACIDOPHILUS (PROBIOTIC) CAPSULE PO SCH ×2 (08:55→20:42)
[2022-03-02] MEDS: AMIODARONE 200 MG (CORDARONE) TAB PO SCH (08:55)
[2022-03-02] MEDS: FERROUS SULF 325 MG (IRON) TAB PO SCH (08:55)
[2022-03-02] MEDS: APIXABAN 5 MG (ELIQUIS) TABLET PO SCH ×2 (08:55→20:42)
[2022-03-02] MEDS: DOCUSATE SODIUM 100 MG (COLACE) CAP PO SCH ×2 (08:55→20:42)
[2022-03-02] MEDS: CHLORHEXIDINE 0.12% SOLN 15 ML (PERIDEX) UDC MM SCH ×2 (08:55→20:42)
[2022-03-02] MEDS: meTOprolol TARTRATE 25 MG (LOPRESSOR) TABLET PO SCH ×2 (08:55→20:42)
[2022-03-02] MEDS: FAMOTIDINE 20 MG (PEPCID) TABLET PO SCH ×2 (08:55→20:42)
[2022-03-02] MEDS: SERTRALINE 50 MG (ZOLOFT) TABLET PO SCH (08:56)
[2022-03-02 11:23] VITALS: BP 125/75
[2022-03-02 15:46] VITALS: BP 154/84
--- NOTE | 2022-03-02 17:40 | Cardiology Progress Note ---
Progress Note-Cardiology Events since last exam Date Seen by Provider: Mar 02, 2022 Time Seen by Provider: 17:35 Events since last exam I am following him due to sinus tachycardia that occurred in the setting of u rinary tract infection. The sinus tachycardia has resolved. He was sitting up in bed watching television. He denies chest discomfort, dyspnea, palpitations, or syncope. He has persistent, mild ankle edema. 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 Vitals Last set of Vitals Signs Vital Signs 03/02/22 03/02/22 15:33 15:46 Temp 37.4 Pulse 85 Resp 18 B/P (MAP) 154/84 (107) Pulse Ox 93 O2 Delivery Trach Collar O2 Flow Rate 9.50 FiO2 40 Labs Labs Laboratory Tests 03/02/22 05:07 Exam Vital Signs Vital Signs Date Time Temp Pulse Resp B/P (MAP) Pulse Ox O2 Delivery O2 Flow Rate FiO2 03/02/22 15:46 37.4 85 18 154/84 (107) 93 Trach Collar 9.50 03/02/22 15:33 40 Physical Exam General: Alert. No acute distress. He has a tracheostomy collar in place. Eye: No xanthelasma. HENT: Normocephalic. Neck: Jugular venous pressure does not appear elevated. Respiratory: Lungs are clear to auscultation but with diffusely decreased breath sounds. Respirations are non-labored. Breath sounds are equal. Symmetrical chest wall expansion. Cardiovascular: Normal rate. Regular rhythm. No murmur. No gallop. 1+ bilateral pretibial edema. Gastrointestinal: Soft. Normal bowel sounds. Skin: Warm. Dry. Neurologic: Alert and oriented to person, place, time. Cranial nerves 3-11 grossly intact. He is paraplegic. Labs Laboratory Tests Test 03/02/22 05:07 Range/Units White Blood Count 6.8 4.3-11.0 10^3/uL Red Blood Count 3.39 L 4.30-5.52 10^6/uL Hemoglobin 9.6 L 13.3-17.7 g/dL Hematocrit 31 L 40-54 % Mean Corpuscular Volume 91 80-99 fL Mean Corpuscular Hemoglobin 28 25-34 pg Mean Corpuscular Hemoglobin Concent 31 L 32-36 g/dL Red Cell Distribution Width 15.9 H 10.0-14.5 % Platelet Count 96 L 130-400 10^3/uL Mean Platelet Volume 10.9 9.0-12.2 fL Immature Granulocyte % (Auto) 2 % Neutrophils (%) (Auto) 70 42-75 % Lymphocytes (%) (Auto) 16 12-44 % Monocytes (%) (Auto) 8 0-12 % Eosinophils (%) (Auto) 3 0-10 % Basophils (%) (Auto) 0 0-10 % Neutrophils # (Auto) 4.8 1.8-7.8 10^3/uL Lymphocytes # (Auto) 1.1 1.0-4.0 10^3/uL Monocytes # (Auto) 0.5 0.0-1.0 10^3/uL Eosinophils # (Auto) 0.2 0.0-0.3 10^3/uL Basophils # (Auto) 0.0 0.0-0.1 10^3/uL Immature Granulocyte # (Auto) 0.2 H 0.0-0.1 10^3/uL Sodium Level 139 135-145 MMOL/L Potassium Level 3.2 L 3.6-5.0 MMOL/L Chloride Level 109 H 98-107 MMOL/L Carbon Dioxide Level 19 L 21-32 MMOL/L Anion Gap 11 5-14 MMOL/L Blood Urea Nitrogen 17 7-18 MG/DL Creatinine 0.51 L 0.60-1.30 MG/DL Estimat Glomerular Filtration Rate 112 BUN/Creatinine Ratio 33 Glucose Level 150 H 70-105 MG/DL Calcium Level 8.6 8.5-10.1 MG/DL Corrected Calcium 9.6 8.5-10.1 MG/DL Total Bilirubin 0.4 0.1-1.0 MG/DL Aspartate Amino Transf (AST/SGOT) 11 5-34 U/L Alanine Aminotransferase (ALT/SGPT) 16 0-55 U/L Alkaline Phosphatase 51 40-136 U/L Total Protein 5.4 L 6.4-8.2 GM/DL Albumin 2.7 L 3.2-4.5 GM/DL Diagnosis/Problems Diagnosis/Problems (1) Sinus tachycardia Assessment & Plan: This was most likely due to the urinary tract infection with possible sepsis. His heart rates have improved. Continue beta-leonora. (2) Troponin level elevated Assessment & Plan: He had a borderline abnormal troponin level at the time of a dmission which later became undetectable. This was a probable type II non-ST elevation myocardial infarction due to the tachycardia with supply/demand mismatch. 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 He is on beta-leonora and also apixaban, presumably for a history of atrial fibrillation. These should be continued. He would not currently be a good candidate for an invasive cardiac evaluation. (3) Paroxysmal atrial fibrillation Assessment & Plan: He was on amiodarone and apixaban at the custodial [facility]. I suspect somewhere along the line during the treatment for his Guillain-Hoffman syndrome at the outside facilities he may have developed atrial fibrillation. I decreased the dose of amiodarone to 100 mg daily and continued apixaban. At some point, one might consider tapering off his amiodarone completely. He will likely need to follow-up with cardiology at or we can follow him here in the long run. Since he lives here in [place], I will have my office get him a follow-up appointment to see me following discharge. (4) Primary hypertension Assessment & Plan: Blood pressure has been reasonably controlled with metoprolol which he was taking at the custodial facility. RAMAN RAZA JR, MD Mar 02, 2022 17:40
[2022-03-02 19:16] VITALS: BP 163/78
[2022-03-02] MEDS: ALPRAZolam 0.5 MG (XANAX) TAB PO SCH (20:42)
[2022-03-02] MEDS: ACETAMINOPHEN 500 MG TAB (TYLENOL) PO PRN (23:32)
[2022-03-03] VITALS: BP 138/73
[2022-03-03] MEDS: aCETylcysteine 20% (MUCOMYST) 4 ML SOLN VIAL INH SCH ×4 (02:35→21:23)
[2022-03-03] MEDS: RT-ALBUTEROL/IPRATROPIUM 3 ML (DUONEB) VIAL INH SCH ×6 (02:35→21:23)
[2022-03-03 04:00] VITALS: BP 141/74
[2022-03-03] MEDS: CEFEPIME INJECTION 1,000 MG in NS (IVPB) 50 ML IV SCH ×4 (04:57→21:44)
[2022-03-03] MEDS: MULTIVIT W/MINERALS TAB (THERAGRAN M) PO SCH (04:57)
[2022-03-03 05:45] LABS: BASOPHILS % (AUTO) 0 % (0-10); EOSINOPHILS # (AUTO) 0.1 10^3/uL (0.0-0.3); EOSINOPHILS % (AUTO) 2 % (0-10); HEMATOCRIT 33 % (40-54); HEMOGLOBIN 10.3 g/dL (13.3-17.7); LYMPHOCYTES % (AUTO) 13 % (12-44); MEAN CORPUSCULAR HEMOGLOBIN 28 pg (25-34); MEAN CORPUSCULAR HGB CONC 31 g/dL (32-36); MEAN CORPUSCULAR VOLUME 92 fL (80-99); MEAN PLATELET VOLUME 11.4 fL (9.0-12.2); MONOCYTES # (AUTO) 0.5 10^3/uL (0.0-1.0); MONOCYTES % (AUTO) 7 % (0-12); NEUTROPHILS # (AUTO) 5.4 10^3/uL (1.8-7.8); NEUTROPHILS % (AUTO) 76 % (42-75); PLATELET COUNT 126 10^3/uL (130-400); WHITE BLOOD COUNT 7.1 10^3/uL (4.3-11.0)
[2022-03-03 05:54] LABS: ALBUMIN 2.9 GM/DL (3.2-4.5); POTASSIUM 3.2 MMOL/L (3.6-5.0)
[2022-03-03 05:55] LABS: CALCIUM 8.8 MG/DL (8.5-10.1)
[2022-03-03 05:56] LABS: TOTAL PROTEIN 5.9 GM/DL (6.4-8.2)
[2022-03-03 05:58] LABS: BILIRUBIN,TOTAL 0.5 MG/DL (0.1-1.0)
[2022-03-03 06:00] LABS: CREATININE SERUM 0.57 MG/DL (0.60-1.30)
[2022-03-03] MEDS: RT-BUDESONIDE NEBS 0.5 MG/2ML (PULMICORT) AMP IH SCH ×2 (07:00→21:23)
[2022-03-03 08:00] VITALS: BP 142/76
[2022-03-03] MEDS: KCL 20 MEQ TAB (K-DUR) PO SCH (08:29)
[2022-03-03] MEDS: FAMOTIDINE 20 MG (PEPCID) TABLET PO SCH ×2 (08:30→19:51)
[2022-03-03] MEDS: SERTRALINE 50 MG (ZOLOFT) TABLET PO SCH (08:30)
[2022-03-03] MEDS: meTOprolol TARTRATE 25 MG (LOPRESSOR) TABLET PO SCH ×2 (08:30→19:51)
[2022-03-03] MEDS: LACTOBACILLUS ACIDOPHILUS (PROBIOTIC) CAPSULE PO SCH ×2 (08:30→19:51)
[2022-03-03] MEDS: AMIODARONE 200 MG (CORDARONE) TAB PO SCH (08:30)
[2022-03-03] MEDS: APIXABAN 5 MG (ELIQUIS) TABLET PO SCH ×2 (08:30→19:51)
[2022-03-03] MEDS: DOCUSATE SODIUM 100 MG (COLACE) CAP PO SCH ×2 (08:30→19:51)
[2022-03-03] MEDS: FERROUS SULF 325 MG (IRON) TAB PO SCH (08:30)
[2022-03-03] MEDS: PREGABALIN 150 MG (LYRICA) CAPSULE PO SCH ×2 (08:30→19:51)
[2022-03-03] MEDS: CHLORHEXIDINE 0.12% SOLN 15 ML (PERIDEX) UDC MM SCH ×2 (08:37→19:51)
--- NOTE | 2022-03-03 09:06 | Speech Therapy Progress Note ---
Therapy Progress Note Speech Pathology: Speech pathology received a consultation for a [place] Speaking Valve (PMV) on this date. Per chart review, the patient remains on 10L supplemental oxygen with recent removal of mucus plugging from the inner cannula. At the patient's current high supplemental oxygen needs, he would not be appropriate/safe for consistent PMV use. Speech pathology will continue to monitor the patient's progress and complete evaluation when/if appropriate. To note, the patient recently received a PMV from Speech Pathology on 11/15/2021. During his prior stay, the patient stated his current facility was unable to locate his PMV, therefore, a new device was provided by our facility. The clinician recommends contacting the patient's current facility to request his PMV. \ Pending evaluation, the patient may be appropriate for brief digital occlusion of the tracheostomy site for improved phonation while monitoring oxygen needs and levels throughout attempts to improve communication. If the patient's oxygen needs to not remain stable throughout attempts, digital occlusion is not recommended. ADWOA SON Mar 03, 2022 09:06
[2022-03-03 12:00] VITALS: BP 117/72
--- NOTE | 2022-03-03 12:17 | Progress Note - Hospitalist ---
CALVIN PAGAN MED STUDENT 03/03/22 1217: Subjective HPI/CC On Admission Date Seen by Provider: Mar 03, 2022 Time Seen by Provider: 09:15 66 yo male sent to ER from nursing facility due to fever and concern about UTI. In the ER he was febrile and tachycardic and UA was concerning for infection. This morning at the time of my first exam, he looked well and reported feeling well and asking about going home today. However, around 10 am, he had worsening clinical status with recurrent tachycardia and mucous plugging and fever. RT was able to clear a large mucous plug from his inner trach cannula and placed him on humidified oxygen. At time of my repeat exam shortly after 10 am, he is shaking and appears mildly somnolent, but awakens and answers questions appropriately, reports he feels very cold. When discussing whether to consider transferring him to ICU, he clearly said "no, I don't want to go to the ICU. If it is my time to go, there is nothing I can do about it". He had already told me earlier this m orning that he wanted to be a DNR and did not want to be placed on a ventilator. Subjective/Events-last exam Shahbaz is feeling well today and wanting to go home. He had a panic attack last night due to not being able to effectively communicate with staff. He normally has a valve to be able to speak with his trach. He denies any pain or discomfort. Review of Systems General: No Chills, No Fatigue HEENT: No Head Aches, No Visual Changes Pulmonary: No Dyspnea, No Cough Cardiovascular: No: Chest Pain, Palpitations Gastrointestinal: No: Nausea, Vomiting, Abdominal Pain Genitourinary: No Dysuria Focused Exam Lactate Level 02/28/22 12:25: Lactic Acid Level 1.75 Objective Exam Vital Signs Vital Signs Date Time Temp Pulse Resp B/P (MAP) Pulse Ox O2 Delivery O2 Flow Rate FiO2 03/03/22 10:51 98 Trach Collar 10.00 40 03/03/22 08:00 36.8 94 20 142/76 (98) Capillary Refill : Less Than 3 Seconds General Appearance: No Apparent Distress, WD/WN HEENT: No Scleral Icterus (L), No Scleral Icterus (R) Neck: Full Range of Motion, Normal Inspection, Non Tender, Supple; No Lymphadenopathy (L), No Lymphadenopathy (R) Respiratory: Chest Non Tender, Lungs Clear, Normal Breath Sounds, No Respiratory Distress Cardiovascular: Regular Rate, Rhythm, No Edema, No Murmur, Normal Peripheral Pulses Gastrointestinal: Normal Bowel Sounds, Non Tender, Soft Neurologic/Psychiatric: Alert, Oriented x3, Normal Mood/Affect Skin: Normal Color, Warm/Dry Lymphatic: No Adenopathy Results/Procedures Lab Laboratory Tests 03/03/22 05:28 Patient resulted labs reviewed. Imaging: Reviewed Imaging Films, Reviewed Imaging Report Assessment/Plan Assessment and Plan Assess & Plan/Chief Complaint CC: Sepsis, uti catheter associated A/P Sepsis - Continue on Cefepime - Continues to fever, will keep for another day - Blood cultures are negative UTI- catheter associated - Continue cefepime - Urine culture positive for proteus DVT ppx Anemia Thrombocytopenia - Iron studies - Low iron, low TIBC Guillain [place] Syndrome - trach in place, suction prn Constipation - Started miralax Elevated troponins - continue to monitor DM - Sliding scale insulin JUSTINA AVILES DO 03/04/22 0512: Subjective Subjective/Events-last exam Pt is doing about the same Remains on 9L Fever noted last night Pt really wants to go back to the half-way Pt will have one more day of antibiotics IV Really [facility] Palliative care will reach out Review of Systems General: Malaise Pulmonary: Dyspnea Objective Exam General Appearance: No Apparent Distress, WD/WN, Chronically ill Respiratory: Accessory Muscle Use, Decreased Breath Sounds Cardiovascular: Regular Rate, Rhythm Neurologic/Psychiatric: Alert, Oriented x3 Assessment/Plan Assessment and Plan Assess & Plan/Chief Complaint Poor prognosis We will talk about hospice No recovery expected Supervisory-Addendum Brief Verification & Attestation Participated in pt care: history, MDM, physical Personally performed: exam, history, MDM, supervision of care Care discussed with: Medical Student Procedures: n/a Results interpretation: Verified all documentation Verification and Attestation of Medical Student E/M Service A medical student performed and documented this service in my presence. I reviewed and verified all information documented by the medical student and made modifications to such information, when appropriate. I personally performed the physical exam and medical decision making. Justina Aviles, Mar 04, 2022,05:02 CALVIN PAGAN MED STUDENT Mar 03, 2022 12:17 JUSTINA AVILES DO Mar 04, 2022 05:12
--- NOTE | 2022-03-03 12:23 | Speech Therapy Progress Note ---
Therapy Progress Note Speech Pathology: Speech pathology received bedside swallowing evaluation orders on this patient and reviewed the chart. Per patient, he does not experience difficulty swallowing and consumes a regular diet with thin liquids. The clinician visited with the assigned RN and the patient home health care case manager. Both individuals denied the presence of swallowing difficulties including s/s of suspected aspiration. Due to this, a dysphagia screen was completed by the clinician. The patient consumed single and multiple drinks of thin liquid via straw and bites of a dry, solid cracker. Overt s/s of suspected aspiration were not present. At this time, speech pathology will discontinue the dysphagia consult orders. If difficulties arise, please re-consult speech pathology. ADWOA SON Mar 03, 2022 12:23
[2022-03-03] MEDS: SCOPOLAMINE 1.5 MG (TRANSDERM-SCOP) PATCH TD SCH (13:24)
[2022-03-03 15:35] VITALS: BP 137/74
--- NOTE | 2022-03-03 17:12 | Progress Note ---
Standard Progress Note Progress Notes/Assess & Plan Date Seen by a Provider: Mar 03, 2022 Time Seen by a Provider: 17:10 Progress/Assessment & Plan The patient was sleeping and I did not want to wake him. His heart rates have continued to improve despite the fact he had a fever again last evening. He will be observed for 1 more night in the hospital and probably transferred back to the shelter facility tomorrow. I have placed an order to have the staff get him a follow-up appointment to see me in the office in 1 month. RAMAN RAZA JR, MD Mar 03, 2022 17:12
[2022-03-03 19:31] VITALS: BP 167/82
[2022-03-03] MEDS: ALPRAZolam 0.5 MG (XANAX) TAB PO SCH (19:51)
[2022-03-03] MEDS: ACETAMINOPHEN 500 MG TAB (TYLENOL) PO PRN (19:52)
[2022-03-03] MEDS ORDERED: IBUPROFEN TABLET 200 MG TAB PO PRN (21:45)
[2022-03-03] MEDS ORDERED: IBUPROFEN TABLET 200 MG TAB PO ONE (21:50)
[2022-03-04 00:15] VITALS: BP 135/64
[2022-03-04] MEDS: RT-ALBUTEROL/IPRATROPIUM 3 ML (DUONEB) VIAL INH SCH ×3 (02:22→11:12)
[2022-03-04] MEDS: aCETylcysteine 20% (MUCOMYST) 4 ML SOLN VIAL INH SCH ×2 (02:22→07:09)
[2022-03-04 03:57] VITALS: BP 118/59
[2022-03-04] MEDS: CEFEPIME INJECTION 1,000 MG in NS (IVPB) 50 ML IV SCH ×2 (04:08→10:26)
[2022-03-04 05:46] LABS: BASOPHILS % (AUTO) 0 % (0-10); EOSINOPHILS # (AUTO) 0.2 10^3/uL (0.0-0.3); EOSINOPHILS % (AUTO) 2 % (0-10); HEMATOCRIT 34 % (40-54); HEMOGLOBIN 10.5 g/dL (13.3-17.7); LYMPHOCYTES # (AUTO) 1.2 10^3/uL (1.0-4.0); LYMPHOCYTES % (AUTO) 12 % (12-44); MEAN CORPUSCULAR HEMOGLOBIN 28 pg (25-34); MEAN CORPUSCULAR HGB CONC 31 g/dL (32-36); MEAN CORPUSCULAR VOLUME 91 fL (80-99); MEAN PLATELET VOLUME 11.2 fL (9.0-12.2); MONOCYTES # (AUTO) 0.6 10^3/uL (0.0-1.0); MONOCYTES % (AUTO) 6 % (0-12); NEUTROPHILS # (AUTO) 7.4 10^3/uL (1.8-7.8); NEUTROPHILS % (AUTO) 79 % (42-75); PLATELET COUNT 155 10^3/uL (130-400); WHITE BLOOD COUNT 9.4 10^3/uL (4.3-11.0)
[2022-03-04 05:55] LABS: ALBUMIN 2.9 GM/DL (3.2-4.5)
[2022-03-04 05:56] LABS: POTASSIUM 3.2 MMOL/L (3.6-5.0)
[2022-03-04 05:57] LABS: CALCIUM 8.8 MG/DL (8.5-10.1)
[2022-03-04 06:00] LABS: BILIRUBIN,TOTAL 0.5 MG/DL (0.1-1.0)
[2022-03-04 06:02] LABS: CREATININE SERUM 0.59 MG/DL (0.60-1.30)
[2022-03-04] MEDS: KCL 20 MEQ TAB (K-DUR) PO SCH (06:23)
[2022-03-04] MEDS: MULTIVIT W/MINERALS TAB (THERAGRAN M) PO SCH (06:23)
[2022-03-04] MEDS: RT-BUDESONIDE NEBS 0.5 MG/2ML (PULMICORT) AMP IH SCH (07:09)
[2022-03-04 08:00] VITALS: BP 134/70
--- NOTE | 2022-03-04 08:33 | Diagnostic Imaging Report ---
INDICATION: Fever. Single AP view of chest is obtained with comparison made study of 02/28/2022. FINDINGS: Similar to the previous study, there is poor inspiratory results with increased density in the perihilar regions bilaterally. No pneumothorax is identified. Tracheostomy tube remains in stable position. IMPRESSION: Hypoventilation with perihilar densities likely related to atelectasis with possible superimposed edema or pneumonitis. Otherwise, there is no evidence of lobar consolidation or other adverse change. Dictated by: Dictated on workstation # [id number]
[2022-03-04] MEDS: LACTOBACILLUS ACIDOPHILUS (PROBIOTIC) CAPSULE PO SCH (08:52)
[2022-03-04] MEDS: PREGABALIN 150 MG (LYRICA) CAPSULE PO SCH (08:52)
[2022-03-04] MEDS: meTOprolol TARTRATE 25 MG (LOPRESSOR) TABLET PO SCH (08:52)
[2022-03-04] MEDS: FERROUS SULF 325 MG (IRON) TAB PO SCH (08:52)
[2022-03-04] MEDS: FAMOTIDINE 20 MG (PEPCID) TABLET PO SCH (08:52)
[2022-03-04] MEDS: CHLORHEXIDINE 0.12% SOLN 15 ML (PERIDEX) UDC MM SCH (08:52)
[2022-03-04] MEDS: DOCUSATE SODIUM 100 MG (COLACE) CAP PO SCH (08:52)
[2022-03-04] MEDS: APIXABAN 5 MG (ELIQUIS) TABLET PO SCH (08:52)
[2022-03-04] MEDS: SERTRALINE 50 MG (ZOLOFT) TABLET PO SCH (08:52)
[2022-03-04] MEDS: AMIODARONE 200 MG (CORDARONE) TAB PO SCH (08:53)
[2022-03-04] MEDS ORDERED: AMIO200T65 PO (10:53)
[2022-03-04] MEDS ORDERED: CEFD300C3 PO (10:53)
[2022-03-04] MEDS ORDERED: MORP100S7 PO (10:53)
[2022-03-04] MEDS ORDERED: LORA2ORA PO (10:53)
[2022-03-04] MEDS ORDERED: POTA-169 PO (10:53)
--- NOTE | 2022-03-04 11:03 | Discharge Summary ---
Discharge Summary Hospital Course Was the Problem List Reviewed?: Yes Problems/Dx: (1) Sinus tachycardia (2) Troponin level elevated (3) Paroxysmal atrial fibrillation (4) Primary hypertension Hospital Course Date of Admission: Feb 27, 2022 at 20:39 Admission Diagnosis : Family Physician/Provider: No,Local Physician Date of Discharge: 03/04/22 Discharge Diagnosis: UTI, respiratory failure acute on chronic, atrial fibrillation with rapid ventricular response Hospital Course: Pt had an uneventful hospital course for 6 days when he was admitted for UTI and early pneumonia. He was placed on appropriate antibiotics. He had an episode of extreme tachycardia. He did not wish to be transferred to the ICU for any drips. He was placed on appropriate medication by cardiology. Overall he has such a poor quality of life and did not wish for any intensive care management in the future. He was deemed a hospice candidate that would be signed up for him to be a do not hospitalize pt and for us to focus on comfort. Labs and Pending Lab Test: Laboratory Tests 03/04/22 05:28: White Blood Count 9.4, Red Blood Count 3.79L, Hemoglobin 10.5L, Hematocrit 34L, Mean Corpuscular Volume 91, Mean Corpuscular Hemoglobin 28, Mean Corpuscular Hemoglobin Concent 31L, Red Cell Distribution Width 15.0H, Platelet Count 155, Mean Platelet Volume 11.2, Immature Granulocyte % (Auto) 1, Neutrophils (%) (Auto) 79H, Lymphocytes (%) (Auto) 12, Monocytes (%) (Auto) 6, Eosinophils (%) ( Auto) 2, Basophils (%) (Auto) 0, Neutrophils # (Auto) 7.4, Lymphocytes # (Auto) 1.2, Monocytes # (Auto) 0.6, Eosinophils # (Auto) 0.2, Basophils # (Auto) 0.0, Immature Granulocyte # (Auto) 0.1, Sodium Level 140, Potassium Level 3.2L, C hloride Level 106, Carbon Dioxide Level 22, Anion Gap 12, Blood Urea Nitrogen 13, Creatinine 0.59L, Estimat Glomerular Filtration Rate 107, BUN/Creatinine Ratio 22, Glucose Level 227H, Calcium Level 8.8, Corrected Calcium 9.7, Total Bilirubin 0.5, Aspartate Amino Transf (AST/SGOT) 12, Alanine Aminotransferase (ALT/SGPT) 16, Alkaline Phosphatase 55, Total Protein 6.0L, Albumin 2.9L Microbiology 02/27/22 Blood Culture - Preliminary, Resulted No growth 02/27/22 Urine Culture - Final, Complete Mixed Bacterial Kathryn Proteus species See Comments Home Meds Active Cefdinir 300 Mg Capsule 300 Mg PO BID Lorazepam Intensol (Lorazepam) 2 Mg/1 Ml Oral.conc 0.5 Mg PO Q2H PRN Morphine Conc. 20mg/ml (Morphine Sulfate) 100 Mg/5 Ml Solution 5 Mg PO Q2H PRN Klor-Con M20 (Potassium Chloride) 20 Meq Tab.er.prt 20 Meq PO DAILY@0700 Amiodarone HCl 200 Mg Tablet 100 Mg PO DAILY Reported Budesonide 0.5 Mg/2 Ml Ampul.neb 0.5 Mg IH BID Perforomist (Formoterol Fumarate) 20 Mcg/2 Ml Vial.neb 20 Mcg IH BID Carboxymethylcellulose Sodium 15 Ml Drops 2 Drops OU Q2H PRN Tylenol (Acetaminophen) 325 Mg Tablet 650 Mg PO Q4H PRN Pregabalin 150 Mg Capsule 300 Mg PO BID TAKES 2 (150MG) CAPS Bactrim Ds Tablet (Sulfamethoxazole/Trimethoprim) 1 Each Tablet 1 Each PO BID FIRST DOSE 02-25-2022 #14/7 DAY SUPPLY Oxycodone-Acetaminophen 5-325 (Oxycodone HCl/Acetaminophen) 1 Each Tablet 1 Each PO TID Topicaine (Lidocaine) 113 Gm Gel..gram. 1 Applic TP TID PRN Cortaid (Hydrocortisone) 42 Gm Cream..g. 1 Appful TP Q4H PRN APPLY TO HANDS Miralax (Polyethylene Glycol 3350) 17 Gm Powd.pack 17 Gm PO DAILY PRN Lubricant Pm Eye Ointment (Mineral Oil/Petrolatum,White) 3.5 Gm Oint...g. 1 Applic OU Q2H PRN Mucinex (Guaifenesin) 600 Mg Tab.er.12h 600 Mg PO Q12H PRN Peridex (Chlorhexidine Gluconate) 473 Ml Mouthwash 15 Ml MM BID Metoprolol Tartrate 25 Mg Tablet 25 Mg PO BID HOLD FOR SBP <100 OR PULSE <60, NOTIFY PCP IF HELD FOR 3 CONSECUTIVE DAYS Levetiracetam 500 Mg Tablet 1,000 Mg PO BID TAKES 2 (500MG) TABS Famotidine 20 Mg Tablet 20 Mg PO BID Eliquis (Apixaban) 5 Mg Tablet 5 Mg PO BID Docusate Sodium 100 Mg Capsule 100 Mg PO BID Acidophilus-Pectin Capsule (Lactobacillus Acidophilus/Pect) 1 Each Capsule 1 Each PO BID Sertraline HCl 50 Mg Tablet 50 Mg PO DAILY Transderm-Scop (Scopolamine) 1 Each Patch.td72 1 Each TD Q72H Multivitamin 1 Each Tablet 1 Each PO DAILY Iron (Ferrous Sulfate) 325 Mg Tablet 325 Mg PO DAILY Amiodarone HCl 200 Mg Tablet 200 Mg PO DAILY HOLD FOR SBP <100 OR PULSE <60, NOTIFY PCP IF HELD FOR 3 CONSECUTIVE DAYS Glucose Gel (Dextrose) 38 Gm Gel..gram. 15 Gm PO UD PRN Glucagon Emergency Kit (Glucagon HCl) 1 Mg Vial 1 Mg IJ UD PRN Iprat-Albut 0.5-3(2.5) mg/3 ml (Ipratropium/Albuterol Sulfate) 3 Ml Ampul.neb 3 Ml IH Q6H PRN Alprazolam 0.5 Mg Tablet 0.5 Mg PO HS Assessment/Pt Instructions Patient needs hospice enrollment and do not hospitalize order Discharge Planning: <30 minutes discharge planning Discharge Instructions Discharge Diet: No Restrictions Activity as Tolerated: Yes Discharge Physical Examination Vital Signs Vital Signs Date Time Temp Pulse Resp B/P (MAP) Pulse Ox O2 Delivery O2 Flow Rate FiO2 03/04/22 08:00 36.6 97 18 134/70 (91) 96 Trach Collar 10.00 03/04/22 07:21 28 General Appearance: No Apparent Distress, WD/WN, Chronically ill Allergies: Coded Allergies: COVID-19 vaccine, mRNA, [id number], L (Verified Allergy, Severe, 10/06/21) Discharge Summary Date of Admission Feb 27, 2022 at 20:39 Date of Discharge Discharge Date: Mar 04, 2022 Admission Diagnosis Sepsis secondary to UTI- febrile and tachycardic on admit but without end organ dysfunction, hypotension or lactic acidosis, started on ceftriaxone for suspected UTI; however this morning has acute worsening. Recheck lactic acid, CBC, CMP and procalcitonin, change antibiotics to cefepime due to history of pseudomonas in sputum. Acute on chronic respiratory insufficiency with tracheostomy- reportedly not on supplemental oxygen at baseline, requiring 4 lpm today, this morning having increased work of breathing and mucous plugging. RT suctioning, start mucomyst, duonebs and resume home inhaled steroid. CXR with question of atalectasis vs infiltrate, cefepime as above, repeat CXR now. Altered mental status- CT head in ER with no acute findings, alert and oriented this morning, suspect secondary to infection. Tachycardia- sinus tach on EKG, monitor on telemetry and EKG, without hypotension, in fact is hypertensive, resume home metoprolol and amiodarone, pt uncertain why he is on amiodarone and doesn't recall if he has had atrial fibrillation, but he is also on Eliquis at home. Had a run of 10-15 seconds in the 200s, consulted Cardiology, they recommend ICU, discussed with patient and he still declines and wants to continue current level of care, clarified with him that I am concerned he may have an acute arrythmia that could lead to even in the next few hours and he reiterated he did not want to be any more aggressive than we are now, including not going to the ICU. Discussed with his daughter Fabi and updated her as well. Elevated troponin- no ST elevation, minimal elevated troponin trended down to normal overnight, suspect tachycardia related. DMII- diabetic diet HTN- resume home medications HLD Guillain barre syndrome- with quadriplegia Chronic sacral decubitus ulcer- wound care consult DVT ppx- apixaban Goals of care- as noted, patient requests DNR and no ventilator and no aggressive care including ICU transfer. Discharge Diagnosis Poor prognosis We will talk about hospice No recovery expected (1) Sinus tachycardia Assessment & Plan: This was most likely due to the urinary tract infection with possible sepsis. His heart rates have improved. Continue beta-leonora. (2) Troponin level elevated Assessment & Plan: He had a borderline abnormal troponin level at the time of admission which later became undetectable. This was a probable type II non-ST elevation myocardial infarction due to the tachycardia with supply/demand mismatch. 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 He is on beta-leonora and also apixaban, presumably for a history of atrial fibrillation. These should be continued. He would not currently be a good candidate for an invasive cardiac evaluation. (3) Paroxysmal atrial fibrillation Assessment & Plan: He was on amiodarone and apixaban at the [facility] facility. I suspect somewhere along the line during the treatment for his Guillain-Hoffman syndrome at the outside facilities he may have developed atrial fibrillation. I decreased the dose of amiodarone to 100 mg daily and continued apixaban. At some point, one might consider tapering off his amiodarone completely. He will likely need to follow-up with cardiology at or we can follow him here in the long run. Since he lives here in [place], I will have my office get him a follow-up appointment to see me following discharge. (4) Primary hypertension Assessment & Plan: Blood pressure has been reasonably controlled with metoprolol which he was taking at the [facility] facility. MICHEL ARCOS DO Mar 04, 2022 11:03
--- NOTE | 2022-03-04 11:29 | Progress Note ---
CALVIN PAGAN MED STUDENT 03/04/22 1129: Progress Note Mr. Hartmann presented to the ED from [facility], for concerns of symptomatic urinary tract infection with fever. He had been having trouble with his catheter being clogged. At that time, he had previously failed outpatient antibiotic treatment. With a constellation of symptoms, including tachycardia and fever, he was septic and admitted for further management and treatment. He was started on IV antibiotics. He had remained alert and awake and expressed wanting to be discharged. He continued to fever while on IV antibiotics. His clinical status has failed to improve. At this time, it is best for patient to return home and be placed on hospice. He has a very poor prognosis and the care provided by hospice would be invaluable to him. JUSTINA AVILES DO 03/05/22 0610: Supervisory-Addendum Brief Verification & Attestation Participated in pt care: history, MDM, physical Personally performed: exam, history, MDM, supervision of care Care discussed with: Medical Student Procedures: n/a Results interpretation: Verified all documentation Verification and Attestation of Medical Student E/M Service A medical student performed and documented this service in my presence. I reviewed and verified all information documented by the medical student and made modifications to such information, when appropriate. I personally performed the physical exam and medical decision making. Justina Aviles, Mar 05, 2022,06:10 CALVIN PAGAN MED STUDENT Mar 04, 2022 11:29 JUSTINA AVILES DO Mar 05, 2022 06:10
[2022-03-04 12:21] VITALS: BP 127/73
[2022-03-04 13:38] VITALS: BP 127/73
== END 2022-03-04 13:52 | DRG 698 ==
LOC: EDUNIT# 18:40 → ER 18:41 → 4TH 20:39
PROVIDERS: ADMIT Family Medicine; ATTEND Internal Medicine
DX: T83.511A Infection and inflammatory reaction due to indwelling urethral catheter, initial encounter (principal); G82.50 Quadriplegia, unspecified; A41.9 Sepsis, unspecified organism; J96.20 Acute and chronic respiratory failure, unspecified whether with hypoxia or hypercapnia; I21.A1 Myocardial infarction type 2; Z93.0 Tracheostomy status; N39.0 Urinary tract infection, site not specified; Z66 Do not resuscitate; Z20.822 Contact with and (suspected) exposure to COVID-19; T17.990A Other foreign object in respiratory tract, part unspecified in causing asphyxiation, initial encounter; R00.0 Tachycardia, unspecified; L89.159 Pressure ulcer of sacral region, unspecified stage; E11.9 Type 2 diabetes mellitus without complications; F32.A Depression, unspecified; D64.9 Anemia, unspecified; D69.6 Thrombocytopenia, unspecified; I48.0 Paroxysmal atrial fibrillation; I10 Essential (primary) hypertension; E78.00 Pure hypercholesterolemia, unspecified; F41.0 Panic disorder [episodic paroxysmal anxiety]; E11.40 Type 2 diabetes mellitus with diabetic neuropathy, unspecified; K59.00 Constipation, unspecified; G40.909 Epilepsy, unspecified, not intractable, without status epilepticus; Z79.4 Long term (current) use of insulin; Z79.01 Long term (current) use of anticoagulants; Z88.7 Allergy status to serum and vaccine
CPT/HCPCS: 36415; 70450; 71045; 80053; 81000; 82728; 83540; 83550; 83605; 83880; 84145; 84443; 84484; 85007; 85025; 85045; 85055; 85610; 85730; 86141; 87040; 87088; 87636; 93005; 93306; 94640; 94760; 94799

== ENCOUNTER 2022-11-21 03:36 | Inpatient (IN) | payer MEDICARE, MEDICAID ==
[~2022-11-21] VITALS: Ht 180.3 cm; Wt 92.9 kg
[~2022-11-21 03:36] MED LIST changes: +ACET325T38 PO; +ALBU8.5H6 IH; +BUDE0.5A IH; +CARB-270 OU; +LORA2ORA PO; +MORP100S7 PO; +OXYC1TAB11 PO; +POTA-169 PO; +PREG150C46 PO; -RT-ALBUINH IH; +SULF1TAB38 PO
[2022-11-21] MEDS ORDERED: PROPOFOL DRIP (ICU) 100 ML IV ONE (03:50)
[2022-11-21] MEDS ORDERED: NS IV 1000 ML 1,000 ML ONE (03:50)
[2022-11-21 03:55] LABS: HEMATOCRIT 48 % (40-54); MEAN CORPUSCULAR HEMOGLOBIN 28 pg (25-34); MEAN CORPUSCULAR HGB CONC 31 g/dL (32-36); MEAN CORPUSCULAR VOLUME 90 fL (80-99); PLATELET COUNT 387 10^3/uL (130-400); WHITE BLOOD COUNT 12.3 10^3/uL (4.3-11.0)
[2022-11-21 03:56] LABS: ABG BASE EXCESS 5.3 MMOL/L (-2.5-2.5); ABG OXYGEN SATURATION 99 % (94-100); ABG PO2 159 MMHG (79-93); ABG TCO2 36.3 MMOL/L (21.0-31.0)
--- NOTE | 2022-11-21 03:57 | ED General ---
General Chief Complaint: Respiratory Problems Stated Complaint: POST CODE Source of Information: EMS Exam Limitations: Physical Impairments History of Present Illness Date Seen by Provider: Nov 21, 2022 Time Seen by Provider: 03:40 Initial Comments 67-year-old male brought to the emergency room by EMS after correction staff reportedly found the patient with a low pulse and low oxygen. They called and stated that he had "3 rounds" of CPR. Unclear as to whether or not this was epi and compressions or just compressions. EMS reports that he was poorly responsive, poor respiratory effort in route. Blood sugar in the 200 range. No other history of the events immediately preceding the call. Medical record from the correction states the patient has a history of functional quadriplegia, previous tracheostomy, A. fib on Eliquis, previous stroke and DM. He is listed as a "full code". He was able to give one-word answers immediately on arrival and consented to intubation if necessary. He was able to say that his chest hurt and give his first name. Hypertensive 160s/170s heart rate in the 140s. Profusely diaphoretic and pale. End-tidal was placed and read in the upper 60s. IV established on arrival. Staff preparing for intubation. Timing/Duration: 1 Hour Severity: Severe Associated Systoms: Chest Pain Allergies and Home Medications Allergies Coded Allergies: COVID-19 vaccine, mRNA, [id number], L (Verified Allergy, Severe, 10/06/21) Patient Home Medication List Home Medication List Reviewed: Yes Acetaminophen (Tylenol) 325 Mg Tablet, 650 MG PO Q4H PRN for PAIN-MILD (1-4) OR TEMPATURE, (Reported) Entered as Reported by: SATYA LA on 02/28/22927 Last Action: Continued Apixaban (Eliquis) 5 Mg Tablet, 5 MG PO BID, (Reported) Entered as Reported by: SATYA LA on 11/05/21934 Last Action: Continued Carboxymethylcellulose Sodium (Carboxymethylcellulose Sodium) 15 Ml Drops, 2 DROPS OU Q2H PRN for DRY EYES, (Reported) Entered as Reported by: SATYA LA on 02/28/22927 Last Action: Converted Chlorhexidine Gluconate (Peridex) 473 Ml Mouthwash, 15 ML MM BID, (Reported) Entered as Reported by: SATYA LA on 11/05/21934 Last Action: Continued Ciprofloxacin HCl (Ciprofloxacin HCl) 500 Mg Tablet, 500 MG PO BID, (Reported) Entered as Reported by: SATYA LA on 11/21/221533 Last Action: Held Docusate Sodium (Docusate Sodium) 100 Mg Capsule, 200 MG PO HS, (Reported) Entered as Reported by: SATYA LA on 11/05/21934 Last Action: Continued Famotidine (Famotidine) 20 Mg Tablet, 20 MG PO HS, (Reported) Entered as Reported by: SATYA LA on 11/05/21934 Last Action: Continued Lactobacillus Acidophilus/Pect (Acidophilus-Pectin Capsule) 1 Each Capsule, 1 EACH PO BID, (Reported) Entered as Reported by: SATYA LA on 11/05/21934 Last Action: Continued Methenamine Hippurate (Hiprex) 1 Gram Tablet, 1 GM PO BID, (Reported) Entered as Reported by: SATYA LA on 11/21/221533 Last Action: Continued Metoprolol Tartrate (Metoprolol Tartrate) 25 Mg Tablet, 25 MG PO BID, (Reported) Entered as Reported by: SATYA LA on 11/05/21934 Last Action: Continued Mineral Oil/Petrolatum,White (Lubricant Pm Eye Ointment) 3.5 Gm Oint...g., 1 APPLIC OU Q2H PRN for DRY EYES, (Reported) Entered as Reported by: SATYA LA on 11/05/21934 Last Action: Converted Multivitamin (Multivitamin) 1 Each Tablet, 1 EACH PO DAILY, (Reported) Entered as Reported by: SATYA LA on 11/05/21934 Last Action: Converted Polyethylene Glycol 3350 (Miralax) 17 Gm Powd.pack, 17 GM PO DAILY PRN for CONSTIPATION-2ND LINE, (Reported) Entered as Reported by: SATYA LA on 11/05/21934 Last Action: Continued Pregabalin (Pregabalin) 150 Mg Capsule, 300 MG PO BID, (Reported) Entered as Reported by: SATYA LA on 02/28/22927 Last Action: Continued Sertraline HCl (Sertraline HCl) 50 Mg Tablet, 50 MG PO DAILY, (Reported) Entered as Reported by: SATYA LA on 11/05/21934 Last Action: Continued Discontinued Medications Alprazolam (Alprazolam) 0.5 Mg Tablet, 0.5 MG PO HS, (Reported) Discontinued Reason: No Longer Taking Entered as Reported by: SATYA LA on 11/05/21934 Last Action: Discontinued Amiodarone HCl (Amiodarone HCl) 200 Mg Tablet, 100 MG PO DAILY Discontinued Reason: No Longer Taking Prescribed by: MICHEL ARCOS on 03/04/221052 Last Action: Discontinued Budesonide (Budesonide) 0.5 Mg/2 Ml Ampul.neb, 0.5 MG IH BID, (Reported) Discontinued Reason: No Longer Taking Entered as Reported by: SATYA LA on 02/28/22927 Last Action: Discontinued Cefdinir (Cefdinir) 300 Mg Capsule, 300 MG PO BID Discontinued Reason: No Longer Taking Prescribed by: MICHEL ARCOS on 03/04/221052 Last Action: Discontinued Dextrose (Glucose Gel) 38 Gm Gel..gram., 15 GM PO UD PRN for HYPOGLYCEMIA, (Reported) Discontinued Reason: No Longer Taking Entered as Reported by: SATYA LA on 11/05/21934 Last Action: Discontinued Doxycycline Hyclate (Doxycycline Hyclate) 100 Mg Tablet, 100 MG PO BID Discontinued Reason: No Longer Taking Prescribed by: CLARA CARLSON on 03/07/22 3616 Last Action: Discontinued Ferrous Sulfate (Iron) 325 Mg Tablet, 325 MG PO DAILY, (Reported) Discontinued Reason: No Longer Taking Entered as Reported by: SATYA LA on 11/05/21934 Last Action: Discontinued Formoterol Fumarate (Perforomist) 20 Mcg/2 Ml Vial.neb, 20 MCG IH BID, (Reported) Discontinued Reason: No Longer Taking Entered as Reported by: SATYA LA on 02/28/22927 Last Action: Discontinued Glucagon HCl (Glucagon Emergency Kit) 1 Mg Vial, 1 MG IJ UD PRN for GLUCOSE LESS THAN 70, (Reported) Discontinued Reason: No Longer Taking Entered as Reported by: SATYA LA on 11/05/21934 Last Action: Discontinued Guaifenesin (Mucinex) 600 Mg Tab.er.12h, 600 MG PO Q12H PRN for CONGESTION, (Reported) Discontinued Reason: No Longer Taking Entered as Reported by: SATYA LA on 11/05/21934 Last Action: Discontinued Hydrocortisone (Cortaid) 42 Gm Cream..g., 1 APPFUL TP Q4H PRN for RASH, (Reported) Discontinued Reason: No Longer Taking Entered as Reported by: SATYA LA on 11/05/21934 Last Action: Discontinued Ipratropium/Albuterol Sulfate (Iprat-Albut 0.5-3(2.5) mg/3 ml) 3 Ml Ampul.neb, 3 ML IH Q6H PRN for SHORTNESS OF BREATH, (Reported) Discontinued Reason: No Longer Taking Entered as Reported by: SATYA LA on 11/05/21934 Last Action: Discontinued Levetiracetam (Levetiracetam) 500 Mg Tablet, 1,000 MG PO BID, (Reported) Discontinued Reason: No Longer Taking Entered as Reported by: SATYA LA on 11/05/21934 Last Action: Discontinued Lidocaine (Topicaine) 113 Gm Gel..gram., 1 APPLIC TP TID PRN for WOUND PAIN, (Reported) Discontinued Reason: No Longer Taking Entered as Reported by: SATYA LA on 11/05/21934 Last Action: Discontinued Lorazepam (Lorazepam Intensol) 2 Mg/1 Ml Oral.conc, 0.5 MG PO Q2H PRN for AGITATION Discontinued Reason: No Longer Taking Prescribed by: MICHEL ARCOS on 03/04/221053 Last Action: Discontinued Morphine Sulfate (Morphine Conc. 20mg/ml) 100 Mg/5 Ml Solution, 5 MG PO Q2H PRN for PAIN Discontinued Reason: No Longer Taking Prescribed by: MICHEL ARCOS on 03/04/221053 Last Action: Discontinued Oxycodone HCl/Acetaminophen (Oxycodone-Acetaminophen 5-325) 1 Each Tablet, 1 EACH PO TID, (Reported) Discontinued Reason: No Longer Taking Entered as Reported by: SATYA LA on 02/28/22927 Last Action: Discontinued Potassium Chloride (Klor-Con M20) 20 Meq Tab.er.prt, 20 MEQ PO DAILY@0700 Discontinued Reason: No Longer Taking Prescribed by: MICHEL ARCOS on 03/04/221052 Last Action: Discontinued Scopolamine (Transderm-Scop) 1 Each Patch.td72, 1 EACH TD Q72H, (Reported) Discontinued Reason: No Longer Taking Entered as Reported by: SATYA LA on 11/05/21 0920 Last Action: Discontinued Review of Systems Review of Systems Constitutional: see HPI HPI and ROS unobtainable due to patient condition. Past Cidaxre-Vpxomy-Hoftth Hx Immunizations Up To Date First/Initial COVID19 Vaccinat: YES, UNK Second COVID19 Vaccination Alexis: NA Third COVID19 Vaccination Date: NA Seasonal Allergies Seasonal Allergies: No Past Medical History Surgery/Hospitalization HX: G.B. 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 PT TRANSFERRED TO , AND HAD TRACHEOSTOMY PLACED PT THEN TRANSFERRED TO [facility] IN [place]; PT WAS HOSPITALIZED AT [facility] FOR SACRAL DECUBITUS ULCERS PT EVENTUALLY WENT BACK TO [facility], AND THEN WAS TRANSFERRED TO [facility] ON 09/30/21 WITH PERSISTENT QUADRIPLEGIA AND TRACHEOSTOMY, NO LONGER VENTILATOR DEPENDENT OR REQUIRING SUPPLEMENTAL OXYGEN PRIOR TO DEVELOPING GUILLAIN BARRE, PT DID NOT HAVE A DR, WAS UNAWARE OF ANY MEDICAL PROBLEMS AND DID NOT TAKE ANY MEDICATIONS. Physical Exam Vital Signs Vital Signs - First Documented 11/21/22 11/21/22 03:37 04:24 Temp 35.8 Pulse 144 Resp 22 B/P (MAP) 152/116 (128) Pulse Ox 100 O2 Delivery OxyMask O2 Flow Rate 15.00 FiO2 100 Capillary Refill : Height, Weight, BMI Height: 5'11.00" Weight: 230lbs. oz. 104.471391nf; 25.00 BMI Method:Stated General Appearance: Chronically ill Eyes: Bilateral Eye Normal Inspection, Bilateral Eye PERRL HEENT: PERRL/EOMI Neck: Other (pin hole tracheostomy site; no significant secretions observed) Respiratory: Decreased Breath Sounds, Other (poor resp effort; short shallow resps) Cardiovascular: Irregularly Irregular, Tachycardia (160) Gastrointestinal: Soft Extremity: No Normal Range of Motion; Pedal Edema (trace ankles bilaterally (left slightly more than right)), Slow Capillary Refill ((pallor)) Neurologic/Psychiatric: Other (poor responsiveness; 1 word answers - not moving extremities ) Skin: Damp, Diaphoresis, Pallor Progress/Results/Core Measures Suspected Sepsis SIRS Temperature: Pulse: Respiratory Rate: Laboratory Tests 11/21/22 03:44: White Blood Count 12.3H Blood Pressure / Mean: Laboratory Tests 11/21/22 03:44: Creatinine 0.76, Platelet Count 387, Total Bilirubin 0.2 Results/Orders Lab Results Laboratory Tests Test 11/21/22 03:44 11/21/22 03:51 Range/Units White Blood Count 12.3 H 4.3-11.0 10^3/uL Red Blood Count 5.33 4.30-5.52 10^6/uL Hemoglobin 15.0 13.3-17.7 g/dL Hematocrit 48 40-54 % Mean Corpuscular Volume 90 80-99 fL Mean Corpuscular Hemoglobin 28 25-34 pg Mean Corpuscular Hemoglobin Concent 31 L 32-36 g/dL Red Cell Distribution Width 13.2 10.0-14.5 % Platelet Count 387 130-400 10^3/uL Mean Platelet Volume 10.0 9.0-12.2 fL Sodium Level 137 135-145 MMOL/L Potassium Level 4.7 3.6-5.0 MMOL/L Chloride Level 98 98-107 MMOL/L Carbon Dioxide Level 27 21-32 MMOL/L Anion Gap 12 5-14 MMOL/L Blood Urea Nitrogen 15 7-18 MG/DL Creatinine 0.76 0.60-1.30 MG/DL Estimat Glomerular Filtration Rate 99 BUN/Creatinine Ratio 20 Glucose Level 322 H 70-105 MG/DL Calcium Level 9.5 8.5-10.1 MG/DL Corrected Calcium 9.7 8.5-10.1 MG/DL Magnesium Level 2.0 1.6-2.4 MG/DL Total Bilirubin 0.2 0.1-1.0 MG/DL Aspartate Amino Transf (AST/SGOT) 51 H 5-34 U/L Alanine Aminotransferase (ALT/SGPT) 50 0-55 U/L Alkaline Phosphatase 75 40-136 U/L Troponin I < 0.028 <0.028 NG/ML Total Protein 7.6 6.4-8.2 GM/DL Albumin 3.8 3.2-4.5 GM/DL Procalcitonin 0.04 <0.10 NG/ML Blood Gas Puncture Site RRAD Blood Gas Patient Temperature 37 Arterial Blood pH 7.18 *L 7.37-7.43 Arterial Blood Partial Pressure CO2 94 *H 35-45 MMHG Arterial Blood Partial Pressure O2 159 H 79-93 MMHG Arterial Blood HCO3 33 H 23-27 MMOL/L Arterial Blood Total CO2 36.3 H 21.0-31.0 MMOL/L Arterial Blood Oxygen Saturation 99 94-100 % Arterial Blood Base Excess 5.3 H -2.5-2.5 MMOL/L Abdias Test YES-POS Blood Gas Ventilator Setting NO Blood Gas Inspired Oxygen 15L Micro Results Microbiology 11/21/22 Blood Culture - Preliminary, Resulted No growth My Orders Orders - CALVIN SMALL MD Ekg Tracing (11/21/22 03:45) Cbc No Diff (11/21/22 03:47) Comprehensive Metabolic Panel (11/21/22 03:47) Troponin I Joselin (11/21/22 03:47) Magnesium (11/21/22 03:47) Arterial Blood Gas (11/21/22 03:47) Ns Iv 1000 Ml (Sodium Chloride 0.9%) (11/21/22 03:50) Chest 1 View, Ap/Pa Only (11/21/22 03:57) Diltiazem Injection (Cardizem Injection) (11/21/22 04:00) Diltiazem Drip Pre-Mix (Cardizem Drip Pr (11/21/22 04:45) Covid 19 Inhouse Test (11/21/22 04:51) Catheter(Urinary) Insert & Ass 03,15 (11/21/22 04:51) Influenza A And B By Pcr (11/21/22 04:51) Isolation Central Supply Req (11/21/22 04:51) Lidocaine 2% (Urojet) (Xylocaine Urojet) (11/21/22 05:00) Medications Given in ED Vital Signs/I&O 11/21/22 11/21/22 11/21/22 11/21/22 03:37 03:37 04:03 04:24 Temp 35.8 Pulse 144 137 Resp 22 B/P (MAP) 152/116 (128) Pulse Ox 100 O2 Delivery OxyMask OxyMask Vapotherm O2 Flow Rate 15.00 15.00 40.00 FiO2 100 Capillary Refill : Progress Note #1: Time: 04:11 Progress Note Patient is looking much better, heart rate is down to 100 - 110 still A. fib - after 10mg IV cardizem. pressure 95 systolic. He is on Vapotherm. End-tidal improved from upper 60s down to low 30s thus prompting us to not intubate. He is not a candidate for Bipap due to trach stoma. He is tracking everyone around the room a lot more alert at this point. He is able to answer all questions and his full name. Per review of records from the correction the patient does have a seizure disorder. He is getting IV fluids, warm NS, at this point warm blankets for his core temp of 35. I'm wondering if he possibly had a seizure and was post ictal when staff found him? Now that he is more alert, no complaints of chest pain. VS continue to improve. 0427 ABG shows that he is sugnificantly hypercapneic, acidotic. Tolerationg the vapotherm well. Will admit to [facility] doc collect on delivery clerk, Dr Thompson to ICU. Progress Note #2: Time: 05:04 Progress Note Patient even more alert at this time, saying hes "ready to get out of here". HR now 128 Afib; pressure still good (sys 120); tolerating vapo well - RADHA Garner getting repeat ABG ECG Initial ECG Impression Date: Nov 21, 2022 Initial ECG Impression Time: 03:49 Initial ECG Rate: 133 Initial ECG Rhythm: A Fib/Flutter Comment Afib with RVR; q waves septal; no ST elevation or depression Diagnostic Imaging Diagonstic Imaging: Xray Plain Films/CT/US/NM/MRI: chest Comments poor inspiratory effort; no obvious large effusion or infiltrate Critical Care Note Critical Care Start Time: 03:40 Stop Time: 05:05 Total Time (minutes) 30 minutes critical care time in the evaluation and management of this patient with acute respiratory failure. Time includes initial evaluation, review of medical record, management of hypoxia with oxygen supplementation/Vapotherm. Review and interpretation of labs, imaging, discussion with admitting provider and ICU business transformation consultant frequent reevaluations of the patient Departure Communication (Admissions) Time/Spoke to Admitting Phy: 04:[address] Thompson Time/Spoke to Consulting Phy: 04:45 e-ICU Impression Primary Impression: Acute hypercapnic respiratory failure Disposition: ADMITTED INPATIENT Condition: Improved Admissions Decision to Admit Reason: Admit from ER (General) Decision to Admit/Date: Nov 21, 2022 Time/Decision to Admit Time: 04:22 Departure-Patient Inst. Referrals: NO,LOCAL PHYSICIAN (PCP/Family) Primary Care Physician CALVIN SMALL MD Nov 21, 2022 03:57
[2022-11-21 04:08] LABS: ALBUMIN 3.8 GM/DL (3.2-4.5); CHLORIDE 98 MMOL/L (98-107); POTASSIUM 4.7 MMOL/L (3.6-5.0); SODIUM 137 MMOL/L (135-145)
[2022-11-21 04:09] LABS: CALCIUM 9.5 MG/DL (8.5-10.1)
[2022-11-21 04:10] LABS: GLUCOSE 322 MG/DL (70-105)
[2022-11-21 04:11] LABS: TOTAL PROTEIN 7.6 GM/DL (6.4-8.2)
[2022-11-21 04:12] LABS: BILIRUBIN,TOTAL 0.2 MG/DL (0.1-1.0); CARBON DIOXIDE 27 MMOL/L (21-32)
[2022-11-21 04:14] LABS: ALKALINE PHOSPHATASE 75 U/L (40-136); CREATININE SERUM 0.76 MG/DL (0.60-1.30); GFR ESTIMATED 99
[2022-11-21 04:15] LABS: ABG PCO2 94 MMHG (35-45); ABG PH 7.18 (7.37-7.43); ALLENS TEST YES-POS
[2022-11-21 04:15] LABS: BUN/CREATININE RATIO 20
[2022-11-21 04:16] LABS: INSPIRED O2 15L; PATIENT TEMP 37; VENTILATOR NO
[2022-11-21 04:17] LABS: ALANINE AMINOTRANSFERASE 50 U/L (0-55)
[2022-11-21] MEDS ORDERED: dilTIAZem DRIP PRE-MIX 125 ML IV SCH (04:45)
[2022-11-21] MEDS ORDERED: LIDOCAINE UROJET 2% GEL 10 ML PKG TOP ONE (05:00)
--- NOTE | 2022-11-21 05:12 | Tele-ICU Progress Note ---
Subjective Date Seen by a Provider: Nov 21, 2022 Subjective/Events-last exam This virtual visit was conducted using real time audio/video. Thank you for asking us to see this patient for respiratory insufficiency due to probable AECOPD. Recent events: Sent from [place] with resp distress, afib/RVR. 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 HR 100-110 afib O2 sat 100% on vapotherm. HEENT: No obvious masses, adenopathy or JVD. Chest: clear to auscultation. CV: Irreg S1 S2 No murmur or added sounds. Abd: Non-tender. Bowel sounds Y. : Unremarkable. Samano N. MAMMOGRAPHY TECH/psychiatric: Grossly intact. No obvious focal findings. Extremities: Trace edema. Capillary refill < 3 seconds. Skin: unremarkable. Results: Elevated WCC 12.3, BG 322. AB.18/94/159 on 15 LPM.. CXR: Hyperinflated, poor quality, no obvious infilt. Available chart/ vitals / labs / images reviewed. Video assessment done using teleICU camera, rest of exam as per RN. A/P: Respiratory insufficiency: Continue present management with Vapotherm. Occlude residual small stoma if BiPAP required. Will add PRN Duonebs. Monitor for increasing oxygenation needs and/or need for intubation. Critical Care: critically ill patient. Cont. Cardizem. Restart Eliquis. Discussed with RADHA Londono and ER MD Dr. Durham. Asked RN to reach out to eICU if any questions or concerns later. Time spent with patient/coordination of care with other health professionals (mins): 24 Sepsis Event Evaluation Height, Weight, BMI Height: 5'11.00" Weight: 230lbs. oz. 104.688073tw; 25.00 BMI Method:Stated Exam Exam Patient acknowledged, consented, and participated in this virtual visit which was conducted using real time audio/video Vital Signs Date Time Temp Pulse Resp B/P (MAP) Pulse Ox O2 Delivery O2 Flow Rate FiO2 11/21/22 04:24 Vapotherm 40.00 100 11/21/22 04:03 137 11/21/22 03:37 35.8 144 22 152/116 (128) 100 OxyMask 15.00 11/21/22 03:37 OxyMask 15.00 I & O 11/21/22 07:00 Intake Total 1000 ml Balance 1000 ml Height & Weight Height: 5'11.00" Weight: 230lbs. oz. 104.169078qw; 25.00 BMI Method:Stated General Appearance: Chronically ill Neck: Other (pin hole tracheostomy site; no significant secretions observed) Respiratory: Decreased Breath Sounds, Other (poor resp effort; short shallow resps) Cardiovascular: Irregularly Irregular, Tachycardia (160) Capillary Refill: Less Than 3 Seconds Extremity: No Pedal Edema Neurologic/Psychiatric: Other (poor responsiveness; 1 word answers - not moving extremities ) Skin: Damp, Diaphoresis, Pallor Results Lab Laboratory Tests 11/21/22 03:44 Assessment/Plan Assessment/Plan See free text. Critical Care: Critically Ill Patient ABDULKADIR BEAR MD Nov 21, 2022 05:12
[2022-11-21 05:13] LABS: ABG BASE EXCESS 4.9 MMOL/L (-2.5-2.5); ABG OXYGEN SATURATION 100 % (94-100); ABG PO2 233 MMHG (79-93); ABG TCO2 34.6 MMOL/L (21.0-31.0)
[2022-11-21 05:15] LABS: ABG PCO2 74 MMHG (35-45)
[2022-11-21 05:16] LABS: ALLENS TEST YES-POS; INSPIRED O2 100%; PATIENT TEMP 36; VENTILATOR NO
[2022-11-21 05:17] LABS: ABG PH 7.25 (7.37-7.43)
[2022-11-21 05:32] LABS: BILIRUBIN,URINE NEGATIVE (NEGATIVE); CLARITY,URINE SL CLOUDY; COLOR,URINE YELLOW; GLUCOSE, URINE (UA) 1+ (NEGATIVE); KETONES,URINE NEGATIVE (NEGATIVE); LEUKOCYTE ESTERASE ,URINE NEGATIVE (NEGATIVE); NITRITE,URINE NEGATIVE (NEGATIVE); PH,URINE 5.5 (5-9); PROTEIN,URINE 2+ (NEGATIVE)
[2022-11-21 06:01] LABS: BACTERIA,URINE TRACE /HPF
--- NOTE | 2022-11-21 06:25 | Diagnostic Imaging Report ---
Indication: Acute respiratory failure Portable chest 4:06 AM There is a suboptimal inspiration. Heart size and pulmonary vascularity are within normal limits. There are no infiltrates, effusions or pneumothoraces. IMPRESSION: No acute abnormalities in the chest Dictated by: Dictated on workstation # [id number]
[2022-11-21 07:33] VITALS: BP 99/88
[2022-11-21] MEDS: NS IV 1000 ML 1,000 ML IV SCH ×2 (08:19→20:28)
[2022-11-21] MEDS: dilTIAZem DRIP 125 MG/125 ML DRIP IV SCH (08:26)
[2022-11-21] MEDS: RT-ALBUTEROL SULF 2.5 MG/3 ML PRE-MIX VIAL INH SCH ×3 (09:28→19:39)
--- NOTE | 2022-11-21 10:38 | Consultation-Cardiology ---
HPI-Cardiology Cardiology Consultation Date of Consultation 11/21/22 Date of Admission Time Seen by Provider: 10:32 Indication: Syncope HPI 67-year-old gentleman with a history of Jamison Hoffman. He was found by the group home staff to be unresponsive. Patient recall being short of breath then does not have any recollection. He had low oxygen, CPR was initiated and he had 3 rounds. Regain consciousness, EMS were called and he was brought to the emergency room. No arrhythmia was detected. On my evaluation he was laying down in bed comfortably. Feeling better. Denied any chest pain, still having mild dyspnea. Patient has history of seizure and has been maintained on Keppra. Has history of atrial fibrillation and maintained on Eliquis. Blood sugar was around 200 and he has history of diabetes mellitus. Home Medications & Allergies Allergies: Coded Allergies: COVID-19 vaccine, mRNA, [id number], L (Verified Allergy, Severe, 10/06/21) Home Medication List Reviewed: Yes QZM-Ndeakr-Yvzpeo Hx Patient Social History Employed/Student: retired 2nd Hand Smoke Exposure: No Recent Hopitalizations: No Past Medical History Discussed below Family Medical History Family Medical Hx Noncontributory Review of Systems-General Review of Systems Constitutional: see HPI, malaise, weakness EENTM: see HPI Respiratory: see HPI, short of breath Cardiovascular: see HPI; No chest pain, No edema, No Hx of Intervention, No palpitations; syncope; No vascular heart diseas, No other Gastrointestinal: see HPI Genitourinary: see HPI Musculoskeletal: see HPI Reviewed Test Results Reviewed Test Results Lab Laboratory Tests Test 11/21/22 03:44 11/21/22 03:51 11/21/22 04:55 11/21/22 05:05 Range/Units White Blood Count 12.3 H 4.3-11.0 10^3/uL Red Blood Count 5.33 4.30-5.52 10^6/uL Hemoglobin 15.0 13.3-17.7 g/dL Hematocrit 48 40-54 % Mean Corpuscular Volume 90 80-99 fL Mean Corpuscular Hemoglobin 28 25-34 pg Mean Corpuscular Hemoglobin Concent 31 L 32-36 g/dL Red Cell Distribution Width 13.2 10.0-14.5 % Platelet Count 387 130-400 10^3/uL Mean Platelet Volume 10.0 9.0-12.2 fL Sodium Level 137 135-145 MMOL/L Potassium Level 4.7 3.6-5.0 MMOL/L Chloride Level 98 98-107 MMOL/L Carbon Dioxide Level 27 21-32 MMOL/L Anion Gap 12 5-14 MMOL/L Blood Urea Nitrogen 15 7-18 MG/DL Creatinine 0.76 0.60-1.30 MG/DL Estimat Glomerular Filtration Rate 99 BUN/Creatinine Ratio 20 Glucose Level 322 H 70-105 MG/DL Calcium Level 9.5 8.5-10.1 MG/DL Corrected Calcium 9.7 8.5-10.1 MG/DL Magnesium Level 2.0 1.6-2.4 MG/DL Total Bilirubin 0.2 0.1-1.0 MG/DL Aspartate Amino Transf (AST/SGOT) 51 H 5-34 U/L Alanine Aminotransferase (ALT/SGPT) 50 0-55 U/L Alkaline Phosphatase 75 40-136 U/L Troponin I < 0.028 <0.028 NG/ML Total Protein 7.6 6.4-8.2 GM/DL Albumin 3.8 3.2-4.5 GM/DL Procalcitonin 0.04 <0.10 NG/ML Blood Gas Puncture Site RRAD L RAD Blood Gas Patient Temperature 37 36 Arterial Blood pH 7.18 *L 7.25 *L 7.37-7.43 Arterial Blood Partial Pressure CO2 94 *H 74 *H 35-45 MMHG Arterial Blood Partial Pressure O2 159 H 233 H 79-93 MMHG Arterial Blood HCO3 33 H 32 H 23-27 MMOL/L Arterial Blood Total CO2 36.3 H 34.6 H 21.0-31.0 MMOL/L Arterial Blood Oxygen Saturation 99 100 94-100 % Arterial Blood Base Excess 5.3 H 4.9 H -2.5-2.5 MMOL/L Abdias Test YES-POS YES-POS Blood Gas Ventilator Setting NO NO Blood Gas Inspired Oxygen 15L 100% Influenza Type A (RT-PCR) Not Detected Not Detecte Influenza Type B (RT-PCR) Not Detected Not Detecte SARS-CoV-2 RNA (RT-PCR) Not Detected Not Detecte Test 11/21/22 05:19 11/21/22 10:07 Range/Units Urine Color YELLOW Urine Clarity SL CLOUDY Urine pH 5.5 5-9 Urine Specific [place] >=1.030 1.016-1.022 Urine Protein 2+ H NEGATIVE Urine Glucose (UA) 1+ H NEGATIVE Urine Ketones NEGATIVE NEGATIVE Urine Nitrite NEGATIVE NEGATIVE Urine Bilirubin NEGATIVE NEGATIVE Urine Urobilinogen 0.2 < = 1.0 MG/DL Urine Leukocyte Esterase NEGATIVE NEGATIVE Urine RBC (Auto) 2+ H NEGATIVE Urine RBC 2-5 H /HPF Urine WBC 5-10 H /HPF Urine Crystals NONE /LPF Urine Bacteria TRACE /HPF Urine Casts NONE /LPF Urine Mucus NEGATIVE /LPF Urine Culture Indicated NO Physical Exam Physical Exam Vital Signs Vital Signs - First Documented 11/21/22 11/21/22 03:37 04:24 Temp 35.8 Pulse 144 Resp 22 B/P (MAP) 152/116 (128) Pulse Ox 100 O2 Delivery OxyMask O2 Flow Rate 15.00 FiO2 100 Capillary Refill : Less Than 3 Seconds Height, Weight, BMI Height: 5'11.00" Weight: 230lbs. oz. 104.702126td; 25.00 BMI Method:Stated General Appearance: Chronically ill Eyes: Bilateral Eye Normal Inspection, Bilateral Eye PERRL HEENT: PERRL/EOMI Neck: Other (pin hole tracheostomy site; no significant secretions observed) Respiratory: Normal Breath Sounds, No Accessory Muscle Use, Decreased Breath Sounds, Other (poor resp effort; short shallow resps) Cardiovascular: Irregularly Irregular Gastrointestinal: Soft Extremity: No Pedal Edema Neurologic/Psychiatric: Other (poor responsiveness; 1 word answers - not moving extremities ) Skin: Damp, Diaphoresis, Pallor A/P-Cardiology Admission Diagnosis Syncope Atrial fibrillation Hypertension [place] Dalton Assessment/Plan Syncope, unknown etiology, questionable bradycardia, patient was unresponsive an d required CPR. Currently maintained on telemetry. Continue to monitor Underlying cause of syncope could be secondary to seizure versus bradycardia. Acute respiratory failure, maintained on Vapotherm. Atrial fibrillation, persistent. Rate controlled. Continue to monitor and continue on oral anticoagulation 2D echocardiogram was done in February 2022 with normal left ventricular size, ejection fraction 65 to 70%, aortic valve sclerosis, no stenosis. 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
--- NOTE | 2022-11-21 11:01 | History & Physical-Hospitalist ---
History of Present Illness HPI/Chief Complaint Chief complaint: Acute on chronic respiratory failure HPI: This is a 67-year-old complicated male half-way patient of [facility] who has a past medical history of Guillain-Hoffman presumably from COVID-vaccine who presents to the ICU status post BiPAP dependence due to acute on chronic respiratory failure and severe hypercapnia. Apparently he had a seizure-like activity episode at the half-way prompted chest compressions although no loss of pulse was noted and he was transported to the ER found to have severe hypercapnia likely causing the seizure-like activity. He is currently off BiPAP but having atrial fibrillation with RVR requiring diltiazem drip. Currently he is doing much better but appears to be very chronically ill. January 2021 - received covid vaccine February 2021 - admitted for guillian barre, possibly 2/2 covid vaccine. minimal movement of all 4 extremities. [facility] placed trach. Transferred to [facility] for PT. Transferred to [facility] [place]. 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 Patients Allergies have been reviewed. Allergies Allergies Coded Allergies COVID-19 vaccine, mRNA, [id number], L (Verified Allergy, Severe, 10/06/21) Past Gmnsoct-Vkvobl-Nrdzxx Hx Patient Social History Marrital Status: single Employed/Student: retired Smoking Status: Former Smoker Immunizations Up To Date First/Initial COVID19 Vaccinat: YES, UNK Second COVID19 Vaccination Alexis: NA Tetanus Booster (TDap): Less Than 5 Years Hepatitis A: No Hepatitis B: No Seasonal Allergies Seasonal Allergies: No Current Status Primary Language: Hungarian Preferred Spoken Language: Hungarian Is interpretation needed?: No Past Medical History Surgeries: Appendectomy, Tracheostomy Pneumonia, COPD High Cholesterol, Hypertension, Syncope Neuropathy, Paralysis, Seizure Disorder Diabetes, Insulin dep Depression Blood Disorders: No Adverse Reaction/Blood Tranf: No PMHx: Guillain [place] with quadriplegia Tracheostomy in place DMII Asthma HLD HTN SurgHx: Tracheostomy Appendectomy Carpal tunnel release Family Medical History 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 PT TRANSFERRED TO , AND HAD TRACHEOSTOMY PLACED PT THEN TRANSFERRED TO [facility] IN [place]; PT WAS HOSPITALIZED AT [facility] FOR SACRAL DECUBITUS ULCERS PT EVENTUALLY WENT BACK TO [facility], AND THEN WAS TRANSFERRED TO [facility] ON 09/30/21 WITH PERSISTENT QUADRIPLEGIA AND TRACHEOSTOMY, NO LONGER VENTILATOR DEPENDENT OR REQUIRING SUPPLEMENTAL OXYGEN PRIOR TO DEVELOPING GUILLAIN BARRE, PT DID NOT HAVE A DR, WAS UNAWARE OF ANY MEDICAL PROBLEMS AND DID NOT TAKE ANY MEDICATIONS. Review of Systems Constitutional: see HPI, malaise, weakness EENTM: no symptoms reported Respiratory: dyspnea on exertion, short of breath Cardiovascular: no symptoms reported Gastrointestinal: no symptoms reported Genitourinary: no symptoms reported Musculoskeletal: back pain Skin: no symptoms reported Psychiatric/Neurological: Weakness All Other Systems Reviewed Negative Unless Noted: Yes Physical Exam Physical Exam Vital Signs Vital Signs - First Documented 11/21/22 11/21/22 03:37 04:24 Temp 35.8 Pulse 144 Resp 22 B/P (MAP) 152/116 (128) Pulse Ox 100 O2 Delivery OxyMask O2 Flow Rate 15.00 FiO2 100 Capillary Refill : Less Than 3 Seconds Height, Weight, BMI Height: 5'11.00" Weight: 230lbs. oz. 104.758074ww; 25.00 BMI Method:Stated General Appearance: Anxious, Chronically ill, Mild Distress Respiratory: No Accessory Muscle Use, No Respiratory Distress, Decreased Breath Sounds Cardiovascular: Irregularly Irregular, Tachycardia Neurologic/Psychiatric: Alert, Oriented x3 Results Results/Procedures Labs Laboratory Tests 11/21/22 03:44 11/22/22 04:04 Patient resulted labs reviewed. Assessment/Plan Admission Diagnosis Assessment: Acute on chronic respiratory failure Severe hypercapnia causing seizure-like activity at half-way Chest compressions at half-way with subsequent chest pain from rib trauma 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 History of UTI History pneumonia Hypertension Chronic atrial fibrillation Plan: [facility] Card[facility] Supportive care Monitor closely Admission Status: Inpatient Order (span 2 midnights) Reason for Inpatient Admission: Respiratory failure JUSTINA AVILES DO Nov 21, 2022 11:01
[2022-11-21] MEDS: APIXABAN 5 MG (ELIQUIS) TABLET PO SCH ×2 (11:21→20:29)
[2022-11-21] MEDS ORDERED: dilTIAZem120 MG (CARDIZEM CD) CAP PO NR (11:30)
[2022-11-21] MEDS ORDERED: CIPR500T5 PO (15:34)
[2022-11-21] MEDS ORDERED: METH1TAB92 PO (15:34)
[2022-11-21] MEDS ORDERED: ACETAMINOPHEN 500 MG TAB (TYLENOL) PO PRN (21:15)
[2022-11-21] MEDS ORDERED: ARTIFICAL TEARS 0.4 ML UNIT DOSE (REFRESH PLUS) OU PRN ×2 (21:15→21:45)
[2022-11-21] MEDS ORDERED: polyethylene glycoL POWDER 17 GM (MIRALAX) PACK PO PRN (21:30)
[2022-11-21] MEDS: ACETAMINOPHEN 325 MG TABLET PO PRN (21:35)
[2022-11-21] MEDS: meTOprolol TARTRATE 25 MG (LOPRESSOR) TABLET PO SCH (21:54)
[2022-11-21] MEDS: FAMOTIDINE 20 MG (PEPCID) TABLET PO SCH (21:54)
[2022-11-21] MEDS: METHENAMINE HIPP (UREX) 1 GM TABLET PO SCH (21:54)
[2022-11-21] MEDS: PREGABALIN 150 MG (LYRICA) CAPSULE PO SCH (21:54)
[2022-11-21] MEDS: LACTOBACILLUS ACIDOPHILUS (PROBIOTIC) CAPSULE PO SCH (21:54)
[2022-11-21] MEDS ORDERED: LACRI-LUBE OPTHALMIC OINT 3.5 GM TUBE OU PRN (22:00)
[2022-11-22] MEDS: RT-ALBUTEROL SULF 2.5 MG/3 ML PRE-MIX VIAL INH SCH ×3 (04:08→12:57)
[2022-11-22 04:23] LABS: BASOPHILS % (AUTO) 0 % (0-10); EOSINOPHILS # (AUTO) 0.4 10^3/uL (0.0-0.3); EOSINOPHILS % (AUTO) 4 % (0-10); HEMATOCRIT 40 % (40-54); HEMOGLOBIN 12.5 g/dL (13.3-17.7); LYMPHOCYTES # (AUTO) 1.9 10^3/uL (1.0-4.0); LYMPHOCYTES % (AUTO) 21 % (12-44); MEAN CORPUSCULAR HEMOGLOBIN 28 pg (25-34); MEAN CORPUSCULAR HGB CONC 32 g/dL (32-36); MEAN CORPUSCULAR VOLUME 88 fL (80-99); MEAN PLATELET VOLUME 10.1 fL (9.0-12.2); MONOCYTES # (AUTO) 0.5 10^3/uL (0.0-1.0); MONOCYTES % (AUTO) 6 % (0-12); NEUTROPHILS # (AUTO) 6.2 10^3/uL (1.8-7.8); NEUTROPHILS % (AUTO) 69 % (42-75); PLATELET COUNT 234 10^3/uL (130-400)
[2022-11-22 04:32] LABS: ALBUMIN 3.5 GM/DL (3.2-4.5); POTASSIUM 3.7 MMOL/L (3.6-5.0)
[2022-11-22 04:35] LABS: TOTAL PROTEIN 6.5 GM/DL (6.4-8.2)
[2022-11-22 04:36] LABS: BILIRUBIN,TOTAL 0.2 MG/DL (0.1-1.0)
[2022-11-22 04:38] LABS: CREATININE SERUM 0.62 MG/DL (0.60-1.30); PHOSPHORUS 3.7 MG/DL (2.3-4.7)
[2022-11-22 04:41] LABS: MAGNESIUM 1.9 MG/DL (1.6-2.4)
[2022-11-22] MEDS: dilTIAZem DRIP 125 MG/125 ML DRIP IV SCH (05:58)
--- NOTE | 2022-11-22 07:58 | Progress Note - Hospitalist ---
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 Apparently he had a seizure-like activity episode at the care home prompted chest compressions although no loss of pulse was noted and he was transported to the ER found to have severe hypercapnia likely causing the seizure-like activity. He is currently off BiPAP but having atrial fibrillation with RVR requiring diltiazem drip. Currently he is doing much better but appears to be very chronically ill. January 2021 - received covid vaccine February 2021 - admitted for guillian barre, possibly 2/2 covid vaccine. minimal movement of all 4 extremities. [facility] placed trach. Transferred to [facility] for PT. Transferred to [facility]. Subjective/Events-last exam No major issues Moving to fourth floor Rate controlled Patient bedridden quadriplegic Objective Exam Vital Signs Vital Signs Date Time Temp Pulse Resp B/P (MAP) Pulse Ox O2 Delivery O2 Flow Rate FiO2 11/22/22 14:31 36.7 82 18 139/76 (97) 97 High Flow N/C 3.00 11/22/22 13:02 32 Capillary Refill : Less Than 3 Seconds General Appearance: No Apparent Distress, WD/WN, Chronically ill Respiratory: Lungs Clear, Normal Breath Sounds, Decreased Breath Sounds Cardiovascular: Irregularly Irregular Neurologic/Psychiatric: Alert, Oriented x3 Results/Procedures Lab Laboratory Tests 11/22/22 04:04 Patient resulted labs reviewed. Assessment/Plan Assessment and Plan Assess & Plan/Chief Complaint Assessment: Acute on chronic respiratory failure Severe hypercapnia causing seizure-like activity at care home Chest compressions at care home with subsequent chest pain from rib trauma 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 History of UTI History pneumonia Hypertension Chronic atrial fibrillation Plan: [facility] Cardiology appreciated Supportive care Monitor closely Moved to fourth floor Critical Care Critically Ill Patient ISRRAELMICHEL CAICEDO Nov 22, 2022 07:58
--- NOTE | 2022-11-22 08:54 | Tele-ICU Progress Note ---
Subjective Date Seen by a Provider: Nov 22, 2022 Time Seen by a Provider: 08:54 Subjective/Events-last exam (Tele-ICU Physician , Progress Note ) Service provided via interactive audio and video telecommunications E-CARE system to a patient admitted to ICU bed in [facility]. Available chart/ vitals / labs / Images reviewed Video assessment done using teleICU camera, rest of exam as per RN Discussed with RN Events overnight : Afebrile hemodynamically stable Respiratory - 4l I/O = Drips: NS 75 Pressors- no Consultants: Hospital course: Patient is seen today due to persistent resp failure A/P Acute on chronic respiratory failure -resolved spontaneiusly , in few hours - do not suspect chronic hypercarbia CPR in NH - etiology not clear Syncope? questionable bradycardia Severe hypercapnia causing seizure-like activity vs Seizures leading to compromized resp satus - suspect Sz , since hypercarbia improved without additional measures to improve ventilation ( was not on NIPPV ) A fib RVR - cardzem gtt as per cards - AC as per carbs- eliquis - EF 65% 02/2022 Guillain-Hoffman 02/2021 presumed from COVID-vaccine -remains quadriplegic - s/p trach- decannulated , spontaneous respiration , do not suspect chronic hypercarbia ? SX disorder - was on Keppra in NH with keppra level undetectable - Sz w/up vs increase dose - as per PCP Chest compressions at [facility] with subsequent chest pain from rib trauma Stop IVF Lines : periph , (Central Line Necessity Reviewed) Samano: + OG: Nutrition: Analgesia: Anxiety/ delirium VTE Prophylaxis: eliquis Stress Ulcer Prophylaxis: Plans in collaboration with bedside consultants and IM MDs. Discussed with RN to reach out if any questions or concerns A total of20 minutes of critical care time was devoted to this patient today, required to treat and/or prevent further deterioration of critical care condition ( as above ) . I am remotely monitoring this patient from another state. I am unable to do the bedside exam, and history/physical and pertinent information is taken from other notes in the computer and bedside staff. + Sepsis Event Evaluation Height, Weight, BMI Height: 5'11.00" Weight: 230lbs. oz. 104.371051fv; 25.00 BMI Method:Stated Exam Exam Patient acknowledged, consented, and participated in this virtual visit which was conducted using real time audio/video Vital Signs Date Time Temp Pulse Resp B/P (MAP) Pulse Ox O2 Delivery O2 Flow Rate FiO2 11/22/22 08:00 79 19 151/84 (106) 97 OxyMask 4.00 11/22/22 07:52 92 OxyMask 4.00 11/22/22 07:21 36.3 11/22/22 07:00 79 11/22/22 07:00 75 16 149/82 (104) 92 OxyMask 4.00 11/22/22 06:00 78 14 153/81 (105) 94 OxyMask 4.00 11/22/22 05:00 70 18 142/80 (100) 93 OxyMask 4.00 11/22/22 04:09 94 OxyMask 4.00 11/22/22 04:00 36.7 OxyMask 4.00 11/22/22 04:00 91 Nasal Cannula 2.00 11/22/22 04:00 66 20 129/77 (94) 95 Nasal Cannula 2.00 11/22/22 03:40 36.9 11/22/22 03:00 69 18 126/72 (90) 95 Nasal Cannula 2.00 11/22/22 02:00 63 16 133/78 (96) 94 Nasal Cannula 2.00 11/22/22 01:00 66 17 125/80 (95) 95 Nasal Cannula 2.00 11/22/22 01:00 66 11/22/22 00:00 65 16 130/90 (103) 98 Nasal Cannula 2.00 11/22/22 00:00 95 OxyMask 6.00 11/22/22 00:00 37.0 11/21/22 23:59 91 Nasal Cannula 2.00 11/21/22 23:00 86 20 137/77 (97) 91 Nasal Cannula 2.00 11/21/22 22:00 92 16 138/82 (100) 92 Nasal Cannula 2.00 11/21/22 21:00 81 23 140/78 (98) 91 Nasal Cannula 2.00 11/21/22 20:00 98 20 122/74 (90) 90 Nasal Cannula 2.00 11/21/22 20:00 36.9 11/21/22 20:00 91 Nasal Cannula 2.00 11/21/22 19:40 93 Room Air 11/21/22 19:00 98 11/21/22 19:00 98 26 142/77 (98) 90 Nasal Cannula 2.00 11/21/22 18:00 92 25 123/72 (89) 92 Nasal Cannula 2.00 11/21/22 17:00 92 14 117/66 (83) 94 Nasal Cannula 2.00 11/21/22 16:44 Nasal Cannula 2.00 11/21/22 16:02 79 11/21/22 16:00 89 12 116/68 (84) 90 Vapotherm 20.00 40.00 11/21/22 16:00 95 Nasal Cannula 2.00 11/21/22 15:00 105 20 125/81 (96) 89 Vapotherm 20.00 40.00 11/21/22 14:30 93 Vapotherm 20.00 40 11/21/22 14:00 103 12 109/73 (85) 99 Vapotherm 30.00 40.00 11/21/22 13:00 113 16 123/93 (103) 100 Vapotherm 30.00 40.00 11/21/22 12:32 101 11/21/22 12:00 36.7 11/21/22 12:00 96 Vapotherm 20.00 40 11/21/22 12:00 104 13 103/81 (88) 100 Vapotherm 30.00 40.00 11/21/22 11:00 122 22 113/85 (94) 99 Vapotherm 30.00 40.00 11/21/22 10:00 100 12 105/79 (88) 99 Vapotherm 30.00 40.00 11/21/22 09:28 100 Vapotherm 20.00 40 11/21/22 09:00 102 99/74 (82) 100 Vapotherm 30.00 40.00 I & O 11/22/22 07:00 Intake Total 1175 ml Output Total 2600 ml Balance -1425 ml Height & Weight Height: 5'11.00" Weight: 230lbs. oz. 104.700107ul; 25.00 BMI Method:Stated General Appearance: Chronically ill HEENT: PERRL/EOMI Neck: Other (pin hole tracheostomy site; no significant secretions observed) Respiratory: Normal Breath Sounds, No Accessory Muscle Use, Decreased Breath Sounds, Other (poor resp effort; short shallow resps) Cardiovascular: Irregularly Irregular Capillary Refill: Less Than 3 Seconds Extremity: No Pedal Edema Neurologic/Psychiatric: Other (poor responsiveness; 1 word answers - not moving extremities ) Skin: Damp, Diaphoresis, Pallor Results Lab Laboratory Tests 11/21/22 03:44 11/22/22 04:04 Assessment/Plan Assessment/Plan 1 [place] SHAIKH MD Nov 22, 2022 08:54
[2022-11-22] MEDS ORDERED: dilTIAZem120 MG (CARDIZEM CD) CAP PO SCH (09:00)
[2022-11-22] MEDS ORDERED: APIXABAN 5 MG (ELIQUIS) TABLET PO SCH (09:00)
[2022-11-22] MEDS: METHENAMINE HIPP (UREX) 1 GM TABLET PO SCH ×2 (09:29→20:35)
[2022-11-22] MEDS: SERTRALINE 50 MG (ZOLOFT) TABLET PO SCH (09:29)
[2022-11-22] MEDS: MULTIVIT W/MINERALS TAB (THERAGRAN M) PO SCH (09:29)
[2022-11-22] MEDS: APIXABAN 5 MG (ELIQUIS) TABLET PO SCH ×2 (09:29→20:35)
[2022-11-22] MEDS: PREGABALIN 150 MG (LYRICA) CAPSULE PO SCH ×2 (09:29→20:35)
[2022-11-22] MEDS: LACTOBACILLUS ACIDOPHILUS (PROBIOTIC) CAPSULE PO SCH ×2 (09:29→20:35)
[2022-11-22] MEDS: meTOprolol TARTRATE 25 MG (LOPRESSOR) TABLET PO SCH ×2 (09:29→20:35)
[2022-11-22] MEDS: CHLORHEXIDINE 0.12% SOLN 15 ML (PERIDEX) UDC MM SCH ×2 (09:29→20:36)
--- NOTE | 2022-11-22 09:44 | Cardiology Progress Note ---
Subjective Date Seen by Provider: Nov 22, 2022 Time Seen by Provider: 09:43 Subjective/Events-last exam Patient was seen at bedside, laying down comfortably, feeling better Review of Systems General: No Chills, No Night Sweats, No Fatigue, No Malaise, No Appetite, No Other HEENT: No Head Aches, No Visual Changes, No Eye Pain, No Ear Pain, No Dysphasia, No Sinus Congestion, No Post Nasal Drip, No Sore Throat, No Other Pulmonary: No Dyspnea, No Cough, No Pleuritic Chest Pain, No Other Cardiovascular: No: Chest Pain, Palpitations, Orthopnea, Paroxysmal Noc. Dyspnea, Edema, Lt Headedness, Other Objective-Cardiology Exam Last Set of Vital Signs Vital Signs 11/21/22 11/22/22 11/22/22 14:30 07:21 09:00 Temp 36.3 Pulse 96 Resp 9 B/P (MAP) 152/82 (105) Pulse Ox 95 O2 Delivery OxyMask O2 Flow Rate 4.00 FiO2 40 I&O Intake and Output 11/22/22 00:00 Intake Total 1975 ml Output Total 1550 ml Balance 425 ml Intake Oral 975 ml IV Total 1000 ml Output Urine Total 1550 ml # Bowel Movements 1 General: Alert, Oriented X3, Cooperative HEENT: Atraumatic Neck: Supple, No JVD Lungs: Clear to Auscultation Heart: Regular Rate, Normal S1, Normal S2 Abdomen: Normal Bowel Sounds Extremities: No Clubbing, No Cyanosis Skin: No Rashes, No Breakdown Neuro: Other (Quadriplegic) Psych/Mental Status: Mental Status NL, Mood NL Results Lab Laboratory Tests 11/22/22 04:04 A/P-Cardiology Admission Diagnosis Syncope Atrial fibrillation Hypertension Jamison Hoffman Assessment/Plan Syncope, unknown etiology, questionable bradycardia, patient was unresponsive and required CPR. Currently maintained on telemetry. Continue to monitor Underlying cause of syncope could be secondary to seizure versus bradycardia or acute respiratory failure with hypercapnia Patient is better today, back to baseline Acute on chronic respiratory failure, hypercapnia Currently back on oxygen. Managed by medical team Atrial fibrillation, persistent. Rate controlled. Continue to monitor and continue on oral anticoagulation 2D echocardiogram was done in February 2022 with normal left ventricular size, ejection fraction 65 to 70%, aortic valve sclerosis, no stenosis. 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
[2022-11-22] MEDS: NS IV 1000 ML 1,000 ML IV SCH (10:09)
[2022-11-22 13:02] VITALS: BP 161/90
[2022-11-22 14:31] VITALS: BP 139/76
[2022-11-22 15:52] VITALS: BP 171/88
[2022-11-22] MEDS: RT-ALBUTEROL/IPRATROPIUM 3 ML (DUONEB) VIAL INH PRN ×2 (16:00)
[2022-11-22 16:16] VITALS: BP 155/84
[2022-11-22 19:20] VITALS: BP 172/87
[2022-11-22] MEDS: RT-ALBUTEROL/IPRATROPIUM 3 ML (DUONEB) VIAL INH SCH ×2 (19:44→22:44)
[2022-11-22] MEDS: ACETAMINOPHEN 325 MG TABLET PO PRN (20:35)
[2022-11-22] MEDS: FAMOTIDINE 20 MG (PEPCID) TABLET PO SCH (20:35)
[2022-11-22] MEDS: DOCUSATE SODIUM 100 MG (COLACE) CAP PO SCH (20:36)
[2022-11-23] VITALS (7 sets, daily range): BP systolic 151–184; BP diastolic 76–100
[2022-11-23] MEDS: RT-ALBUTEROL/IPRATROPIUM 3 ML (DUONEB) VIAL INH SCH ×6 (01:20→21:56)
[2022-11-23] MEDS: RT-ALBUTEROL SULF 2.5 MG/3 ML PRE-MIX VIAL INH PRN (04:46)
[2022-11-23 05:47] LABS: BASOPHILS # (AUTO) 0.1 10^3/uL (0.0-0.1); BASOPHILS % (AUTO) 1 % (0-10); EOSINOPHILS # (AUTO) 0.3 10^3/uL (0.0-0.3); EOSINOPHILS % (AUTO) 4 % (0-10); HEMATOCRIT 46 % (40-54); HEMOGLOBIN 14.3 g/dL (13.3-17.7); LYMPHOCYTES # (AUTO) 1.4 10^3/uL (1.0-4.0); LYMPHOCYTES % (AUTO) 17 % (12-44); MEAN CORPUSCULAR HEMOGLOBIN 28 pg (25-34); MEAN CORPUSCULAR HGB CONC 31 g/dL (32-36); MEAN CORPUSCULAR VOLUME 89 fL (80-99); MEAN PLATELET VOLUME 10.1 fL (9.0-12.2); MONOCYTES # (AUTO) 0.4 10^3/uL (0.0-1.0); MONOCYTES % (AUTO) 5 % (0-12); NEUTROPHILS # (AUTO) 5.8 10^3/uL (1.8-7.8); NEUTROPHILS % (AUTO) 73 % (42-75); PLATELET COUNT 234 10^3/uL (130-400)
[2022-11-23 05:56] LABS: ALBUMIN 3.8 GM/DL (3.2-4.5)
[2022-11-23 05:57] LABS: CALCIUM 9.4 MG/DL (8.5-10.1)
[2022-11-23 05:58] LABS: TOTAL PROTEIN 7.1 GM/DL (6.4-8.2)
--- NOTE | 2022-11-23 05:58 | Progress Note - Hospitalist ---
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 Apparently he had a seizure-like activity episode at the senior living prompted chest compressions although no loss of pulse was noted and he was transported to the ER found to have severe hypercapnia likely causing the seizure-like activity. He is currently off BiPAP but having atrial fibrillation with RVR requiring diltiazem drip. Currently he is doing much better but appears to be very chronically ill. January 2021 - received covid vaccine February 2021 - admitted for guillian barre, possibly 2/2 covid vaccine. minimal movement of all 4 extremities. [facility] placed trach. Transferred to [facility] for PT. Transferred to [facility]. Subjective/Events-last exam No major changes Labs remained stable Wants to go back to the senior living Patient very end-stage Review of Systems General: Fatigue, Malaise Pulmonary: Cough Objective Exam Vital Signs Vital Signs Date Time Temp Pulse Resp B/P (MAP) Pulse Ox O2 Delivery O2 Flow Rate FiO2 11/23/22 13:28 73 11/23/22 11:53 97 Nasal Cannula 4.00 11/23/22 11:32 36.2 22 184/82 (116) 11/22/22 13:02 32 Capillary Refill : Less Than 3 Seconds General Appearance: No Apparent Distress, WD/WN, Chronically ill Respiratory: Lungs Clear, Normal Breath Sounds, Decreased Breath Sounds Cardiovascular: Regular Rate, Rhythm Neurologic/Psychiatric: Alert, Oriented x3 Results/Procedures Lab Laboratory Tests 11/23/22 05:10 Patient resulted labs reviewed. Assessment/Plan Assessment and Plan Assess & Plan/Chief Complaint Assessment: Acute on chronic respiratory failure Severe hypercapnia causing seizure-like activity at senior living Chest compressions at senior living with subsequent chest pain from rib trauma 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 History of UTI History pneumonia Hypertension Chronic atrial fibrillation Plan: [facility] Cardiology appreciated Supportive care Monitor closely Moved to fourth floor Discharge home to senior living soon Critical Care Critically Ill Patient MICHEL ARCOS DO Nov 23, 2022 05:58
[2022-11-23 06:00] LABS: BILIRUBIN,TOTAL 0.3 MG/DL (0.1-1.0)
[2022-11-23 06:02] LABS: CREATININE SERUM 0.64 MG/DL (0.60-1.30)
[2022-11-23 06:05] LABS: MAGNESIUM 1.9 MG/DL (1.6-2.4)
[2022-11-23] MEDS: MULTIVIT W/MINERALS TAB (THERAGRAN M) PO SCH (06:26)
[2022-11-23] MEDS: APIXABAN 5 MG (ELIQUIS) TABLET PO SCH ×2 (09:35→20:12)
[2022-11-23] MEDS: SERTRALINE 50 MG (ZOLOFT) TABLET PO SCH (09:36)
[2022-11-23] MEDS: PREGABALIN 150 MG (LYRICA) CAPSULE PO SCH ×2 (09:36→20:12)
[2022-11-23] MEDS: METHENAMINE HIPP (UREX) 1 GM TABLET PO SCH ×2 (09:36→20:11)
[2022-11-23] MEDS: meTOprolol TARTRATE 25 MG (LOPRESSOR) TABLET PO SCH ×2 (09:36→20:12)
[2022-11-23] MEDS: CHLORHEXIDINE 0.12% SOLN 15 ML (PERIDEX) UDC MM SCH ×2 (09:36→20:11)
[2022-11-23] MEDS: LACTOBACILLUS ACIDOPHILUS (PROBIOTIC) CAPSULE PO SCH ×2 (09:36→20:12)
--- NOTE | 2022-11-23 10:22 | Cardiology Progress Note ---
Subjective Date Seen by Provider: Nov 23, 2022 Time Seen by Provider: 10:22 Subjective/Events-last exam Patient was seen and evaluated, laying down in bed, feeling better. No new complaint Review of Systems General: No Chills, No Night Sweats, No Fatigue, No Malaise, No Appetite, No Other HEENT: No Head Aches, No Visual Changes, No Eye Pain, No Ear Pain, No Dysphas ia, No Sinus Congestion, No Post Nasal Drip, No Sore Throat, No Other Pulmonary: Dyspnea; No Cough, No Pleuritic Chest Pain, No Other Cardiovascular: No: Chest Pain, Palpitations, Orthopnea, Paroxysmal Noc. Dyspnea, Edema, Lt Headedness, Other Objective-Cardiology Exam Last Set of Vital Signs Vital Signs 11/22/22 11/23/22 11/23/22 11/23/22 13:02 07:21 07:43 07:56 Temp 36.0 Pulse 85 Resp 20 B/P (MAP) 172/92 (118) Pulse Ox 98 O2 Delivery Nasal Cannula O2 Flow Rate 4.00 FiO2 32 I&O Intake and Output 11/23/22 00:00 Intake Total 2200 ml Output Total 2900 ml Balance -700 ml Intake Oral 1400 ml IV Total 800 ml Output Urine Total 2900 ml # Bowel Movements 2 General: Alert, Oriented X3, Cooperative HEENT: Atraumatic Neck: Supple, No JVD Lungs: Clear to Auscultation Heart: Regular Rate, Normal S1, Normal S2 Abdomen: Normal Bowel Sounds Extremities: No Clubbing, No Cyanosis Skin: No Rashes, No Breakdown Neuro: Other (Quadriplegic) Psych/Mental Status: Mental Status NL, Mood NL Results Lab Laboratory Tests 11/23/22 05:10 A/P-Cardiology Admission Diagnosis Syncope Atrial fibrillation Hypertension Jamison Hoffman Assessment/Plan Syncope, unknown etiology, questionable bradycardia, patient was unresponsive and required CPR. Currently maintained on telemetry. Continue to monitor Underlying cause of syncope could be secondary to seizure versus bradycardia or acute respiratory failure with hypercapnia Patient is better today, back to baseline Acute on chronic respiratory failure, hypercapnia Currently back on oxygen. Managed by medical team Atrial fibrillation, persistent. Mild tachycardia, increase Cardizem CD to 240 mg daily and monitor tolerance and response 2D echocardiogram was done in February 2022 with normal left ventricular size, e jection fraction 65 to 70%, aortic valve sclerosis, no stenosis. 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
[2022-11-23] MEDS: DOCUSATE SODIUM 100 MG (COLACE) CAP PO SCH (20:12)
[2022-11-23] MEDS: FAMOTIDINE 20 MG (PEPCID) TABLET PO SCH (20:12)
[2022-11-23] MEDS: ACETAMINOPHEN 325 MG TABLET PO PRN (20:17)
[2022-11-24] MEDS: RT-ALBUTEROL SULF 2.5 MG/3 ML PRE-MIX VIAL INH PRN ×2 (00:30→04:32)
[2022-11-24] MEDS: RT-ALBUTEROL/IPRATROPIUM 3 ML (DUONEB) VIAL INH SCH ×3 (02:03→11:26)
[2022-11-24 04:02] VITALS: BP 178/86
[2022-11-24 04:38] LABS: BASOPHILS % (AUTO) 0 % (0-10); EOSINOPHILS # (AUTO) 0.4 10^3/uL (0.0-0.3); EOSINOPHILS % (AUTO) 4 % (0-10); HEMATOCRIT 44 % (40-54); HEMOGLOBIN 14.1 g/dL (13.3-17.7); LYMPHOCYTES % (AUTO) 21 % (12-44); MEAN CORPUSCULAR HEMOGLOBIN 28 pg (25-34); MEAN CORPUSCULAR HGB CONC 32 g/dL (32-36); MEAN CORPUSCULAR VOLUME 88 fL (80-99); MONOCYTES # (AUTO) 0.5 10^3/uL (0.0-1.0); MONOCYTES % (AUTO) 6 % (0-12); NEUTROPHILS # (AUTO) 6.5 10^3/uL (1.8-7.8); NEUTROPHILS % (AUTO) 69 % (42-75); PLATELET COUNT 255 10^3/uL (130-400); WHITE BLOOD COUNT 9.5 10^3/uL (4.3-11.0)
[2022-11-24 04:52] LABS: ALBUMIN 3.8 GM/DL (3.2-4.5); BILIRUBIN,TOTAL 0.3 MG/DL (0.1-1.0); CALCIUM 9.4 MG/DL (8.5-10.1); CREATININE SERUM 0.71 MG/DL (0.60-1.30); MAGNESIUM 1.8 MG/DL (1.6-2.4); POTASSIUM 4.2 MMOL/L (3.6-5.0); TOTAL PROTEIN 7.8 GM/DL (6.4-8.2)
[2022-11-24] MEDS: MULTIVIT W/MINERALS TAB (THERAGRAN M) PO SCH (06:23)
--- NOTE | 2022-11-24 06:39 | Progress Note - Hospitalist ---
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 Apparently he had a seizure-like activity episode at the longterm prompted chest compressions although no loss of pulse was noted and he was transported to the ER found to have severe hypercapnia likely causing the seizure-like activity. He is currently off BiPAP but having atrial fibrillation with RVR requiring diltiazem drip. Currently he is doing much better but appears to be very chronically ill. January 2021 - received covid vaccine February 2021 - admitted for guillian barre, possibly 2/2 covid vaccine. minimal movement of all 4 extremities. [facility] placed trach. Transferred to [facility] for PT. Transferred to [facility]. Objective Exam Vital Signs Vital Signs Date Time Temp Pulse Resp B/P (MAP) Pulse Ox O2 Delivery O2 Flow Rate FiO2 11/24/22 12:59 36.0 76 16 164/90 92 Nasal Cannula 2.00 11/22/22 13:02 32 Capillary Refill : Less Than 3 Seconds Results/Procedures Lab Laboratory Tests 11/24/22 04:15 Patient resulted labs reviewed. 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
[2022-11-24 07:35] VITALS: BP_SYST 160; BP_SYST 169; BP_DIAS 84; BP_DIAS 92
--- NOTE | 2022-11-24 08:46 | Cardiology Progress Note ---
Subjective Date Seen by Provider: Nov 24, 2022 Time Seen by Provider: 08:45 Subjective/Events-last exam Patient was seen at bedside, laying down comfortably, no new complaint. Review of Systems General: No Chills, No Night Sweats, No Fatigue, No Malaise, No Appetite, No Other HEENT: No Head Aches, No Visual Changes, No Eye Pain, No Ear Pain, No Dysphasia, No Sinus Congestion, No Post Nasal Drip, No Sore Throat, No Other Pulmonary: No Dyspnea, No Cough, No Pleuritic Chest Pain, No Other Cardiovascular: No: Chest Pain, Palpitations, Orthopnea, Paroxysmal Noc. Dyspnea, Edema, Lt Headedness, Other Objective-Cardiology Exam Last Set of Vital Signs Vital Signs 11/22/22 11/24/22 13:02 07:35 Temp 36.0 Pulse 76 Resp 16 B/P (MAP) 160/84 (109) Pulse Ox 93 O2 Delivery High Flow N/C O2 Flow Rate 2.00 FiO2 32 I&O Intake and Output 11/24/22 00:00 Intake Total 2130 ml Output Total 3450 ml Balance -1320 ml Intake Oral 2130 ml Output Urine Total 3450 ml # Bowel Movements 2 General: Alert, Oriented X3, Cooperative HEENT: Atraumatic Neck: Supple, No JVD Lungs: Clear to Auscultation Heart: Regular Rate, Normal S1, Normal S2 Abdomen: Normal Bowel Sounds Extremities: No Clubbing, No Cyanosis Skin: No Rashes, No Breakdown Neuro: Other (Quadriplegic) Psych/Mental Status: Mental Status NL, Mood NL Results Lab Laboratory Tests 11/24/22 04:15 A/P-Cardiology Admission Diagnosis Syncope Atrial fibrillation Hypertension Jamison Hoffman Assessment/Plan Syncope, unknown etiology, questionable bradycardia, patient was unresponsive and required CPR. Currently maintained on telemetry. Continue to monitor Underlying cause of syncope could be secondary to seizure versus bradycardia or acute respiratory failure with hypercapnia Patient is better today, back to baseline Acute on chronic respiratory failure, hypercapnia Currently back on oxygen nasal cannula. Managed by medical team Atrial fibrillation, persistent. Tolerating Cardizem CD 240 mg daily. Continue to monitor 2D echocardiogram was done in February 2022 with normal left ventricular size, ejection fraction 65 to 70%, aortic valve sclerosis, no stenosis. 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
[2022-11-24] MEDS ORDERED: LOSARTAN 50 MG (COZAAR) TAB PO SCH (09:00)
[2022-11-24] MEDS: LACTOBACILLUS ACIDOPHILUS (PROBIOTIC) CAPSULE PO SCH (09:24)
[2022-11-24] MEDS: CHLORHEXIDINE 0.12% SOLN 15 ML (PERIDEX) UDC MM SCH (09:24)
[2022-11-24] MEDS: PREGABALIN 150 MG (LYRICA) CAPSULE PO SCH (09:25)
[2022-11-24] MEDS: APIXABAN 5 MG (ELIQUIS) TABLET PO SCH (09:25)
[2022-11-24] MEDS: SERTRALINE 50 MG (ZOLOFT) TABLET PO SCH (09:25)
[2022-11-24] MEDS: meTOprolol TARTRATE 25 MG (LOPRESSOR) TABLET PO SCH (09:25)
[2022-11-24] MEDS: METHENAMINE HIPP (UREX) 1 GM TABLET PO SCH (09:25)
[2022-11-24] MEDS ORDERED: CLN.1T PO (11:05)
[2022-11-24] MEDS ORDERED: LEVE10006 PO (11:05)
[2022-11-24] MEDS ORDERED: LOSA50TA63 PO (11:05)
[2022-11-24] MEDS ORDERED: DILT240C91 PO (11:05)
--- NOTE | 2022-11-24 11:06 | Discharge Inst-Skilled Nursing ---
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 Apparently he had a seizure-like activity episode at the [facility] prompted chest compressions although no loss of pulse was noted and he was transported to the ER found to have severe hypercapnia likely causing the seizure-like activity. He is currently off BiPAP but having atrial fibrillation with RVR requiring diltiazem drip. Currently he is doing much better but appears to be very chronically ill. January 2021 - received covid vaccine February 2021 - admitted for guillian barre, possibly 2/2 covid vaccine. minimal movement of all 4 extremities. [facility] placed trach. Transferred to [facility] for PT. Transferred to [facility]. Patient Instructions Patient Problems: Debility Goal: [place] Consult/Follow Up/Orders Follow Up Appt.: PCP 1 week at [place] rounds Skilled NF Admit to: [facility] Certification (SNF) I certify that SNF services are required to be given on an inpatient basis because of the above named patient's need for snf care on a continuing basis for the conditions(s) for which he/she was receiving inpatient hospital services prior to his/her transfer to the SNF. Intermediate Facility Order: Nursing Services, Fire Information Officer-Evaluate & Treat, Physical Therapy-Evaluate & Treat, Other Oxygen Delivery Method: Nasal Cannula Discharge Diet: No Restrictions Resuscitation Status: Full Code New & Resume Previous Orders New Medications: Clonidine HCl (Clonidine HCl) 0.1 Mg Tablet 0.1 MG PO Q4H PRN for sbp>160, #30 TAB Diltiazem HCl (Diltiazem 24Hr ER) 240 Mg Cap.er.24h 240 MG PO DAILY, #30 CAP Levetiracetam (Levetiracetam) 1,000 Mg Tablet 1000 MG PO BID, #60 TAB Losartan Potassium (Losartan Potassium) 50 Mg Tablet 50 MG PO DAILY, #30 TAB Continued Medications: Acetaminophen (Tylenol) 325 Mg Tablet 650 MG PO Q4H PRN for PAIN-MILD (1-4) OR TEMPATURE, TAB Apixaban (Eliquis) 5 Mg Tablet 5 MG PO BID, TAB Carboxymethylcellulose Sodium (Carboxymethylcellulose Sodium) 15 Ml Drops 2 DROPS OU Q2H PRN for DRY EYES, DROPS Chlorhexidine Gluconate (Peridex) 473 Ml Mouthwash 15 ML MM BID, ML Docusate Sodium (Docusate Sodium) 100 Mg Capsule 200 MG PO HS, CAP Famotidine (Famotidine) 20 Mg Tablet 20 MG PO HS, TAB Lactobacillus Acidophilus/Pect (Acidophilus-Pectin Capsule) 1 Each Capsule 1 EACH PO BID, CAP Methenamine Hippurate (Hiprex) 1 Gram Tablet 1 GM PO BID, TAB Metoprolol Tartrate (Metoprolol Tartrate) 25 Mg Tablet 25 MG PO BID, TAB HOLD FOR SBP <100 OR PULSE <60, NOTIFY PCP IF HELD FOR 3 CONSECUTIVE DAYS Mineral Oil/Petrolatum,White (Lubricant Pm Eye Ointment) 3.5 Gm Oint...g. 1 APPLIC OU Q2H PRN for DRY EYES, EA Multivitamin (Multivitamin) 1 Each Tablet 1 EACH PO DAILY, TAB Polyethylene Glycol 3350 (Miralax) 17 Gm Powd.pack 17 GM PO DAILY PRN for CONSTIPATION-2ND LINE, EACH Pregabalin (Pregabalin) 150 Mg Capsule 300 MG PO BID, CAP TAKES 2 (150MG) CAPS Sertraline HCl (Sertraline HCl) 50 Mg Tablet 50 MG PO DAILY, TAB Discontinued Medications: Ciprofloxacin HCl (Ciprofloxacin HCl) 500 Mg Tablet 500 MG PO BID, TAB START 11-17-2022 #14/7 DAY SUPPLY Justina Aviles Nov 24, 2022 11:05 JUSTINA AVILES DO Nov 24, 2022 11:06
--- NOTE | 2022-11-24 11:07 | Discharge Summary ---
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 Chronic atrial fibrillation was managed by cardiology. He was able to transition over to fourth floor and ultimately return back to the long-term. Long-term prognosis poor. Labs and Pending Lab Test: Laboratory Tests 11/24/22 04:15: White Blood Count 9.5, Red Blood Count 5.02, Hemoglobin 14.1, Hematocrit 44, Mean Corpuscular Volume 88, Mean Corpuscular Hemoglobin 28, Mean Corpuscular Hemoglobin Concent 32, Red Cell Distribution Width 13.2, Platelet Count 255, Mean Platelet Volume 10.0, Immature Granulocyte % (Auto) 0, Neutrophils (%) (Auto) 69, Lymphocytes (%) (Auto) 21, Monocytes (%) (Auto) 6, Eosinophils (%) (Auto) 4, Basophils (%) (Auto) 0, Neutrophils # (Auto) 6.5, Lymphocytes # (Auto) 2.0, Monocytes # (Auto) 0.5, Eosinophils # (Auto) 0.4H, Basophils # (Auto) 0.0, Immature Granulocyte # (Auto) 0.0, Sodium Level 137, Potassium Level 4.2, Chloride Level 94L, Carbon Dioxide Level 32, Anion Gap 11, Blood Urea Nitrogen 14, Creatinine 0.71, Estimat Glomerular Filtration Rate 101, BUN/Creatinine Ratio 20, Glucose Level 226H, Calcium Level 9.4, Corrected Calcium 9.6, Magnesium Level 1.8, Total Bilirubin 0.3, Aspartate Amino Transf (AST/SGOT) 24, Alanine Aminotransferase (ALT/SGPT) 26, Alkaline Phosphatase 66, Total Protein 7.8, Albumin 3.8 Microbiology 11/21/22 Blood Culture - Preliminary, Resulted No growth 11/21/22 MRSA Screen - Final, Complete MRSA not isolated Home Meds Active Clonidine HCl 0.1 Mg Tablet 0.1 Mg PO Q4H PRN Levetiracetam 1,000 Mg Tablet 1,000 Mg PO BID Losartan Potassium 50 Mg Tablet 50 Mg PO DAILY Diltiazem 24Hr ER (Diltiazem HCl) 240 Mg Cap.er.24h 240 Mg PO DAILY Reported Ciprofloxacin HCl 500 Mg Tablet 500 Mg PO BID START 11-17-2022 #14/7 DAY SUPPLY Hiprex (Methenamine Hippurate) 1 Gram Tablet 1 Gm PO BID Carboxymethylcellulose Sodium 15 Ml Drops 2 Drops OU Q2H PRN Tylenol (Acetaminophen) 325 Mg Tablet 650 Mg PO Q4H PRN Pregabalin 150 Mg Capsule 300 Mg PO BID TAKES 2 (150MG) CAPS Miralax (Polyethylene Glycol 3350) 17 Gm Powd.pack 17 Gm PO DAILY PRN Lubricant Pm Eye Ointment (Mineral Oil/Petrolatum,White) 3.5 Gm Oint...g. 1 Applic OU Q2H PRN Peridex (Chlorhexidine Gluconate) 473 Ml Mouthwash 15 Ml MM BID Metoprolol Tartrate 25 Mg Tablet 25 Mg PO BID HOLD FOR SBP <100 OR PULSE <60, NOTIFY PCP IF HELD FOR 3 CONSECUTIVE DAYS Famotidine 20 Mg Tablet 20 Mg PO HS Eliquis (Apixaban) 5 Mg Tablet 5 Mg PO BID Docusate Sodium 100 Mg Capsule 200 Mg PO HS Acidophilus-Pectin Capsule (Lactobacillus Acidophilus/Pect) 1 Each Capsule 1 Each PO BID Sertraline HCl 50 Mg Tablet 50 Mg PO DAILY Multivitamin 1 Each Tablet 1 Each PO DAILY Assessment/Pt Instructions PCP on long-term rounds Discharge Planning: <30 minutes discharge planning Discharge Instructions Discharge Diet: No Restrictions Discharge Physical Examination Vital Signs Vital Signs Date Time Temp Pulse Resp B/P (MAP) Pulse Ox O2 Delivery O2 Flow Rate FiO2 11/24/22 09:58 93 Nasal Cannula 2.00 11/24/22 07:35 36.0 76 16 160/84 (109) 11/22/22 13:02 32 General Appearance: No Apparent Distress, WD/WN, Chronically ill Allergies: Coded Allergies: COVID-19 vaccine, mRNA, [id number], L (Verified Allergy, Severe, 10/06/21) Discharge Summary Date of Admission Nov 21, 2022 at 04:53 Date of Discharge Discharge Date: Nov 24, 2022 Admission Diagnosis Assessment: Acute on chronic respiratory failure Severe hypercapnia causing seizure-like activity at long-term Chest compressions at long-term with subsequent chest pain from rib trauma 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 History of UTI History pneumonia Hypertension Chronic atrial fibrillation Plan: Cardizem drip Cardiology Supportive care Monitor closely Discharge Diagnosis Assessment: Acute on chronic respiratory failure Severe hypercapnia causing seizure-like activity at long-term Chest compressions at long-term with subsequent chest pain from rib trauma 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
[2022-11-24 11:23] VITALS: BP 164/90
[2022-11-24 12:59] VITALS: BP 164/90
== END 2022-11-24 13:30 | DRG 189 ==
LOC: EDUNIT# 03:36 → ER 03:37 → ICU 04:53 → 4TH 11-22 13:38
PROVIDERS: ADMIT Family Medicine; ATTEND Internal Medicine
PROC: 5A0935A Assistance with Respiratory Ventilation, Less than 24 Consecutive Hours, High Flow/Velocity Cannula (ICD-10-PCS; principal; 2022-11-21)
DX: J96.22 Acute and chronic respiratory failure with hypercapnia (principal); R53.2 Functional quadriplegia; J44.1 Chronic obstructive pulmonary disease with (acute) exacerbation; I48.19 Other persistent atrial fibrillation; J96.21 Acute and chronic respiratory failure with hypoxia; G65.0 Sequelae of Guillain-Barre syndrome; T50.B95D Adverse effect of other viral vaccines, subsequent encounter; Z93.0 Tracheostomy status; G40.909 Epilepsy, unspecified, not intractable, without status epilepticus; R07.89 Other chest pain; I10 Essential (primary) hypertension; F41.9 Anxiety disorder, unspecified; E78.00 Pure hypercholesterolemia, unspecified; F32.A Depression, unspecified; E11.40 Type 2 diabetes mellitus with diabetic neuropathy, unspecified; I35.8 Other nonrheumatic aortic valve disorders; Z79.01 Long term (current) use of anticoagulants; Z86.73 Personal history of transient ischemic attack (TIA), and cerebral infarction without residual deficits
CPT/HCPCS: 36415; 51702; 71045; 80053; 80177; 81000; 82805; 82947; 83735; 84100; 84145; 84484; 85025; 85027; 87040; 87081; 87636; 93005; 94640; 94760; 99291

== ENCOUNTER 2022-12-01 18:27 | Inpatient (IN) | payer MEDICARE, MEDICAID ==
[2022-12-01] VITALS (9 sets, daily range): BP systolic 84–125; BP diastolic 51–69
[~2022-12-01] VITALS: Ht 180 cm; Wt 104.0 kg
[~2022-12-01 18:27] MED LIST changes: +CIPR500T5 PO; +CLN.1T PO; +DILT240C91 PO; +LEVE10006 PO; +LOSA50TA63 PO; +METH1TAB92 PO
[2022-12-01] MEDS ORDERED: RT-ALBUTEROL/IPRATROPIUM 3 ML (DUONEB) VIAL ONE (18:35)
[2022-12-01] MEDS ORDERED: RT-ALBUTEROL SULF 2.5 MG/3 ML PRE-MIX VIAL ONE (18:35)
[2022-12-01] MEDS ORDERED: RT-ALBUTEROL/IPRATROPIUM 3 ML (DUONEB) VIAL INH ONE (18:45)
[2022-12-01] MEDS ORDERED: RT-ALBUTEROL SULF 2.5 MG/3 ML PRE-MIX VIAL INH ONE (18:45)
[2022-12-01 18:51] LABS: BASOPHILS # (AUTO) 0.1 10^3/uL (0.0-0.1); BASOPHILS % (AUTO) 1 % (0-10); EOSINOPHILS # (AUTO) 0.8 10^3/uL (0.0-0.3); EOSINOPHILS % (AUTO) 6 % (0-10); HEMATOCRIT 50 % (40-54); LYMPHOCYTES # (AUTO) 2.1 10^3/uL (1.0-4.0); LYMPHOCYTES % (AUTO) 16 % (12-44); MEAN CORPUSCULAR HEMOGLOBIN 28 pg (25-34); MEAN CORPUSCULAR HGB CONC 30 g/dL (32-36); MEAN CORPUSCULAR VOLUME 92 fL (80-99); MEAN PLATELET VOLUME 9.9 fL (9.0-12.2); MONOCYTES # (AUTO) 0.7 10^3/uL (0.0-1.0); MONOCYTES % (AUTO) 5 % (0-12); NEUTROPHILS # (AUTO) 9.8 10^3/uL (1.8-7.8); NEUTROPHILS % (AUTO) 73 % (42-75); PLATELET COUNT 302 10^3/uL (130-400); WHITE BLOOD COUNT 13.5 10^3/uL (4.3-11.0)
[2022-12-01 18:59] LABS: ALBUMIN 4.2 GM/DL (3.2-4.5); POTASSIUM 5.6 MMOL/L (3.6-5.0)
[2022-12-01 19:00] LABS: CALCIUM 9.7 MG/DL (8.5-10.1)
[2022-12-01 19:00] LABS: BILIRUBIN,URINE NEGATIVE (NEGATIVE); CLARITY,URINE SL CLOUDY; COLOR,URINE YELLOW; GLUCOSE, URINE (UA) 3+ (NEGATIVE); KETONES,URINE NEGATIVE (NEGATIVE); LEUKOCYTE ESTERASE ,URINE TRACE (NEGATIVE); NITRITE,URINE POSITIVE (NEGATIVE); PROTEIN,URINE TRACE (NEGATIVE)
--- NOTE | 2022-12-01 19:00 | ED Respiratory ---
General Chief Complaint: Respiratory Problems Stated Complaint: RESP DISTRESS Nursing Triage Note: PT BROUGHT IN BY [facility] FROM [facility] WITH COMPLAINT OF RESPIRATORY DISTRESS. PT HAS BEEN ON 10L NON REBREATHER SINCE LAST NIGHT. STATES TODAY PT DROPPED TO 40% ON THE 10L. PT IS NOT RESPONDING, BUT BREATHING. PT HAD SIMILAR SYMPTOMS LAST WEEK. 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 Source: EMS History of Present Illness Date Seen by Provider: Dec 01, 2022 Time Seen by Provider: 18:28 Initial Comments Patient is a 67-year-old quadriplegic from a local care home chief complaint of altered mental status. Reportedly by EMS the patient started developing some shortness of breath yesterday with lowering oxygen saturations. They placed him on a nonrebreather yesterday and left it throughout the day and night and today. Reportedly he was awake at dinnertime, declined food because that he stated he was not hungry. EMS states on their arrival his sats were in the 80s. He was on the nonrebreather. He does wear oxygen at the care home. Recent admission about a week ago, seen by me. Patient will open his eyes on arrival but is nonverbal at this time. Poor shallow respiratory effort. Diminished breath sounds throughout and faint exp wheezes. Timing/Duration: yesterday Severity: severe Prior Episodes/Possible Cause: frequent episodes Allergies and Home Medications Allergies Coded Allergies: COVID-19 vaccine, mRNA, [id number], L (Verified Allergy, Severe, 10/06/21) Patient Home Medication List Home Medication List Reviewed: Yes Acetaminophen (Tylenol) 325 Mg Tablet, 650 MG PO Q4H PRN for PAIN-MILD (1-4) OR TEMPATURE, (Reported) Entered as Reported by: SATYA LA on 02/28/22 0928 Apixaban (Eliquis) 5 Mg Tablet, 5 MG PO BID, (Reported) Entered as Reported by: SATYA LA on 11/05/21 0935 Carboxymethylcellulose Sodium (Carboxymethylcellulose Sodium) 15 Ml Drops, 2 DROPS OU Q2H PRN for DRY EYES, (Reported) Entered as Reported by: SATYA LA on 02/28/22 09 Chlorhexidine Gluconate (Peridex) 473 Ml Mouthwash, 15 ML MM BID, (Reported) Entered as Reported by: SATYA LA on 11/05/21934 Clonidine HCl (Clonidine HCl) 0.1 Mg Tablet, 0.1 MG PO Q4H PRN for sbp>160 Prescribed by: MICHEL ARCOS on 11/24/22 110 Diltiazem HCl (Diltiazem 24Hr ER) 240 Mg Cap.er.24h, 240 MG PO DAILY Prescribed by: MICHEL ARCOS on 11/24/221104 Docusate Sodium (Docusate Sodium) 100 Mg Capsule, 200 MG PO HS, (Reported) Entered as Reported by: SATYA LA on 11/05/21934 Famotidine (Famotidine) 20 Mg Tablet, 20 MG PO HS, (Reported) Entered as Reported by: SATYA LA on 11/05/21934 Lactobacillus Acidophilus/Pect (Acidophilus-Pectin Capsule) 1 Each Capsule, 1 EACH PO BID, (Reported) Entered as Reported by: SATYA LA on 11/05/21934 Levetiracetam (Levetiracetam) 1,000 Mg Tablet, 1,000 MG PO BID Prescribed by: MICHEL ARCOS on 11/24/22 110 Losartan Potassium (Losartan Potassium) 50 Mg Tablet, 50 MG PO DAILY Prescribed by: MICHEL ARCOS on 11/24/221104 Methenamine Hippurate (Hiprex) 1 Gram Tablet, 1 GM PO BID, (Reported) Entered as Reported by: SATYA LA on 11/21/22 1534 Metoprolol Tartrate (Metoprolol Tartrate) 25 Mg Tablet, 25 MG PO BID, (Reported) Entered as Reported by: SATYA LA on 11/05/21934 Mineral Oil/Petrolatum,White (Lubricant Pm Eye Ointment) 3.5 Gm Oint...g., 1 APPLIC OU Q2H PRN for DRY EYES, (Reported) Entered as Reported by: SATYA LA on 11/05/21934 Multivitamin (Multivitamin) 1 Each Tablet, 1 EACH PO DAILY, (Reported) Entered as Reported by: SATYA LA on 11/05/21934 Polyethylene Glycol 3350 (Miralax) 17 Gm Powd.pack, 17 GM PO DAILY PRN for CONSTIPATION-2ND LINE, (Reported) Entered as Reported by: SATYA LA on 11/05/21 0935 Pregabalin (Pregabalin) 150 Mg Capsule, 300 MG PO BID, (Reported) Entered as Reported by: SATYA LA on 02/28/22 0928 Sertraline HCl (Sertraline HCl) 50 Mg Tablet, 50 MG PO DAILY, (Reported) Entered as Reported by: SATYA LA on 11/05/21 0935 Review of Systems Review of Systems Constitutional: see HPI unable to obtain from patient due to AMS Past [id number] Hx Patient Social History Tobacco Use?: No Smoking Status: Unknown if Ever Smoked Use of E-Cig and/or Vaping dev: Unable to obtain Substance use?: Unable to obtain Alcohol Use?: Unable to obtain Pt feels they are or have been: Unable to obtain Immunizations Up To Date First/Initial COVID19 Vaccinat: YES, UNK Second COVID19 Vaccination Alexis: YES, UNK Third COVID19 Vaccination Date: YES, UNK Seasonal Allergies Seasonal Allergies: No Past Medical History Surgery/Hospitalization HX: G.B. HTN, ANX, HIGH CHOLESTEROL, IDDM, SEIZURE, DEPRESSION, R CARPEL TUNNEL, APPENDECTOMY, TRACH, guillain-barre, UTI's Surgeries: Yes (Carpal Tunnel - right) Appendectomy, Tracheostomy Respiratory: Yes (TRACH SINCE FEBRUARY 2021 DUE TO GUILLAIN BARRE;RESP FAILURE) Pneumonia, COPD Cardiac: Yes High Cholesterol, Hypertension, Syncope Neurological: Yes (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 PT TRANSFERRED TO , AND HAD TRACHEOSTOMY PLACED PT THEN TRANSFERRED TO [facility] IN [place]; PT WAS HOSPITALIZED AT [facility] FOR SACRAL DECUBITUS ULCERS PT EVENTUALLY WENT BACK TO [facility], AND THEN WAS TRANSFERRED TO [facility] ON 09/30/21 WITH PERSISTENT QUADRIPLEGIA AND TRACHEOSTOMY, NO LONGER VENTILATOR DEPENDENT OR REQUIRING SUPPLEMENTAL OXYGEN PRIOR TO DEVELOPING GUILLAIN BARRE, PT DID NOT HAVE A DR, WAS UNAWARE OF ANY MEDICAL PROBLEMS AND DID NOT TAKE ANY MEDICATIONS. Physical Exam Vital Signs - First Documented 12/01/22 18:28 Pulse 74 Resp 17 B/P (MAP) 148/86 (106) Pulse Ox 98 O2 Delivery Non Rebreather O2 Flow Rate 15.00 Capillary Refill : Greater Than 3 Seconds Height: 5'11.00" Weight: 230lbs. oz. 104.938948td; 28.57 BMI Method:Stated General Appearance: WD/WN, no apparent distress Eyes: Bilateral Eye Normal Inspection HEENT: PERRL/EOMI Respiratory: no respiratory distress, no accessory muscle use, other (short shallow resps, poor effort; wheezes exp throughout) Cardiovascular: regular rate, rhythm (70's) Gastrointestinal: normal bowel sounds, soft; No distended Extremities: other (edema (mild)) Neurologic/Psychiatric: other (poor responsiveness but will open eyes and look around a bit) Skin: normal color, warm/dry Focused Exam Lactate Level 12/01/22 18:34: Lactic Acid Level 0.93 Lactic Acid Level Laboratory Tests Test 12/01/22 18:34 Lactic Acid Level 0.93 MMOL/L (0.50-2.00) Progress/Results/Core Measures Suspected Sepsis SIRS Temperature: Pulse: 74 Respiratory Rate: 17 Laboratory Tests 12/01/22 18:34: White Blood Count 13.5H Blood Pressure 148 /86 Mean: 106 12/01/22 18:34: Lactic Acid Level 0.93 Laboratory Tests 12/01/22 18:34: Creatinine 0.76, INR Comment 1.1, Platelet Count 302, Total Bilirubin 0.4 Results/Orders Lab Results Laboratory Tests Test 12/01/22 18:34 12/01/22 18:35 12/01/22 18:45 Range/Units White Blood Count 13.5 H 4.3-11.0 10^3/uL Red Blood Count 5.43 4.30-5.52 10^6/uL Hemoglobin 15.0 13.3-17.7 g/dL Hematocrit 50 40-54 % Mean Corpuscular Volume 92 80-99 fL Mean Corpuscular Hemoglobin 28 25-34 pg Mean Corpuscular Hemoglobin Concent 30 L 32-36 g/dL Red Cell Distribution Width 13.9 10.0-14.5 % Platelet Count 302 130-400 10^3/uL Mean Platelet Volume 9.9 9.0-12.2 fL Immature Granulocyte % (Auto) 0 % Neutrophils (%) (Auto) 73 42-75 % Lymphocytes (%) (Auto) 16 12-44 % Monocytes (%) (Auto) 5 0-12 % Eosinophils (%) (Auto) 6 0-10 % Basophils (%) (Auto) 1 0-10 % Neutrophils # (Auto) 9.8 H 1.8-7.8 10^3/uL Lymphocytes # (Auto) 2.1 1.0-4.0 10^3/uL Monocytes # (Auto) 0.7 0.0-1.0 10^3/uL Eosinophils # (Auto) 0.8 H 0.0-0.3 10^3/uL Basophils # (Auto) 0.1 0.0-0.1 10^3/uL Immature Granulocyte # (Auto) 0.1 0.0-0.1 10^3/uL Prothrombin Time 14.6 12.2-14.7 SEC INR Comment 1.1 0.8-1.4 Activated Partial Thromboplast Time 32 24-35 SEC Sodium Level 137 135-145 MMOL/L Potassium Level 5.6 H 3.6-5.0 MMOL/L Chloride Level 93 L 98-107 MMOL/L Carbon Dioxide Level 36 H 21-32 MMOL/L Anion Gap 8 5-14 MMOL/L Blood Urea Nitrogen 16 7-18 MG/DL Creatinine 0.76 0.60-1.30 MG/DL Estimat Glomerular Filtration Rate 99 BUN/Creatinine Ratio 21 Glucose Level 374 H 70-105 MG/DL Lactic Acid Level 0.93 0.50-2.00 MMOL/L Calcium Level 9.7 8.5-10.1 MG/DL Corrected Calcium 9.5 8.5-10.1 MG/DL Total Bilirubin 0.4 0.1-1.0 MG/DL Aspartate Amino Transf (AST/SGOT) 15 5-34 U/L Alanine Aminotransferase (ALT/SGPT) 21 0-55 U/L Alkaline Phosphatase 100 40-136 U/L Total Protein 7.9 6.4-8.2 GM/DL Albumin 4.2 3.2-4.5 GM/DL Procalcitonin 0.04 <0.10 NG/ML Blood Gas Puncture Site RIGHT RADIAL Blood Gas Patient Temperature 99.1 Arterial Blood pH 7.12 *L 7.37-7.43 Arterial Blood Partial Pressure CO2 138 *H 35-45 MMHG Arterial Blood Partial Pressure O2 85 79-93 MMHG Arterial Blood HCO3 42 *H 23-27 MMOL/L Arterial Blood Total CO2 46.4 *H 21.0-31.0 MMOL/L Arterial Blood Oxygen Saturation 95 94-100 % Arterial Blood Base Excess 12.7 H -2.5-2.5 MMOL/L Abdias Test YES-POS Blood Gas Ventilator Setting NA Blood Gas Inspired Oxygen NA Urine Color YELLOW Urine Clarity SL CLOUDY Urine pH 6.0 5-9 Urine Specific [place] >=1.030 1.016-1.022 Urine Protein TRACE H NEGATIVE Urine Glucose (UA) 3+ H NEGATIVE Urine Ketones NEGATIVE NEGATIVE Urine Nitrite POSITIVE H NEGATIVE Urine Bilirubin NEGATIVE NEGATIVE Urine Urobilinogen 0.2 < = 1.0 MG/DL Urine Leukocyte Esterase TRACE H NEGATIVE Urine RBC (Auto) 3+ H NEGATIVE Urine RBC 2-5 H /HPF Urine WBC 10-25 H /HPF Urine Squamous Epithelial Cells NONE /HPF Urine Renal Epithelial Cells NONE /HPF Urine Crystals NONE /LPF Urine Bacteria FEW H /HPF Urine Casts NONE /LPF Urine Mucus NEGATIVE /LPF Urine Culture Indicated CULTURE PENDING My Orders Orders - CALVIN SMALL MD Albuterol/Ipra Inhalation Soln (Duoneb I (12/01/22 18:35) Albuterol Pre-Mix Nebs (Rt) (Proventil (12/01/22 18:35) Cbc With Automated Diff (12/01/22 18:40) Comprehensive Metabolic Panel (12/01/22 18:40) Blood Culture (12/01/22 18:40) Sputum Culture (12/01/22 18:40) Urinalysis (12/01/22 18:40) Urine Culture (12/01/22 18:40) Protime With Inr (12/01/22 18:40) Partial Thromboplastin Time (12/01/22 18:40) Chest 1 View, Ap/Pa Only (12/01/22 18:40) Ed Iv/Invasive Line Start (12/01/22 18:40) Ed Iv/Invasive Line Start (12/01/22 18:40) Vital Signs Adult Sepsis Patie Q15M (12/01/22 18:40) O2 (12/01/22 18:40) Remove Rings In Anticipation O (12/01/22 18:40) Lactic Acid Analyzer (12/01/22 18:40) Procalcitonin (Pct) (12/01/22 18:40) Albuterol Pre-Mix Nebs (Rt) (Proventil (12/01/22 18:45) Albuterol/Ipra Inhalation Soln (Duoneb I (12/01/22 18:45) Svn Small Volume Nebulizer (12/01/22 18:41) Svn Small Volume Nebulizer (12/01/22 18:41) Arterial Blood Gas (12/01/22 19:07) Ns Iv 1000 Ml (Sodium Chloride 0.9%) (12/01/22 19:20) Ceftriaxone 1 Gm Pre-Mix (Rocephin 1 Gm (12/01/22 19:45) Medications Given in ED Current Medications Medications Dose Ordered Sig/Magdalena Route Start Time Stop Time Status Last Admin Dose Admin Albuterol Sulfate 12.5 mg ONCE ONCE INH 12/01/22 18:45 12/01/22 18:46 DC 12/01/22 19:47 12.5 MG Ceftriaxone Sodium/Dextrose 50 ml @ 100 mls/hr ONCE ONCE IV 12/01/22 19:45 12/01/22 20:14 DC 12/01/22 19:51 100 MLS/HR Vital Signs/I&O 12/01/22 12/01/22 12/01/22 12/01/22 18:28 18:28 18:35 19:45 Pulse 74 64 Resp 17 20 B/P (MAP) 148/86 (106) Pulse Ox 98 98 98 O2 Delivery Non Rebreather Non Rebreather Non Rebreather O2 Flow Rate 15.00 15.00 10.00 100.00 Capillary Refill : Greater Than 3 Seconds Blood Pressure Mean: 106 Departure Communication (Admissions) Time/Spoke to Admitting Phy: 20:00 discussed w/ Dr Peralta Time/Spoke to Consulting Phy: 20:09 eICU Impression Primary Impression: Acute hypercapnic respiratory failure Additional Impression: UTI (urinary tract infection) Qualified Codes: N39.0 - Urinary tract infection, site not specified Disposition: ADMITTED INPATIENT Condition: Critical Admissions Decision to Admit Reason: Admit from ER (General) Decision to Admit/Date: Dec 01, 2022 Time/Decision to Admit Time: 20:09 Departure-Patient Inst. Referrals: NO,LOCAL PHYSICIAN (PCP/Family) Primary Care Physician CALVIN SMALL MD Dec 01, 2022 19:00
[2022-12-01 19:01] LABS: INR 1.1 (0.8-1.4); PROTHROMBIN TIME PATIENT 14.6 SEC (12.2-14.7); TOTAL PROTEIN 7.9 GM/DL (6.4-8.2)
[2022-12-01 19:03] LABS: BILIRUBIN,TOTAL 0.4 MG/DL (0.1-1.0)
[2022-12-01 19:05] LABS: CREATININE SERUM 0.76 MG/DL (0.60-1.30)
--- NOTE | 2022-12-01 19:08 | Diagnostic Imaging Report ---
EXAMINATION: Chest radiograph, portable AP view. DATE: 12/01/2022 7:04 PM INDICATION: 67-year-old male, altered mental status. COMPARISON: November 21, 2022. FINDINGS: Heart size and mediastinal contours are unchanged. There is no identified pneumothorax. There is no large pleural effusion. There is no identified focal airspace consolidation. Lung volumes are low. IMPRESSION: 1. Low lung volumes without identified acute cardiopulmonary abnormality. Dictated by: Dictated on workstation # [id number]
[2022-12-01 19:10] LABS: BACTERIA,URINE FEW /HPF
[2022-12-01 19:11] LABS: ABG BASE EXCESS 12.7 MMOL/L (-2.5-2.5); ABG OXYGEN SATURATION 95 % (94-100); ABG PO2 85 MMHG (79-93)
[2022-12-01 19:13] LABS: ALLENS TEST YES-POS; PATIENT TEMP 99.1
[2022-12-01 19:14] LABS: ABG PCO2 138 MMHG (35-45); ABG PH 7.12 (7.37-7.43); ABG TCO2 46.4 MMOL/L (21.0-31.0)
[2022-12-01] MEDS ORDERED: NS IV 1000 ML 1,000 ML IV STA (19:20)
[2022-12-01] MEDS ORDERED: cefTRIAXone 1 GM PRE-MIX 50 ML IV ONE (19:45)
--- NOTE | 2022-12-01 20:58 | Tele-ICU Consult ---
History of Present Illness History of Present Illness Date Seen by Provider: Dec 01, 2022 Time Seen by Provider: 20:49 History of Present Illness 67 yo M came to ED with resp distress. 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, Has chronic hypercarbic resp failure, Came to ED with resp distress, ABG 7.12/138/85 Pt put on BiPAP /, with improvement in Sx, Has had multiple admissions for similar problems [place], wears oxygen, \\ CXR shows elevated diaphgrams but longs look clear, WBC elevated at 14, Hb of 15 suggests dehydration, or chronic hypoxia, LA is normal, glu elevated at 374 PMH HLD, HTN, GB, IDDM, Sz, depression, Allergies and Home Medications Allergies Coded Allergies: COVID-19 vaccine, mRNA, [id number], L (Verified Allergy, Severe, 10/06/21) Home Medications Acetaminophen 325 Mg Tablet, 650 MG PO Q4H PRN for PAIN-MILD (1-4) OR TEMPATURE, (Reported) Apixaban 5 Mg Tablet, 5 MG PO BID, (Reported) Carboxymethylcellulose Sodium 15 Ml Drops, 2 DROPS OU Q2H PRN for DRY EYES, (Reported) Chlorhexidine Gluconate 473 Ml Mouthwash, 15 ML MM BID, (Reported) Clonidine HCl 0.1 Mg Tablet, 0.1 MG PO Q4H PRN for sbp>160 Prescribed by: MICHEL ARCOS on 11/24/221104 Diltiazem HCl 240 Mg Cap.er.24h, 240 MG PO DAILY Prescribed by: MICHEL ARCOS on 11/24/221104 Docusate Sodium 100 Mg Capsule, 200 MG PO HS, (Reported) Famotidine 20 Mg Tablet, 20 MG PO HS, (Reported) Lactobacillus Acidophilus/Pect 1 Each Capsule, 1 EACH PO BID, (Reported) Levetiracetam 1,000 Mg Tablet, 1,000 MG PO BID Prescribed by: MICHEL ARCOS on 11/24/221104 Losartan Potassium 50 Mg Tablet, 50 MG PO DAILY Prescribed by: MICHEL ARCOS on 11/24/221104 Methenamine Hippurate 1 Gram Tablet, 1 GM PO BID, (Reported) Metoprolol Tartrate 25 Mg Tablet, 25 MG PO BID, (Reported) HOLD FOR SBP <100 OR PULSE <60, NOTIFY PCP IF HELD FOR 3 CONSECUTIVE DAYS Mineral Oil/Petrolatum,White 3.5 Gm Oint...g., 1 APPLIC OU Q2H PRN for DRY EYES, (Reported) Multivitamin 1 Each Tablet, 1 EACH PO DAILY, (Reported) Polyethylene Glycol 3350 17 Gm Powd.pack, 17 GM PO DAILY PRN for CONSTIPATION- 2ND LINE, (Reported) Pregabalin 150 Mg Capsule, 300 MG PO BID, (Reported) TAKES 2 (150MG) CAPS Sertraline HCl 50 Mg Tablet, 50 MG PO DAILY, (Reported) Past Medical/Social/Family Hx Patient Social History Tobacco Use?: No Smoking Status: Unknown if Ever Smoked Use of E-Cig and/or Vaping dev: Unable to obtain Substance use?: Unable to obtain Alcohol Use?: Unable to obtain Pt stated abuse/neglect: Unable to obtain Immunizations Up To Date First/Initial COVID19 Vaccinat: YES, UNK Second COVID19 Vaccination Alexis: YES, UNK Tetanus Booster (TDap): Less Than 5 Years Hepatitis A: No Hepatitis B: No TB Skin Test: None Current Status Advance Directives: No Primary Language: Latvian Preferred Spoken Language: Latvian Past Medical History PMHx: Guillain Hebron with quadriplegia Tracheostomy in place DMII Asthma HLD HTN SurgHx: Tracheostomy Appendectomy Carpal tunnel release Family Medical History Family Hx: 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 PT TRANSFERRED TO , AND HAD TRACHEOSTOMY PLACED PT THEN TRANSFERRED TO [facility] IN [place]; PT WAS HOSPITALIZED AT [facility] FOR SACRAL DECUBITUS ULCERS PT EVENTUALLY WENT BACK TO [facility], AND THEN WAS TRANSFERRED TO [facility] [place] ON 09/30/21 WITH PERSISTENT QUADRIPLEGIA AND TRACHEOSTOMY, NO LONGER VENTILATOR DEPENDENT OR REQUIRING SUPPLEMENTAL OXYGEN PRIOR TO DEVELOPING GUILLAIN BARRE, PT DID NOT HAVE A DR, WAS UNAWARE OF ANY MEDICAL PROBLEMS AND DID NOT TAKE ANY MEDICATIONS. Review of Systems Constitutional: weakness Respiratory: see HPI Cardiovascular: see HPI Focused Exam Lactate Level 12/01/22 18:34: Lactic Acid Level 0.93 Height, Weight, BMI Height: 5'11.00" Weight: 230lbs. oz. 104.825832jc; 28.57 BMI Method:Stated Lactic Acid Level Laboratory Tests Test 12/01/22 18:34 Lactic Acid Level 0.93 MMOL/L (0.50-2.00) Exam Exam Patient acknowledged, consented, and participated in this virtual visit which was conducted using real time audio/video Vital Signs Date Time Temp Pulse Resp B/P (MAP) Pulse Ox O2 Delivery O2 Flow Rate FiO2 12/01/22 19:45 64 20 98 100.00 12/01/22 18:35 Non Rebreather 10.00 12/01/22 18:28 74 17 148/86 (106) 98 Non Rebreather 15.00 12/01/22 18:28 98 Non Rebreather 15.00 Height & Weight Height: 5'11.00" Weight: 230lbs. oz. 104.574205vq; 28.57 BMI Method:Stated General Appearance: Obese Neck: Other (old trach scar, still small hole) Respiratory: Decreased Breath Sounds, Wheezing Cardiovascular: Regular Rate, Rhythm Capillary Refill: Greater Than 3 Seconds Gastrointestinal: normal bowel sounds, non tender, soft; No distended Extremity: Normal Capillary Refill, No Pedal Edema Neurologic/Psychiatric: Other (pt is lethargic, quadriplegic) Results Lab Laboratory Tests 12/01/22 18:34 Assessment/Plan Assessment/Plan hypercarbic resp failure, will continue on BiPAP and watch pCO2 and mental status glu elevated, will give insulin, continue on home DM meds continue DVT prophylaxsis spoke to ED MD about pt Critical Care: Critically Ill Patient Time spent with patient (mins): 30 ANNA FINN MD Dec 01, 2022 20:58
[2022-12-01] MEDS ORDERED: NS IV 1000 ML 1,000 ML ONE (21:20)
[2022-12-01 22:17] LABS: ABG BASE EXCESS 11.3 MMOL/L (-2.5-2.5); ABG OXYGEN SATURATION 100 % (94-100); ABG PO2 265 MMHG (79-93)
[2022-12-01 22:32] LABS: ABG PCO2 96 MMHG (35-45); ABG PH 7.23 (7.37-7.43)
[2022-12-01 22:33] LABS: ALLENS TEST YES-POS; PATIENT TEMP 36.4
[2022-12-01] MEDS: NS IV 1000 ML 1,000 ML IV SCH (22:58)
[2022-12-01] MEDS ORDERED: RT-ALBUTEROL SULF 2.5 MG/3 ML PRE-MIX VIAL INH PRN (23:00)
[2022-12-01] MEDS ORDERED: NS IV 500 ML 500 ML IV PRN (23:15)
[2022-12-02 02:09] VITALS: BP 111/70
[2022-12-02] MEDS: RT-ALBUTEROL SULF 2.5 MG/3 ML PRE-MIX VIAL INH SCH ×6 (02:09→22:03)
[2022-12-02 04:30] LABS: BASOPHILS # (AUTO) 0.1 10^3/uL (0.0-0.1); BASOPHILS % (AUTO) 0 % (0-10); EOSINOPHILS # (AUTO) 0.3 10^3/uL (0.0-0.3); EOSINOPHILS % (AUTO) 3 % (0-10); HEMATOCRIT 43 % (40-54); HEMOGLOBIN 12.9 g/dL (13.3-17.7); LYMPHOCYTES # (AUTO) 1.4 10^3/uL (1.0-4.0); LYMPHOCYTES % (AUTO) 12 % (12-44); MEAN CORPUSCULAR HEMOGLOBIN 28 pg (25-34); MEAN CORPUSCULAR HGB CONC 30 g/dL (32-36); MEAN CORPUSCULAR VOLUME 92 fL (80-99); MEAN PLATELET VOLUME 10.4 fL (9.0-12.2); MONOCYTES # (AUTO) 0.6 10^3/uL (0.0-1.0); MONOCYTES % (AUTO) 6 % (0-12); NEUTROPHILS # (AUTO) 9.2 10^3/uL (1.8-7.8); NEUTROPHILS % (AUTO) 79 % (42-75); PLATELET COUNT 199 10^3/uL (130-400); WHITE BLOOD COUNT 11.6 10^3/uL (4.3-11.0)
[2022-12-02 04:40] LABS: ALBUMIN 3.4 GM/DL (3.2-4.5); POTASSIUM 4.8 MMOL/L (3.6-5.0)
[2022-12-02 04:41] LABS: CALCIUM 9.3 MG/DL (8.5-10.1)
[2022-12-02 04:42] LABS: TOTAL PROTEIN 6.4 GM/DL (6.4-8.2)
[2022-12-02 04:44] LABS: BILIRUBIN,TOTAL 0.3 MG/DL (0.1-1.0)
[2022-12-02] MEDS: KCL 20 MEQ TAB (K-DUR) PO SCH (04:45)
[2022-12-02] MEDS: POTASSIUM CL 10MEQ/50ML IVPB 50 ML IV SCH (04:45)
[2022-12-02] MEDS: MAGNESIUM 1 GM/100 ML IVPB 100 ML IV SCH (04:45)
[2022-12-02 04:46] LABS: CREATININE SERUM 0.72 MG/DL (0.60-1.30); PHOSPHORUS 3.7 MG/DL (2.3-4.7)
[2022-12-02 04:49] LABS: MAGNESIUM 1.9 MG/DL (1.6-2.4)
[2022-12-02] MEDS: NS IV 1000 ML 1,000 ML IV SCH ×3 (04:56→19:31)
[2022-12-02 05:35] LABS: ABG BASE EXCESS 11.5 MMOL/L (-2.5-2.5); ABG OXYGEN SATURATION 98 % (94-100); ABG PO2 89 MMHG (79-93)
[2022-12-02 05:38] LABS: ABG PCO2 85 MMHG (35-45); ABG PH 7.28 (7.37-7.43); ABG TCO2 40.8 MMOL/L (21.0-31.0); ALLENS TEST YES-POS; INSPIRED O2 4L
[2022-12-02 05:39] LABS: PATIENT TEMP 37.6; VENTILATOR NO
[2022-12-02 07:07] VITALS: BP 121/61
--- NOTE | 2022-12-02 08:42 | Tele-ICU Progress Note ---
Subjective Date Seen by a Provider: Dec 02, 2022 Subjective/Events-last exam (Tele-ICU Physician , consultation) Available chart/ vitals / labs / Images reviewed H&P is from ER notes Patient's information available about PMH, allergy reviewed in EMR. ROS as per chart and RN report Video assessment done using teleICU camera, rest of exam as per RN Discussed with RN. This gentleman has a history of quadriplegia and has been bedridden and resident of a care home admitted with decreased responsiveness and hypoxia found to have a acute and chronic severe hypercarbic respiratory failure. He is put on AVAPS ventilation with which is a oxygen saturation improved as well as PCO2 decreasing. When AVAPS temporarily discontinued he is awake alert and following simple commands. Chest x-ray reviewed and showed no acute infiltrates present in view of lack of pneumonia and causing hypoxic respiratory failure pulmonary embolism was considered in this patient who is bedridden hence his CT angiogram of the chest was done which however did not show any pulmonary emboli. Low lung volumes and subsegmental atelectasis is found. However patient is already on Eliquis for atrial fibrillation. He has a recent visit to the hospital for similar hypercarbic respiratory failure and discharged. Impression 1. Acute on chronic hypercarbic and hypoxic respiratory failure due to quadriplegia with the possibility because of the very low lung volumes and decreasing tidal volumes. 2. Quadriplegia of undetermined etiology. 3. History of atrial fibrillation 4. Mild obesity. Recommendations 1. Continue AVAPS ventilation until his pH is corrected and PCO2 is down fairly quickly. 2. IV antibiotic for possible urinary tract infection 3. Continue anticoagulation for the atrial fibrillation and DVT prophylaxis. 4. Bronchodilator therapy. Coordination of care with bedside consultants and primary care physician. Sepsis Event Evaluation Height, Weight, BMI Height: 5'11.00" Weight: 230lbs. oz. 104.568193vf; 29.62 BMI Method:Stated Focused Exam Lactate Level 12/01/22 18:34: Lactic Acid Level 0.93 Exam Exam Patient acknowledged, consented, and participated in this virtual visit which was conducted using real time audio/video Vital Signs Date Time Temp Pulse Resp B/P (MAP) Pulse Ox O2 Delivery O2 Flow Rate FiO2 12/02/22 07:23 36.5 12/02/22 07:12 78 12/02/22 07:07 78 21 95 40.00 12/02/22 07:03 93 High Flow N/C 2.00 12/02/22 06:00 76 22 99/58 (72) 94 12/02/22 05:20 66 20 96 Nasal Cannula 3.00 12/02/22 05:00 65 20 109/65 (80) 96 NIV Bilevel 60.00 12/02/22 04:00 36.4 71 20 95/60 (72) 97 12/02/22 04:00 98 NIV Bilevel 60 12/02/22 03:00 67 20 117/60 (79) 97 NIV Bilevel 60.00 12/02/22 02:09 59 20 98 60.00 12/02/22 02:00 60 20 111/70 (84) 98 NIV Bilevel 60.00 12/02/22 01:00 60 12/02/22 01:00 59 20 99/68 (78) 98 NIV Bilevel 60.00 12/02/22 00:54 59 12/02/22 00:06 98 NIV Bilevel 60 12/02/22 00:00 60 20 102/65 (77) 99 NIV Bilevel 70.00 12/01/22 23:32 100 NIV Bilevel 70.00 12/01/22 23:30 61 20 93/62 (72) 100 NIV Bilevel 80.00 12/01/22 23:00 56 15 92/59 (70) 98 NIV Bilevel 80.00 12/01/22 23:00 57 20 92/59 (70) 98 12/01/22 22:50 36.6 12/01/22 22:37 54 19 97 NIV Bilevel 80.00 12/01/22 22:30 56 20 102/64 (77) 98 12/01/22 22:15 56 20 92/63 (73) 99 12/01/22 22:00 56 20 103/69 (80) 97 12/01/22 22:00 56 10 103/69 (80) 97 NIV Bilevel 100.00 12/01/22 21:45 56 18 96/51 (66) 96 12/01/22 21:45 56 15 96/51 (66) 96 NIV Bilevel 100.00 12/01/22 21:37 NIV Bilevel 100 12/01/22 21:30 58 16 103/56 (72) 95 NIV Bilevel 100.00 12/01/22 21:30 56 18 103/56 (72) 95 12/01/22 21:18 58 12/01/22 21:15 36.4 59 18 125/66 (85) 91 NIV Bilevel 100.00 12/01/22 21:15 57 11 125/66 (85) 89 NIV Bilevel 100.00 12/01/22 21:10 62 16 129/65 (86) NIV Bilevel 100.00 12/01/22 21:00 35.9 59 20 109/68 98 NIV Bilevel 10.00 10.00 12/01/22 20:45 55 18 96/51 (66) 96 12/01/22 19:45 64 20 98 100.00 12/01/22 18:35 Non Rebreather 10.00 12/01/22 18:28 74 17 148/86 (106) 98 Non Rebreather 15.00 12/01/22 18:28 98 Non Rebreather 15.00 I & O 12/02/22 07:00 Intake Total 2050 ml Output Total 580 ml Balance 1470 ml Height & Weight Height: 5'11.00" Weight: 230lbs. oz. 104.800516qj; 29.62 BMI Method:Stated General Appearance: Obese Neck: Other (old trach scar, still small hole) Respiratory: Decreased Breath Sounds, Wheezing Cardiovascular: Regular Rate, Rhythm Capillary Refill: Greater Than 3 Seconds Gastrointestinal: normal bowel sounds, soft; No distended Extremity: Normal Capillary Refill, No Pedal Edema Neurologic/Psychiatric: Other (pt is lethargic, quadriplegic) Results Lab Laboratory Tests 12/01/22 18:34 12/02/22 04:05 Assessment/Plan Assessment/Plan as above Critical Care: Critically Ill Patient Time spent with patient (mins): 25 SKYLAR SHEEHAN MD Dec 02, 2022 08:42
[2022-12-02] MEDS ORDERED: IOHEXOL 350 MG/ML 100 ML (OMNIPAQUE 350) VIAL IV ONE (08:45)
[2022-12-02] MEDS ORDERED: HOLD METFORMIN - RECEIVED CONTRAST 20 ML VIAL IV SCH (08:45)
[2022-12-02] MEDS ORDERED: NS 100 ML (IVPB) BAG IV ONE (08:45)
[2022-12-02] MEDS ORDERED: CATHETER FLUSH 10 ML SYR IV PRN (08:45)
--- NOTE | 2022-12-02 09:52 | Diagnostic Imaging Report ---
EXAMINATION: CTA chest with intravenous contrast. TECHNIQUE: Multiple contiguous axial images were obtained through the chest after the uneventful administration of intravenous contrast. 3-D reformats were obtained and reviewed. All CT scans use one or more of the following dose optimizing techniques: automated exposure control, MA and/or KvP adjustment based on patient size and exam type or iterative reconstruction. HISTORY: Hypoxia. Shortness of breath. Concern for PE. COMPARISON: 12/01/2022. FINDINGS: This helical CT pulmonary angiogram is diagnostic to the subsegmental level branches of the pulmonary artery and demonstrates no pulmonary emboli. The heart and great vessels are unremarkable. There is no pericardial effusion. There is no axillary, mediastinal, or hilar adenopathy. Bibasilar opacities are present. No discrete mass. No central endobronchial obstructing lesion. No pleural effusion or pneumothorax. Osseous structures appear normal. Cholelithiasis is seen. There is hepatosplenomegaly. IMPRESSION: 1. No acute pulmonary embolus. 2. Bibasilar opacities, which may represent atelectasis or infection. 3. Cholelithiasis. 4. Hepatosplenomegaly. Dictated by: Dictated on workstation # [id number]
[2022-12-02] MEDS: APIXABAN 5 MG (ELIQUIS) TABLET PO SCH ×2 (10:09→21:06)
[2022-12-02 10:47] VITALS: BP 109/68
[2022-12-02] MEDS ORDERED: LEVE10006 PO (12:57)
[2022-12-02] MEDS ORDERED: LOSA50TA63 PO (12:57)
--- NOTE | 2022-12-02 13:18 | History & Physical ---
AUBREESAKINA MALONEY 12/02/22 1318: HPI History of Present Illness: Mr. Cook presented to ED on 12/01/22 with a chief complaint of altered mental status and respiratory distress. 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 Since this incident, patient has had multiple admission for respiratory distress and has a history of chronic hypercarbic respiratory failure. In regard to this visit, patient resides in halfway and on 12/01/22 staff noted the patient had altered mental status. They took vitals and he had low O2 saturation. Patient was place on nonrebreather and this did not help his O2 saturation. EMS was contacted and when they arrived his O2 sats were in the 80s. They transported patient to ED. Patient denies headache, shortness of breath, chest pain, abdominal pain, dysuria or changes in bowel movements. Source: patient Exam Limitations: physical impairment Date seen by provider: Dec 02, 2022 Attending Physician [facility] PCP Admitting Physician: Terrance Arshad MD Attending Physician: Terrance Arshad MD Consult Date of Admission Dec 01, 2022 at 20:00 Home Medications Home Medications Reviewed patient Home Medication Reconciliation performed by pharmacy medication reconciliations inventory technician and/or nursing. Patients Allergies have been reviewed. Allergies Coded Allergies: COVID-19 vaccine, mRNA, [id number], L (Verified Allergy, Severe, 10/06/21) [id number] Hx Patient Social History Smoking Status: Unknown if Ever Smoked 2nd Hand Smoke Exposure: No Recent Hopitalizations: No Alcohol Use?: Unable to obtain Have you traveled recently?: No Immunizations Up To Date Influenza Vaccine Up-to-Date: Yes; Up-to-Date First/Initial COVID19 Vaccinat: YES, UNK Second COVID19 Vaccination Alexis: YES, UNK Third COVID19 Vaccination Date: YES, UNK Past Medical History PMHx: Guillain [place] with quadriplegia Tracheostomy in place DMII Asthma HLD HTN SurgHx: Tracheostomy Appendectomy Carpal tunnel release Family Medical History Significant Family History: No Pertinent Family Hx Review of Systems ([facility]) Constitutional: see HPI EENTM: see HPI Respiratory: see HPI Cardiovascular: see HPI Gastrointestinal: see HPI Genitourinary: see HPI Musculoskeletal: see HPI Skin: see HPI Psychiatric/Neurological: See HPI Reviewed Test Results Reviewed Test Results Lab Laboratory Tests 12/01/22 18:34: White Blood Count 13.5H, Red Blood Count 5.43, Hemoglobin 15.0, Hematocrit 50, Mean Corpuscular Volume 92, Mean Corpuscular Hemoglobin 28, Mean Corpuscular Hemoglobin Concent 30L, Red Cell Distribution Width 13.9, Platelet Count 302, Mean Platelet Volume 9.9, Immature Granulocyte % (Auto) 0, Neutrophils (%) (Auto) 73, Lymphocytes (%) (Auto) 16, Monocytes (%) (Auto) 5, Eosinophils (%) (Auto) 6, Basophils (%) (Auto) 1, Neutrophils # (Auto) 9.8H, Lymphocytes # (Auto) 2.1, Monocytes # (Auto) 0.7, Eosinophils # (Auto) 0.8H, Basophils # (Auto) 0.1, Immature Granulocyte # (Auto) 0.1, Prothrombin Time 14.6, INR Comment 1.1, Activated Partial Thromboplast Time 32, Sodium Level 137, Potassium Level 5.6H, Chloride Level 93L, Carbon Dioxide Level 36H, Anion Gap 8, Blood Urea Nitrogen 16, Creatinine 0.76, Estimat Glomerular Filtration Rate 99, BUN/Creatinine Ratio 21, Glucose Level 374H, Lactic Acid Level 0.93, Calcium Level 9.7, Corrected Calcium 9.5, Total Bilirubin 0.4, Aspartate Amino Transf (AST/SGOT) 15, Alanine Aminotransferase (ALT/SGPT) 21, Alkaline Phosphatase 100, Total Protein 7.9, Albumin 4.2, Procalcitonin 0.04 12/01/22 18:35: Blood Gas Puncture Site RIGHT RADIAL, Blood Gas Patient Temperature 99.1, Arterial Blood pH 7.12*L, Arterial Blood Partial Pressure CO2 138*H, Arterial Blood Partial Pressure O2 85, Arterial Blood HCO3 42*H, Arterial Blood Total CO2 46.4*H, Arterial Blood Oxygen Saturation 95, Arterial Blood Base Excess 12.7H, Abdias Test YES-POS, Blood Gas Ventilator Setting NA, Blood Gas Inspired Oxygen NA 12/01/22 18:45: Urine Color YELLOW, Urine Clarity SL CLOUDY, Urine pH 6.0, Urine Specific [place] >=1.030, Urine Protein TRACEH, Urine Glucose (UA) 3+H, Urine Ketones NEGATIVE, Urine Nitrite POSITIVEH, Urine Bilirubin NEGATIVE, Urine Urobilinogen 0.2, Urine Leukocyte Esterase TRACEH, Urine RBC (Auto) 3+H, Urine RBC 2-5H, Urine WBC 10-25H, Urine Squamous Epithelial Cells NONE, Urine Renal Epithelial Cells NONE, Urine Crystals NONE, Urine Bacteria FEWH, Urine Casts NONE, Urine Mucus NEGATIVE, Urine Culture Indicated CULTURE PENDING 12/01/22 22:13: Blood Gas Puncture Site RIGHT RADIAL, Blood Gas Patient Temperature 36.4, Arterial Blood pH 7.23*L, Arterial Blood Partial Pressure CO2 96*H, Arterial Blood Partial Pressure O2 265H, Arterial Blood HCO3 39H, Arterial Blood Total CO2 42.0*H, Arterial Blood Oxygen Saturation 100, Arterial Blood Base Excess 11.3H, Abdias Test YES-POS, Blood Gas Ventilator Setting NA, Blood Gas Inspired Oxygen NA 12/02/22 04:05: White Blood Count 11.6H, Red Blood Count 4.69, Hemoglobin 12.9L, Hematocrit 43, Mean Corpuscular Volume 92, Mean Corpuscular Hemoglobin 28, Mean Corpuscular Hemoglobin Concent 30L, Red Cell Distribution Width 14.1, Platelet Count 199, Mean Platelet Volume 10.4, Immature Granulocyte % (Auto) 0, Neutrophils (%) (Auto) 79H, Lymphocytes (%) (Auto) 12, Monocytes (%) (Auto) 6, Eosinophils (%) (Auto) 3, Basophils (%) (Auto) 0, Neutrophils # (Auto) 9.2H, Lymphocytes # (Auto) 1.4, Monocytes # (Auto) 0.6, Eosinophils # (Auto) 0.3, Basophils # (Auto) 0.1, Immature Granulocyte # (Auto) 0.0, Sodium Level 139, Potassium Level 4.8, Chloride Level 97L, Carbon Dioxide Level 33H, Anion Gap 9, Blood Urea Nitrogen 18, Creatinine 0.72, Estimat Glomerular Filtration Rate 100, BUN/Creatinine Ratio 25, Glucose Level 258H, Calcium Level 9.3, Corrected Calcium 9.8, Phosphorus Level 3.7, Magnesium Level 1.9, Total Bilirubin 0.3, Aspartate Amino Transf (AST/SGOT) 10, Alanine Aminotransferase (ALT/SGPT) 17, Alkaline Phosphatase 76, Total Protein 6.4, Albumin 3.4 12/02/22 05:30: Blood Gas Puncture Site RIGHT RADIAL, Blood Gas Patient Temperature 37.6, Arterial Blood pH 7.28*L, Arterial Blood Partial Pressure CO2 85*H, Arterial Blood Partial Pressure O2 89, Arterial Blood HCO3 38H, Arterial Blood Total CO2 40.8*H, Arterial Blood Oxygen Saturation 98, Arterial Blood Base Excess 11.5H, Abdias Test YES-POS, Blood Gas Ventilator Setting NO, Blood Gas Inspired Oxygen 4L Microbiology 12/01/22 Urine Culture - Preliminary, Resulted Radiology Patient had CXR which revealed low lung volumes but otherwise normal. Physical Exam-([facility]) Physical Exam Vital Signs VS - Last 72 Hours, by Label 12/01/22 12/01/22 12/01/22 12/01/22 18:28 18:28 18:35 19:45 Pulse 74 64 Resp 17 20 B/P (MAP) 148/86 (106) Pulse Ox 98 98 98 O2 Delivery Non Rebreather Non Rebreather Non Rebreather O2 Flow Rate 15.00 15.00 10.00 100.00 12/01/22 12/01/22 12/01/22 12/01/22 20:45 21:00 21:10 21:15 Temp 35.9 Pulse 55 59 62 57 Resp 18 20 16 11 B/P (MAP) 96/51 (66) 109/68 129/65 (86) 125/66 (85) Pulse Ox 96 98 89 O2 Delivery NIV Bilevel NIV Bilevel NIV Bilevel O2 Flow Rate 10.00 100.00 100.00 10.00 12/01/22 12/01/22 12/01/22 12/01/22 21:15 21:18 21:30 21:30 Temp 36.4 Pulse 59 58 56 58 Resp 18 18 16 B/P (MAP) 125/66 (85) 103/56 (72) 103/56 (72) Pulse Ox 91 95 95 O2 Delivery NIV Bilevel NIV Bilevel O2 Flow Rate 100.00 100.00 12/01/22 12/01/22 12/01/22 12/01/22 21:37 21:45 21:45 22:00 Pulse 56 56 56 Resp 15 18 10 B/P (MAP) 96/51 (66) 96/51 (66) 103/69 (80) Pulse Ox 96 96 97 O2 Delivery NIV Bilevel NIV Bilevel NIV Bilevel O2 Flow Rate 100.00 100.00 FiO2 100 12/01/22 12/01/22 12/01/22 12/01/22 22:00 22:15 22:30 22:37 Pulse 56 56 56 54 Resp 20 20 20 19 B/P (MAP) 103/69 (80) 92/63 (73) 102/64 (77) Pulse Ox 97 99 98 97 O2 Delivery NIV Bilevel O2 Flow Rate 80.00 12/01/22 12/01/22 12/01/22 12/01/22 22:50 23:00 23:00 23:30 Temp 36.6 Pulse 57 56 61 Resp 20 15 20 B/P (MAP) 92/59 (70) 92/59 (70) 93/62 (72) Pulse Ox 98 98 100 O2 Delivery NIV Bilevel NIV Bilevel O2 Flow Rate 80.00 80.00 12/01/22 12/02/22 12/02/22 12/02/22 23:32 00:00 00:06 00:54 Pulse 60 59 Resp 20 B/P (MAP) 102/65 (77) Pulse Ox 100 99 98 O2 Delivery NIV Bilevel NIV Bilevel NIV Bilevel O2 Flow Rate 70.00 70.00 FiO2 60 12/02/22 12/02/22 12/02/22 12/02/22 01:00 01:00 02:00 02:09 Pulse 59 60 60 59 Resp 20 20 20 B/P (MAP) 99/68 (78) 111/70 (84) Pulse Ox 98 98 98 O2 Delivery NIV Bilevel NIV Bilevel O2 Flow Rate 60.00 60.00 60.00 12/02/22 12/02/22 12/02/22 12/02/22 03:00 04:00 04:00 05:00 Temp 36.4 Pulse 67 71 65 Resp 20 20 20 B/P (MAP) 117/60 (79) 95/60 (72) 109/65 (80) Pulse Ox 97 98 97 96 O2 Delivery NIV Bilevel NIV Bilevel NIV Bilevel O2 Flow Rate 60.00 60.00 FiO2 60 12/02/22 12/02/22 12/02/22 12/02/22 05:20 06:00 07:00 07:03 Pulse 66 76 75 Resp 20 22 21 B/P (MAP) 99/58 (72) 121/61 (81) Pulse Ox 96 94 95 93 O2 Delivery Nasal Cannula Nasal Cannula High Flow N/C O2 Flow Rate 3.00 3.00 2.00 12/02/22 12/02/22 12/02/22 12/02/22 07:07 07:12 07:23 07:25 Temp 36.5 Pulse 78 78 Resp 21 Pulse Ox 95 O2 Delivery NIV Bilevel O2 Flow Rate 40.00 60.00 12/02/22 12/02/22 12/02/22 12/02/22 08:00 08:00 09:00 10:00 Pulse 77 63 80 Resp 28 19 26 B/P (MAP) 107/63 (78) 113/67 (82) 109/68 (82) Pulse Ox 92 93 95 O2 Delivery NIV Bilevel NIV Bilevel NIV Bilevel NIV Bilevel O2 Flow Rate 60.00 60.00 60.00 FiO2 60 12/02/22 12/02/22 12/02/22 12/02/22 10:47 10:49 10:53 10:53 Pulse 84 Resp 20 B/P (MAP) Pulse Ox 96 95 O2 Delivery NIV Bilevel NIV Bilevel O2 Flow Rate 40.00 30.00 30.00 30.00 12/02/22 12/02/22 12/02/22 12/02/22 11:00 11:54 12:00 12:43 Temp 36.0 Pulse 90 92 97 Resp 23 20 B/P (MAP) 101/59 (73) 108/69 (82) Pulse Ox 93 90 O2 Delivery NIV Bilevel NIV Bilevel O2 Flow Rate 30.00 30.00 General Appearance: WD/WN, no apparent distress Eyes: Bilateral Eye Normal Inspection, Bilateral Eye PERRL, Bilateral Eye EOMI HEENT: PERRL/EOMI, normal ENT inspection, TMs normal, pharynx normal Respiratory: chest non-tender, lungs clear, normal breath sounds, no respiratory distress, no accessory muscle use Cardiovascular: regular rate, rhythm, no edema, no gallop, no JVD, no murmur Gastrointestinal: normal bowel sounds, non tender, soft, no organomegaly, no pulsatile mass Extremities: no pedal edema Neurologic/Psychiatric: alert, normal mood/affect, oriented x 3 Skin: normal color, warm/dry Assessment/Plan Assessment/Plan Admission Status: Inpatient Order (span 2 midnights) Reason for Inpatient Admission: Chronic hypercarbic respiratory failure (1) Respiratory failure Status: Acute Assessment & Plan: Continue BiPAP and bronchodilator therapy. Monitor CO2 levels and mental status. Qualifiers: Qualified Codes: J96.21 - Acute and chronic respiratory failure with hypoxia; J96.22 - Acute and chronic respiratory failure with hypercapnia (2) UTI (urinary tract infection) Status: Acute Assessment & Plan: Pseudomonas grown on culture. Unsure whether this is true infection. Holding antibiotics for now. Qualifiers: (3) DVT prophylaxis Status: Acute Assessment & Plan: Continue Apixiban (4) Diabetes mellitus, type 2 Status: Chronic Assessment & Plan: Hold home medications, sliding scale insulin as needed. Diabetic diet. 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 Last Edited By: Sakina Canada on Dec 02, 2022 14:35 (7) Paroxysmal atrial fibrillation Status: Chronic Assessment & Plan: Resume home medications TERRANCE ARSHAD MD 12/02/22 1442: HPI History of Present Illness: Time Seen by Provider: 09:30 Home Medications Allergies Coded Allergies: COVID-19 vaccine, mRNA, [id number], L (Verified Allergy, Severe, 10/06/21) Supervisory-Addendum Brief Verification & Attestation Participated in pt care: history, MDM, physical Personally performed: exam, history, MDM, supervision of care Care discussed with: Medical Student Procedures: n/a Verification and Attestation of Medical Student E/M Service A medical student performed and documented this service in my presence. I reviewed and verified all information documented by the medical student and made modifications to such information, when appropriate. I personally performed the physical exam and medical decision making. Terrance Arshad, Dec 02, 2022,14:42 SAKINA [place] Dec 02, 2022 13:18 TERRANCE ARSHAD MD Dec 02, 2022 14:42
[2022-12-02 15:36] VITALS: BP 110/69
[2022-12-02] MEDS ORDERED: [UNRECOGNIZED DRUG - OTHER] OU PRN (15:45)
[2022-12-02] MEDS ORDERED: CARBOXYMETHYLCELLULOSE SODIUM OU PRN (15:45)
[2022-12-02] MEDS ORDERED: polyethylene glycoL POWDER 17 GM (MIRALAX) PACK PO PRN (15:45)
[2022-12-02] MEDS ORDERED: PETROLATUM WHITE OU PRN (15:45)
[2022-12-02] MEDS ORDERED: MINERAL OIL OU PRN (15:45)
[2022-12-02] MEDS ORDERED: ACETAMINOPHEN 325 MG TABLET PO PRN (15:45)
[2022-12-02] MEDS ORDERED: LACRI-LUBE OPTHALMIC OINT 3.5 GM TUBE OU PRN (16:15)
[2022-12-02] MEDS ORDERED: ARTIFICAL TEARS 0.4 ML UNIT DOSE (REFRESH PLUS) OU PRN (16:15)
[2022-12-02 18:34] VITALS: BP 126/71
[2022-12-02] MEDS ORDERED: cefTRIAXone 1 GM IV (PRE-MIX) 50 ML IV SCH (20:00)
[2022-12-02] MEDS: PREGABALIN 150 MG (LYRICA) CAPSULE PO SCH (21:05)
[2022-12-02] MEDS: FAMOTIDINE 20 MG (PEPCID) TABLET PO SCH (21:06)
[2022-12-02] MEDS: METHENAMINE HIPP (UREX) 1 GM TABLET PO SCH (21:06)
[2022-12-02] MEDS: LACTOBACILLUS ACIDOPHILUS (PROBIOTIC) CAPSULE PO SCH (21:06)
[2022-12-02] MEDS: DOCUSATE SODIUM 100 MG (COLACE) CAP PO SCH (21:07)
[2022-12-02 22:03] VITALS: BP 118/77
[2022-12-03] MEDS: RT-ALBUTEROL SULF 2.5 MG/3 ML PRE-MIX VIAL INH SCH ×6 (02:49→22:12)
[2022-12-03 02:50] VITALS: BP 125/81
[2022-12-03] MEDS: NS IV 1000 ML 1,000 ML IV SCH (03:00)
[2022-12-03 05:15] LABS: BASOPHILS % (AUTO) 0 % (0-10); EOSINOPHILS # (AUTO) 0.3 10^3/uL (0.0-0.3); EOSINOPHILS % (AUTO) 3 % (0-10); HEMATOCRIT 38 % (40-54); HEMOGLOBIN 12.3 g/dL (13.3-17.7); LYMPHOCYTES # (AUTO) 1.6 10^3/uL (1.0-4.0); LYMPHOCYTES % (AUTO) 17 % (12-44); MEAN CORPUSCULAR HEMOGLOBIN 28 pg (25-34); MEAN CORPUSCULAR HGB CONC 32 g/dL (32-36); MEAN CORPUSCULAR VOLUME 88 fL (80-99); MEAN PLATELET VOLUME 10.7 fL (9.0-12.2); MONOCYTES # (AUTO) 0.5 10^3/uL (0.0-1.0); MONOCYTES % (AUTO) 5 % (0-12); NEUTROPHILS % (AUTO) 74 % (42-75); PLATELET COUNT 185 10^3/uL (130-400); WHITE BLOOD COUNT 9.4 10^3/uL (4.3-11.0)
[2022-12-03 05:26] LABS: ALBUMIN 3.5 GM/DL (3.2-4.5)
[2022-12-03 05:27] LABS: POTASSIUM 3.7 MMOL/L (3.6-5.0)
[2022-12-03 05:28] LABS: CALCIUM 9.2 MG/DL (8.5-10.1)
[2022-12-03 05:29] LABS: TOTAL PROTEIN 6.4 GM/DL (6.4-8.2)
[2022-12-03 05:31] LABS: BILIRUBIN,TOTAL 0.5 MG/DL (0.1-1.0)
[2022-12-03 05:32] LABS: PHOSPHORUS 2.6 MG/DL (2.3-4.7)
[2022-12-03 05:33] LABS: CREATININE SERUM 0.63 MG/DL (0.60-1.30)
[2022-12-03 05:35] LABS: MAGNESIUM 1.8 MG/DL (1.6-2.4)
[2022-12-03] MEDS: POTASSIUM CL 10MEQ/50ML IVPB 50 ML IV SCH (06:22)
[2022-12-03] MEDS: KCL 20 MEQ TAB (K-DUR) PO SCH (06:23)
[2022-12-03] MEDS: MAGNESIUM 1 GM/100 ML IVPB 100 ML IV SCH (06:23)
--- NOTE | 2022-12-03 08:09 | Tele-ICU Progress Note ---
Subjective Date Seen by a Provider: Dec 03, 2022 Subjective/Events-last exam (Tele-ICU Physician , consultation) Available chart/ vitals / labs / Images reviewed H&P is from ER notes Patient's information available about PMH, allergy reviewed in EMR. ROS as per chart and RN report Video assessment done using teleICU camera, rest of exam as per RN Discussed with RN. This gentleman has a history of quadriplegia and has been bedridden and resident of a halfway admitted with decreased responsiveness and hypoxia found to have a acute and chronic severe hypercarbic respiratory failure. He is put on AVAPS ventilation with which is a oxygen saturation improved as well as PCO2 decreasing. When AVAPS temporarily discontinued he is awake alert and following simple commands. Chest x-ray reviewed and showed no acute infiltrates present in view of lack of pneumonia and causing hypoxic respiratory failure pulmonary embolism was considered in this patient who is bedridden hence his CT angiogram of the chest was done which however did not show any pulmonary emboli. Low lung volumes and subsegmental atelectasis is found. However patient is already on Eliquis for atrial fibrillation. He has a recent visit to the hospital for similar hypercarbic respiratory failure and discharged. 12/03/22 today feeling better, abg showed normalisation of ph. urine c/s grew pseudomonas and enterococuss fecalis. Impression 1. Acute on chronic hypercarbic and hypoxic respiratory failure due to quadriplegia with the possibility because of the very low lung volumes and decreasing tidal volumes. 2. Quadriplegia of undetermined etiology. 3. History of atrial fibrillation 4. Mild obesity. Recommendations 1. Continue AVAPS ventilation prn and at night. day time n/c 2. IV antibiotic with meropenum for possible urinary tract infection, await sensitivity 3. Continue anticoagulation for the atrial fibrillation and DVT prophylaxis. 4. Bronchodilator therapy. Coordination of care with bedside consultants and primary care physician. Sepsis Event Evaluation Height, Weight, BMI Height: 5'11.00" Weight: 230lbs. oz. 104.333220mt; 29.62 BMI Method:Stated Focused Exam Lactate Level 12/01/22 18:34: Lactic Acid Level 0.93 Exam Exam Patient acknowledged, consented, and participated in this virtual visit which wa s conducted using real time audio/video Vital Signs Date Time Temp Pulse Resp B/P (MAP) Pulse Ox O2 Delivery O2 Flow Rate FiO2 12/03/22 07:45 36.7 12/03/22 07:19 99 12/03/22 06:00 101 22 141/84 (103) 93 12/03/22 05:00 105 20 140/80 (100) 93 Nasal Cannula 4.00 12/03/22 04:00 36.2 103 22 142/89 (106) 93 Nasal Cannula 4.00 12/03/22 04:00 Nasal Cannula 4.00 12/03/22 03:00 101 22 133/85 (101) 92 NIV Bilevel 30.00 12/03/22 02:50 79 21 96 30.00 12/03/22 02:00 103 21 125/87 (100) 94 NIV Bilevel 30.00 12/03/22 01:00 106 24 138/87 (104) 92 NIV Bilevel 30.00 12/03/22 01:00 106 12/03/22 00:00 36.3 100 28 126/77 (93) 93 NIV Bilevel 30.00 12/02/22 23:50 NIV Bilevel 30 12/02/22 23:00 114 30 111/66 (81) 92 NIV Bilevel 30.00 12/02/22 22:03 107 21 92 30.00 12/02/22 22:00 107 22 118/77 (91) 93 NIV Bilevel 30.00 12/02/22 21:30 79 28 94 Nasal Cannula 4.00 12/02/22 21:00 101 24 125/75 (92) 91 30.00 12/02/22 20:00 36.9 110 30 126/77 (93) 90 30.00 12/02/22 20:00 NIV Bilevel 30 12/02/22 19:15 108 12/02/22 19:11 36.8 12/02/22 19:00 112 12/02/22 19:00 112 26 118/77 (91) 91 NIV Bilevel 30.00 12/02/22 18:53 90 NIV Bilevel 30.00 12/02/22 18:34 102 26 91 30.00 12/02/22 18:00 101 22 124/84 (97) 89 NIV Bilevel 30.00 12/02/22 17:00 98 13 98/66 (77) 89 NIV Bilevel 30.00 12/02/22 16:37 NIV Bilevel 30 12/02/22 16:00 110 23 105/74 (84) 93 NIV Bilevel 30.00 12/02/22 15:36 98 23 92 30.00 12/02/22 15:00 101 23 105/71 (82) 90 NIV Bilevel 30.00 12/02/22 14:42 NIV Bilevel 30.00 12/02/22 14:00 102 23 106/68 (81) 90 Nasal Cannula 3.00 12/02/22 13:00 93 20 103/65 (78) 92 Nasal Cannula 3.00 12/02/22 12:55 Nasal Cannula 3.00 12/02/22 12:43 97 12/02/22 12:00 92 20 108/69 (82) 90 NIV Bilevel 30.00 12/02/22 11:54 36.0 12/02/22 11:41 NIV Bilevel 30 12/02/22 11:00 90 23 101/59 (73) 93 NIV Bilevel 30.00 12/02/22 10:53 NIV Bilevel 30.00 12/02/22 10:53 NIV Bilevel 30.00 12/02/22 10:49 95 30.00 12/02/22 10:47 84 20 96 40.00 12/02/22 10:00 80 26 109/68 (82) 95 NIV Bilevel 60.00 12/02/22 09:00 63 19 113/67 (82) 93 NIV Bilevel 60.00 I & O 12/03/22 07:00 Intake Total 4266 ml Output Total 1500 ml Balance 2766 ml Height & Weight Height: 5'11.00" Weight: 230lbs. oz. 104.323377to; 29.62 BMI Method:Stated General Appearance: Obese Neck: Other (old trach scar, still small hole) Respiratory: Decreased Breath Sounds, Wheezing Cardiovascular: Regular Rate, Rhythm Capillary Refill: Greater Than 3 Seconds Gastrointestinal: normal bowel sounds, non tender, soft, no organomegaly, no pulsatile mass Extremity: Normal Capillary Refill, No Pedal Edema Neurologic/Psychiatric: Other (pt is lethargic, quadriplegic) Results Lab Laboratory Tests 12/01/22 18:34 12/02/22 04:05 12/03/22 04:45 Assessment/Plan Assessment/Plan as above Critical Care: Critically Ill Patient Time spent with patient (mins): 25 SKYLAR SHEEHAN MD Dec 03, 2022 08:09
[2022-12-03] MEDS: SERTRALINE 50 MG (ZOLOFT) TABLET PO SCH (08:21)
[2022-12-03] MEDS: LACTOBACILLUS ACIDOPHILUS (PROBIOTIC) CAPSULE PO SCH ×2 (08:21→20:33)
[2022-12-03] MEDS: MULTIVIT W/MINERALS TAB (THERAGRAN M) PO SCH (08:21)
[2022-12-03] MEDS: METHENAMINE HIPP (UREX) 1 GM TABLET PO SCH ×2 (08:21→20:34)
[2022-12-03] MEDS: APIXABAN 5 MG (ELIQUIS) TABLET PO SCH ×2 (08:22→20:33)
[2022-12-03] MEDS: PREGABALIN 150 MG (LYRICA) CAPSULE PO SCH ×2 (08:22→20:34)
[2022-12-03] MEDS: MEROPENEM 500 MG in NS (IVPB) 100 ML IV SCH ×2 (08:32→15:56)
[2022-12-03] MEDS ORDERED: NON-FORMULARY MEDICATION 1 EA EA (Multivitamin 1 EACH) PO SCH (09:00)
[2022-12-03 10:02] LABS: ABG BASE EXCESS 7.3 MMOL/L (-2.5-2.5); ABG OXYGEN SATURATION 96 % (94-100); ABG PCO2 58 MMHG (35-45); ABG PH 7.37 (7.37-7.43); ABG PO2 77 MMHG (79-93); ABG TCO2 34.5 MMOL/L (21.0-31.0)
[2022-12-03 10:05] LABS: ALLENS TEST YES-POS; INSPIRED O2 30%; PATIENT TEMP 36.5; VENTILATOR NO
[2022-12-03 11:08] VITALS: BP 145/86
--- NOTE | 2022-12-03 11:30 | Progress Note ---
SAKINA CANADA 12/03/22 1130: Subjective Subjective/Events-last exam Patient is doing well today. He has been getting breaks from BiPAP and his O2 sats with nasal cannula have been 92%-95% on 4L. Arterial blood gases are improving. Patient has no complaints. Patient endorses coughing and diarrhea. Denies headache, shortness of breath, chest pain and abdominal pain. Focused Exam Lactate Level 12/01/22 18:34: Lactic Acid Level 0.93 Objective Exam Last Set of Vital Signs Vital Signs Date Time Temp Pulse Resp B/P (MAP) Pulse Ox O2 Delivery O2 Flow Rate FiO2 12/03/22 11:08 77 20 98 30.00 12/03/22 11:00 145/86 (105) NIV Bilevel 12/03/22 07:45 36.7 12/02/22 23:50 30 Capillary Refill : Greater Than 3 Seconds I&O Intake and Output 12/03/22 00:00 Intake Total 4166 ml Output Total 1355 ml Balance 2811 ml Intake Oral 2166 ml IV Total 2000 ml Output Urine Total 1355 ml # Bowel Movements 1 General: Alert, Oriented X3, Cooperative HEENT: Atraumatic Lungs: Other (Inspiratory wheezing and expiratory rhonchi.) Heart: Regular Rate, No Murmurs Abdomen: Normal Bowel Sounds, Soft, No Tenderness Extremities: Normal Pulses, Other (Clubbing and 1+ LE edema) Neuro: Normal Speech Psych/Mental Status: Mental Status NL, Mood NL Results/Procedures Lab Laboratory Tests 12/03/22 04:45: White Blood Count 9.4, Red Blood Count 4.38, Hemoglobin 12.3L, Hematocrit 38L, Mean Corpuscular Volume 88, Mean Corpuscular Hemoglobin 28, Mean Corpuscular Hemoglobin Concent 32, Red Cell Distribution Width 14.0, Platelet Count 185, Mean Platelet Volume 10.7, Immature Granulocyte % (Auto) 0, Neutrophils (%) (Auto) 74, Lymphocytes (%) (Auto) 17, Monocytes (%) (Auto) 5, Eosinophils (%) (Auto) 3, Basophils (%) (Auto) 0, Neutrophils # (Auto) 7.0, Lymphocytes # (Auto) 1.6, Monocytes # (Auto) 0.5, Eosinophils # (Auto) 0.3, Basophils # (Auto) 0.0, Immature Granulocyte # (Auto) 0.0, Sodium Level 136, Potassium Level 3.7, Chloride Level 99, Carbon Dioxide Level 27, Anion Gap 10, Blood Urea Nitrogen 21H, Creatinine 0.63, Estimat Glomerular Filtration Rate 104, BUN/Creatinine Rat io 33, Glucose Level 184H, Calcium Level 9.2, Corrected Calcium 9.6, Phosphorus Level 2.6, Magnesium Level 1.8, Total Bilirubin 0.5, Aspartate Amino Transf (AST/SGOT) 14, Alanine Aminotransferase (ALT/SGPT) 17, Alkaline Phosphatase 74, Total Protein 6.4, Albumin 3.5 12/03/22 09:50: Blood Gas Puncture Site RT RADIAL, Blood Gas Patient Temperature 36.5, Arterial Blood pH 7.37, Arterial Blood Partial Pressure CO2 58H, Arterial Blood Partial Pressure O2 77L, Arterial Blood HCO3 33H, Arterial Blood Total CO2 34.5H, Arterial Blood Oxygen Saturation 96, Arterial Blood Base Excess 7.3H, Abdias Test YES-POS, Blood Gas Ventilator Setting NO, Blood Gas Inspired Oxygen 30% Microbiology 12/01/22 MRSA Screen - Final, Complete MRSA not isolated 12/01/22 Urine Culture - Preliminary, Resulted Pseudomonas aeruginosa Enterococcus faecalis 12/01/22 Blood Culture - Preliminary, Resulted No growth Radiology Patient had CXR which revealed low lung volumes but otherwise normal. He also had CTA which revealed bibasilar opacities, maybe atalectasis or infection. Also revealed cholelithiasis and hepatosplenomegaly. Assessment/Plan Assessment/Plan Admission Status: Inpatient Order (span 2 midnights) (1) Respiratory failure Status: Acute Assessment & Plan: Continue BiPAP and bronchodilator therapy. Decrease BiPAP use and bridge with Nasal cannula. Monitor ABG. Qualifiers: Qualified Codes: J96.21 - Acute and chronic respiratory failure with hypoxia; J96.22 - Acute and chronic respiratory failure with hypercapnia (2) UTI (urinary tract infection) Status: Acute Assessment & Plan: Pseudomonas grown on culture. Unsure whether this is true infection. Discontinued Meropenem. Qualifiers: (3) DVT prophylaxis Status: Acute Assessment & Plan: Continue Apixiban (4) Diabetes mellitus, type 2 Status: Chronic Assessment & Plan: Hold home medications, sliding scale insulin as needed. Diabetic diet. (5) Hypertension Status: Chronic Assessment & Plan: Hold home medications until needed (6) Guillain-[employer] syndrome after administration of vaccine Status: Chronic Permanent Comment: With quadriplegia Last Edited By: Sakina [place] on Dec 02, 2022 14:35 (7) Paroxysmal atrial fibrillation Status: Chronic Assessment & Plan: Resume home medications NELY PERALTA MD 12/03/22 1217: Supervisory-Addendum Brief Verification & Attestation Participated in pt care: history, MDM, physical Personally performed: exam, history, MDM, supervision of care Care discussed with: Medical Student Procedures: n/a Verification and Attestation of Medical Student E/M Service A medical student performed and documented this service in my presence. I reviewed and verified all information documented by the medical student and made modifications to such information, when appropriate. I personally performed the physical exam and medical decision making. Nely Peralta, Dec 03, 2022,12:17 SAKINA [place] Dec 03, 2022 11:30 NELY PERALTA MD Dec 03, 2022 12:17
[2022-12-03 15:41] VITALS: BP 146/80
[2022-12-03 17:12] LABS: ABG BASE EXCESS 7.9 MMOL/L (-2.5-2.5); ABG OXYGEN SATURATION 98 % (94-100); ABG PCO2 51 MMHG (35-45); ABG PH 7.42 (7.37-7.43); ABG PO2 82 MMHG (79-93); ABG TCO2 34.1 MMOL/L (21.0-31.0); ALLENS TEST YES-POS; INSPIRED O2 30%; PATIENT TEMP 37; VENTILATOR NO
[2022-12-03 19:27] VITALS: BP 133/80
[2022-12-03] MEDS: DOCUSATE SODIUM 100 MG (COLACE) CAP PO SCH (20:33)
[2022-12-03] MEDS: FAMOTIDINE 20 MG (PEPCID) TABLET PO SCH (20:34)
[2022-12-03 23:22] VITALS: BP 129/78
[2022-12-04] MEDS: RT-ALBUTEROL SULF 2.5 MG/3 ML PRE-MIX VIAL INH SCH ×6 (01:57→22:04)
[2022-12-04 03:36] VITALS: BP 143/75
[2022-12-04 06:05] LABS: BASOPHILS % (AUTO) 1 % (0-10); EOSINOPHILS # (AUTO) 0.4 10^3/uL (0.0-0.3); EOSINOPHILS % (AUTO) 5 % (0-10); HEMATOCRIT 39 % (40-54); HEMOGLOBIN 12.3 g/dL (13.3-17.7); LYMPHOCYTES # (AUTO) 1.5 10^3/uL (1.0-4.0); LYMPHOCYTES % (AUTO) 19 % (12-44); MEAN CORPUSCULAR HEMOGLOBIN 28 pg (25-34); MEAN CORPUSCULAR HGB CONC 32 g/dL (32-36); MEAN CORPUSCULAR VOLUME 88 fL (80-99); MEAN PLATELET VOLUME 10.6 fL (9.0-12.2); MONOCYTES # (AUTO) 0.4 10^3/uL (0.0-1.0); MONOCYTES % (AUTO) 6 % (0-12); NEUTROPHILS # (AUTO) 5.5 10^3/uL (1.8-7.8); NEUTROPHILS % (AUTO) 69 % (42-75); PLATELET COUNT 207 10^3/uL (130-400)
[2022-12-04] MEDS: MULTIVIT W/MINERALS TAB (THERAGRAN M) PO SCH (06:13)
[2022-12-04 06:26] LABS: ALBUMIN 3.5 GM/DL (3.2-4.5); BILIRUBIN,TOTAL 0.4 MG/DL (0.1-1.0); CALCIUM 9.1 MG/DL (8.5-10.1); CREATININE SERUM 0.63 MG/DL (0.60-1.30); MAGNESIUM 1.7 MG/DL (1.6-2.4); PHOSPHORUS 3.1 MG/DL (2.3-4.7); POTASSIUM 3.4 MMOL/L (3.6-5.0); TOTAL PROTEIN 6.4 GM/DL (6.4-8.2)
[2022-12-04] MEDS ORDERED: KCL 20 MEQ TAB (K-DUR) PO ONE (08:00)
[2022-12-04] MEDS: METHENAMINE HIPP (UREX) 1 GM TABLET PO SCH ×2 (08:33→21:34)
[2022-12-04] MEDS: SERTRALINE 50 MG (ZOLOFT) TABLET PO SCH (08:33)
[2022-12-04] MEDS: APIXABAN 5 MG (ELIQUIS) TABLET PO SCH ×2 (08:33→21:34)
[2022-12-04] MEDS: PREGABALIN 150 MG (LYRICA) CAPSULE PO SCH ×2 (08:34→21:34)
[2022-12-04] MEDS: LACTOBACILLUS ACIDOPHILUS (PROBIOTIC) CAPSULE PO SCH ×2 (08:34→21:34)
[2022-12-04 08:52] VITALS: BP 162/90
[2022-12-04 12:26] VITALS: BP 154/86
--- NOTE | 2022-12-04 15:38 | Progress Note ---
Subjective Subjective/Events-last exam Pt states he is feeling quite well, ready to go home. Denies concerns. Focused Exam Lactate Level 12/01/22 18:34: Lactic Acid Level 0.93 Objective Exam Last Set of Vital Signs Vital Signs Date Time Temp Pulse Resp B/P (MAP) Pulse Ox O2 Delivery O2 Flow Rate FiO2 12/04/22 14:31 97 High Flow N/C 2.00 12/04/22 12:58 77 12/04/22 12:26 35.8 18 154/86 (108) 12/03/22 20:00 30 Capillary Refill : Greater Than 3 Seconds I&O Intake and Output 12/04/22 00:00 Intake Total 2500 ml Output Total 2150 ml Balance 350 ml Intake Oral 1300 ml IV Total 1200 ml Output Urine Total 2150 ml # Bowel Movements 1 General: Alert, No Acute Distress Lungs: Clear to Auscultation Heart: Regular Rate Neuro: Normal Speech Psych/Mental Status: Mood NL Results/Procedures Lab Laboratory Tests 12/03/22 16:57: Blood Gas Puncture Site R RADIAL, Blood Gas Patient Temperature 37, Arterial Blood pH 7.42, Arterial Blood Partial Pressure CO2 51H, Arterial Blood Partial Pressure O2 82, Arterial Blood HCO3 33H, Arterial Blood Total CO2 34.1H, Arterial Blood Oxygen Saturation 98, Arterial Blood Base Excess 7.9H, Abdias Test YES-POS, Blood Gas Ventilator Setting NO, Blood Gas Inspired Oxygen 30% 12/04/22 05:25: White Blood Count 8.0, Red Blood Count 4.40, Hemoglobin 12.3L, Hematocrit 39L, Mean Corpuscular Volume 88, Mean Corpuscular Hemoglobin 28, Mean Corpuscular Hemoglobin Concent 32, Red Cell Distribution Width 14.2, Platelet Count 207, Mean Platelet Volume 10.6, Immature Granulocyte % (Auto) 0, Neutrophils (%) (Auto) 69, Lymphocytes (%) (Auto) 19, Monocytes (%) (Auto) 6, Eosinophils (%) (Auto) 5, Basophils (%) (Auto) 1, Neutrophils # (Auto) 5.5, Lymphocytes # (Auto) 1.5, Monocytes # (Auto) 0.4, Eosinophils # (Auto) 0.4H, Basophils # (Auto) 0.0, Immature Granulocyte # (Auto) 0.0, Sodium Level 138, Potassium Level 3.4L, Chloride Level 101, Carbon Dioxide Level 29, Anion Gap 8, Blood Urea Nitrogen 15, Creatinine 0.63, Estimat Glomerular Filtration Rate 104, BUN/Creatinine Ratio 24, Glucose Level 168H, Calcium Level 9.1, Corrected Calcium 9.5, Phosphorus Level 3.1, Magnesium Level 1.7, Total Bilirubin 0.4, Aspartate Amino Transf (AST/SGOT) 16, Alanine Aminotransferase (ALT/SGPT) 15, Alkaline Phosphatase 72, Total Protein 6.4, Albumin 3.5 Microbiology 12/01/22 MRSA Screen - Final, Complete MRSA not isolated 12/01/22 Urine Culture - Preliminary, Resulted Pseudomonas aeruginosa Enterococcus faecalis Gram Negative Joe 12/01/22 Blood Culture - Preliminary, Resulted No growth Radiology Patient had CXR which revealed low lung volumes but otherwise normal. He also had CTA which revealed bibasilar opacities, maybe atalectasis or infection. Also revealed cholelithiasis and hepatosplenomegaly. Assessment/Plan Assessment/Plan (1) Respiratory failure Status: Acute Assessment & Plan: Initially requiring BiPap with markedly elevated pCO2 which is now much improved. Tolerating nasal cannula. Working on home bipap set up. Qualifiers: Qualified Codes: J96.21 - Acute and chronic respiratory failure with hypoxia; J96.22 - Acute and chronic respiratory failure with hypercapnia (2) UTI (urinary tract infection) Status: Acute Assessment & Plan: Pseudomonas grown on culture. Unsure whether this is true infection. Discontinued Meropenem. Qualifiers: (3) Diabetes mellitus, type 2 Status: Chronic Assessment & Plan: Hold home medications, sliding scale insulin as needed. Diabetic diet. 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
[2022-12-04 16:02] VITALS: BP 136/73
[2022-12-04 20:06] VITALS: BP 126/66
[2022-12-04] MEDS: DOCUSATE SODIUM 100 MG (COLACE) CAP PO SCH (21:33)
[2022-12-04] MEDS: FAMOTIDINE 20 MG (PEPCID) TABLET PO SCH (21:34)
[2022-12-05 00:16] VITALS: BP 131/79
[2022-12-05] MEDS: RT-ALBUTEROL SULF 2.5 MG/3 ML PRE-MIX VIAL INH SCH ×4 (03:19→19:48)
[2022-12-05 03:52] VITALS: BP 143/80
[2022-12-05 05:33] LABS: BASOPHILS # (AUTO) 0.1 10^3/uL (0.0-0.1); BASOPHILS % (AUTO) 1 % (0-10); EOSINOPHILS # (AUTO) 0.5 10^3/uL (0.0-0.3); EOSINOPHILS % (AUTO) 6 % (0-10); HEMATOCRIT 40 % (40-54); HEMOGLOBIN 12.8 g/dL (13.3-17.7); LYMPHOCYTES # (AUTO) 1.7 10^3/uL (1.0-4.0); LYMPHOCYTES % (AUTO) 18 % (12-44); MEAN CORPUSCULAR HEMOGLOBIN 28 pg (25-34); MEAN CORPUSCULAR HGB CONC 32 g/dL (32-36); MEAN CORPUSCULAR VOLUME 88 fL (80-99); MEAN PLATELET VOLUME 10.4 fL (9.0-12.2); MONOCYTES # (AUTO) 0.6 10^3/uL (0.0-1.0); MONOCYTES % (AUTO) 6 % (0-12); NEUTROPHILS # (AUTO) 6.7 10^3/uL (1.8-7.8); NEUTROPHILS % (AUTO) 70 % (42-75); PLATELET COUNT 202 10^3/uL (130-400); WHITE BLOOD COUNT 9.5 10^3/uL (4.3-11.0)
[2022-12-05 05:52] LABS: ALBUMIN 3.4 GM/DL (3.2-4.5); BILIRUBIN,TOTAL 0.4 MG/DL (0.1-1.0); CALCIUM 9.1 MG/DL (8.5-10.1); CREATININE SERUM 0.59 MG/DL (0.60-1.30); MAGNESIUM 1.7 MG/DL (1.6-2.4); PHOSPHORUS 3.1 MG/DL (2.3-4.7); POTASSIUM 3.7 MMOL/L (3.6-5.0); TOTAL PROTEIN 6.7 GM/DL (6.4-8.2)
[2022-12-05] MEDS: MULTIVIT W/MINERALS TAB (THERAGRAN M) PO SCH (06:46)
[2022-12-05 08:00] VITALS: BP 129/77
[2022-12-05] MEDS ORDERED: cloNIDine 0.1 MG (CATAPRES) TAB PO PRN (08:00)
[2022-12-05] MEDS: APIXABAN 5 MG (ELIQUIS) TABLET PO SCH ×2 (08:21→20:16)
[2022-12-05] MEDS: SERTRALINE 50 MG (ZOLOFT) TABLET PO SCH (08:21)
[2022-12-05] MEDS: PREGABALIN 150 MG (LYRICA) CAPSULE PO SCH (08:21)
[2022-12-05] MEDS: LACTOBACILLUS ACIDOPHILUS (PROBIOTIC) CAPSULE PO SCH ×2 (08:21→20:16)
[2022-12-05] MEDS: METHENAMINE HIPP (UREX) 1 GM TABLET PO SCH ×2 (08:21→20:16)
[2022-12-05 12:28] VITALS: BP 122/69
--- NOTE | 2022-12-05 13:57 | Discharge Summary ---
SAKINA WETZEL 12/05/22 1355: Discharge Summary Hospital Course Problems/Diagnosis: (1) Respiratory failure Status: Acute Assessment & Plan: Initially required BiPAP with markedly elevated pCO2 which resolved over hospital course. Patient was able to transfer partly to nasal cannula. [facility] Encouraged him to utilize this at night and nasal cannula throughout the day. Qualifiers: Qualified Codes: J96.21 - Acute and chronic respiratory failure with hypoxia; J96.22 - Acute and chronic respiratory failure with hypercapnia (2) UTI (urinary tract infection) Status: Acute Assessment & Plan: Pseudomonas grown on culture. Unsure whether this is true infection. Decision was made not to treat. Patient was never symptomatic. Qualifiers: (3) Diabetes mellitus, type 2 Status: Chronic Assessment & Plan: Discharge on [employer] medications for diabetes management. (4) Hypertension Status: Chronic Assessment & Plan: Discharge on [employer] medications for HTN management. 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 (7) DVT prophylaxis Status: Acute Assessment & Plan: D/c upon discharge. Hospital Course Date of Admission: Dec 01, 2022 at 20:00 Admission Diagnosis : [facility] [place] Date of Discharge: 12/05/22 Discharge Diagnosis: [Chronic hypercapnic respiratory failure] Hospital Course: [ See problem list] Labs and Pending Lab Test: Laboratory Tests 12/05/22 04:59: White Blood Count 9.5, Red Blood Count 4.60, Hemoglobin 12.8L, Hematocrit 40, Mean Corpuscular Volume 88, Mean Corpuscular Hemoglobin 28, Mean Corpuscular Hemoglobin Concent 32, Red Cell Distribution Width 14.1, Platelet Count 202, Mean Platelet Volume 10.4, Immature Granulocyte % (Auto) 0, Neutrophils (%) (Auto) 70, Lymphocytes (%) (Auto) 18, Monocytes (%) (Auto) 6, Eosinophils (%) (Auto) 6, Basophils (%) (Auto) 1, Neutrophils # (Auto) 6.7, Lymphocytes # (Auto) 1.7, Monocytes # (Auto) 0.6, Eosinophils # (Auto) 0.5H, Basophils # (Auto) 0.1, Immature Granulocyte # (Auto) 0.0, Sodium Level 137, Potassium Level 3.7, Chloride Level 101, Carbon Dioxide Level 27, Anion Gap 9, Blood Urea Nitrogen 14, Creatinine 0.59L, Estimat Glomerular Filtration Rate 106, BUN/Creatinine Ratio 24, Glucose Level 185H, Calcium Level 9.1, Corrected Calcium 9.6, Phosphorus Level 3.1, Magnesium Level 1.7, Total Bilirubin 0.4, Aspartate Amino Transf (AST/SGOT) 16, Alanine Aminotransferase (ALT/SGPT) 15, Alkaline Phosphatase 73, Total Protein 6.7, Albumin 3.4 Microbiology 12/01/22 MRSA Screen - Final, Complete MRSA not isolated 12/01/22 Urine Culture - Final, Complete Pseudomonas aeruginosa Enterococcus faecalis Pseudomonas aeruginosa#2 12/01/22 Blood Culture - Preliminary, Resulted No growth Home Meds Active Clonidine HCl 0.1 Mg Tablet 0.1 Mg PO Q4H PRN Diltiazem 24Hr ER (Diltiazem HCl) 240 Mg Cap.er.24h 240 Mg PO DAILY Reported Levetiracetam 1,000 Mg Tablet 1,000 Mg PO BID Losartan Potassium 50 Mg Tablet 50 Mg PO DAILY HOLD FOR SBP <100 Hiprex (Methenamine Hippurate) 1 Gram Tablet 1 Gm PO BID Carboxymethylcellulose Sodium 15 Ml Drops 2 Drops OU Q2H PRN Tylenol (Acetaminophen) 325 Mg Tablet 650 Mg PO Q4H PRN Pregabalin 150 Mg Capsule 300 Mg PO BID TAKES 2 (150MG) CAPS Miralax (Polyethylene Glycol 3350) 17 Gm Powd.pack 17 Gm PO DAILY PRN Lubricant Pm Eye Ointment (Mineral Oil/Petrolatum,White) 3.5 Gm Oint...g. 1 Applic OU Q2H PRN Peridex (Chlorhexidine Gluconate) 473 Ml Mouthwash 15 Ml MM BID Metoprolol Tartrate 25 Mg Tablet 25 Mg PO BID HOLD FOR SBP <100 OR PULSE <60, NOTIFY PCP IF HELD FOR 3 CONSECUTIVE DAYS Famotidine 20 Mg Tablet 20 Mg PO HS Eliquis (Apixaban) 5 Mg Tablet 5 Mg PO BID Docusate Sodium 100 Mg Capsule 200 Mg PO HS Acidophilus-Pectin Capsule (Lactobacillus Acidophilus/Pect) 1 Each Capsule 1 Each PO BID Sertraline HCl 50 Mg Tablet 50 Mg PO DAILY Multivitamin 1 Each Tablet 1 Each PO DAILY Assessment/Pt DC Instructions Advised patient to use nasal cannula during the day and BiPAP at night. Discharge Physical Examination Allergies: Coded Allergies: COVID-19 vaccine, mRNA, [id number], L (Verified Allergy, Severe, 10/06/21) Discharge Summary Date of Admission Date of Discharge Admission Diagnosis Acute on chronic hypercapnic respiratory failure NELY PERALTA MD 12/05/22 1519: Discharge Summary Discharge Physical Examination Allergies: Coded Allergies: COVID-19 vaccine, mRNA, [id number], L (Verified Allergy, Severe, 10/06/21) Supervisory-Addendum Brief Verification & Attestation Participated in pt care: history, MDM, physical Personally performed: exam, history, MDM, supervision of care Care discussed with: Medical Student Procedures: n/a Verification and Attestation of Medical Student E/M Service A medical student performed and documented this service in my presence. I reviewed and verified all information documented by the medical student and made modifications to such information, when appropriate. I personally performed the physical exam and medical decision making. Bipap not able to be obtained until Thursday, but given patient was not using bipap prior to admission, and he is currently medically stable and ready for d/c, believe he will be okay for the next couple of days and will have it set up on Thursday. Nely Peralta, Dec 05, 2022,15:19 SAKINA WETZEL Dec 05, 2022 13:55 NELY PERALTA MD Dec 05, 2022 15:19
[2022-12-05 15:30] VITALS: BP 136/76
[2022-12-05 19:48] VITALS: BP 151/84
[2022-12-05] MEDS: FAMOTIDINE 20 MG (PEPCID) TABLET PO SCH (20:16)
== END 2022-12-05 20:54 | DRG 189 ==
LOC: EDUNIT# 18:27 → ER 18:28 → ICU 20:00 → 4TH 12-03 12:32
PROVIDERS: ADMIT Family Medicine; ATTEND Internal Medicine
PROC: 5A09357 Assistance with Respiratory Ventilation, Less than 24 Consecutive Hours, Continuous Positive Airway Pressure (ICD-10-PCS; principal; 2022-12-02)
PROC: 5A0935A Assistance with Respiratory Ventilation, Less than 24 Consecutive Hours, High Flow/Velocity Cannula (ICD-10-PCS; 2022-12-04)
DX: J96.21 Acute and chronic respiratory failure with hypoxia (principal); G82.50 Quadriplegia, unspecified; N39.0 Urinary tract infection, site not specified; G61.0 Guillain-Barre syndrome; J96.22 Acute and chronic respiratory failure with hypercapnia; I10 Essential (primary) hypertension; F41.9 Anxiety disorder, unspecified; E78.00 Pure hypercholesterolemia, unspecified; E11.9 Type 2 diabetes mellitus without complications; F32.A Depression, unspecified; J44.9 Chronic obstructive pulmonary disease, unspecified; G40.909 Epilepsy, unspecified, not intractable, without status epilepticus; Z93.0 Tracheostomy status; E66.9 Obesity, unspecified; I48.0 Paroxysmal atrial fibrillation; Z68.32 Body mass index [BMI] 32.0-32.9, adult
CPT/HCPCS: 36415; 36600; 51702; 71045; 71275; 80053; 81000; 82805; 82947; 83605; 83735; 84100; 84145; 85025; 85610; 85730; 87040; 87077; 87081; 87088; 87186; 94640; 94660; 94760